=== PATIENT | female | born 1930 | race Caucasian/White ===

== ENCOUNTER 2019-02-02 03:01 | Inpatient (IN) | payer OTHER, BC ==
[2019-02-02 03:23] VITALS: BMI 27.8
--- NOTE | 2019-02-02 03:26 | PDOC ---
History of Present Illness - General Chief Complaint: Injury Stated Complaint: FALL Time Seen by Provider: 02/02/19 03:26 - History of Present Illness Initial Comments: 02/02/19 04:49 PT presents to the ED complaining of contusion to the forehead after mechanical slip and fall. Denies LOC. Was unable to get up, so she crawled to the door and summoned help. Patient is complaining only of pain in the area of the ecchymosis on her forehead. Denies chest or abdominal pain. Denies anticoagulant use. 02/02/19 05:01 Past History - Past Medical History Allergies/Adverse Reactions: Allergies Allergy/AdvReac Type Severity Reaction Status Date / Time No Known Allergies Allergy Verified 02/02/19 03:23 - Suicide/Smoking/Psychosocial Hx Smoking History: Never smoked Have you smoked in the past 12 months: No Information on smoking cessation initiated: No Hx Alcohol Use: No Drug/Substance Use Hx: No Review of Systems - Review of Systems Able to Perform ROS?: Yes Constitutional: No: Symptoms Reported, See HPI, Chills, Diaphoresis, Fever, Loss of Appetite, Malaise, Night Sweats, Weakness, Weight Stable, Unintentional Wgt. Loss, Unexplained wgt Loss, Other HEENTM: No: Symptoms Reported, See HPI, Eye Pain, Blurred Vision, Tearing, Recent change in vision, Double Vision, Cataracts, Ear Pain, Ocular Prothesis, Ear Discharge, Nose Pain, Nose Congestion, Tinnitus, Nose Bleeding, Hearing Loss , Throat Pain, Throat Swelling, Mouth Pain, Dental Problems, Difficulty Swallowing, Mouth Swelling, Other Respiratory: No: Symptoms reported, See HPI, Cough, Orthopnea, Shortness of Breath, SOB with Exertion, SOB at Rest, Stridor, Wheezing, Productive cough, Hemoptysis, Other Cardiac (ROS): No: Symptoms Reported, See HPI, Chest Pain, Edema, Irregular Heart Rate, Lightheadedness, Palpitations, Syncope, Chest Tightness, Other ABD/GI: No: Symptoms Reported, See HPI, Abdominal Distended, Abd. Pain w/ defecation, Blood Streaked Bowels, Constipated, Diarrhea, Difficulty Swallowing , Nausea, Poor Appetite, Poor Fluid Intake, Rectal Bleeding, Vomiting, Indigestion, Abdominal cramping, Tarry Stools, Other : No: Symptoms Reported, See HPI, Burning, Dysuria, Discharge, Frequency, Flank Pain, Hematuria, Incontinence, Pain, Urgency, Testicular Mass, Testicular Swelling, Lesions, Testicular Pain, Other Musculoskeletal: No: Symptoms Reported, See HPI, Back Pain, Gout, Joint Pain, Joint Swelling, Muscle Pain, Muscle Weakness, Neck Pain, Joint Stiffness, Other *Physical Exam - Vital Signs Last Vital Signs Temp Pulse Resp BP Pulse Ox 98.1 F 77 18 133/75 97 02/02/19 03:01 02/02/19 03:01 02/02/19 03:01 02/02/19 03:01 02/02/19 03:01 - Physical Exam General Appearance: Yes: Nourished, Appropriately Dressed HEENT: positive: EOMI, Other (+ large contusion on forehead) Respiratory/Chest: positive: Lungs Clear, Normal Breath Sounds Cardiovascular: positive: Regular Rhythm, Regular Rate, S1, S2 Gastrointestinal/Abdominal: positive: Flat, Soft. negative: Normal Bowel Sounds , Tender, Organomegaly, Pulsatile Mass, Increased Bowel Sounds, Decreased BS, Protuberent, Distended, Guarding, Rebound, Tenderness, Hernia, Mass, Hepatomegaly, Spleenomegaly, Other Musculoskeletal: positive: Other (+ Small ecchymosis R knee) Integumentary: positive: Normal Color, Dry, Warm Neurologic: positive: draw end hand II-XII NML intact, Fully Oriented, Alert, Normal Mood/ Affect, Motor Strength 5/5 Moderate Sedation - Procedure Monitoring Vital Signs: Procedure Monitoring Vital Signs Temperature 98.1 F 02/02/19 03:01 Pulse Rate 77 02/02/19 03:01 Respiratory Rate 18 02/02/19 03:01 Blood Pressure 133/75 02/02/19 03:01 O2 Sat by Pulse Oximetry (%) 97 02/02/19 03:01 ED Treatment Course - LABORATORY CBC & Chemistry Diagram: 02/02/19 04:29 02/02/19 04:29 Medical Decision Making - Medical Decision Making 02/02/19 05:05 PT presents to the ED complaining of painful ecchymosis to the forehead after mechanical fall from standing. Denies other injuries. + large ecchymosis to the forehead. Will check CT head and C spine to rule out intracranial bleed. Will consider discharge if labs and CT are negative. *DC/Admit/Observation/Transfer - Discharge Dispostion Condition at time of disposition: Fair - Referrals Referrals: Ivan Cuenca [Primary Care Provider] - - Patient Instructions - Post Discharge Activity
[2019-02-02 04:40] LABS: BASO % 1.1 % (0-2.0); HEMATOCRIT 40.2 % (32.4-45.2); HEMOGLOBIN 14.4 GM/dL (10.7-15.3); LYMPH % 8.7 % (8-40); MCH 35.1 pg (25.7-33.7); MCHC 35.8 g/dl (32.0-36.0); MEAN CELL VOLUME 97.9 fl (80-96); MEAN PLT VOLUME 6.9 fl (7.5-11.1); NEUT % 78.2 % (42.8-82.8); PLATELET COUNT 155 K/MM3 (134-434); RBC 4.11 M/mm3 (3.60-5.2); RDW 14.3 % (11.6-15.6); WHITE BLOOD COUNT 8.4 K/mm3 (4.0-10.0)
[2019-02-02 04:56] LABS: INR 1.13 (0.83-1.09); PROTHROMBIN TIME (PATIENT) 13.4 SEC (9.7-13.0)
[2019-02-02 04:59] LABS: ACTIVATED PTT 33.4 SECONDS (25.2-36.5)
[2019-02-02 05:16] LABS: ALBUMIN 3.5 g/dl (3.4-5.0); ALK PHOS 126 U/L (45-117); ANION GAP 9 MMOL/L (8-16); BILIRUBIN,TOTAL 1.4 mg/dL (0.2-1); BLOOD UREA NITROGEN 13 mg/dL (7-18); CALCIUM 8.5 mg/dL (8.5-10.1); CHLORIDE 91 mmol/L (98-107); CO2 28 mmol/L (21-32); CREATININE 0.8 mg/dL (0.55-1.3); GLUCOSE,RANDOM 98 mg/dL (74-106); POTASSIUM 3.1 mmol/L (3.5-5.1); SGOT/AST 212 U/L (15-37); SGPT/ALT 222 U/L (13-61); SODIUM 128 mmol/L (136-145); TOT PROT 7.1 g/dl (6.4-8.2)
--- NOTE | 2019-02-02 08:02 | PDOC ---
*Physical Exam - Vital Signs Last Vital Signs Temp Pulse Resp BP Pulse Ox 98.1 F 77 18 133/75 97 02/02/19 03:01 02/02/19 03:01 02/02/19 03:01 02/02/19 03:01 02/02/19 03:01 Heart Score/ECG Review - History History: Moderately suspicious - Electrocardiogram EKG: Non specific repolarization disturbance - Age Age: >/= 65 - Risk Factors Based on the list above the patient has:: No risk factors known - Troponin Troponin: 1-3x normal limit - Score Heart Score - Total: 5 ED Treatment Course - LABORATORY CBC & Chemistry Diagram: 02/02/19 04:29 02/02/19 04:29 - ADDITIONAL ORDERS Additional order review: Laboratory Results 02/02/19 02/02/19 04:29 04:29 PT with INR 13.40 H INR 1.13 H PTT (Actin FS) 33.4 Sodium 128 L Potassium 3.1 L Chloride 91 L Carbon Dioxide 28 Anion Gap 9 BUN 13 Creatinine 0.8 Creat Clearance w eGFR > 60 Random Glucose 98 Calcium 8.5 Total Bilirubin 1.4 H AST 212 H ALT 222 H Alkaline Phosphatase 126 H Creatine Kinase 119 Troponin I 0.09 H Total Protein 7.1 Albumin 3.5 02/02/19 04:29 RBC 4.11 MCV 97.9 H MCHC 35.8 RDW 14.3 MPV 6.9 L Neutrophils % 78.2 Lymphocytes % 8.7 Monocytes % 10.0 Eosinophils % 2.0 Basophils % 1.1 Medical Decision Making - Medical Decision Making 02/02/19 08:[address] Echevarria. Patient is an 88 yo female w/ pmh of osteoarthritis and hypothyroidism who presents s/p fall last night. Patient denies LOC, did hit forehead. Patient not currently on AC. Head / C-spine CT's negative. Knee XR negative. Labs elevated as below. Patient noted to have HEART score of 5. Will admit for cardiac monitoring. *DC/Admit/Observation/Transfer Diagnosis at time of Disposition: Elevated troponin, Weakness, Hypokalemia Fall Qualifiers: Encounter type: initial encounter Qualified Code(s): W19.XXXA - Unspecified fall, initial encounter - Discharge Dispostion Condition at time of disposition: Fair Decision to Admit order: Yes - Referrals Referrals: Ivan Cuenca [Primary Care Provider] - - Patient Instructions - Post Discharge Activity
[2019-02-02] MEDS ORDERED: KCL 10 MEQ IVPB 10 MEQ/100 ML INFUS.BAG IVPB ONE (08:37)
[2019-02-02] MEDS: KCL 10 MEQ IVPB 10 MEQ/100 ML INFUS.BAG IVPB SCH ×3 (08:43→13:43)
[2019-02-02] MEDS ORDERED: KCL 10 MEQ IVPB 20 MEQ/200 ML INFUS.BAG IVPB ONE (08:44)
[2019-02-02] MEDS ORDERED: ASPIRIN 81 MG CHEWABLE TABLETS PO ONE (10:00)
[2019-02-02] MEDS ORDERED: ASPIRIN 81 MG CHEWABLE TABLETS ONE (10:04)
--- NOTE | 2019-02-02 10:32 | EKG ---
Test Reason : Blood Pressure : / mmHG Vent. Rate : 077 BPM Atrial Rate : 077 BPM P-R Int : 202 ms QRS Dur : 092 ms QT Int : 420 ms P-R-T Axes : 025 -22 024 degrees QTc Int : 475 ms NORMAL SINUS RHYTHM MINIMAL VOLTAGE CRITERIA FOR LVH, MAY BE NORMAL VARIANT BORDERLINE ECG NO PREVIOUS ECGS AVAILABLE Confirmed by BERNABE CLEMENT MD ([id number]) on 02/02/2019 10:31:31 AM Referred By: Confirmed By:BERNABE CLEMENT MD
--- NOTE | 2019-02-02 12:15 | HP ---
CHIEF COMPLAINT: fell out of bed PCP: Dr Mead HISTORY OF PRESENT ILLNESS: Patient is an 88 year old female who lives at the [facility] assisted living facility. She is brought into the ED via EMS after she fell out of bed and landed on her face. She likely hit her face on furniture, as she has a large hematoma on her right scalp. Currently, does not have any mental status changes. She lives alone. She tells me that she was asleep, and when she tried to get out of bed, she fell down and landed on her face. She denies any dizziness or LOC loss. She screamed for help until someone heard her and EMS was activated. She estimates that she was on the floor for about 35 minutes. She also hurt her right knee and it is currently reddened, but negative for fracture. On exam, she is awake and alert and in no acute distress. She is alert and oriented x 3 and can recall some of the events of the fall. She denies any sick contacts or any acute illness. She denies any dizziness or chest pain. Denies shortness of breath. She denies any visual loss, no obvious trauma to her eyes. Her left eye is open , sclera clear. right eye swollen shut, but sclera is clear and she denies any visual defect. plan: repeat head CT in a.m. or sooner if she has mental status changes monitor kidney function early cellulitis of left leg? ID consult. mantilla culture. lactic acid ordered will doppler bilateral lower ext hold her ASA until 2nd CT scan of head confirms no head bleed ER course was notable for: (1) left leg sightly red, hot and painful to touch. some self inflicted scratches (2) no signs of sepsis, but will order ua, uc bc to rule out acute infection (3) no signs of ischemia on tele, has elevated troponin (4) bilateral perioorbital eccymosis right>left. large right scalp hematoma (5) troponin 0.09 (6) head ct negative, knee xray negative, ct spine negative (7) heart score 5, Recent Travel: none PAST MEDICAL HISTORY: osteoarthritis and hypothyroidism Social History: Smoking: denies Alcohol: denies Drugs: denies Family History: Allergies codeine Allergy (Unknown, Verified 02/02/19 08:25) HOME MEDICATIONS: Home Medications Medication Instructions Recorded Aspirin 81 mg PO DAILY 02/02/19 Calcium Carb, Citrate/Vit D3 1 each PO DAILY 02/02/19 [Calcium + D3 ER Tablet] Cyanocobalamin [Vitamin B12 -] 1,000 mg PO DAILY 02/02/19 Gabapentin [Neurontin] 100 mg PO HS 02/02/19 Lactobacillus Acidophilus 1 each PO DAILY 02/02/19 [Acidophilus] Levothyroxine [Synthroid -] 137 mcg PO DAILY 02/02/19 Lutein 20 mg PO DAILY 02/02/19 Naproxen Sodium [Aleve] 220 mg PO PRN 02/02/19 Propylene Glycol/Peg 400/Pf 1 each OP DAILY 02/02/19 [Systane 0.3-0.4% Eye Drops] PHYSICAL EXAMINATION Vital Signs - 24 hr 02/02/19 02/02/19 03:01 08:25 Temperature 98.1 F 97.6 F Pulse Rate 77 Pulse Rate [ 74 Left] Respiratory 18 17 Rate Blood Pressure 133/75 Blood Pressure 126/71 [Left Arm] O2 Sat by Pulse 97 95 Oximetry (%) GENERAL: Awake, alert, and fully oriented HEAD/EYES: bilateral periorbital ecchymosis, right large scalp hematoma. She denies any visual loss, no obvious trauma to her eyes. Her left eye is open, sclera clear. right eye swollen shut, but sclera is clear and she denies any visual defect. Pupils equal, round and reactive to light. EARS, NOSE, THROAT: nose bruising NECK: Normal range of motion, supple without lymphadenopathy, JVD, or masses. LUNGS: Breath sounds equal, clear to auscultation bilaterally. No wheezes HEART: Regular rate and rhythm ABDOMEN: Soft, nontender, not distended, normoactive bowel sounds, no guarding, no rebound, no masses. No hepatomegaly or splenomegaly. MUSCULOSKELETAL: Normal range of motion at all joints. No bony deformities or tenderness. No CVA tenderness. UPPER EXTREMITIES: 2+ pulses, warm, well-perfused. No cyanosis. No clubbing. No peripheral edema. LOWER EXTREMITIES: Left leg reddened, painful to touch with small area of skin tear on left anterior leg by ankle. hot to touch. will doppler. Possible early cellulitis. Right knee reddened, no open wounds. no fracture. NEUROLOGICAL: Normal speech. Normal gait. PSYCHIATRIC: Cooperative. Appropriate mood and affect. Laboratory Results - last 24 hr 02/02/19 02/02/19 02/02/19 04:29 04:29 04:29 WBC 8.4 RBC 4.11 Hgb 14.4 Hct 40.2 MCV 97.9 H MCH 35.1 H MCHC 35.8 RDW 14.3 Plt Count 155 MPV 6.9 L Absolute Neuts (auto) 6.5 Neutrophils % 78.2 Lymphocytes % 8.7 Monocytes % 10.0 Eosinophils % 2.0 Basophils % 1.1 Nucleated RBC % 0 PT with INR 13.40 H INR 1.13 H PTT (Actin FS) 33.4 Sodium 128 L Potassium 3.1 L Chloride 91 L Carbon Dioxide 28 Anion Gap 9 BUN 13 Creatinine 0.8 Creat Clearance w eGFR > 60 Random Glucose 98 Calcium 8.5 Total Bilirubin 1.4 H AST 212 H ALT 222 H Alkaline Phosphatase 126 H Creatine Kinase 119 Troponin I 0.09 H Total Protein 7.1 Albumin 3.5 ASSESSMENT/PLAN: Patient is an 88 year old female who lives at the [facility] assisted living facility. She is brought into the ED via EMS after she fell out of bed and landed on her face. She likely hit her face on furniture, as she has a large hematoma on her right scalp. Currently, does not have any mental status changes. She lives alone. She tells me that she was asleep, and when she tried to get out of bed, she fell down and landed on her face. She denies any dizziness or LOC loss. She screamed for help until someone heard her and EMS was activated. She estimates that she was on the floor for about 35 minutes. She also hurt her right knee and it is currently reddened, but negative for fracture. -------- problem list osteoarthritis Facial hematoma Facial trauma Fall with injury Heart score 5 Elevated ast/alt electrolyte imbalance ------ Neuro: Fall with injury large right scalp hematoma Periorbital edema/ecchymosis plan: - fall precautions - apply ice - bed rest - physical therapy in a.m. - repeat head ct in a.m. - monitor mental status - monitor hmg/hct - mantilla culture to rule out infection as cause of fall, lactic acid, ua, uc, bc - hold ASA until 2nd head CT confirms no bleeding - orthostatics - neuro consult if mentation changes. monitor mental status q2 - scheduled tylenol for pain Renal Electrolyte imbalance hyponatremia, treat with ns and repeat levels this afternoon hypokalemia, repleted in ED. repeat levels Card: Rule out ACS Heart score 5 Monitor on tele Trop 0.09, trend Echo cardiology consult ID Left leg redness/pain Rule out early cellulitis check ua, uc and blood cultures ID consulted doppler legs to rule out dvt GI: Elevated ast/alt in the setting of acute trauma Liver ultrasound now fen hydrate with NS @ 75cc/hr monitor electrolytes low salt diet full code Visit type - Emergency Visit Emergency Visit: Yes ED Registration Date: 02/02/19 Care time: The patient presented to the Emergency Department on the above date and was hospitalized for further evaluation of their emergent condition. - New Patient This patient is new to me today: Yes Date on this admission: 02/02/19 - Critical Care Critical Care patient: No
[2019-02-02] MEDS ORDERED: LEVOTHYROXINE NA 125 MCG TABLET (FP) PO SCH (12:30)
[2019-02-02 12:59] LABS: MAGNESIUM 2.2 mg/dL (1.8-2.4)
[2019-02-02] MEDS ORDERED: KETOROLAC TROMETHAMINE 10 MG TABLET PO PRN (13:10)
[2019-02-02] MEDS: LEVOTHYROXINE 112 MCG, LEVOTHYROXINE 25 MCG PO SCH (13:43)
[2019-02-02] MEDS ORDERED: ONDANSETRON 4 MG/2 ML VIAL IVPUSH ONE (13:52)
--- NOTE | 2019-02-02 14:01 | PN ---
Progress Note (short form) - Note Progress Note: ID consult dictated imp/reccd s/p fall from bed no fevers she is alert but quite sore and uncomfortable-does not want to talk denies feeling unwell prior to the fall no fevers no dysuria no cough doubt cellulitis would agree with cultures would observe off antiibotics abnormal LFTS- agree with sonogram of liver hyponatremia/hypokalemia - being repleted
[2019-02-02] MEDS: SODIUM CHLORIDE 1,000 ML IV SCH (14:25)
[2019-02-02] MEDS ORDERED: ONDANSETRON 4 MG/2 ML VIAL ONE (14:26)
[2019-02-02] MEDS: TETRAHYDROZOLINE HCL EYE DROPS OD SCH ×3 (14:31→23:35)
[2019-02-02 16:08] LABS: ALBUMIN 3.1 g/dl (3.4-5.0); ALK PHOS 100 U/L (45-117); ANION GAP 8 MMOL/L (8-16); BILIRUBIN,TOTAL 1.7 mg/dL (0.2-1); BLOOD UREA NITROGEN 12 mg/dL (7-18); CALCIUM 8.4 mg/dL (8.5-10.1); CHLORIDE 92 mmol/L (98-107); CO2 28 mmol/L (21-32); CREATININE 0.7 mg/dL (0.55-1.3); GLUCOSE,RANDOM 115 mg/dL (74-106); POTASSIUM 3.4 mmol/L (3.5-5.1); SGOT/AST 190 U/L (15-37); SGPT/ALT 201 U/L (13-61); SODIUM 128 mmol/L (136-145); TOT PROT 6.4 g/dl (6.4-8.2)
[2019-02-02] MEDS ORDERED: POTASSIUM CHLORIDE TABS 20 MEQ TABLET.ER (FP) PO ONE ×2 (16:11→16:45)
--- NOTE | 2019-02-02 17:00 | CONS ---
DATE OF CONSULTATION: DATE OF DICTATION: 02/02/2019 INFECTIOUS DISEASE CONSULTATION REQUESTING PHYSICIAN: Hospitalist Service CONSULTING PHYSICIAN: Sara Rey M.D. HISTORY OF PRESENT ILLNESS: this is an 88-year-old woman, she lives at the [facility] in [place]. She fell out of bed this morning and landed on her face. She was not able to get up, and she thinks about she was on the floor for about 30 to 40 minutes. Much of this history is from the chart. The presentation is currently awake and alert. She is very frustrated and tired of talking and is very sore and uncomfortable and is not really willing to answer any questions in depth. She does state that she felt fine yesterday . She had no fevers or chills. She had shortness of breath, abdominal pain, chest pain prior to this event. She was noted in the ER to have a hematoma on her scalp and ecchymosis of her eyes. She underwent a CAT scan of her head as well as a cervical spine CT, none of which showed any acute pathology. She had an x-ray of her knee as well. The knee showed evidence of bruising from her fall, was ecchymotic. There was no fracture. She is currently resting comfortably, but is quite uncomfortable. PAST MEDICAL HISTORY: Notable for osteoarthritis and hypothyroidism. She has had bilateral knee surgery. I do not know other surgeries she has had. She lives alone. She is allergic to CODEINE. Her medicines at home include Systane eyedrops, calcium with vitamin D, naproxen, gabapentin, aspirin, levothyroxine, and vitamin B12. SOCIAL HISTORY: She resides in assisted living. There is no history of any cigarette or substance use. REVIEW OF SYSTEMS: Limited by the patient's cooperation. PHYSICAL EXAMINATION: GENERAL: She is awake and alert. She is afebrile with vital signs that are stable. VITAL SIGNS: Temperature 97.6, pulse 74, blood pressure 126/71, respiratory rate 17. She is saturating 95% on room air. HEENT: She is normocephalic. She has ecchymoses around both her eyes. Her right eye is slightly swollen shut. Her left eye she is able to easily open. LUNGS: Clear to auscultation. HEART: Regular rate and rhythm. ABDOMEN: Soft, nontender. EXTREMITIES: Her right knee is ecchymotic. 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 There is no erythema or warmth of her legs. LABORATORY: White count is 8.4, hemoglobin 14.4, platelets of 155, INR 1.13. Sodium 128, potassium 3.1, glucose 98. Her total bilirubin is 1.4 with an AST of 121, an ALT of 222, alkaline phosphatase is 126. Troponin is 0.12 and CK is normal. Head CT x-ray and cervical spine CT as previously stated. IMPRESSION: 1. In summary, this is an elderly woman status post fall from bed. She has no fevers, no dysuria, no cough. I doubt she has cellulitis. Would agree with cultures as ordered as well as urinalysis. Would observe off antibiotics. 2. Abnormal liver function tests, would agree sonogram of the liver. 3. Hyponatremia, hypokalemia, electrolytes are being corrected. Further recommendations to follow. Jennifer [id number]
--- NOTE | 2019-02-02 18:11 | CON.CARD ---
Consult Consult Specialty:: Cardiology Referred by:: Hospitalist Reason for Consultation:: Cardiac evaluation - History of Present Illness Chief Complaint: Possible syncope vs. mechanical fall History of Present Illness: Patient is an 88 year old female with underlying history of osteoarthritis and hypothyroidism who resides at [facility] living [facility]. She was in her USOH until today when she fell out of bed and landed on her face resulting in large hematoma on her right scalp and facial bruise especially in the orbital area. She denies any dizziness or LOC. She denies chest pain, SOB or palpitations. She denies paroxysmal nocturnal dyspnea or orthopnea. She denies fever or chills. She denies nausea, vomiting, diarrhea or abdominal pain. She complains of neck discomfort with the position but C-spine CT was negative and other Xrays were negative of fractures. - History Source History Provided By: Patient, Medical Record Limitations to Obtaining History: No Limitations - Past Medical History Musculoskeletal: Yes: Osteoarthritis Endocrine: Yes: Hypothyroidism - Alcohol/Substance Use Hx Alcohol Use: No History of Substance Use: reports: Tranquilizers - Smoking History Smoking history: Never smoked Have you smoked in the past 12 months: No Home Medications - Allergies Allergies/Adverse Reactions: Allergies Allergy/AdvReac Type Severity Reaction Status Date / Time codeine Allergy Unknown Verified 02/02/19 08:25 - Home Medications Home Medications: Ambulatory Orders Aspirin 81 mg PO DAILY 02/02/19 Calcium Carb, Citrate/Vit D3 [Calcium + D3 ER Tablet] 1 each PO DAILY 02/02/19 Cyanocobalamin [Vitamin B12 -] 1,000 mg PO DAILY 02/02/19 Gabapentin [Neurontin] 100 mg PO HS 02/02/19 Lactobacillus Acidophilus [Acidophilus] 1 each PO DAILY 02/02/19 Levothyroxine [Synthroid -] 137 mcg PO DAILY 02/02/19 Lutein 20 mg PO DAILY 02/02/19 Naproxen Sodium [Aleve] 220 mg PO PRN 02/02/19 Propylene Glycol/Peg 400/Pf [Systane 0.3-0.4% Eye Drops] 1 each OP DAILY Review of Systems - Review of Systems Constitutional: denies: Chills, Fever Neck: reports: Pain on Movement Respiratory: denies: Cough, Orthopnea, PND, SOB, SOB on Exertion Gastrointestinal: denies: Abdominal Pain, Constipation, Diarrhea, Melena, Nausea , Rectal Bleeding, Vomiting Genitourinary: denies: Dysuria, Hematuria Musculoskeletal: reports: Joint Pain Neurological: denies: Dizziness, Headache, Seizure, Syncope Vital Signs: Vital Signs Temperature 97.6 F 02/02/19 08:25 Pulse Rate 74 02/02/19 08:25 Respiratory Rate 17 02/02/19 08:25 Blood Pressure 126/71 02/02/19 08:25 O2 Sat by Pulse Oximetry (%) 95 02/02/19 08:25 HENT: Yes: Other (Orbital ecchymosis) Respiratory: Yes: CTA Bilaterally Gastrointestinal: Yes: Normal Bowel Sounds, Soft. No: Tenderness Cardiovascular: Yes: Regular Rate and Rhythm JVD: No PMI: Non-Displaced Heart Sounds: Yes: S1, S2 Murmur: No: Systolic Murmur Extremities: Yes: Other (Redness of right knee cap) Edema: Yes Edema: LLE: Trace, RLE: Trace - Other Data Labs, Other Data: CBC, BMP 02/02/19 04:29 02/02/19 14:30 INR, PTT INR 1.13 (0.83-1.09) H 02/02/19 04:29 Troponin, BNP 02/02/19 02/02/19 04:29 12:15 Troponin I 0.09 H 0.12 H NSR with minimal LVH Problem List - Problems (1) Demand ischemia Code(s): I24.8 - OTHER FORMS OF ACUTE ISCHEMIC HEART DISEASE (2) Osteoarthritis Code(s): M19.90 - UNSPECIFIED OSTEOARTHRITIS, UNSPECIFIED SITE (3) Hypothyroidism Code(s): E03.9 - HYPOTHYROIDISM, UNSPECIFIED (4) Elevated troponin Code(s): R74.8 - ABNORMAL LEVELS OF OTHER SERUM ENZYMES (5) Fall Code(s): W19.XXXA - UNSPECIFIED FALL, INITIAL ENCOUNTER Qualifiers: Encounter type: initial encounter Qualified Code(s): W19.XXXA - Unspecified fall, initial encounter Assessment/Plan 1. Mechanical fall resulting in right scalp hematoma and orbital ecchymosis, no fractures 2. Cannot rule out possible syncope 3. Osteoarthritis 4. Hypothyroidism 5. Elevated troponin likely demand ischemia PLAN: 1. Monitor on telemetry 2. Echocardiography to assess LV/RV and valvular function 3. Trend troponin and document peak 4. Consider repeat imaging of the head to rule out internal injury 5. Follow neuro status Further plans are to follow Taran Uribe MD
[2019-02-02] MEDS: GABAPENTIN 100 MG CAPSULE (FP) PO SCH (21:52)
[2019-02-02 22:19] LABS: ALBUMIN 3.3 g/dl (3.4-5.0); ALK PHOS 101 U/L (45-117); ANION GAP 9 MMOL/L (8-16); BILIRUBIN,TOTAL 2.1 mg/dL (0.2-1); BLOOD UREA NITROGEN 11 mg/dL (7-18); CALCIUM 8.7 mg/dL (8.5-10.1); CHLORIDE 94 mmol/L (98-107); CO2 27 mmol/L (21-32); CREATININE 0.7 mg/dL (0.55-1.3); GLUCOSE,RANDOM 94 mg/dL (74-106); SGOT/AST 189 U/L (15-37); SGPT/ALT 206 U/L (13-61); SODIUM 130 mmol/L (136-145); TOT PROT 6.8 g/dl (6.4-8.2)
[2019-02-03] MEDS ORDERED: LEVOTHYROXINE NA 25 MCG TABLET (FP) ONE (05:51)
[2019-02-03] MEDS ORDERED: LEVOTHYROXINE NA 112 MCG TABLET (FP) ONE (05:52)
[2019-02-03] MEDS: LEVOTHYROXINE 112 MCG, LEVOTHYROXINE 25 MCG PO SCH (06:28)
[2019-02-03 07:53] LABS: BASO % 0.7 % (0-2.0); EOS % 1.8 % (0-4.5); HEMATOCRIT 37.2 % (32.4-45.2); HEMOGLOBIN 13.1 GM/dL (10.7-15.3); LYMPH % 13.8 % (8-40); MCH 34.5 pg (25.7-33.7); MCHC 35.3 g/dl (32.0-36.0); MEAN CELL VOLUME 97.7 fl (80-96); MEAN PLT VOLUME 7.2 fl (7.5-11.1); MONO % 14.1 % (3.8-10.2); NEUT % 69.6 % (42.8-82.8); PLATELET COUNT 162 K/MM3 (134-434); RBC 3.81 M/mm3 (3.60-5.2); RDW 14.1 % (11.6-15.6); WHITE BLOOD COUNT 7.1 K/mm3 (4.0-10.0)
[2019-02-03 08:31] LABS: ANION GAP 9 MMOL/L (8-16); BLOOD UREA NITROGEN 11 mg/dL (7-18); CALCIUM 7.7 mg/dL (8.5-10.1); CHLORIDE 97 mmol/L (98-107); CHOLESTEROL 123 mg/dL (50-200); CO2 26 mmol/L (21-32); CREATININE 0.6 mg/dL (0.55-1.3); GLUCOSE,RANDOM 90 mg/dL (74-106); HDL CHOLESTEROL 61 mg/dL (40-60); MAGNESIUM 1.8 mg/dL (1.8-2.4); PHOSPHOROUS 2.4 mg/dL (2.5-4.9); POTASSIUM 3.6 mmol/L (3.5-5.1); SODIUM 132 mmol/L (136-145); TRIGLYCERIDES 42 mg/dL (0-150)
[2019-02-03] MEDS ORDERED: PT OWN MED DRAWER 7, Y5N ONE (09:43)
[2019-02-03] MEDS: ARTIFICIAL TEARS (POLYVINYL ALCOHOL) OPTH DROPS OU SCH (09:44)
[2019-02-03] MEDS: TETRAHYDROZOLINE HCL EYE DROPS OD SCH ×4 (09:45→21:15)
[2019-02-03] MEDS ORDERED: MAGNESIUM SULF 50% (8.12 MEQ/2 ML-1 GM VIAL) IVPB ONE (09:56)
[2019-02-03] MEDS ORDERED: POTASSIUM CHLORIDE ORAL LIQUID 20 MEQ/15 ML PO ONE (09:56)
[2019-02-03] MEDS ORDERED: CYANOCOBALAMIN 1,000 MCG TABLET (FP) PO SCH (10:00)
[2019-02-03] MEDS ORDERED: ASPIRIN 81 MG CHEWABLE TABLETS PO SCH (10:00)
[2019-02-03] MEDS ORDERED: CALCIUM GLUCONATE 10% - 1,000 MG/10 ML VIAL IVPB ONE (11:00)
--- NOTE | 2019-02-03 11:08 | PN ---
Progress Note, Physician Chief Complaint: Feels better History of Present Illness: Patient was seen and examined. Awake and alert. Chart was reviewed Denies chest pain, SOB or palpitations - Current Medication List Current Medications: Active Medications Artificial Tears (Artificial Tears) 1 drop OU DAILY [facility] Last Admin: 02/03/19 09:44 Dose: 1 drop Gabapentin (Neurontin -) 100 mg PO HS [facility] Last Admin: 02/02/19 21:52 Dose: 100 mg Sodium Chloride (Normal Saline -) 1,000 mls @ 75 mls/hr IV ASDIR [facility] Last Admin: 02/02/19 14:25 Dose: 75 mls/hr Ketorolac Tromethamine (Toradol) 10 mg PO Q6HPO PRN PRN Reason: PAIN LEVEL 4 - 6 Stop: 02/07/19 17:59 Levothyroxine Sodium (Synthroid -) 112 mcg PO DAILY@0700 [facility] Tetrahydrozoline HCl (Visine -) 1 drop OD QID [facility] Last Admin: 02/03/19 09:45 Dose: 1 drop - Objective Vital Signs: Vital Signs Temperature 98.1 F 02/03/19 09:00 Pulse Rate 77 02/03/19 09:00 Respiratory Rate 20 02/03/19 09:00 Blood Pressure 145/77 02/03/19 09:00 O2 Sat by Pulse Oximetry (%) 97 02/03/19 09:00 Eyes: Yes: PERRL HENT: Yes: Atraumatic Neck: Yes: Supple Cardiovascular: Yes: Regular Rate and Rhythm, S1, S2 Respiratory: Yes: CTA Bilaterally Gastrointestinal: Yes: Normal Bowel Sounds, Soft. No: Tenderness Edema: No Additional Findings/Remarks: - Review of Systems Constitutional: denies: Chills, Fever Neck: reports: Pain on Movement Respiratory: denies: Cough, Orthopnea, PND, SOB, SOB on Exertion Gastrointestinal: denies: Abdominal Pain, Constipation, Diarrhea, Melena, Nausea , Rectal Bleeding, Vomiting Genitourinary: denies: Dysuria, Hematuria Musculoskeletal: reports: Joint Pain Neurological: denies: Dizziness, Headache, Seizure, Syncope Labs: CBC, BMP 02/03/19 06:48 02/03/19 06:48 INR, PTT INR 1.13 (0.83-1.09) H 02/02/19 04:29 Problem List - Problems (1) Demand ischemia Code(s): I24.8 - OTHER FORMS OF ACUTE ISCHEMIC HEART DISEASE (2) Osteoarthritis Code(s): M19.90 - UNSPECIFIED OSTEOARTHRITIS, UNSPECIFIED SITE (3) Hypothyroidism Code(s): E03.9 - HYPOTHYROIDISM, UNSPECIFIED Qualifiers: Hypothyroidism type: unspecified Qualified Code(s): E03.9 - Hypothyroidism , unspecified (4) Elevated troponin Code(s): R74.8 - ABNORMAL LEVELS OF OTHER SERUM ENZYMES (5) Fall Code(s): W19.XXXA - UNSPECIFIED FALL, INITIAL ENCOUNTER Qualifiers: Encounter type: initial encounter Qualified Code(s): W19.XXXA - Unspecified fall, initial encounter Assessment/Plan 1. Mechanical fall resulting in right scalp hematoma and orbital ecchymosis, no fractures 2. Cannot rule out possible syncope 3. Osteoarthritis 4. Hypothyroidism 5. Elevated troponin likely demand ischemia PLAN: 1. Monitor on telemetry 2. Echocardiography to assess LV/RV and valvular function 3. Trend troponin and document peak 4. Head CT noted 5. Follow neuro status Further plans are to follow Taran Uribe MD
[2019-02-03] MEDS: SODIUM CHLORIDE 1,000 ML IV SCH (12:35)
[2019-02-03 13:37] LABS: URINE APPEARANCE SLCLOUDY; URINE BILIRUBIN NEGATIVE (<2.0 mg/dL); URINE COLOR YELLOW; URINE GLUCOSE (UA) NEGATIVE (NEGATIVE); URINE KETONE NEGATIVE (NEGATIVE); URINE LEUK ESTERASE 3+ (NEGATIVE); URINE NITRITE NEGATIVE (NEGATIVE); URINE PROTEIN NEGATIVE (NEGATIVE); URINE UROBILINOGEN 4.0 E.U/dl mg/dL (0.2-1.0)
[2019-02-03 13:52] LABS: EPI CELLS RARE /HPF (FEW)
--- NOTE | 2019-02-03 17:05 | PN ---
Progress Note, Physician Chief Complaint: s/p fall with head trauma History of Present Illness: 24 HR events: -repeat head CT 02/03: no acute intracranial pathology -TSH 0.14 (L), T4F 2.27 (H), will decrease synthroid from 137 to 112mcg -PT evaluation for discharge recommendations. - Current Medication List Current Medications: Active Medications Artificial Tears (Artificial Tears) 1 drop OU DAILY [facility] Last Admin: 02/03/19 09:44 Dose: 1 drop Gabapentin (Neurontin -) 100 mg PO HS [facility] Last Admin: 02/02/19 21:52 Dose: 100 mg Sodium Chloride (Normal Saline -) 1,000 mls @ 75 mls/hr IV ASDIR [facility] Last Admin: 02/03/19 12:35 Dose: 75 mls/hr Ketorolac Tromethamine (Toradol) 10 mg PO Q6HPO PRN PRN Reason: PAIN LEVEL 4 - 6 Stop: 02/07/19 17:59 Levothyroxine Sodium (Synthroid -) 112 mcg PO DAILY@0700 [facility] Tetrahydrozoline HCl (Visine -) 1 drop OD QID [facility] Last Admin: 02/03/19 13:13 Dose: 1 drop - Objective Vital Signs: Vital Signs Temperature 98.5 F 02/03/19 14:00 Pulse Rate 78 02/03/19 14:00 Respiratory Rate 20 02/03/19 09:00 Blood Pressure 114/67 02/03/19 14:00 O2 Sat by Pulse Oximetry (%) 97 02/03/19 09:00 Constitutional: Yes: Well Nourished, No Distress, Calm Eyes: Yes: Other (saad-orbital ecchymosis, pupils reactive b/l, + swelling of eyelids) HENT: Yes: Other Neck: Yes: Supple Cardiovascular: Yes: Regular Rate and Rhythm Respiratory: Yes: CTA Bilaterally Gastrointestinal: Yes: Normal Bowel Sounds, Soft, Abdomen, Obese ...Rectal Exam: Yes: Deferred Musculoskeletal: Yes: Joint Stiffness Extremities: Yes: Cool Edema: Yes Edema: LLE: Trace, RLE: Trace Peripheral Pulses: Left Radial: 2+, Right Radial: 2+ Wound/Incision: Yes: Other (right temporal hematoma, tender to touch) Neurological: Yes: Alert, Oriented, Unsteady Gait, Weakness ...Motor Strength: WNL Psychiatric: Yes: Alert, Oriented Labs: CBC, BMP 02/03/19 06:48 02/03/19 06:48 INR, PTT INR 1.13 (0.83-1.09) H 02/02/19 04:29 - ....Imaging Chest X-ray: Report Reviewed (CXR 02/03/2019 A single AP view of the chest reveals degenerative fact, no sign of infiltrate or failure, linear scarring or atelectasis at the left heart border, prominent knob with tracheal deviation to the right, normal beata and enlarged heart. The angles are sharp and the soft tissues are intact. There are degenerative spine and shoulder changes. Correlation recommended. There are no prior studies for comparison Reported By: Joseph Moon MD 02/03/19 1434) X-ray: Report Reviewed Cat Scan: Report Reviewed (Head CT 02/03/2019 IMPRESSION: Moderate atrophy, ventricular dilatation and periventricular chronic microvascular ischemic disease changes. No gross acute intracranial pathology is identified. Slight decrease in the size of previously visualized large scalp hematoma over the right frontal bone, superiorly. Reported By: Srini May MD 02/03/19 2182) Ultrasound: Report Reviewed (Liver sono 02/03/2019 Impression: No obvious hepatic pathology is seen. Cholelithiasis is noted as discussed above. If there is clinical concern for possible acute cholecystitis additional evaluation utilizing CT, MRI/MRCP or a radionuclide HIDA scan may be performed. There is mild nonspecific gallbladder wall thickening. Correlate with two-week follow-up sonography. There is no obvious biliary tract dilatation.) Problem List - Problems (1) Prophylactic measure Assessment/Plan: restart ASA 81mg daily on 02/04 OOB to chair AMbulate SCDs bowel regimen with senna and colace Code(s): Z29.9 - ENCOUNTER FOR PROPHYLACTIC MEASURES, UNSPECIFIED (2) Fall Assessment/Plan: Discharge planning for SNF Ketorolac PRN pain from head trauma Code(s): W19.XXXA - UNSPECIFIED FALL, INITIAL ENCOUNTER Qualifiers: Encounter type: initial encounter Qualified Code(s): W19.XXXA - Unspecified fall, initial encounter (3) Hypothyroidism Assessment/Plan: TSH low, decrease synthroid to 112mcg recheck TSH/TFTs in 2 weeks Code(s): E03.9 - HYPOTHYROIDISM, UNSPECIFIED Qualifiers: Hypothyroidism type: unspecified Qualified Code(s): E03.9 - Hypothyroidism , unspecified (4) Osteoarthritis Assessment/Plan: tylenol PRN pain PT daily Code(s): M19.90 - UNSPECIFIED OSTEOARTHRITIS, UNSPECIFIED SITE Impression/Plan Impression/Plan: DISPO: full code Visit type - Emergency Visit Emergency Visit: Yes ED Registration Date: 02/03/19 Care time: The patient presented to the Emergency Department on the above date and was hospitalized for further evaluation of their emergent condition. - New Patient This patient is new to me today: Yes Date on this admission: 02/03/19 - Critical Care Critical Care patient: No - Discharge Referral Referred to [facility] No
--- NOTE | 2019-02-03 17:05 | ECHO ---
Name: CATRACHITA EDMONDS Exam:Adult Echocardiogram Study Date: 02/03/2019 10:28 AM Age: 88 yrs Reason For Study: fall Height: 64 in Weight: 162 lb BSA: 1.8 m2 MMode/2D Measurements & Calculations IVSd: 0.87 cm Ao root diam: 3.7 cm LVIDd: 4.4 cm LA dimension: 2.6 cm LVIDs: 2.9 cm ACS: 2.0 cm LVPWd: 1.0 cm IVSs: 1.1 cm LVPWs: 1.1 cm EDV(Teich): 89.1 ml ESV(Teich): 31.3 ml Doppler Measurements & Calculations MV E max ángel: 71.1 cm/sec Ao V2 max: 121.0 cm/sec MV A max ángel: 85.1 cm/sec Ao max P.9 mmHg MV E/A: 0.83 Ao V2 mean: 93.3 cm/sec Ao mean P.9 mmHg Ao V2 VTI: 27.9 cm TR max ángel: 253.0 cm/sec Med Peak E' Ángel: 7.2 cm/sec TR max P.6 mmHg Med E/e': 9.9 Lat Peak E' Ángel: 8.2 cm/sec Lat E/e': 8.7 Procedure The study was technically difficult with many images being suboptimal in quality. Left Ventricle The left ventricular size, thickness and function are normal. Ejection Fraction = 60-65%.. The transm itral spectral Doppler flow pattern is suggestive of impaired LV relaxation. Right Ventricle The right ventricle is normal in size and function. Atria Normal left and right atrial size and function. Mitral Valve There is moderate mitral annular calcification. Aortic Valve There is moderate aortic sclerosis.;. No hemodynamically significant valvular aortic stenosis. Pulmonic Valve The pulmonic valve is not well visualized. Great Vessels Borderline aortic root dilatation. Pericardium/Pleura There is no pericardial effusion. Interpretation Summary The study was technically difficult with many images being suboptimal in quality. The left ventricular size, thickness and function are normal. Ejection Fraction = 60-65%.. The right ventricle is normal in size and function. Normal left and right atrial size and function. There is moderate mitral annular calcification. There is moderate aortic sclerosis.; No hemodynamically significant valvular aortic stenosis. Borderline aortic root dilatation. MD Merna Solares 02/03/2019 05:04 PM
[2019-02-03] MEDS ORDERED: SENNOSIDES/DOCUSATE COMBO (SENNA PLUS) TABLET (UD) PO PRN (17:15)
[2019-02-03] MEDS ORDERED: DOCUSATE SODIUM 100 MG CAPSULE (FP) PO PRN (17:15)
[2019-02-03] MEDS: GABAPENTIN 100 MG CAPSULE (FP) PO SCH (21:12)
[2019-02-04] MEDS: LEVOTHYROXINE NA 112 MCG TABLET (FP) PO SCH (06:19)
[2019-02-04] MEDS: SODIUM CHLORIDE 1,000 ML IV SCH ×2 (06:23→12:46)
[2019-02-04 07:44] LABS: ANION GAP 7 MMOL/L (8-16); BLOOD UREA NITROGEN 8 mg/dL (7-18); CHLORIDE 97 mmol/L (98-107); CO2 26 mmol/L (21-32); CREATININE 0.5 mg/dL (0.55-1.3); GLUCOSE,RANDOM 91 mg/dL (74-106); POTASSIUM 3.7 mmol/L (3.5-5.1); SODIUM 130 mmol/L (136-145)
--- NOTE | 2019-02-04 10:35 | PN ---
Progress Note, Physician History of Present Illness: Denies chest pain, dyspnea, palpitations, near or true syncope, no events on telemetry. - Current Medication List Current Medications: Active Medications Artificial Tears (Artificial Tears) 1 drop OU DAILY [facility] Last Admin: 02/03/19 09:44 Dose: 1 drop Aspirin (Asa -) 81 mg PO DAILY [facility] [place] Docusate Sodium (Colace -) 100 mg PO Q8H PRN PRN Reason: CONSTIPATION Last Admin: 02/03/19 21:14 Dose: 100 mg Gabapentin (Neurontin -) 100 mg PO HS [facility] [place] Last Admin: 02/03/19 21:12 Dose: 100 mg Sodium Chloride (Normal Saline -) 1,000 mls @ 75 mls/hr IV ASDIR [facility] [place] Last Admin: 02/04/19 06:23 Dose: 75 mls/hr Ketorolac Tromethamine (Toradol) 10 mg PO Q6HPO PRN PRN Reason: PAIN LEVEL 4 - 6 Stop: 02/07/19 17:59 Levothyroxine Sodium (Synthroid -) 112 mcg PO DAILY@0700 [facility] [place] Last Admin: 02/04/19 06:19 Dose: 112 mcg Senna/Docusate Sodium (Pericolace -) 2 tablet PO HS PRN PRN Reason: CONSTIPATION Last Admin: 02/03/19 21:13 Dose: 2 tablet Tetrahydrozoline HCl (Visine -) 1 drop OD QID [facility] [place] Last Admin: 02/03/19 21:15 Dose: 1 drop - Objective Vital Signs: Vital Signs Temperature 98.8 F 02/04/19 05:22 Pulse Rate 90 02/04/19 09:00 Respiratory Rate 18 02/04/19 09:00 Blood Pressure 158/86 02/04/19 09:00 O2 Sat by Pulse Oximetry (%) 97 02/03/19 21:00 Constitutional: Yes: No Distress, Calm HENT: Yes: Other (Periorbital ecchymoses) Cardiovascular: Yes: Regular Rate and Rhythm Respiratory: Yes: Regular, CTA Bilaterally Gastrointestinal: Yes: Normal Bowel Sounds, Soft Edema: No Labs: CBC, BMP 02/03/19 06:48 02/04/19 06:40 INR, PTT INR 1.13 (0.83-1.09) H 02/02/19 04:29 - ....Imaging Chest X-ray: Report Reviewed (NAD) Cat Scan: Report Reviewed (HCT: SVID, no ICH, resolving right frontal scalp hematoma) EKG: Report Reviewed (Tele: NSR) Problem List - Problems (1) Demand ischemia Code(s): I24.8 - OTHER FORMS OF ACUTE ISCHEMIC HEART DISEASE (2) Fall Code(s): W19.XXXA - UNSPECIFIED FALL, INITIAL ENCOUNTER Qualifiers: Encounter type: subsequent encounter Qualified Code(s): W19.XXXD - Unspecified fall, subsequent encounter (3) Hypothyroidism Code(s): E03.9 - HYPOTHYROIDISM, UNSPECIFIED Qualifiers: Hypothyroidism type: unspecified Qualified Code(s): E03.9 - Hypothyroidism , unspecified Assessment/Plan 02/03/2019 Echo: Normal biventricular size and fxn LVEF 60-65%, normal atrial sizes, no sig valve abnl 1. Mechanical fall resulting in right scalp hematoma and orbital ecchymosis, no fractures 2. Patient denies syncope 3. Osteoarthritis 4. Hypothyroidism with abnl TFTs 5. Elevated troponin likely demand ischemia PLAN: 1. Telemetry w/o events 2. Trops plateaued 3. Continue ASA 81 qd, add Toprol XL 25 qd, PT with gait training, d/c telemetry and d/c planning, Synthroid dosage change noted
[2019-02-04] MEDS ORDERED: PT OWN MED DRAWER 7, Y5N ONE ×2 (10:49→10:58)
--- NOTE | 2019-02-04 12:17 | PN ---
Physical Exam: SUBJECTIVE: Patient seen and examined. She has no complaints. OBJECTIVE: Vital Signs Period Temp Pulse Resp BP Sys/Blanco Pulse Ox Last 24 Hr 97.9 F-98.8 F 78-98 18-20 114-158/67-90 97 GENERAL: The patient is awake, alert, and fully oriented, in no acute distress. HEENT: Bilateral periorbital ecchymoses. Right upper eyelid swollen. Right frontal scalp hematoma. LUNGS: Breath sounds equal, clear to auscultation bilaterally, no wheezes, no crackles, no accessory muscle use. HEART: Regular rate and rhythm, S1, S2 without murmur, rub or gallop. ABDOMEN: Soft, nontender, nondistended, normoactive bowel sounds, no guarding, no rebound, no hepatosplenomegaly, no masses. EXTREMITIES: 2+ pulses, warm, well-perfused, trace edema. Laboratory Results - last 24 hr 02/03/19 02/04/19 13:00 06:40 Sodium 130 L Potassium 3.7 Chloride 97 L Carbon Dioxide 26 Anion Gap 7 L BUN 8 Creatinine 0.5 L Creat Clearance w eGFR > 60 Random Glucose 91 Calcium 8.0 L Troponin I 0.08 H Urine Color Yellow Urine Appearance Slcloudy Urine pH 7.0 Ur Specific [place] 1.012 Urine Protein Negative Urine Glucose (UA) Negative Urine Ketones Negative Urine Blood 1+ H Urine Nitrite Negative Urine Bilirubin Negative Urine Urobilinogen 4.0 e.u/dl H Ur Leukocyte Esterase 3+ H Urine WBC (Auto) 192 Urine RBC (Auto) 3 Ur Epithelial Cells Rare Active Medications Generic Name Dose Route Start Last Admin Trade Name Freq PRN Reason Stop Dose Admin Artificial Tears 1 drop 02/03/19 10:00 02/03/19 09:44 Artificial Tears OU 1 drop DAILY [facility] Administration Aspirin 81 mg 02/04/19 10:00 Asa - PO DAILY LIN Docusate Sodium 100 mg 02/03/19 17:15 02/03/19 21:14 Colace - PO 100 mg Q8H PRN Administration CONSTIPATION Gabapentin 100 mg 02/02/19 22:00 02/03/19 21:12 Neurontin - PO 100 mg HS LIN Administration Sodium Chloride 1,000 mls @ 75 mls/hr 02/02/19 12:30 02/04/19 06:23 Normal Saline - IV 75 mls/hr ASDIR LIN Administration Ketorolac Tromethamine 10 mg 02/02/19 13:10 Toradol PO 02/07/19 17:59 Q6HPO PRN PAIN LEVEL 4 - 6 Levothyroxine Sodium 112 mcg 02/04/19 07:00 02/04/19 06:19 Synthroid - PO 112 mcg DAILY@0700 [facility] Administration Metoprolol Succinate 25 mg 02/04/19 11:45 Toprol Xl - PO DAILY LIN Senna/Docusate Sodium 2 tablet 02/03/19 17:15 02/03/19 21:13 Pericolace - PO 2 tablet HS PRN Administration CONSTIPATION Tetrahydrozoline HCl 1 drop 02/02/19 14:00 02/03/19 21:15 Visine - OD 1 drop QID [facility] Administration ASSESSMENT/PLAN: 1. s/p fall with head and facial trauma - No fractures noted - Continue PT - Plan for short-term rehab 2. Hypothyroidism - Synthroid adjusted 3. Osteoarthritis 4. Demand ischemia - Continue aspirin, Toprol XL Visit type - Emergency Visit Emergency Visit: Yes ED Registration Date: 02/03/19 Care time: The patient presented to the Emergency Department on the above date and was hospitalized for further evaluation of their emergent condition. - New Patient This patient is new to me today: Yes Date on this admission: 02/04/19 - Critical Care Critical Care patient: No - Discharge Referral Referred to [facility].: No
[2019-02-04] MEDS: ASPIRIN 81 MG CHEWABLE TABLETS PO SCH (12:39)
[2019-02-04] MEDS: TETRAHYDROZOLINE HCL EYE DROPS OD SCH ×4 (12:39→23:18)
[2019-02-04] MEDS: ARTIFICIAL TEARS (POLYVINYL ALCOHOL) OPTH DROPS OU SCH (12:39)
[2019-02-04] MEDS: metoPROLOL SUCCINATE 25 MG TAB.SR.24H (FP) PO SCH (12:45)
[2019-02-04] MEDS ORDERED: DEXTROSE 5%-WATER - 50 ML IVPB ONE (21:18)
[2019-02-04] MEDS ORDERED: cefTRIAXone SODIUM 1 GM VIAL ONE (21:18)
[2019-02-04] MEDS: CEFTRIAXONE 1 GM in DEXTROSE 5%-WATER - 50 ML IVPB SCH (21:21)
[2019-02-04] MEDS: GABAPENTIN 100 MG CAPSULE (FP) PO SCH (21:21)
[2019-02-05] MEDS: LEVOTHYROXINE NA 112 MCG TABLET (FP) PO SCH (06:22)
[2019-02-05 08:16] LABS: ANION GAP 8 MMOL/L (8-16); BLOOD UREA NITROGEN 9 mg/dL (7-18); CALCIUM 7.8 mg/dL (8.5-10.1); CHLORIDE 93 mmol/L (98-107); CO2 25 mmol/L (21-32); CREATININE 0.4 mg/dL (0.55-1.3); GLUCOSE,RANDOM 85 mg/dL (74-106); POTASSIUM 3.1 mmol/L (3.5-5.1); SODIUM 125 mmol/L (136-145)
[2019-02-05] MEDS ORDERED: POTASSIUM CHLORIDE ORAL LIQUID 20 MEQ/15 ML PO ONE (09:04)
[2019-02-05] MEDS ORDERED: CALCIUM GLUCONATE 10% - 1,000 MG/10 ML VIAL IVPB ONE (09:04)
--- NOTE | 2019-02-05 09:51 | PN ---
Progress Note, Physician History of Present Illness: Denies chest pain, dyspnea, palpitations, near or true syncope. - Current Medication List Current Medications: Active Medications Artificial Tears (Artificial Tears) 1 drop OU DAILY [facility] Last Admin: 02/04/19 12:39 Dose: 1 drop Aspirin (Asa -) 81 mg PO DAILY [facility] Last Admin: 02/04/19 12:39 Dose: 81 mg Docusate Sodium (Colace -) 100 mg PO Q8H PRN PRN Reason: CONSTIPATION Last Admin: 02/03/19 21:14 Dose: 100 mg Gabapentin (Neurontin -) 100 mg PO HS [facility] Last Admin: 02/04/19 21:21 Dose: 100 mg Sodium Chloride (Normal Saline -) 1,000 mls @ 75 mls/hr IV ASDIR [facility] Last Admin: 02/04/19 12:46 Dose: Not Given Ceftriaxone Sodium 1 gm/ (Dextrose) 50 mls @ 100 mls/hr IVPB DAILY [facility]; Protocol Last Admin: 02/04/19 21:21 Dose: 100 mls/hr Ketorolac Tromethamine (Toradol) 10 mg PO Q6HPO PRN PRN Reason: PAIN LEVEL 4 - 6 Stop: 02/07/19 17:59 Levothyroxine Sodium (Synthroid -) 112 mcg PO DAILY@0700 [facility] Last Admin: 02/05/19 06:22 Dose: 112 mcg Metoprolol Succinate (Toprol Xl -) 25 mg PO DAILY [facility] Last Admin: 02/04/19 12:45 Dose: 25 mg Senna/Docusate Sodium (Pericolace -) 2 tablet PO HS PRN PRN Reason: CONSTIPATION Last Admin: 02/03/19 21:13 Dose: 2 tablet Tetrahydrozoline HCl (Visine -) 1 drop OD QID [facility] Last Admin: 02/04/19 23:18 Dose: 1 drop - Objective Vital Signs: Vital Signs Temperature 98.2 F 02/05/19 05:55 Pulse Rate 92 H 02/05/19 05:55 Respiratory Rate 20 02/05/19 05:55 Blood Pressure 154/81 02/05/19 05:55 O2 Sat by Pulse Oximetry (%) 97 02/04/19 19:44 Constitutional: Yes: No Distress, Calm Neck: Yes: Supple Cardiovascular: Yes: Regular Rate and Rhythm Respiratory: Yes: Regular, CTA Bilaterally Gastrointestinal: Yes: Normal Bowel Sounds, Soft Edema: No Labs: CBC, BMP 02/03/19 06:48 02/05/19 06:15 INR, PTT INR 1.13 (0.83-1.09) H 02/02/19 04:29 Problem List - Problems (1) Demand ischemia Code(s): I24.8 - OTHER FORMS OF ACUTE ISCHEMIC HEART DISEASE (2) Fall Code(s): W19.XXXA - UNSPECIFIED FALL, INITIAL ENCOUNTER Qualifiers: Encounter type: subsequent encounter Qualified Code(s): W19.XXXD - Unspecified fall, subsequent encounter (3) Hypothyroidism Code(s): E03.9 - HYPOTHYROIDISM, UNSPECIFIED Qualifiers: Hypothyroidism type: unspecified Qualified Code(s): E03.9 - Hypothyroidism , unspecified Assessment/Plan 02/03/2019 Echo: Normal biventricular size and fxn LVEF 60-65%, normal atrial sizes, no sig valve abnl 1. Mechanical fall resulting in right scalp hematoma and orbital ecchymosis, no fractures 2. Patient denies syncope 3. Osteoarthritis 4. Hypothyroidism with abnl TFTs 5. Elevated troponin likely demand ischemia 6. UTI PLAN: 1. Telemetry w/o events 2. Trops plateaued 3. Continue ASA 81 qd, Toprol XL 25 qd, PT with gait training, d/c telemetry and d/c planning, Synthroid dosage change noted 4. Empiric abx course
[2019-02-05] MEDS ORDERED: DEXTROSE 5%-WATER - 50 ML IVPB ONE (11:53)
[2019-02-05] MEDS ORDERED: cefTRIAXone SODIUM 1 GM VIAL ONE (11:53)
[2019-02-05] MEDS: CEFTRIAXONE 1 GM in DEXTROSE 5%-WATER - 50 ML IVPB SCH (12:04)
[2019-02-05] MEDS: metoPROLOL SUCCINATE 25 MG TAB.SR.24H (FP) PO SCH (12:06)
[2019-02-05] MEDS: TETRAHYDROZOLINE HCL EYE DROPS OD SCH ×4 (12:06→21:36)
[2019-02-05] MEDS: ARTIFICIAL TEARS (POLYVINYL ALCOHOL) OPTH DROPS OU SCH (12:07)
[2019-02-05] MEDS: ASPIRIN 81 MG CHEWABLE TABLETS PO SCH (12:08)
[2019-02-05] MEDS: SODIUM CHLORIDE 1,000 ML IV SCH (13:58)
[2019-02-05] MEDS ORDERED: POTASSIUM CHLORIDE TABS 10 MEQ TABLET.ER (FP) PO ONE (14:44)
--- NOTE | 2019-02-05 18:01 | DS ---
Physical Examination Vital Signs: Vital Signs Temperature 98.2 F 02/05/19 17:23 Pulse Rate 83 02/05/19 17:23 Respiratory Rate 20 02/05/19 17:23 Blood Pressure 141/71 02/05/19 17:23 O2 Sat by Pulse Oximetry (%) 97 02/04/19 19:44 Constitutional: Yes: No Distress, Calm Eyes: Yes: Conjunctiva Clear, PERRL, Other (periorbital ecchymosis bilateral) HENT: Yes: Atraumatic, Normocephalic, Other (ecchymosis to right occiput) Neck: Yes: Supple Cardiovascular: Yes: Regular Rate and Rhythm Respiratory: Yes: Regular, CTA Bilaterally Gastrointestinal: Yes: Normal Bowel Sounds, Soft, Abdomen, Obese ...Rectal Exam: Yes: Deferred Musculoskeletal: Yes: WNL Extremities: Yes: WNL Edema: Yes Peripheral Pulses WNL: Yes Peripheral Pulses: Left Radial: 2+, Right Radial: 2+ Integumentary: Yes: WNL Neurological: Yes: Alert, Oriented, Unsteady Gait, Weakness ...Motor Strength: WNL Psychiatric: Yes: Alert, Oriented Labs: CBC, BMP 02/03/19 06:48 02/05/19 06:15 Discharge Summary Reason For Visit: ELEVATED TROPONIN LEVEL,WEAKNESS,HYPOKALEMIA,FALL Current Active Problems Demand ischemia (Acute) Elevated troponin (Acute) Fall (Acute) Hypokalemia (Acute) Hypothyroidism (Acute) Osteoarthritis (Acute) Prophylactic measure (Acute) Weakness (Acute) Procedures: Principal: CT C-spine 02-02-2019. [id number] CT/CERVICAL SPINE CT W/ O CONTR. Reason for the study. Trauma. Findings. Head was tilted during the acquisition of images. Degenerative changes of the odontoid. Narrowing of the predental space. Thickened transverse ligament. Normal relationship of odontoid to anterior arch of C1. Degenerative changes of atlantoaxial and occipito atlantal joints. Multilevel facet joint arthropathy. C4-C5. Degenerative anterior subluxation of C4 on C5. C5-C6 C6-C7 loss of disc space height, vacuum phenomena. Mild degenerative anterior subluxation is observed at C6-C7, C7-T1. The intraspinal contents cannot be adequately evaluated due to the beam hardening artifacts. The airways are patent. No evidence of prevertebral soft tissue swelling. Punctate calcification is seen in the left parotid gland. The lung apices are clear. Impression. No acute bony abnormalities are seen. Multilevel facet joint arthropathy. Degenerative anterior subluxation at C4-C5 , C6-C7, C7-T1. Patent airways. No evidence of prevertebral soft tissue swelling. Reported By: Fredo Ibarra MD. 02/02/19 0742. CXR 02-03-2019. Chest: Pneumonia. A single AP view of the chest reveals degenerative fact, no sign of infiltrate or failure, linear scarring or atelectasis at the left heart border, prominent knob with tracheal deviation to the right, normal beata and enlarged heart. The angles are sharp and the soft tissues are intact. There are degenerative spine and shoulder changes. Correlation recommended. There are no prior studies for comparison Reported By: Joseph Moon MD 02/03/19 0750. Liver sono 02/02/2019. Impression: No obvious hepatic pathology is seen. Cholelithiasis is noted as discussed above. If there is clinical concern for possible acute. cholecystitis additional evaluation utilizing CT, MRI/MRCP or a radionuclide HIDA scan may be performed. There is mild nonspecific gallbladder wall thickening. Correlate with two-week follow-up sonography. There is no obvious biliary tract dilatation. Reported By: Pablo Parham MD. 02/02/19 194. Bilateral Lower extremity doppler 02-02-2019. The exam was performed utilizing compression, grayscale, color flow and doppler sonography. There is no sonographic evidence of deep vein thrombosis. If there is clinical concern for possible isolated calf DVT or if there is a clinical diagnosis of uncomplicated superficial thrombophlebitis, then correlation with close follow up sonography is suggested. CT facial Bones w/O contrast 02-02-2019. Impression : No fracture is identified. CT head 02-02-2019. Impression: No evidence of acute intracranial hemorrhage, edema, midline shift, mass effect, or skull fracture. No CT evidence of acute territorial ischemic changes. Right frontal scalp injury, hematoma. CT C-spine 02-02-2019. Impression. No acute bony abnormalities are seen. Multilevel facet joint arthropathy. Degenerative anterior subluxation at C4-C5, C6-C7, C7-T1. Patent airways. No evidence of prevertebral soft tissue swelling. Reported By: Fredo Ibarra MD. 02/02/19 0742 Hospital Course: 88 year old female who lives at the [facility] assisted living facility. She is brought into the ED via EMS after she fell out of bed and landed on her face. She likely hit her face on furniture, as she has a large hematoma on her right scalp. She screamed for help until someone heard her and EMS was activated. She estimates that she was on the floor for about 35 minutes. She also hurt her right knee and it is currently reddened, but negative for fracture. ER course was notable for: (1) left leg sightly red, hot and painful to touch. some self inflicted scratches (2) no signs of sepsis, but will order ua, uc bc to rule out acute infection (3) no signs of ischemia on tele, has elevated troponin (4) bilateral perioorbital eccymosis right>left. large right scalp hematoma (5) troponin 0.09 (6) head ct negative, knee xray negative, ct spine negative HOSPITAL COURSE: -repeat head CT 02/03: no acute intracranial pathology -TSH 0.14 (L), T4F 2.27 (H), will decrease synthroid from 137 to 112mcg -PT evaluation recommends SNF Condition: Fair - Instructions Diet, Activity, Other Instructions: 1. Wear sensible shoes Consider changing your footwear as part of your fall-prevention plan. High heels , floppy slippers and shoes with slick soles can make you slip, stumble and fall. So can walking in your stocking feet. Instead, wear properly fitting, sturdy shoes with nonskid soles. Sensible shoes may also reduce joint pain. 2. Remove home hazards Take a look around your home. Your living room, kitchen, bedroom, bathroom, hallways and stairways may be filled with hazards. To make your home safer: Remove boxes, newspapers, electrical cords and phone cords from walkways. Move coffee tables, magazine racks and plant stands from high-traffic areas. Secure loose rugs with double-faced tape, tacks or a slip-resistant backing or remove loose rugs from your home. Repair loose, wooden floorboards and carpeting right away. Store clothing, dishes, food and other necessities within easy reach. Immediately clean spilled liquids, grease or food. Use nonslip mats in your bathtub or shower. Use a bath seat, which allows you to sit while showering. 3. Light up your living space Keep your home brightly lit to avoid tripping on objects that are hard to see. Also: Place night lights in your bedroom, bathroom and hallways. Place a lamp within reach of your bed for hanjsa-bu-frk-night needs. Make clear paths to light switches that aren't near room entrances. Consider trading traditional switches for [id number]-dark or illuminated switches. Turn on the lights before going up or down stairs. Store flashlights in [id number] places in case of power outages 4. Use assistive devices Your doctor might recommend using a cane or walker to keep you steady. Other assistive devices can help, too. For example: Hand rails for both sides of stairways Nonslip treads for bare-wood steps A raised toilet seat or one with armrests Grab bars for the shower or tub A sturdy plastic seat for the shower or tub plus a hand-held shower nozzle for bathing while sitting down If necessary, ask your doctor for a referral to an occupational therapist. He or she can help you brainstorm other fall-prevention strategies. Referrals: Ivan Cuenca [Primary Care Provider] - Disposition: LONGTERM FACILITY - Home Medications Comprehensive Discharge Medication List: Ambulatory Orders Aspirin 81 mg PO DAILY 02/02/19 Calcium Carb, Citrate/Vit D3 [Calcium + D3 ER Tablet] 1 each PO DAILY 02/02/19 Cyanocobalamin [Vitamin B12 -] 1,000 mg PO DAILY 02/02/19 Gabapentin [Neurontin] 100 mg PO HS 02/02/19 Lactobacillus Acidophilus [Acidophilus] 1 each PO DAILY 02/02/19 Levothyroxine [Synthroid -] 112 mcg PO DAILY 02/02/19 Lutein 20 mg PO DAILY 02/02/19 Naproxen Sodium [Aleve] 220 mg PO PRN 02/02/19 Propylene Glycol/Peg 400/Pf [Systane 0.3-0.4% Eye Drops] 1 each OP DAILY This patient is new to me today: No Emergency Visit: Yes ED Registration Date: 02/03/19 Care time: The patient presented to the Emergency Department on the above date and was hospitalized for further evaluation of their emergent condition. Critical Care patient: No - Discharge Referral Referred to [facility] No
[2019-02-05] MEDS: GABAPENTIN 100 MG CAPSULE (FP) PO SCH (21:36)
[2019-02-06] MEDS: LEVOTHYROXINE NA 112 MCG TABLET (FP) PO SCH (06:05)
[2019-02-06 09:13] VITALS: BP 139/69; PULSE 80; TEMP 98.2
[2019-02-06] MEDS ORDERED: PT OWN MED DRAWER 7, Y5N ONE (09:22)
[2019-02-06] MEDS ORDERED: cefTRIAXone SODIUM 1 GM VIAL ONE (09:22)
[2019-02-06] MEDS ORDERED: DEXTROSE 5%-WATER - 50 ML IVPB ONE (09:23)
[2019-02-06] MEDS: metoPROLOL SUCCINATE 25 MG TAB.SR.24H (FP) PO SCH (09:28)
[2019-02-06] MEDS: ARTIFICIAL TEARS (POLYVINYL ALCOHOL) OPTH DROPS OU SCH (09:28)
[2019-02-06] MEDS: TETRAHYDROZOLINE HCL EYE DROPS OD SCH (09:28)
[2019-02-06] MEDS: ASPIRIN 81 MG CHEWABLE TABLETS PO SCH (09:28)
[2019-02-06] MEDS: CEFTRIAXONE 1 GM in DEXTROSE 5%-WATER - 50 ML IVPB SCH (09:28)
[2019-02-06 11:12] LABS: ANION GAP 6 MMOL/L (8-16); BLOOD UREA NITROGEN 12 mg/dL (7-18); CHLORIDE 97 mmol/L (98-107); CO2 26 mmol/L (21-32); CREATININE 0.5 mg/dL (0.55-1.3); GLUCOSE,RANDOM 105 mg/dL (74-106); MAGNESIUM 1.6 mg/dL (1.8-2.4); POTASSIUM 3.6 mmol/L (3.5-5.1); SODIUM 129 mmol/L (136-145)
== END 2019-02-06 11:29 | DRG 605 ==
LOC: JER 03:01 → JERBED 08:30 → J4W 19:08 → OBSVTOIN 02-03 15:13 → J7W 02-04 13:12
PROVIDERS: ADMIT Internal Medicine; ATTEND Internal Medicine
DX: S00.03XA Contusion of scalp, initial encounter (principal); I24.8 Other forms of acute ischemic heart disease; N39.0 Urinary tract infection, site not specified; E87.1 Hypo-osmolality and hyponatremia; W19.XXXA Unspecified fall, initial encounter; Y93.9 Activity, unspecified; Y92.89 Other specified places as the place of occurrence of the external cause; Y99.9 Unspecified external cause status; E87.6 Hypokalemia; E03.9 Hypothyroidism, unspecified; R53.1 Weakness; M19.90 Unspecified osteoarthritis, unspecified site
CPT/HCPCS: 36415; 70450-TC; 70486-TC; 71045-TC-FY; 72125-TC; 73562-TC-RT-FY; 76705-TC; 80048; 80053; 80061; 81003; 81015; 82550; 83036; 83605; 83721; 83735; 84100; 84439; 84443; 84484; 85025; 85610; 85730; 87040; 87086; 87186; 93005; 93010; 93306-TC; 93970-TC; 97116-GP; 97161-GP; 99285-25; G0378; J7030

== ENCOUNTER 2019-03-23 18:50 | Inpatient (IN) | payer OTHER, BC ==
--- NOTE | 2019-03-23 19:27 | PDOC ---
History of Present Illness - General Stated Complaint: ANIMAL BITE Time Seen by Provider: 03/23/19 19:16 - History of Present Illness Initial Comments: The pt is an 89F w/ a history of hypothyroidism who presents for evaluation of 1 day of LLE pain and redness s/p cat bite yesterday (pt's cat). Endorses 1 episode of associated NBNB vomiting today. Pt denies fevers/chills, chest pain, SOB, abdominal pain, dysuria, hematuria, diarrhea, blood in her stool, or changes in sensation. PCP: Dr. Tenzin Reyna 03/23/19 20:21 Past History - Past Medical History Allergies/Adverse Reactions: Allergies Allergy/AdvReac Type Severity Reaction Status Date / Time codeine Allergy Unknown Verified 03/23/19 19:39 Home Medications: Ambulatory Orders Aspirin 81 mg PO DAILY 02/02/19 Calcium Carb, Citrate/Vit D3 [Calcium + D3 ER Tablet] 1 each PO DAILY 02/02/19 Cyanocobalamin [Vitamin B12 -] 1,000 mg PO DAILY 02/02/19 Gabapentin [Neurontin] 100 mg PO HS 02/02/19 Lactobacillus Acidophilus [Acidophilus] 1 each PO DAILY 02/02/19 Lutein 20 mg PO DAILY 02/02/19 Naproxen Sodium [Aleve] 220 mg PO PRN 02/02/19 Propylene Glycol/Peg 400/Pf [Systane 0.3-0.4% Eye Drop] 1 each OP DAILY Aspirin [ASA -] 81 mg PO DAILY tab.chew 02/05/19 Docusate Sodium [Colace -] 100 mg PO Q8H PRN capsule 02/05/19 Levothyroxine [Synthroid -] 112 mcg PO DAILY@0700 tablet 02/05/19 Metoprolol Succinate [Toprol XL -] 25 mg PO DAILY tab.sr.24h 02/05/19 Sennosides/Docusate Sodium [Pericolace -] 2 tablet PO HS PRN tablet 02/05/19 Tetrahydrozoline HCl [Visine -] 1 drop OD QID drops 02/05/19 Cephalexin Monohydrate [Keflex -] 500 mg PO BID #8 capsule 02/06/19 COPD: No Thyroid Disease: Yes (Hypothyroidism) - Surgical History Orthopedic Surgery: Yes (Bilateral Knees) - Immunization History Immunization Up to Date: (Unknown) - Suicide/Smoking/Psychosocial Hx Smoking History: Never smoked Have you smoked in the past 12 months: No Hx Alcohol Use: No Drug/Substance Use Hx: No Review of Systems - Review of Systems Able to Perform ROS?: Yes Comments:: GENERAL/CONSTITUTIONAL: No weakness HEAD, EYES, EARS, NOSE AND THROAT: No change in vision. No ear pain or discharge. No sore throat CARDIOVASCULAR: No chest pain or shortness of breath RESPIRATORY: Denies cough, hemoptysis GASTROINTESTINAL: No diarrhea or constipation GENITOURINARY: No dysuria, frequency, or change in urination MUSCULOSKELETAL: No joint or muscle swelling or pain. No neck or back pain NEUROLOGIC: No headache, vertigo, loss of consciousness, or change in strength/ sensation ENDOCRINE: No increased thirst. No abnormal weight change HEMATOLOGIC/LYMPHATIC: No anemia, easy bleeding, or history of blood clots ALLERGIC/IMMUNOLOGIC: No hives or skin allergy 03/23/19 20:23 Is the patient limited German proficient: No *Physical Exam - Vital Signs Vital Signs Temp Pulse Resp BP Pulse Ox 99.8 F H 104 H 16 156/78 97 03/23/19 19:00 03/23/19 19:00 03/23/19 19:00 03/23/19 19:00 03/23/19 19:00 03/23/19 20:25 - Physical Exam Comments: GENERAL: Awake, alert, and oriented to person/place/time, in no acute distress HEAD: No signs of trauma, normocephalic, atraumatic EYES: PERRLA, EOMI, sclera anicteric, conjunctiva clear ENT: Hearing grossly normal, nares patent, oropharynx clear without exudates. Moist mucosa LUNGS: No distress, speaks full sentences, clear to auscultation bilaterally HEART: Tachycardic rate and regular rhythm, normal S1 and S2, no murmurs appreciated, peripheral pulses normal and equal bilaterally ABDOMEN: Soft, nontender, normoactive bowel sounds. No guarding, no rebound EXTREMITIES: Normal inspection, Normal range of motion, no edema. No clubbing or cyanosis NEUROLOGICAL: Cranial nerves II through XII grossly intact. Normal speech, no focal sensorimotor deficits SKIN: LLE cellulitic from ankle to knee w/ small lesion on lateral distal 1/3 of LLE likely 2/2 cat bite 03/23/19 20:25 ED Treatment Course - LABORATORY CBC & Chemistry Diagram: 03/23/19 19:47 03/23/19 19:53 Medical Decision Making - Medical Decision Making The pt is an 89F w/ a history of hypothyroidism who presents for evaluation of 1 day of LLE cellulitis ED Course Sepsis labs sent ECG CXR Zosyn IV once IVF Ofirmev for pain 03/23/19 20:26 Leukocytosis to 22 Trop I neg Lytes wnl No anemia Transaminitis, chronic Plan for admission for IV abx 03/23/19 20:47 03/23/19 20:49 *DC/Admit/Observation/Transfer - Discharge Dispostion Condition at time of disposition: Fair - Referrals Referrals: Tenzin Reyna MD [Primary Care Provider] - - Patient Instructions - Post Discharge Activity
[2019-03-23] MEDS ORDERED: ACETAMINOPHEN 1000 MG/100 ML VIAL (NON FORMULARY) IVPB ONE (20:00)
[2019-03-23] MEDS ORDERED: SODIUM CHLORIDE 0.9% 500 ML INFUS.BAG IV ONE (20:00)
[2019-03-23] MEDS ORDERED: PIPERACILLIN/TAZOB 4.5 GM 4.5 GM in DEXTROSE 5%-WATER 100 ML IVPB ONE (20:00)
[2019-03-23 20:09] LABS: VENOUS PC02 41.3 mmHg (41-51); VENOUS PH 7.43 (7.31-7.41); VENOUS PO2 31.2 mmHg (30-40)
[2019-03-23 20:10] LABS: BASO % 0.3 % (0-2.0); EOS % 0.1 % (0-4.5); HEMATOCRIT 40.3 % (32.4-45.2); HEMOGLOBIN 13.9 GM/dL (10.7-15.3); LYMPH % 1.4 % (8-40); MCH 34.6 pg (25.7-33.7); MCHC 34.4 g/dl (32.0-36.0); MEAN CELL VOLUME 100.5 fl (80-96); MEAN PLT VOLUME 7.3 fl (7.5-11.1); MONO % 5.8 % (3.8-10.2); NEUT % 92.4 % (42.8-82.8); PLATELET COUNT 178 K/MM3 (134-434); RBC 4.01 M/mm3 (3.60-5.2); RDW 15.4 % (11.6-15.6); WHITE BLOOD COUNT 22.5 K/mm3 (4.0-10.0)
[2019-03-23] MEDS ORDERED: ACETAMINOPHEN INJECTION 100 ML IVPB ONE (20:12)
[2019-03-23] MEDS ORDERED: PIPERACILLIN/TAZOB 4.5 GM 4.5 GM/100 ML BAG IVPB ONE (20:13)
[2019-03-23 20:28] LABS: INR 1.13 (0.83-1.09); PROTHROMBIN TIME (PATIENT) 13.3 SEC (9.7-13.0)
[2019-03-23 20:31] LABS: ACTIVATED PTT 35.2 SECONDS (25.2-36.5)
[2019-03-23 20:35] LABS: ALBUMIN 3.7 g/dl (3.4-5.0); ALK PHOS 131 U/L (45-117); ANION GAP 10 MMOL/L (8-16); BILIRUBIN,TOTAL 1.7 mg/dL (0.2-1); BLOOD UREA NITROGEN 13 mg/dL (7-18); CALCIUM 8.9 mg/dL (8.5-10.1); CHLORIDE 95 mmol/L (98-107); CO2 28 mmol/L (21-32); CREATININE 0.8 mg/dL (0.55-1.3); GLUCOSE,RANDOM 95 mg/dL (74-106); POTASSIUM 3.7 mmol/L (3.5-5.1); SGOT/AST 105 U/L (15-37); SGPT/ALT 83 U/L (13-61); SODIUM 132 mmol/L (136-145); TOT PROT 7.6 g/dl (6.4-8.2)
[2019-03-23 20:40] LABS: ANISOCYTOSIS 1+; MACROCYTOSIS 1+; PLATELET ESTIMATE DECREASED
--- NOTE | 2019-03-23 20:57 | PDOC ---
Documentation entered by Rosa Velazquez SCRIBE, acting as scribe for Myriam aWlker MD. Myriam Walker MD: This documentation has been prepared by the Marcus broderick Daisy, SCRIBE, under my direction and personally reviewed by me in its entirety. I confirm that the documentation accurately reflects all work, treatment, procedures, and medical decision making performed by me. Attending Attestation - Resident Resident Name: [email or web address] - ED Attending Attestation I have performed the following: I have examined & evaluated the patient, The case was reviewed & discussed with the resident, I agree w/resident's findings & plan - HPI HPI: 03/23/19 19:59 Patient is a 89 YOF who presents to the ER for evaluation of a cat bite. Patient is complaining of increased redness and pain to the area prompting her to come to the ER for further evaluation. Allergies: Codeine - Physicial Exam PE: 03/23/19 19:57 ADULT EXAM GENERAL: Awake, alert, and fully oriented, in no acute distress HEAD: No signs of trauma EYES: PERRLA, EOMI, sclera anicteric, conjunctiva clear ENT: Auricles normal inspection, hearing grossly normal, nares patent, oropharynx clear without exudates. Moist mucosa NECK: Normal ROM, supple, no lymphadenopathy, JVD, or masses LUNGS: Breath sounds equal, clear to auscultation bilaterally. No wheezes, and no crackles HEART: Regular rate and rhythm, normal S1 and S2, no murmurs, rubs or gallops ABDOMEN: Soft, nontender, normoactive bowel sounds. No guarding, no rebound. No masses EXTREMITIES: (+) left lower ankle to the anthony is erythematous, tender, and cellulitic. (+) Bite to the distal third lateral lower extremity. Normal range of motion, no edema. NEUROLOGICAL: Cranial nerves II through XII grossly intact. Normal speech, normal gait SKIN: Warm, Dry, normal turgor, no rashes or lesions noted. - Medical Decision Making 03/23/19 20:15 pt is 89 yo female who received a bite from her cat and today developed a cellulitis on her left LE she p/w low grade fever and tachycardia 03/23/19 20:16 reviewed labs, there is leukocytosis with shift,antibiotics started,pt informed she waill need admission for parenteral antibiotics Chemistries. Total bili is elevated at 1.7, and her transaminases are slightly elevated also. This has been a pattern seen in previous labs imp: left leg cellulits/cat bite , med/surg admission 03/23/19 20:56
--- NOTE | 2019-03-23 21:42 | PN ---
Teaching Attending Note Name of Resident: Monika Sampson ATTENDING PHYSICIAN STATEMENT I saw and evaluated the patient. I reviewed the resident's note and discussed the case with the resident. I agree with the resident's findings and plan as documented. SUBJECTIVE: Seen and examined; please refer to resident note for further historical information. Dorina, 89 y/o female who is a somewhat poor historian with PMH as documented presents to the ER following a cat scratch on her leg last night; this AM she was having cellulitic changes and pain/parasthesias to the leg. She has pain radiating throughout the leg with some weeping. She has R>L edema noted with b/l pitting edema. She has been noted to have chronic edema and lower extremity cellulitis in the past. She has some acute on chronic pain in the affected extremity. This caused her some difficulty with ambulation. Denies SOB, CP; she can bear weight. No neuro deficits. 10 sys ROS done and negative aside from HPI PMH (HTN, OA), PSH, FH, SH reviewed Home Medications Medication Instructions Recorded Aspirin 81 mg PO DAILY 02/02/19 Gabapentin [Neurontin] 200 mg PO HS 02/02/19 Lactobacillus Acidophilus 1 each PO DAILY 02/02/19 [Acidophilus] Lutein 20 mg PO DAILY 02/02/19 Naproxen Sodium [Aleve] 220 mg PO BID 02/02/19 Metoprolol Succinate [Toprol XL -] 25 mg PO DAILY tab.sr.24h 02/05/19 Tetrahydrozoline HCl [Visine -] 1 drop OD QID drops 02/05/19 Acetaminophen [Tylenol -] 500 mg PO PRN 03/23/19 Ascorbate Calcium [Vitamin C] 500 mg PO DAILY 03/23/19 Diphenhydramine HCl 25 mg PO DAILY 03/23/19 Docusate Sodium [Colace] 100 mg PO PRN 03/23/19 Hydrochlorothiazide 25 mg PO DAILY 03/23/19 Ibuprofen 400 mg PO PRN 03/23/19 Levothyroxine Sodium [Synthroid] 137 mcg PO DAILY 03/23/19 Mirabegron [Myrbetriq] 25 mg PO HS 03/23/19 Multivitamin [Multiple Vitamins] 1 each PO DAILY 03/23/19 Sennosides/Docusate Sodium 2 tablet PO PRN PRN 03/23/19 [Pericolace -] OBJECTIVE: VS, labs, imaging reviewed NAD, AAO, resting comfortably in bed NC, bruise from last month observed, EOMI PERRLA RRR s1/2 no mgr Lungs CTAB, w/ sym exp NT ND +BS Plain film of affected extremity pending Venous and arterial dopplers pending ASSESSMENT AND PLAN: 1) Sepsis likely 2/2 cellulitis with history of cat scratch -No noah lymphadenitis; prior eval and known skin changes accoutned for. Reviewed Dr. Rey's last consultation. -Will cover with vancomycin with pharmacy to dose and azithromycin (she already got zosyn in the ER); the LFTs are trending down from last admit so can likely hold off on rifampin for now. No neuro involvement, etc. Consult ID for final recommendations. -Followup blood cultures, ESR/CRP. Monitor white count. -Continue appropriate hydration with LR overnight; impaired relaxation noted on last echo so will be careful with fluids. -Trend CBC; bands noted. 2) Transaminitis -Improved from last month; trend CMP. Can followup with OP provider as planned. Even given the cat scratch doubting hepatosplenic involvement due to the interval improvement. 3) Macrocytosis without anemia -Check B12/folate 4) R-scalp hematoma, improving -From last admission; no new issues. Continues to improve with no new findings 5) OA -PRN management when inpatient; followup closely with OP. 6) Hx Hypothyroidism with recent abnormal TFTs -Followup OP; no s/s myxedema, etc. 7) Diastolic Dysfunction -Impaired relaxation noted on echo; monitor fluid status carefully. FENA -LR@100 -PRN replete -Resume home diet -As tolerated Full Code
[2019-03-23] MEDS ORDERED: SENNOSIDES/DOCUSATE COMBO (SENNA PLUS) TABLET (UD) PO PRN (22:11)
[2019-03-23 22:14] LABS: EPI CELLS 1.6 /HPF (0-5/HPF); PH,URINE 7.5 (5.0-8.0); URINE APPEARANCE CLEAR; URINE BACTERIA 15.2 /hpf (NEGATIVE); URINE BILIRUBIN NEGATIVE (NEGATIVE); URINE CASTS 1 /lpf (0-8); URINE COLOR YELLOW; URINE GLUCOSE (UA) NEGATIVE (NEGATIVE); URINE KETONE NEGATIVE (NEGATIVE); URINE LEUK ESTERASE TRACE (NEGATIVE); URINE NITRITE NEGATIVE (NEGATIVE); URINE PROTEIN NEGATIVE (NEGATIVE); URINE RBC 6 /hpf (0-4); URINE WBC 2 /hpf (0-5)
[2019-03-23] MEDS ORDERED: DOCUSATE SODIUM 100 MG CAPSULE (FP) PO PRN (22:15)
[2019-03-23] MEDS ORDERED: HEPARIN NA (PORCINE) 5,000 UNITS/ML 1ML VIAL ONE (22:21)
--- NOTE | 2019-03-23 22:23 | HP ---
CHIEF COMPLAINT: Left leg swelling and erythema PCP: Dr. Reyna HISTORY OF PRESENT ILLNESS: Patient is an 89 year old female living at the [facility] assisted living facility with a PMHx of HTN, Hypothyroidism, osteoarthritis, osteoperosis who was BIBEMS from the assisted living facility for left leg swelling and redness. According to the patient, yesterday night her cat scratched her before bed and this morning when she was walking with her cane to breakfast, she felt "uncomfortable walking." Patient then felt like her leg was "wet" and therefore went to the nurse, who recommended an ED evaluation. Patient states she's had several scratches in the past by her cat and is unsure when exactly but does admit to one last week. Otherwise, patient denies any fever, chills, nausea, vomiting, abdominal pain, chest pain, palpitations, shortness of breath, headaches, loss of consciousness , dizziness, hemoptysis, melena, hematochezia, hematemesis. 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 Family History: Asked and non-contributory Allergies: codeine Allergy (Unknown, Verified 03/23/19 19:39) HOME MEDICATIONS: Home Medications Medication Instructions Recorded Aspirin 81 mg PO DAILY 02/02/19 Gabapentin [Neurontin] 200 mg PO HS 02/02/19 Lactobacillus Acidophilus 1 each PO DAILY 02/02/19 [Acidophilus] Lutein 20 mg PO DAILY 02/02/19 Naproxen Sodium [Aleve] 220 mg PO BID 02/02/19 Metoprolol Succinate [Toprol XL -] 25 mg PO DAILY tab.sr.24h 02/05/19 Tetrahydrozoline HCl [Visine -] 1 drop OD QID drops 02/05/19 Acetaminophen [Tylenol -] 500 mg PO PRN 03/23/19 Ascorbate Calcium [Vitamin C] 500 mg PO DAILY 03/23/19 Diphenhydramine HCl 25 mg PO DAILY 03/23/19 Docusate Sodium [Colace] 100 mg PO PRN 03/23/19 Hydrochlorothiazide 25 mg PO DAILY 03/23/19 Ibuprofen 400 mg PO PRN 03/23/19 Levothyroxine Sodium [Synthroid] 137 mcg PO DAILY 03/23/19 Mirabegron [Myrbetriq] 25 mg PO HS 03/23/19 Multivitamin [Multiple Vitamins] 1 each PO DAILY 03/23/19 Sennosides/Docusate Sodium 2 tablet PO PRN PRN 03/23/19 [Pericolace -] REVIEW OF SYSTEMS CONSTITUTIONAL: Absent: fever, chills, diaphoresis, generalized weakness, malaise, loss of appetite, weight change HEENT: Absent: rhinorrhea, nasal congestion, throat pain, throat swelling, difficulty swallowing, mouth swelling, ear pain, eye pain, visual changes CARDIOVASCULAR: Absent: chest pain, syncope, palpitations, irregular heart rate, lightheadedness , peripheral edema RESPIRATORY: Absent: cough, shortness of breath, dyspnea with exertion, orthopnea, wheezing, stridor, hemoptysis GASTROINTESTINAL: Absent: abdominal pain, abdominal distension, nausea, vomiting, diarrhea, constipation, melena, hematochezia GENITOURINARY: Absent: dysuria, frequency, urgency, hesitancy, hematuria, flank pain, genital pain MUSCULOSKELETAL: Absent: myalgia, arthralgia, joint swelling, back pain, neck pain SKIN: Bilateral Cellulitis of LE L>R Absent: rash, itching, pallor HEMATOLOGIC/IMMUNOLOGIC: Absent: easy bleeding, easy bruising, lymphadenopathy, frequent infections ENDOCRINE: Absent: unexplained weight gain, unexplained weight loss, heat intolerance, cold intolerance NEUROLOGIC: Absent: headache, focal weakness or paresthesias, dizziness, unsteady gait, seizure, mental status changes, bladder or bowel incontinence PSYCHIATRIC: Absent: anxiety, depression, suicidal or homicidal ideation, hallucinations. PHYSICAL EXAMINATION Vital Signs 03/23/19 03/23/19 19:00 22:02 Temperature 99.8 F H 100.2 F H Pulse Rate 104 H 88 Pulse Rate [ 88 Left Radial] Respiratory 16 20 Rate Blood Pressure 156/78 116/57 L Blood Pressure 116/57 L [Right Arm] O2 Sat by Pulse 97 95 Oximetry (%) GENERAL: Awake, alert, and fully oriented, in no acute distress. HEAD: Normal with no signs of trauma. EYES: Pupils equal, round and reactive to light, extraocular movements intact, sclera anicteric, conjunctiva clear. No lid lag. ENT:Oropharynx clear without exudates. Moist mucous membranes. NECK: (-) lymphadenopathy, JVD, or masses. LUNGS: Breath sounds equal, clear to auscultation bilaterally. No wheezes, and no crackles. No accessory muscle use. HEART: Regular rate and rhythm, normal S1 and S2 ABDOMEN: Soft, nontender, not distended, normoactive bowel sounds, no guarding, no rebound, no masses. No hepatomegaly or splenomegaly. MUSCULOSKELETAL: No CVA tenderness. EXTREMITIES: 2+ pulses in B/L LE, warm, No calf tenderness. Bilateral erythema from ankle up to below the knee L>R with 3+ pitting edema bilaterally. NEUROLOGICAL: Cranial nerves II-XII intact. Normal speech. Motor strength 5/5 bilaterally in UE and 4/5 in LE PSYCHIATRIC: Cooperative. Good eye contact. Appropriate mood and affect. Laboratory Results 03/23/19 19:47 03/23/19 19:53 03/23/19 03/23/19 03/23/19 19:50 19:53 19:53 Lactic Acid 1.5 Total Bilirubin 1.7 H AST 105 H ALT 83 H Alkaline Phosphatase 131 H Troponin I 0.03 ASSESSMENT/PLAN: Patient is an 89 year old female who presented for LE swelling/erythema and was found to have Sepsis. Patient admitted for further monitoring and management. Sepsis Secondary to Cellulitis -Possible cat scratch disease vs Cellulitis from chronic venous stasis -Tachycardic >100 and Leukocytosis >22 -Will cover with Azithromycin 500mg daily IVPB and Vancomycin 1000mg IVPB -Patient's LFT's improved and less concerned for hepatosplenic disease and therefore will hold Rifampin -Blood cultures pending -ID consult placed -X-ray of leg foot ordered -Arterial and Venous dopplers ordered to rule out any ischemia or DVT -ESR and CRP ordered Transaminitis -Patient on previous admissions has had elevated LFT's -U/S done and revealed cholelithiasis on previous admission -LFT's improving and will continue to monitor daily Macrocytic Anemia -Will check B12 and folate -Monitor daily CBC Right Scalp Hematoma -Improving from previous fall back in 01/2019 for which she was admitted for HTN -Currently borderline hypotension -Hold BP medications -Continue to monitor BP Hypothyroidism -Continue home medication Synthroid 137mcg in the am Osteoarthritis -Takes Tylenol and NSAID's at home -Stable at this time and will treat symptomatically F/E/N -LR @83mls/hr -Electrolytes wnl -Sodium controlled diet Prophylaxis -Moderate risk. Heparin 5000 units sq Q8H for DVT -No GI required Disposition -Full code -Will begin IV antibiotics and need to rule out cat scratch disease -PT to avoid deconditioning Monika Sampson [id number] Visit type - Emergency Visit Emergency Visit: Yes ED Registration Date: 03/23/19 Care time: The patient presented to the Emergency Department on the above date and was hospitalized for further evaluation of their emergent condition. - New Patient This patient is new to me today: Yes Date on this admission: 03/23/19 - Critical Care Critical Care patient: No
[2019-03-23] MEDS: HEPARIN NA (PORCINE) 5,000 UNITS/ML 1ML VIAL SQ SCH (22:27)
[2019-03-23] MEDS ORDERED: VANCOMYCIN 1,000 MG in DEXTROSE 5%-WATER - 250 ML IVPB ONE (22:34)
[2019-03-23] MEDS ORDERED: VANCOMYCIN 1 GRAM (PRE-DOCKED) 1,000 MG/250 ML BAG IVPB ONE (22:53)
[2019-03-23] MEDS ORDERED: LACTATED RINGERS SOLUTION 1,000 ML/1,000 ML INFUS.BAG IV SCH (23:15)
[2019-03-24] MEDS ORDERED: AZITHROMYCIN IVPB 500 MG/250 ML BAG IVPB ONE ×2 (01:27→08:22)
[2019-03-24] MEDS ORDERED: HEPARIN NA (PORCINE) 5,000 UNITS/ML 1ML VIAL ONE (06:17)
[2019-03-24] MEDS: HEPARIN NA (PORCINE) 5,000 UNITS/ML 1ML VIAL SQ SCH ×3 (06:21→21:22)
[2019-03-24 06:57] LABS: HEMATOCRIT 36.1 % (32.4-45.2); HEMOGLOBIN 12.5 GM/dL (10.7-15.3); MCH 34.4 pg (25.7-33.7); MCHC 34.5 g/dl (32.0-36.0); MEAN CELL VOLUME 99.5 fl (80-96); MEAN PLT VOLUME 7.6 fl (7.5-11.1); PLATELET COUNT 172 K/MM3 (134-434); RBC 3.63 M/mm3 (3.60-5.2); RDW 15.4 % (11.6-15.6); WHITE BLOOD COUNT 18.9 K/mm3 (4.0-10.0)
[2019-03-24 07:35] LABS: MAGNESIUM 1.9 mg/dL (1.8-2.4)
[2019-03-24] MEDS: LEVOTHYROXINE 112 MCG, LEVOTHYROXINE 25 MCG PO SCH (07:51)
[2019-03-24 07:56] LABS: ALBUMIN 2.8 g/dl (3.4-5.0); ALK PHOS 96 U/L (45-117); ANION GAP 7 MMOL/L (8-16); BILIRUBIN,TOTAL 1.6 mg/dL (0.2-1); BLOOD UREA NITROGEN 14 mg/dL (7-18); CALCIUM 8.3 mg/dL (8.5-10.1); CHLORIDE 97 mmol/L (98-107); CO2 29 mmol/L (21-32); CREATININE 0.8 mg/dL (0.55-1.3); GLUCOSE,RANDOM 105 mg/dL (74-106); POTASSIUM 3.6 mmol/L (3.5-5.1); SGOT/AST 78 U/L (15-37); SGPT/ALT 64 U/L (13-61); SODIUM 133 mmol/L (136-145)
[2019-03-24] MEDS ORDERED: ASPIRIN 81 MG CHEWABLE TABLETS ONE (08:21)
[2019-03-24] MEDS: AZITHROMYCIN IVPB 500 MG in DEXTROSE 5%-WATER - 250 ML IVPB SCH ×2 (09:24)
[2019-03-24] MEDS: ASPIRIN 81 MG CHEWABLE TABLETS PO SCH (09:24)
[2019-03-24] MEDS: TETRAHYDROZOLINE HCL EYE DROPS OD SCH ×4 (09:25→22:02)
[2019-03-24] MEDS ORDERED: HYDROCHLOROTHIAZIDE 25 MG TABLET (FP) PO SCH (10:00)
[2019-03-24] MEDS ORDERED: PATIENT'S OWN MEDICATION (NON-FORMULARY) (Levothyroxine Sodium [Synthroid] 137 MCG) PO SCH (10:00)
[2019-03-24] MEDS ORDERED: metoPROLOL SUCCINATE 25 MG TAB.SR.24H (FP) PO SCH (10:00)
--- NOTE | 2019-03-24 11:12 | PN ---
Progress Note (short form) - Note Progress Note: ID CONSULT DICTATED CELLULITIS BILAT LE L>R S/P CAT BITE LEUKOCYTOSIS R/O SEPSIS AWAIT C/S EMPIRIC UNASYN/ VANCOMYCIN
[2019-03-24] MEDS ORDERED: AMPICILLIN NA/SULBACTAM NA 1.5 GM in SODIUM CHLORIDE 100 ML IVPB SCH (11:15)
[2019-03-24] MEDS ORDERED: VANCOMYCIN 1,000 MG in DEXTROSE 5%-WATER - 250 ML IVPB SCH (11:15)
[2019-03-24] MEDS ORDERED: VANCOMYCIN 1 GRAM (PRE-DOCKED) 1,000 MG/250 ML BAG IVPB ONE (11:21)
--- NOTE | 2019-03-24 11:47 | CONS ---
INFECTIOUS DISEASE CONSULTATION DATE OF CONSULTATION: DATE OF DICTATION: 03/24/2019 The patient is an 89-year-old, non-diabetic female who is evaluated for cellulitis of the lower extremities bilaterally. Patient sustained a cat bite to her lower extremity approximately 2 days prior to admission. She does not give a reliable history. She is unclear whether or not the cat bit or scratched her lower extremities and which one. The patient was in bed and states she was bitten by the cat. She subsequently developed worsening leg pain, erythema, warmth, and swelling. She presented to the emergency room where she was noted to have cellulitis of the lower extremities bilaterally, left greater than right. A Doppler exam was performed because of the swelling and was negative for DVT. She was empirically treated with Zosyn, vancomycin, and Zithromax. The patient states that she did notice serous drainage from her legs bilaterally. She reports that her pants were soaked; however, did not notice any noah pus. She denies any associated fever or chills. The patient's cat is a house cat. She has had the cat for 9 years. The cat is up to date with respect to rabies vaccine. She denies prior history of serious soft tissue infection requiring hospitalization or history of MRSA. PAST MEDICAL HISTORY: Positive for hypertension, hypothyroidism, osteoporosis, osteoarthritis. PAST SURGICAL HISTORY: Status post bilateral total knee replacements. ALLERGIES: CODEINE. MEDICATIONS: Include Tylenol, aspirin, Neurontin, Synthroid. SOCIAL HISTORY: She lives in an assisted living complex. She is a nonsmoker. SYSTEMS REVIEW: Neurologic: No loss of consciousness, seizure activity, or focal weakness. Cardiac: Negative chest pain or palpitations. Respiratory: Negative cough or sputum production. Gastrointestinal: Negative vomiting or diarrhea. Genitourinary: Negative for urinary tract infection. LABORATORY DATA: White count on admission 22.5 with left shift, presently 18.9; hematocrit 36.1; platelets 172. Creatinine 0.8. Urinalysis: White cells 2. Total bilirubin 1.6, alkaline phosphatase 96, AST 78. PHYSICAL EXAMINATION: General: The patient is awake and alert. She is supine on the stretcher. Vital Signs: Temperature 98.3, T-max 100.2; blood pressure 125/52; pulse 82, regular; respirations 18 per minute. HEENT: Sclerae anicteric. Heart: Sounds S1, S2. No murmur. Lungs: Clear. Abdomen: Soft and nontender. No right upper quadrant tenderness to palpation. Lower Extremities: Bilateral lower extremity swelling, left greater than right. There is confluent erythema involving the left lower extremity from the foot to below the knee. There is erythema to a lesser degree of the right lower extremity. There do appear to be scratch or bite partida present on the left lower extremity. The area is warm to touch, slightly tender. No lymphangitic streaking. There are bilateral total knee replacement, healed surgical scars. IMPRESSION: 1. Cellulitis, bilateral lower extremities. 2. Status post cat bite. 3. Leukocytosis, rule out sepsis secondary to skin source. 4. Elevated liver enzymes which appear to be chronic in nature. Await cultures. Would empirically cover for pathogens encountered in cat bites, specifically pasteurella. Will also give vancomycin for additional staphylococcus coverage in light of possible bacteremia with elevated white blood cell count and presence of bilateral knee replacements. Analgesics. Will follow. Thank you for the kind referral. NAY GRAF M.D. [id number]
[2019-03-24] MEDS: VANCOMYCIN 1 GRAM (PRE-DOCKED) 1,000 MG/250 ML BAG IVPB SCH (12:29)
--- NOTE | 2019-03-24 13:24 | PN ---
Physical Exam: SUBJECTIVE: Patient seen and examined at bedside this morning. She endorses one scratch by her cat at her left lower extremity. OBJECTIVE: Vital Signs Period Temp Pulse Resp BP Sys/Blanco Pulse Ox Last 24 Hr 97.9 F-100.2 F 80-104 16-20 116-156/52-78 95-97 GENERAL: The patient is awake, alert, and oriented, in no acute distress. HEAD: Normocephalic, with hematoma noted over right sided forehead. EYES: PERRL, extraocular movements intact, sclera anicteric, conjunctiva clear. ENT: Oropharynx clear without exudates, moist mucous membranes. NECK: Trachea midline, supple without lymphadenopathy LUNGS: Breath sounds equal, clear to auscultation bilaterally, no wheezes, no crackles, no accessory muscle use. HEART: Regular rate and rhythm, S1, S2 without murmur, rub or gallop. ABDOMEN: Soft, nontender, nondistended, normoactive bowel sounds, no guarding, no rebound, no hepatosplenomegaly, no masses. EXTREMITIES: 2+ radial, dorsalis pulses, warm, well-perfused. 1+ lower extremity pitting edema bilaterally. Left lower extremity erythematous. NEUROLOGICAL: Cranial nerves II through XII grossly intact. Normal speech. PSYCH: Normal mood, normal affect upon my encounter. SKIN: Warm, dry. 1cm x1cm lesion noted over left anterior anthony without drainage , or bleeding. Laboratory Results - last 24 hr 03/23/19 03/23/19 03/23/19 19:47 19:47 19:50 WBC 22.5 H RBC 4.01 Hgb 13.9 Hct 40.3 MCV 100.5 H MCH 34.6 H MCHC 34.4 RDW 15.4 Plt Count 178 MPV 7.3 L Absolute Neuts (auto) 20.8 H Total Counted 100 Neutrophils % 92.4 H D Neutrophils % (Manual) 80.0 Band Neutrophils % 14.0 Lymphocytes % 1.4 L D Lymphocytes % (Manual) 2.0 L Monocytes % 5.8 Monocytes % (Manual) 4 Eosinophils % 0.1 D Basophils % 0.3 Nucleated RBC % 0 Platelet Estimate Decreased Platelet Comment No clumping noted Anisocytosis 1+ Macrocytosis 1+ ESR PT with INR INR PTT (Actin FS) VBG pH POC VBG pCO2 POC VBG pO2 VBG HCO3 VBG O2 Sat (Floyd) VBG Base Excess Sodium Potassium Chloride Carbon Dioxide Anion Gap BUN Creatinine Creat Clearance w eGFR Random Glucose Lactic Acid 1.5 Calcium Phosphorus Magnesium Total Bilirubin AST ALT Alkaline Phosphatase Troponin I C-Reactive Protein Total Protein Albumin Vitamin B12 Serum Folate Urine Color Yellow Urine Appearance Clear Urine pH 7.5 Ur Specific Brogan 1.015 Urine Protein Negative Urine Glucose (UA) Negative Urine Ketones Negative Urine Blood Negative Urine Nitrite Negative Urine Bilirubin Negative Urine Urobilinogen 1.0 Ur Leukocyte Esterase Trace Urine WBC (Auto) 2 Urine RBC (Auto) 6 Urine Casts (Auto) 1 U Epithel Cells (Auto) 1.6 Urine Bacteria (Auto) 15.2 03/23/19 03/23/19 03/23/19 19:50 19:50 19:53 WBC RBC Hgb Hct MCV MCH MCHC RDW Plt Count MPV Absolute Neuts (auto) Total Counted Neutrophils % Neutrophils % (Manual) Band Neutrophils % Lymphocytes % Lymphocytes % (Manual) Monocytes % Monocytes % (Manual) Eosinophils % Basophils % Nucleated RBC % Platelet Estimate Platelet Comment Anisocytosis Macrocytosis ESR 13 PT with INR INR PTT (Actin FS) VBG pH POC VBG pCO2 POC VBG pO2 VBG HCO3 VBG O2 Sat (Floyd) VBG Base Excess Sodium 132 L Potassium 3.7 Chloride 95 L Carbon Dioxide 28 Anion Gap 10 BUN 13 Creatinine 0.8 Creat Clearance w eGFR 67.69 Random Glucose 95 Lactic Acid Calcium 8.9 Phosphorus Magnesium Total Bilirubin 1.7 H AST 105 H ALT 83 H Alkaline Phosphatase 131 H Troponin I C-Reactive Protein Cancelled 2.1 H Total Protein 7.6 Albumin 3.7 Vitamin B12 Serum Folate Urine Color Urine Appearance Urine pH Ur Specific Brogan Urine Protein Urine Glucose (UA) Urine Ketones Urine Blood Urine Nitrite Urine Bilirubin Urine Urobilinogen Ur Leukocyte Esterase Urine WBC (Auto) Urine RBC (Auto) Urine Casts (Auto) U Epithel Cells (Auto) Urine Bacteria (Auto) 03/23/19 03/23/19 03/23/19 19:53 19:53 19:53 WBC RBC Hgb Hct MCV MCH MCHC RDW Plt Count MPV Absolute Neuts (auto) Total Counted Neutrophils % Neutrophils % (Manual) Band Neutrophils % Lymphocytes % Lymphocytes % (Manual) Monocytes % Monocytes % (Manual) Eosinophils % Basophils % Nucleated RBC % Platelet Estimate Platelet Comment Anisocytosis Macrocytosis ESR PT with INR 13.30 H INR 1.13 H PTT (Actin FS) 35.2 VBG pH 7.43 H POC VBG pCO2 41.3 POC VBG pO2 31.2 VBG HCO3 27.2 VBG O2 Sat (Floyd) 56.3 L VBG Base Excess 3.1 H Sodium Potassium Chloride Carbon Dioxide Anion Gap BUN Creatinine Creat Clearance w eGFR Random Glucose Lactic Acid Calcium Phosphorus Magnesium Total Bilirubin AST ALT Alkaline Phosphatase Troponin I 0.03 C-Reactive Protein Total Protein Albumin Vitamin B12 Serum Folate Urine Color Urine Appearance Urine pH Ur Specific Brogan Urine Protein Urine Glucose (UA) Urine Ketones Urine Blood Urine Nitrite Urine Bilirubin Urine Urobilinogen Ur Leukocyte Esterase Urine WBC (Auto) Urine RBC (Auto) Urine Casts (Auto) U Epithel Cells (Auto) Urine Bacteria (Auto) 03/24/19 03/24/19 03/24/19 05:20 05:30 06:00 WBC 18.9 H RBC 3.63 Hgb 12.5 Hct 36.1 MCV 99.5 H MCH 34.4 H MCHC 34.5 RDW 15.4 Plt Count 172 MPV 7.6 Absolute Neuts (auto) Total Counted Neutrophils % Neutrophils % (Manual) Band Neutrophils % Lymphocytes % Lymphocytes % (Manual) Monocytes % Monocytes % (Manual) Eosinophils % Basophils % Nucleated RBC % Platelet Estimate Platelet Comment Anisocytosis Macrocytosis ESR PT with INR INR PTT (Actin FS) VBG pH POC VBG pCO2 POC VBG pO2 VBG HCO3 VBG O2 Sat (Floyd) VBG Base Excess Sodium 133 L Potassium 3.6 Chloride 97 L Carbon Dioxide 29 Anion Gap 7 L BUN 14 Creatinine 0.8 Creat Clearance w eGFR 67.69 Random Glucose 105 Lactic Acid Calcium 8.3 L Phosphorus 3.0 Magnesium 1.9 Total Bilirubin 1.6 H AST 78 H ALT 64 H Alkaline Phosphatase 96 Troponin I C-Reactive Protein Total Protein 6.0 L Albumin 2.8 L Vitamin B12 980 Serum Folate 22 H Urine Color Urine Appearance Urine pH Ur Specific Brogan Urine Protein Urine Glucose (UA) Urine Ketones Urine Blood Urine Nitrite Urine Bilirubin Urine Urobilinogen Ur Leukocyte Esterase Urine WBC (Auto) Urine RBC (Auto) Urine Casts (Auto) U Epithel Cells (Auto) Urine Bacteria (Auto) Active Medications Generic Name Dose Route Start Last Admin Trade Name Freq PRN Reason Stop Dose Admin Aspirin 81 mg 03/24/19 10:00 03/24/19 09:24 Asa - PO 81 mg DAILY LIN Administration Docusate Sodium 100 mg 03/23/19 22:15 Colace - PO PRN PRN CONSTIPATION Gabapentin 200 mg 03/24/19 22:00 Neurontin - PO HS LIN Heparin Sodium (Porcine) 5,000 unit 03/23/19 22:15 03/24/19 06:21 Heparin - SQ 5,000 unit TID LIN Administration Ampicillin Sodium/Sulbactam 100 mls @ 200 mls/hr 03/24/19 11:15 Sodium 1.5 gm/ Sodium Chloride IVPB Q6H-IV LIN Vancomycin HCl 1,000 mg in 250 mls @ 200 mls/hr 03/24/19 11:43 03/24/19 12:29 Vancomycin (Pre-Docked) IVPB Not Given Q24H [facility] Protocol Levothyroxine Sodium 112 mcg/ 137 mcg 03/24/19 07:00 03/24/19 07:51 Levothyroxine Sodium 25 mcg PO 137 mcg DAILY@0700 [facility] Administration Senna/Docusate Sodium 2 tablet 03/23/19 22:11 Pericolace - PO PRN PRN CONSTIPATION Tetrahydrozoline HCl 1 drop 03/24/19 10:00 03/24/19 09:25 Visine - OD Not Given QID [facility] ASSESSMENT/PLAN: Patient is an 89 year old female with history of anemia, hypertension, hypothyroidism, diastolic CHF, presents after a scratch on her left lower extremity by her cat. Left lower extremity cellulitis -Ampicillin- Sulbactam 1.5grams IV Q6 hours -Vancomycin 1000mg IV Q6 hours -Follow blood cultures -Lower extremity duplex US negative for DVT bilateral lower extremities -Lower extremity arterial duplex US shows moderate atherosclerotic disease; no hemodynamically significant stenosis. -Radiograph lower extremity reveals no soft tissue air. -ID consult (Dr. Zaragoza) appreciated Hypothyroidism -Levothyroxine 137mcg PO daily Diastolic CHF -Metoprolol succinate 25mg PO daily Hypertension -Hydrochlorothiazide 25mg PO daily Transaminitis -Resolving since prior admission. -Trend LFTs Constipation -Senna 2 tablets PO HS -Colace 100mg PO daily PRN FEN -No IV fluids indicated -Follow CMP -Sodium controlled diet Prophylaxis -Heparin 5000u subq TID Disposition -Continue care in medical surgical floor. Visit type - Emergency Visit Emergency Visit: Yes ED Registration Date: 03/23/19 Care time: The patient presented to the Emergency Department on the above date and was hospitalized for further evaluation of their emergent condition. - New Patient This patient is new to me today: Yes Date on this admission: 03/24/19 - Critical Care Critical Care patient: No - Discharge Referral Referred to [facility] No
--- NOTE | 2019-03-24 13:43 | PN ---
Teaching Attending Note Name of Resident: Isaac Villafana ATTENDING PHYSICIAN STATEMENT I saw and evaluated the patient. I reviewed the resident's note and discussed the case with the resident. I agree with the resident's findings and plan as documented. SUBJECTIVE:continues to have L foot pain. has had similiar infection in the past but states was not related to injury by her cat. denies CP, SOB, fever, chills, N/V/C/D OBJECTIVE: Last Vital Signs Temp Pulse Resp BP Pulse Ox 98.3 F 82 18 125/52 L 97 03/24/19 07:53 03/24/19 07:53 03/24/19 07:53 03/24/19 07:53 03/24/19 08:48 General NAD CV S1 S2 RRR no murmur/rub/gallop Lungs CTA B/L no wheezing/rales/rhonchi Extremities B/L 1+ pitting edema. LLE is erythematous from mid foot to mid anthony , +warm and tender. lesion superior to lateral malleolus. no oozing or drainage noted ASSESSMENT AND PLAN: 89yo F with PMH diastolic CHF, anemia, hypothyroid, OA presented to the ER with pain and parathesia on her LLE after being scratched by her cat 1. sepsis due to LLE cellulitis- after being scratched by her cat. Tm 100.1 with tachycardia now resolved. received vanco and azithro in the ER and now switched to unasyn and vanco. will check vanco level prior to 4th dose (saturday) . doppler neg for DVT. f/u XR taken. d/c IVF. ID on board. CRP elevated 2. Transaminitis- trending down from previous admission. 3. hypothyroid- cont LT4 4. diastolic chf- no signs of volume overload. cont home medications 5. DVT ppx- hep sq.
--- NOTE | 2019-03-24 14:15 | EKG ---
Test Reason : Blood Pressure : / mmHG Vent. Rate : 102 BPM Atrial Rate : 102 BPM P-R Int : 208 ms QRS Dur : 084 ms QT Int : 348 ms P-R-T Axes : 052 -21 037 degrees QTc Int : 453 ms SINUS TACHYCARDIA WITH PREMATURE ATRIAL COMPLEXES OTHERWISE NORMAL ECG WHEN COMPARED WITH ECG OF 02-FEB-2019 04:16, PREMATURE ATRIAL COMPLEXES ARE NOW PRESENT Confirmed by MD JUANCARLOS, RADHA ([id number]) on 03/24/2019 2:14:57 PM Referred By: Confirmed By:RADHA BAUER MD
[2019-03-24] MEDS ORDERED: SODIUM CHLORIDE 100 ML IVPB ONE ×2 (16:10→21:05)
[2019-03-24] MEDS ORDERED: AMPICILLIN NA/SULBACTAM NA 1.5 GM VIAL ONE ×2 (16:10→21:05)
[2019-03-24] MEDS: AMPICILLIN NA/SULBACTAM NA 1.5 GM in SODIUM CHLORIDE 100 ML IVPB SCH ×2 (16:23→21:24)
[2019-03-24] MEDS ORDERED: KETOROLAC TROMETHAMINE 30 MG/1 ML VIAL IVPUSH PRN (16:56)
[2019-03-24 20:24] VITALS: BMI 23.9
[2019-03-24] MEDS ORDERED: INSULIN (NOVOLOG) ASPART 100 UNITS/ML 10ML VIAL ONE (21:07)
[2019-03-24] MEDS: GABAPENTIN 100 MG CAPSULE (FP) PO SCH (21:24)
[2019-03-25] MEDS ORDERED: AMPICILLIN NA/SULBACTAM NA 1.5 GM VIAL ONE ×4 (02:35→21:34)
[2019-03-25] MEDS ORDERED: SODIUM CHLORIDE 100 ML IVPB ONE ×4 (02:35→21:34)
[2019-03-25] MEDS: AMPICILLIN NA/SULBACTAM NA 1.5 GM in SODIUM CHLORIDE 100 ML IVPB SCH ×4 (02:58→21:39)
[2019-03-25] MEDS: HEPARIN NA (PORCINE) 5,000 UNITS/ML 1ML VIAL SQ SCH ×3 (05:13→21:39)
[2019-03-25] MEDS: LEVOTHYROXINE 112 MCG, LEVOTHYROXINE 25 MCG PO SCH (06:14)
[2019-03-25 07:18] LABS: HEMOGLOBIN 13.5 GM/dL (10.7-15.3); MCH 34.4 pg (25.7-33.7); MCHC 34.5 g/dl (32.0-36.0); MEAN CELL VOLUME 99.5 fl (80-96); MEAN PLT VOLUME 7.7 fl (7.5-11.1); PLATELET COUNT 195 K/MM3 (134-434); RBC 3.92 M/mm3 (3.60-5.2); RDW 15.7 % (11.6-15.6); WHITE BLOOD COUNT 11.2 K/mm3 (4.0-10.0)
[2019-03-25 07:27] LABS: ALBUMIN 2.9 g/dl (3.4-5.0); ALK PHOS 101 U/L (45-117); ANION GAP 8 MMOL/L (8-16); BILIRUBIN,TOTAL 1.2 mg/dL (0.2-1); BLOOD UREA NITROGEN 10 mg/dL (7-18); CALCIUM 8.4 mg/dL (8.5-10.1); CHLORIDE 98 mmol/L (98-107); CO2 28 mmol/L (21-32); CREATININE 0.7 mg/dL (0.55-1.3); GLUCOSE,RANDOM 74 mg/dL (74-106); SGOT/AST 66 U/L (15-37); SGPT/ALT 58 U/L (13-61); SODIUM 133 mmol/L (136-145); TOT PROT 6.6 g/dl (6.4-8.2)
[2019-03-25] MEDS ORDERED: POTASSIUM CHLORIDE TABS 20 MEQ TABLET.ER (FP) PO ONE (07:56)
--- NOTE | 2019-03-25 08:20 | PN ---
Physical Exam: SUBJECTIVE: Patient seen and examined at bedside this morning. Patient afebrile overnight. Patient currently denies left lower extremity pain. She denies subjective fevers, chills, shortness of breath, chest pain, palpitations, abdominal pain, nausea, vomiting. OBJECTIVE: Vital Signs Period Temp Pulse Resp BP Sys/Blanco Pulse Ox Last 24 Hr 97.8 F-98.2 F 70-94 17-20 110-146/50-77 95-97 GENERAL: The patient is awake, alert, and oriented, in no acute distress. HEAD: Normocephalic, with hematoma noted over right sided forehead. EYES: PERRL, extraocular movements intact, sclera anicteric, conjunctiva clear. ENT: Oropharynx clear without exudates, moist mucous membranes. NECK: Trachea midline, supple without lymphadenopathy LUNGS: Breath sounds equal, clear to auscultation bilaterally, no wheezes, no crackles, no accessory muscle use. HEART: Regular rate and rhythm, S1, S2 without murmur, rub or gallop. ABDOMEN: Soft, nontender, nondistended, normoactive bowel sounds, no guarding, no rebound, no hepatosplenomegaly, no masses. EXTREMITIES: 2+ radial, dorsalis pulses, warm, well-perfused. 1+ lower extremity pitting edema bilaterally. Left lower extremity erythema diminishing. NEUROLOGICAL: Cranial nerves II through XII grossly intact. Normal speech. PSYCH: Normal mood, normal affect upon my encounter. SKIN: Warm, dry. 1cm x1cm lesion noted over left anterior anthony without drainage , or bleeding. Laboratory Results - last 24 hr 03/25/19 06:00 Sodium 133 L Potassium 3.0 L Chloride 98 Carbon Dioxide 28 Anion Gap 8 BUN 10 Creatinine 0.7 Creat Clearance w eGFR 78.97 Random Glucose 74 Calcium 8.4 L Total Bilirubin 1.2 H AST 66 H ALT 58 Alkaline Phosphatase 101 Total Protein 6.6 Albumin 2.9 L Active Medications Generic Name Dose Route Start Last Admin Trade Name Freq PRN Reason Stop Dose Admin Aspirin 81 mg 03/24/19 10:00 03/24/19 09:24 Asa - PO 81 mg DAILY LIN Administration Docusate Sodium 100 mg 03/23/19 22:15 Colace - PO PRN PRN CONSTIPATION Gabapentin 200 mg 03/24/19 22:00 03/24/19 21:24 Neurontin - PO 200 mg HS LIN Administration Heparin Sodium (Porcine) 5,000 unit 03/23/19 22:15 03/25/19 05:13 Heparin - SQ Not Given TID COUNTS INCLUDE 234 BEDS AT THE [facility] Hydrochlorothiazide 25 mg 03/25/19 10:00 Hctz - PO DAILY COUNTS INCLUDE 234 BEDS AT THE [facility] Vancomycin HCl 1,000 mg in 250 mls @ 200 mls/hr 03/24/19 11:43 03/24/19 12:29 Vancomycin (Pre-Docked) IVPB Not Given Q24H COUNTS INCLUDE 234 BEDS AT THE [facility] Protocol Ampicillin Sodium/Sulbactam 100 mls @ 200 mls/hr 03/24/19 14:41 03/25/19 02: 58 Sodium 1.5 gm/ Sodium Chloride IVPB 200 mls/hr Q6H-IV LIN Administration Ketorolac Tromethamine 30 mg 03/24/19 16:56 Toradol Injection - IVPUSH 03/29/19 16:55 ONCE PRN PAIN LEVEL 6-10 Levothyroxine Sodium 112 mcg/ 137 mcg 03/24/19 07:00 03/25/19 06:14 Levothyroxine Sodium 25 mcg PO 137 mcg DAILY@0700 COUNTS INCLUDE 234 BEDS AT THE [facility] Administration Metoprolol Succinate 25 mg 03/25/19 10:00 Toprol Xl - PO DAILY COUNTS INCLUDE 234 BEDS AT THE [facility] Potassium Chloride 40 meq 03/25/19 07:56 K-Dur - PO 03/25/19 07:57 ONCE ONE Senna/Docusate Sodium 2 tablet 03/23/19 22:11 Pericolace - PO PRN PRN CONSTIPATION Tetrahydrozoline HCl 1 drop 03/24/19 10:00 03/24/19 22:02 Visine - OD 1 drop QID LIN Administration ASSESSMENT/PLAN: Patient is an 89 year old female with history of anemia, hypertension, hypothyroidism, diastolic CHF, presents after a scratch on her left lower extremity by her cat. Left lower extremity cellulitis -Ampicillin- Sulbactam 1.5grams IV Q6 hours (day #2) -Vancomycin 1000mg IV Q6 hours (day #2) -Blood cultures negative for growth at 24 hours -Lower extremity duplex US negative for DVT bilateral lower extremities -Lower extremity arterial duplex US shows moderate atherosclerotic disease; no hemodynamically significant stenosis. -Radiograph lower extremity reveals no soft tissue air. -ID consult (Dr. Zaragoza) appreciated Hypothyroidism -Levothyroxine 137mcg PO daily Diastolic CHF -Metoprolol succinate 25mg PO daily Hypertension -Hydrochlorothiazide 25mg PO daily Transaminitis -Resolving since prior admission. -Trend LFTs Constipation -Senna 2 tablets PO HS -Colace 100mg PO daily PRN FEN -No IV fluids indicated -Follow CMP -Sodium controlled diet Prophylaxis -Heparin 5000u subq TID Disposition -Continue care in medical surgical floor. Visit type - Emergency Visit Emergency Visit: Yes ED Registration Date: 03/23/19 Care time: The patient presented to the Emergency Department on the above date and was hospitalized for further evaluation of their emergent condition. - New Patient This patient is new to me today: No - Critical Care Critical Care patient: No - Discharge Referral Referred to [facility] No
[2019-03-25] MEDS: TETRAHYDROZOLINE HCL EYE DROPS OD SCH ×4 (10:00→21:39)
[2019-03-25] MEDS: HYDROCHLOROTHIAZIDE 25 MG TABLET (FP) PO SCH (10:10)
[2019-03-25] MEDS: ASPIRIN 81 MG CHEWABLE TABLETS PO SCH (10:10)
[2019-03-25] MEDS: metoPROLOL SUCCINATE 25 MG TAB.SR.24H (FP) PO SCH (10:10)
--- NOTE | 2019-03-25 13:10 | PN ---
Teaching Attending Note Name of Resident: Isaac Villafana ATTENDING PHYSICIAN STATEMENT I saw and evaluated the patient. I reviewed the resident's note and discussed the case with the resident. I agree with the resident's findings and plan as documented. SUBJECTIVE:pain has resolved. denies Cp, SOB, fever, chills, N/V/C/D OBJECTIVE: Last Vital Signs Temp Pulse Resp BP Pulse Ox 97.9 F 80 18 120/62 97 03/25/19 05:55 03/25/19 10:00 03/25/19 10:00 03/25/19 10:00 03/25/19 09:00 General NAD CV S1 S2 RRR no murmur/rub/gallop Lungs CTA B/L no wheezing/rales/rhonchi Extremities B/L 1+ pitting edema. LLE is erythematous from mid foot to mid anthony , +warm. not tender. lesion superior to lateral malleolus. no oozing or drainage noted ASSESSMENT AND PLAN: 89yo F with PMH diastolic CHF, anemia, hypothyroid, OA presented to the ER with pain and parathesia on her LLE after being scratched by her cat 1. sepsis due to LLE cellulitis- after being scratched by her cat. afebrile. leukocytosis trending down. on vanco/unasyn. will monitor for improvement. f/u Cx. ID on board. 2. Transaminitis- trending down from previous admission. 3. hypothyroid- cont LT4 4. diastolic chf- no signs of volume overload. cont home medications 5. DVT ppx- hep sq.
[2019-03-25] MEDS: VANCOMYCIN 1 GRAM (PRE-DOCKED) 1,000 MG/250 ML BAG IVPB SCH (13:20)
--- NOTE | 2019-03-25 15:39 | PN ---
Progress Note (short form) - Note Progress Note: doing well still some leg pain Vital Signs Period Temp Pulse Resp BP Sys/Blanco Pulse Ox Last 24 Hr 97.6 F-97.9 F 70-94 17-20 120-146/56-77 95-97 cor-rrr lungs decreased bs at bases abd soft,nt ext decreased erythema LLE, decreased swelling RLE well healed bilateral TKR scars CBC, BMP 03/25/19 06:00 Microbiology 03/23/19 19:53 Urine - Urine Clean Catch Urine Culture - Final 03/23/19 19:44 Blood - Peripheral Venous Blood Culture - Preliminary NO GROWTH OBTAINED AFTER 24 HOURS, INCUBATION TO CONTINUE FOR 4 DAYS. 03/23/19 19:50 Blood - Peripheral Venous Blood Culture - Preliminary NO GROWTH OBTAINED AFTER 24 HOURS, INCUBATION TO CONTINUE FOR 4 DAYS. Active Medications Aspirin (Asa -) 81 mg PO DAILY [facility] Last Admin: 03/25/19 10:10 Dose: 81 mg Docusate Sodium (Colace -) 100 mg PO PRN PRN PRN Reason: CONSTIPATION Gabapentin (Neurontin -) 200 mg PO HS [facility] Last Admin: 03/24/19 21:24 Dose: 200 mg Heparin Sodium (Porcine) (Heparin -) 5,000 unit SQ TID [facility] Last Admin: 03/25/19 13:30 Dose: 5,000 unit Hydrochlorothiazide (Hctz -) 25 mg PO DAILY [facility] Last Admin: 03/25/19 10:10 Dose: 25 mg Vancomycin HCl (Vancomycin (Pre-Docked)) 1,000 mg in 250 mls @ 200 mls/hr IVPB Q24H [facility]; Protocol Last Admin: 03/25/19 13:20 Dose: 200 mls/hr Ampicillin Sodium/Sulbactam (Sodium 1.5 gm/ Sodium Chloride) 100 mls @ 200 mls/ hr IVPB Q6H-IV [facility] Last Admin: 03/25/19 10:10 Dose: 200 mls/hr Ketorolac Tromethamine (Toradol Injection -) 30 mg IVPUSH ONCE PRN PRN Reason: PAIN LEVEL 6-10 Stop: 03/29/19 16:55 Levothyroxine Sodium 112 mcg/ (Levothyroxine Sodium 25 mcg) 137 mcg PO DAILY@ 0700 [facility] Last Admin: 03/25/19 06:14 Dose: 137 mcg Metoprolol Succinate (Toprol Xl -) 25 mg PO DAILY [facility] Last Admin: 03/25/19 10:10 Dose: 25 mg Senna/Docusate Sodium (Pericolace -) 2 tablet PO PRN PRN PRN Reason: CONSTIPATION Tetrahydrozoline HCl (Visine -) 1 drop OD QID [facility] Last Admin: 03/25/19 13:19 Dose: 1 drop a/p cellulitis s/p cat bite/scratch improving continue unasyn/vancomycin check vanco trough LFTS improving
[2019-03-25 15:44] LABS: ANION GAP 7 MMOL/L (8-16); BLOOD UREA NITROGEN 11 mg/dL (7-18); CALCIUM 8.4 mg/dL (8.5-10.1); CHLORIDE 99 mmol/L (98-107); CO2 28 mmol/L (21-32); CREATININE 0.6 mg/dL (0.55-1.3); GLUCOSE,RANDOM 114 mg/dL (74-106); POTASSIUM 3.1 mmol/L (3.5-5.1); SODIUM 133 mmol/L (136-145)
[2019-03-25] MEDS ORDERED: POTASSIUM CHLORIDE ORAL LIQUID 20 MEQ/15 ML PO ONE (15:52)
[2019-03-25] MEDS: GABAPENTIN 100 MG CAPSULE (FP) PO SCH (21:39)
[2019-03-26] MEDS ORDERED: AMPICILLIN NA/SULBACTAM NA 1.5 GM VIAL ONE ×2 (02:40→09:49)
[2019-03-26] MEDS ORDERED: SODIUM CHLORIDE 100 ML IVPB ONE ×2 (02:41→09:50)
[2019-03-26] MEDS: AMPICILLIN NA/SULBACTAM NA 1.5 GM in SODIUM CHLORIDE 100 ML IVPB SCH ×2 (02:56→10:01)
[2019-03-26] MEDS ORDERED: LEVOTHYROXINE NA 112 MCG TABLET (FP) ONE (05:55)
[2019-03-26] MEDS ORDERED: LEVOTHYROXINE NA 25 MCG TABLET (FP) ONE (05:56)
[2019-03-26] MEDS: HEPARIN NA (PORCINE) 5,000 UNITS/ML 1ML VIAL SQ SCH ×3 (06:05→21:51)
[2019-03-26] MEDS: LEVOTHYROXINE 112 MCG, LEVOTHYROXINE 25 MCG PO SCH (06:05)
[2019-03-26] MEDS: TETRAHYDROZOLINE HCL EYE DROPS OD SCH ×4 (10:00→21:52)
[2019-03-26] MEDS: ASPIRIN 81 MG CHEWABLE TABLETS PO SCH (10:06)
[2019-03-26] MEDS: metoPROLOL SUCCINATE 25 MG TAB.SR.24H (FP) PO SCH (10:06)
[2019-03-26] MEDS: HYDROCHLOROTHIAZIDE 25 MG TABLET (FP) PO SCH (10:06)
--- NOTE | 2019-03-26 12:38 | PN ---
Progress Note, Physician History of Present Illness: AWAKE, ALERT SEATED IN BED NO COMPLAINTS DENIES LE PAIN NO F/C AFEBRILE WBC IMPROVED BC (-) - Current Medication List Current Medications: Active Medications Aspirin (Asa -) 81 mg PO DAILY [facility] Last Admin: 03/26/19 10:06 Dose: 81 mg Docusate Sodium (Colace -) 100 mg PO PRN PRN PRN Reason: CONSTIPATION Gabapentin (Neurontin -) 200 mg PO HS [facility] Last Admin: 03/25/19 21:39 Dose: 200 mg Heparin Sodium (Porcine) (Heparin -) 5,000 unit SQ TID [facility] Last Admin: 03/26/19 06:05 Dose: 5,000 unit Hydrochlorothiazide (Hctz -) 25 mg PO DAILY [facility] Last Admin: 03/26/19 10:06 Dose: 25 mg Vancomycin HCl (Vancomycin (Pre-Docked)) 1,000 mg in 250 mls @ 200 mls/hr IVPB Q24H [facility]; Protocol Last Admin: 03/25/19 13:20 Dose: 200 mls/hr Ampicillin Sodium/Sulbactam (Sodium 1.5 gm/ Sodium Chloride) 100 mls @ 200 mls/ hr IVPB Q6H-IV [facility] Last Admin: 03/26/19 10:01 Dose: 200 mls/hr Ketorolac Tromethamine (Toradol Injection -) 30 mg IVPUSH ONCE PRN PRN Reason: PAIN LEVEL 6-10 Stop: 03/29/19 16:55 Levothyroxine Sodium 112 mcg/ (Levothyroxine Sodium 25 mcg) 137 mcg PO DAILY@ 0700 [facility] Last Admin: 03/26/19 06:05 Dose: 137 mcg Metoprolol Succinate (Toprol Xl -) 25 mg PO DAILY [facility] Last Admin: 03/26/19 10:06 Dose: 25 mg Senna/Docusate Sodium (Pericolace -) 2 tablet PO PRN PRN PRN Reason: CONSTIPATION Tetrahydrozoline HCl (Visine -) 1 drop OD QID [facility] Last Admin: 03/25/19 21:39 Dose: Not Given - Objective Vital Signs: Vital Signs Temperature 97.8 F 03/26/19 06:00 Pulse Rate 68 03/26/19 06:00 Respiratory Rate 18 03/26/19 06:00 Blood Pressure 151/81 03/26/19 06:00 O2 Sat by Pulse Oximetry (%) 95 05/01/19 21:00 Constitutional: Yes: No Distress Eyes: Yes: Conjunctiva Clear Cardiovascular: Yes: Regular Rate and Rhythm, S1, S2 Respiratory: Yes: CTA Bilaterally Gastrointestinal: Yes: Normal Bowel Sounds, Soft. No: Tenderness Extremities: Yes: Other (LE SWELLING RESOLVED, MINIMAL ERYTHEMA L LE) Labs: CBC, BMP 03/25/19 06:00 03/25/19 13:22 INR, PTT INR 1.13 (0.83-1.09) H 03/23/19 19:53 Assessment/Plan CELLULITIS LE BILATERALLY NEARLY ALL RESOLVED LEUKOCYTOSIS IMPROVED S/P CAT BITE/ SCRATCH SUBSTITUTE PO AUGMENTIN 875 MG PO BID X 7D
[2019-03-26] MEDS: VANCOMYCIN 1 GRAM (PRE-DOCKED) 1,000 MG/250 ML BAG IVPB SCH (14:11)
--- NOTE | 2019-03-26 14:47 | PN ---
Teaching Attending Note Name of Resident: Isaac Villafana ATTENDING PHYSICIAN STATEMENT I saw and evaluated the patient. I reviewed the resident's note and discussed the case with the resident. I agree with the resident's findings and plan as documented. SUBJECTIVE:pain in leg has resolved. denies CP, SOB, fever, chills, N/V/C/D OBJECTIVE: Last Vital Signs Temp Pulse Resp BP Pulse Ox 97.8 F 80 18 118/58 L 97 03/26/19 06:00 03/26/19 10:00 03/26/19 10:00 03/26/19 10:03/26/19 09:00 General NAD Extremities edema resolved. minimal erythema circumferential around the L ankle and only minimally on the distal leg. area is not warm or tender. small abrasion noted superior to lateral malleolus ASSESSMENT AND PLAN: 89yo F with PMH diastolic CHF, anemia, hypothyroid, OA presented to the ER with pain and parathesia on her LLE after being scratched by her cat 1. sepsis due to LLE cellulitis- after being scratched by her cat. afebrile. significant improvement noted in leg. on vanco/unasyn will switch to augmentin for an additional 7 days. Cx negative 2. Transaminitis- trending down from previous admission. 3. hypothyroid- cont LT4 4. diastolic chf- no signs of volume overload. cont home medications 5. DVT ppx- hep sq. 6. d/c home on po abx
--- NOTE | 2019-03-26 14:49 | DS ---
Physical Exam: SUBJECTIVE: Patient seen and examined at bedside this morning. Patient afebrile overnight. Patient currently denies left lower extremity pain. She denies subjective fevers, chills, shortness of breath, chest pain, palpitations, abdominal pain, nausea, vomiting. OBJECTIVE: Vital Signs Period Temp Pulse Resp BP Sys/Blanco Pulse Ox Last 24 Hr 97.4 F-98.1 F 68-80 18-18 118-158/58-86 95-97 PHYSICAL EXAM GENERAL: The patient is awake, alert, and oriented, in no acute distress. HEAD: Normocephalic, with hematoma noted over right sided forehead. EYES: PERRL, extraocular movements intact, sclera anicteric, conjunctiva clear. ENT: Oropharynx clear without exudates, moist mucous membranes. NECK: Trachea midline, supple without lymphadenopathy LUNGS: Breath sounds equal, clear to auscultation bilaterally, no wheezes, no crackles, no accessory muscle use. HEART: Regular rate and rhythm, S1, S2 without murmur, rub or gallop. ABDOMEN: Soft, nontender, nondistended. Normoactive bowel sounds, no guarding, no rebound tenderness. No hepatosplenomegaly, no masses. EXTREMITIES: 2+ radial, dorsalis pulses, warm, well-perfused. 1+ lower extremity pitting edema bilaterally. Left lower extremity erythema significantly diminishing. NEUROLOGICAL: Cranial nerves II through XII grossly intact. Normal speech. PSYCH: Normal mood, normal affect upon my encounter. SKIN: Warm, dry. 1cm x1cm lesion noted over left anterior anthony without drainage , or bleeding. Healing well. LABS Laboratory Results - last 24 hr 03/25/19 13:22 Sodium 133 L Potassium 3.1 L Chloride 99 Carbon Dioxide 28 Anion Gap 7 L BUN 11 Creatinine 0.6 Creat Clearance w eGFR 94.35 Random Glucose 114 H Calcium 8.4 L HOSPITAL COURSE: Date of Admission:03/23/19 Date of Discharge: 03/26/19 Patient is an 89 year old female with history of anemia, hypertension, hypothyroidism, diastolic CHF, presents after a scratch on her left lower extremity by her cat. Patient was started on empiric Vancomycin and Ampicillin- Sulbactam. Blood cultures negative for growth. Lower extremity duplex US negative for DVT bilateral lower extremities. Lower extremity arterial duplex US showed moderate atherosclerotic disease; no hemodynamically significant stenosis. Radiograph lower extremity revealed no soft tissue air. Patient's cellulitis significantly improved, and patient was switched to oral Augmentin. Patient was discharged back to [facility] living facility. Discharged to continue Augmentin 750mg BID for 7 days with infectious disease physician recommendations. Minutes to complete discharge: 35 Discharge Summary Reason For Visit: CELLULITIS OF LEFT LOWER LEG/ELEVATED TRANSAMINASE Current Active Problems Cat scratch of lower leg (Acute) Left leg cellulitis (Acute) Condition: Stable - Instructions Diet, Activity, Other Instructions: You were admitted to hospital with an infection occurring due to cat scratch. You were evaluated by the infectious disease physician, and were treated with IV antibiotics. You are being discharged back to your Facility continue to wear your compression stocking as you were wearing previously. Continue taking your home medications as directed. You will continue taking antibiotic: Augmentin 875mg twice a day (every 12 hours ) for 7 days. Follow up with your primary care physician within two- three days after discharge. Follow up with infectious disease physician (Dr. Zaragoza) within one week of discharge. A referral has been provided. Return to the nearest Emergency Department if you experience worsening symptoms , subjective fevers, chills, shortness of breath, chest pain, palpitations, abdominal pain, nausea, vomiting, bleeding or drainage from the wound. Referrals: Rafiq Zaragoza MD [Staff Physician] - 1 Week Disposition: NURSING HOME FACILITY - Home Medications Comprehensive Discharge Medication List: Ambulatory Orders Aspirin 81 mg PO DAILY 02/02/19 Gabapentin [Neurontin] 200 mg PO HS 02/02/19 Lactobacillus Acidophilus [Acidophilus] 1 each PO DAILY 02/02/19 Lutein 20 mg PO DAILY 02/02/19 Metoprolol Succinate [Toprol XL -] 25 mg PO DAILY tab.sr.24h 02/05/19 Tetrahydrozoline HCl [Visine -] 1 drop OD QID drops 02/05/19 Acetaminophen [Tylenol .Extra-Strength -] 500 mg PO PRN 03/23/19 Ascorbate Calcium [Vitamin C] 500 mg PO DAILY 03/23/19 Diphenhydramine HCl 25 mg PO DAILY 03/23/19 Docusate Sodium [Colace] 100 mg PO PRN 03/23/19 Hydrochlorothiazide 25 mg PO DAILY 03/23/19 Ibuprofen 400 mg PO PRN 03/23/19 Levothyroxine Sodium [Synthroid] 137 mcg PO DAILY 03/23/19 Mirabegron [Myrbetriq] 25 mg PO HS 03/23/19 Multivitamin [Multiple Vitamins] 1 each PO DAILY 03/23/19 Sennosides/Docusate Sodium [Pericolace -] 2 tablet PO PRN PRN 03/23/19 Amox-Tr/K Cl [Augmentin 875-125mg Tablet -] 1 tab PO BID@0800,1730 7 Days #14 tablet 03/26/19 This patient is new to me today: No Emergency Visit: Yes ED Registration Date: 03/23/19 Care time: The patient presented to the Emergency Department on the above date and was hospitalized for further evaluation of their emergent condition. Critical Care patient: No - Discharge Referral Referred to [facility] No
[2019-03-26] MEDS: AMOX TR/POT CLAV 875MG/125MG TABLETS (FP) PO SCH (18:09)
[2019-03-26] MEDS: GABAPENTIN 100 MG CAPSULE (FP) PO SCH (21:52)
[2019-03-27] MEDS ORDERED: LEVOTHYROXINE NA 112 MCG TABLET (FP) ONE (05:54)
[2019-03-27] MEDS ORDERED: LEVOTHYROXINE NA 25 MCG TABLET (FP) ONE (05:55)
[2019-03-27] MEDS: LEVOTHYROXINE 112 MCG, LEVOTHYROXINE 25 MCG PO SCH (06:15)
[2019-03-27] MEDS: HEPARIN NA (PORCINE) 5,000 UNITS/ML 1ML VIAL SQ SCH ×2 (06:16→15:08)
[2019-03-27 07:25] LABS: HEMATOCRIT 37.8 % (32.4-45.2); HEMOGLOBIN 13.1 GM/dL (10.7-15.3); MCH 34.3 pg (25.7-33.7); MCHC 34.7 g/dl (32.0-36.0); MEAN CELL VOLUME 98.9 fl (80-96); MEAN PLT VOLUME 7.5 fl (7.5-11.1); PLATELET COUNT 211 K/MM3 (134-434); RBC 3.82 M/mm3 (3.60-5.2); RDW 15.3 % (11.6-15.6); WHITE BLOOD COUNT 5.4 K/mm3 (4.0-10.0)
[2019-03-27 07:33] LABS: ALBUMIN 2.7 g/dl (3.4-5.0); ALK PHOS 87 U/L (45-117); ANION GAP 8 MMOL/L (8-16); BILIRUBIN,TOTAL 0.8 mg/dL (0.2-1); BLOOD UREA NITROGEN 9 mg/dL (7-18); CALCIUM 8.5 mg/dL (8.5-10.1); CHLORIDE 98 mmol/L (98-107); CO2 26 mmol/L (21-32); CREATININE 0.5 mg/dL (0.55-1.3); GLUCOSE,RANDOM 81 mg/dL (74-106); POTASSIUM 3.4 mmol/L (3.5-5.1); SGOT/AST 44 U/L (15-37); SGPT/ALT 42 U/L (13-61); SODIUM 132 mmol/L (136-145); TOT PROT 6.3 g/dl (6.4-8.2)
[2019-03-27] MEDS: AMOX TR/POT CLAV 875MG/125MG TABLETS (FP) PO SCH (09:41)
[2019-03-27] MEDS: ASPIRIN 81 MG CHEWABLE TABLETS PO SCH (09:41)
[2019-03-27] MEDS: metoPROLOL SUCCINATE 25 MG TAB.SR.24H (FP) PO SCH (09:41)
[2019-03-27] MEDS: TETRAHYDROZOLINE HCL EYE DROPS OD SCH ×2 (09:42→15:08)
[2019-03-27] MEDS ORDERED: amLODIPine BESYLATE 5 MG TABLET (FP) PO SCH (10:00)
--- NOTE | 2019-03-27 12:54 | PN ---
Teaching Attending Note Name of Resident: Isaac Villafana ATTENDING PHYSICIAN STATEMENT I saw and evaluated the patient. I reviewed the resident's note and discussed the case with the resident. I agree with the resident's findings and plan as documented. SUBJECTIVE:asymptomatic. denies CP, SOB, fever, chills, pain in leg has resolved was d/c yesterday however issue with transportation OBJECTIVE: Last Vital Signs Temp Pulse Resp BP Pulse Ox 98.6 F 76 20 134/88 97 03/27/19 10:03/27/19 10:03/27/19 10:03/27/19 10:03/26/19 21:00 General NAD Extremities edema resolved. minimal erythema circumferential around the L ankle and only minimally on the distal leg. area is not warm or tender. small abrasion noted superior to lateral malleolus ASSESSMENT AND PLAN: 89yo F with PMH diastolic CHF, anemia, hypothyroid, OA presented to the ER with pain and parathesia on her LLE after being scratched by her cat 1. sepsis due to LLE cellulitis- after being scratched by her cat. afebrile. significant improvement noted in leg. on augmentin for an additional 7 days. Cx negative 2. asymptomatic hyponatremia- slowly trending down, could be exacerbated by HCTZ. will d/c. will place on norvasc for BP control 3. Transaminitis- trending down from previous admission. 4. hypothyroid- cont LT4 5. diastolic chf- no signs of volume overload. cont home medications 6. DVT ppx- hep sq. 7. d/c home on po abx
[2019-03-27 13:34] VITALS: BP 103/72; PULSE 69; TEMP 98.1
== END 2019-03-27 15:16 | disposition home or self-care (01) | DRG 872 ==
LOC: JER 18:50 → JERBED 21:09 → J5S 03-24 14:13
PROVIDERS: ADMIT Internal Medicine; ATTEND Internal Medicine
DX: A41.9 Sepsis, unspecified organism (principal); L03.116 Cellulitis of left lower limb; I50.32 Chronic diastolic (congestive) heart failure; E03.9 Hypothyroidism, unspecified; E87.1 Hypo-osmolality and hyponatremia; Y99.8 Other external cause status; R74.0 Nonspecific elevation of levels of transaminase and lactic acid dehydrogenase [LDH]; D75.89 Other specified diseases of blood and blood-forming organs; M81.0 Age-related osteoporosis without current pathological fracture; M19.90 Unspecified osteoarthritis, unspecified site; I11.0 Hypertensive heart disease with heart failure; D64.9 Anemia, unspecified; W55.03XA Scratched by cat, initial encounter; Y93.89 Activity, other specified; Y92.89 Other specified places as the place of occurrence of the external cause; K59.00 Constipation, unspecified
CPT/HCPCS: 36415; 71045-TC-FY; 73590-TC-LT-FY; 73590-TC-RT-FY; 73610-TC-LT-FY; 73610-TC-RT-FY; 80048; 80053; 81003; 82607; 82746; 82803; 83605; 83735; 84100; 84484; 85025; 85027; 85610; 85651; 85730; 86140; 87040; 87086; 93005; 93010; 93926-TC; 93970-TC; 97116-GP; 97161-GP; 99284-25; J0131; J1644

== ENCOUNTER 2019-04-17 16:37 | Inpatient (IN) | payer OTHER, BC ==
--- NOTE | 2019-04-17 16:46 | PDOC ---
Rapid Medical Evaluation Time Seen by Provider: 04/17/19 16:44 Medical Evaluation: Allergies Allergy/AdvReac Type Severity Reaction Status Date / Time codeine Allergy Unknown Verified 03/23/19 19:39 04/17/19 16:44 I have performed a brief in-person evaluation of this patient. The patient presents with a chief complaint of: " we think she might have cellulitis in her leg." pt was just admitted here for cellulitis. Pertinent physical exam findings: 2+ pitting edema and erythema to b/l lower extremities I have ordered the following: labs, iv The patient will proceed to the ED for further evaluation.
[2019-04-17 17:25] LABS: BASO % 1.1 % (0-2.0); EOS % 10.3 % (0-4.5); HEMATOCRIT 37.2 % (32.4-45.2); HEMOGLOBIN 12.4 GM/dL (10.7-15.3); LYMPH % 17.6 % (8-40); MCH 33.7 pg (25.7-33.7); MCHC 33.4 g/dl (32.0-36.0); MEAN CELL VOLUME 100.9 fl (80-96); MEAN PLT VOLUME 7.5 fl (7.5-11.1); MONO % 13.7 % (3.8-10.2); NEUT % 57.3 % (42.8-82.8); PLATELET COUNT 209 K/MM3 (134-434); RBC 3.68 M/mm3 (3.60-5.2); RDW 14.6 % (11.6-15.6); WHITE BLOOD COUNT 6.5 K/mm3 (4.0-10.0)
--- NOTE | 2019-04-17 17:39 | PDOC ---
History of Present Illness - General Chief Complaint: Wound Stated Complaint: SWOLLEN LEG, CELLULITIS Time Seen by Provider: 04/17/19 16:44 - History of Present Illness Initial Comments: 04/17/19 17:40 Ms. Collins is an 89 yo female w/ pmh of anemia, HTN, hypothyroidism, CHF with recent admission to this hospital 03/23-03/27 for lower extremity cellulitis after scratch by cat, treated w/ vancomycin and ampicillin-sulbactam w/ negative US for DVT, discharged on oral augmentin x7 days who presents for evaluation after friend today noted cellulitis of legs CHRISTINE. Patient has no complaints at this time however reports friend made her come for evaluation. The patient denies chest pain, shortness of breath, headache and dizziness. Denies fever, chills, nausea, vomit, diarrhea and constipation. Denies dysuria, frequency, urgency and hematuria. Past History - Past Medical History Allergies/Adverse Reactions: Allergies Allergy/AdvReac Type Severity Reaction Status Date / Time codeine Allergy Unknown Verified 04/17/19 16:48 Home Medications: Ambulatory Orders Aspirin 81 mg PO DAILY 02/02/19 Gabapentin [Neurontin] 200 mg PO HS 02/02/19 Lactobacillus Acidophilus [Acidophilus] 1 each PO DAILY 02/02/19 Lutein 20 mg PO DAILY 02/02/19 Metoprolol Succinate [Toprol XL -] 25 mg PO DAILY tab.sr.24h 02/05/19 Tetrahydrozoline HCl [Visine -] 1 drop OD QID drops 02/05/19 Acetaminophen [Tylenol .Extra-Strength -] 500 mg PO PRN 03/23/19 Ascorbate Calcium [Vitamin C] 500 mg PO DAILY 03/23/19 Diphenhydramine HCl 25 mg PO DAILY 03/23/19 Docusate Sodium [Colace] 100 mg PO PRN 03/23/19 Ibuprofen 400 mg PO PRN 03/23/19 Levothyroxine Sodium [Synthroid] 137 mcg PO DAILY 03/23/19 Mirabegron [Myrbetriq] 25 mg PO HS 03/23/19 Multivitamin [Multiple Vitamins] 1 each PO DAILY 03/23/19 Sennosides/Docusate Sodium [Pericolace -] 2 tablet PO PRN PRN 03/23/19 Amox-Tr/K Cl [Augmentin 875-125mg Tablet -] 1 tab PO BID@0800,1730 7 Days #14 tablet 03/26/19 Amlodipine Besylate [Norvasc -] 5 mg PO DAILY 30 Days #30 tablet 03/27/19 COPD: No HTN: Yes Thyroid Disease: Yes (Hypothyroidism) Other medical history: arthritis neck, cellulitis - Surgical History Orthopedic Surgery: Yes (Bilateral Knees) - Immunization History Immunization Up to Date: (Unknown) - Suicide/Smoking/Psychosocial Hx Smoking History: Never smoked Have you smoked in the past 12 months: No Information on smoking cessation initiated: No Hx Alcohol Use: No Drug/Substance Use Hx: No Substance Use Type: None Hx Substance Use Treatment: No Review of Systems - Review of Systems Comments:: 04/17/19 18:08 GENERAL/CONSTITUTIONAL: No fever, no lethargy HEAD, EYES, EARS, NOSE AND THROAT: No eye discharge. No ear pain or discharge. No sore throat. CARDIOVASCULAR: No chest pain. RESPIRATORY: No cough, no wheezing. GASTROINTESTINAL: No pain, nausea, vomiting, diarrhea or constipation. GENITOURINARY: No dysuria, no change in urine output MUSCULOSKELETAL: No joint pain. No neck or back pain. SKIN: +Leg rash as described. NEUROLOGIC: No headache, loss of consciousness, irritability. ENDOCRINE: No increased thirst. No abnormal weight change. ALLERGIC/IMMUNOLOGIC: No hives or skin allergy *Physical Exam - Vital Signs Last Vital Signs Temp Pulse Resp BP Pulse Ox 98 F 79 18 134/61 98 04/17/19 16:46 04/17/19 16:46 04/17/19 16:46 04/17/19 16:46 04/17/19 16:46 - Physical Exam Comments: 04/17/19 18:08 GENERAL: Awake, alert, and appropriately interactive EYES: PERRLA, clear conjunctiva NOSE: Nose is clear without discharge EARS: EACs and TMs are normal THROAT: Moist mucosa, oropharynx is clear without erythema or exudates, NECK: Supple, no adenopathy, no meningismus CHEST: Lungs are clear without crackles, or wheezes HEART: Regular rhythm, normal S1 and S2, no murmurs ABDOMEN: Soft and nontender with normal bowel sounds, no organomegaly, no mass, no rebound, no guarding EXTREMITIES: +Lower extremity exam significant CHRISTINE for 2+ edema, erythema, and warmth to mid calf NEURO: Behavior normal for age, normal cranial nerves, normal tone SKIN: +Cellulitic rash as described above. Otherwise unremarkable, no bruising, no signs of injury ED Treatment Course - LABORATORY CBC & Chemistry Diagram: 04/17/19 17:14 04/17/19 17:14 - ADDITIONAL ORDERS Additional order review: 04/17/19 17:14 RBC 3.68 MCV 100.9 H MCHC 33.4 RDW 14.6 MPV 7.5 Neutrophils % 57.3 D Lymphocytes % 17.6 D Monocytes % 13.7 H D Eosinophils % 10.3 H D Basophils % 1.1 D Medical Decision Making - Medical Decision Making 04/17/19 20:02 Ms. Collins is an 89 yo female w/ pmh as described who presents for evaluation of symptoms concerning for cellulitis vs. venous stasis vs. hypervolemia. Patient evaluated with infectious workup w/ labs as below as well as XR. Patient noted to have UTI. XR negative CHRISTINE. Given patient's prior outpatient therapy for cellulitis will cover patient for both UTI and cellulitis and admit for suspected outpatient oral ABX failure with concurrent UTI. Laboratory Results - last 24 hr 04/17/19 04/17/19 04/17/19 17:14 17:14 17:14 WBC 6.5 RBC 3.68 Hgb 12.4 Hct 37.2 MCV 100.9 H MCH 33.7 MCHC 33.4 RDW 14.6 Plt Count 209 MPV 7.5 Absolute Neuts (auto) 3.7 Neutrophils % 57.3 D Lymphocytes % 17.6 D Monocytes % 13.7 H D Eosinophils % 10.3 H D Basophils % 1.1 D Nucleated RBC % 0 PT with INR 12.40 INR 1.05 Sodium 134 L Potassium 4.4 Chloride 101 Carbon Dioxide 27 Anion Gap 6 L BUN 15 Creatinine 0.8 Est GFR (CKD-EPI)AfAm 76.29 Est GFR (CKD-EPI)NonAf 65.82 Random Glucose 100 Calcium 9.0 Total Bilirubin 0.7 AST 90 H ALT 69 H Alkaline Phosphatase 120 H Creatine Kinase 40 Troponin I 0.03 B-Natriuretic Peptide 644.4 H Total Protein 7.4 Albumin 3.6 TSH 0.10 L Urine Color Urine Appearance Urine pH Ur Specific [place] Urine Protein Urine Glucose (UA) Urine Ketones Urine Blood Urine Nitrite Urine Bilirubin Urine Urobilinogen Ur Leukocyte Esterase Urine WBC (Auto) Urine RBC (Auto) Urine Casts (Auto) U Epithel Cells (Auto) Urine Bacteria (Auto) 04/17/19 19:00 WBC RBC Hgb Hct MCV MCH MCHC RDW Plt Count MPV Absolute Neuts (auto) Neutrophils % Lymphocytes % Monocytes % Eosinophils % Basophils % Nucleated RBC % PT with INR INR Sodium Potassium Chloride Carbon Dioxide Anion Gap BUN Creatinine Est GFR (CKD-EPI)AfAm Est GFR (CKD-EPI)NonAf Random Glucose Calcium Total Bilirubin AST ALT Alkaline Phosphatase Creatine Kinase Troponin I B-Natriuretic Peptide Total Protein Albumin TSH Urine Color Yellow Urine Appearance Clear Urine pH 6.5 Ur Specific [place] 1.011 Urine Protein Negative Urine Glucose (UA) Negative Urine Ketones Negative Urine Blood Negative Urine Nitrite Negative Urine Bilirubin Negative Urine Urobilinogen 1.0 Ur Leukocyte Esterase 2+ H Urine WBC (Auto) 4 Urine RBC (Auto) 2 Urine Casts (Auto) 1 U Epithel Cells (Auto) 3.5 Urine Bacteria (Auto) 31.3 *DC/Admit/Observation/Transfer Diagnosis at time of Disposition: UTI (urinary tract infection) Qualifiers: Urinary tract infection type: site unspecified Hematuria presence: without hematuria Qualified Code(s): N39.0 - Urinary tract infection, site not specified Cellulitis Qualifiers: Site of cellulitis: unspecified site Qualified Code(s): L03.90 - Cellulitis, unspecified - Discharge Dispostion Decision to Admit order: Yes - Referrals Referrals: Tenzin Reyna MD [Primary Care Provider] - - Patient Instructions - Post Discharge Activity
[2019-04-17 17:56] LABS: ALBUMIN 3.6 g/dl (3.4-5.0); BILIRUBIN,TOTAL 0.7 mg/dL (0.2-1); CREATININE 0.8 mg/dL (0.55-1.3); POTASSIUM 4.4 mmol/L (3.5-5.1); TOT PROT 7.4 g/dl (6.4-8.2)
[2019-04-17 18:16] LABS: INR 1.05 (0.83-1.09); PROTHROMBIN TIME (PATIENT) 12.4 SEC (9.7-13.0)
[2019-04-17 19:26] LABS: N-TERMINAL BNP 644.4 pg/ml (5-450)
[2019-04-17 19:46] LABS: EPI CELLS 3.5 /HPF (0-5/HPF); HYALINE CASTS 1 /lpf (0-8); PH,URINE 6.5 (5.0-8.0); URINE APPEARANCE CLEAR; URINE BACTERIA 31.3 /hpf (NEGATIVE); URINE BILIRUBIN NEGATIVE (NEGATIVE); URINE COLOR YELLOW; URINE GLUCOSE (UA) NEGATIVE (NEGATIVE); URINE KETONE NEGATIVE (NEGATIVE); URINE LEUK ESTERASE 2+ (NEGATIVE); URINE NITRITE NEGATIVE (NEGATIVE); URINE PROTEIN NEGATIVE (NEGATIVE); URINE RBC 2 /hpf (0-4); URINE WBC 4 /hpf (0-5)
[2019-04-17] MEDS ORDERED: VANCOMYCIN 1 GM in D5W (PRE-DOCKED) 1,000 MG/250 ML IVPB ONE (19:57)
[2019-04-17] MEDS ORDERED: PIPERACILLIN/TAZOB 3.375 GM 3.375 GM in DEXTROSE 5%-WATER - 50 ML IVPB ONE (19:57)
--- NOTE | 2019-04-17 20:16 | PN ---
Teaching Attending Note Name of Resident: Bhavesh Melchor ATTENDING PHYSICIAN STATEMENT I saw and evaluated the patient. I reviewed the resident's note and discussed the case with the resident. I agree with the resident's findings and plan as documented. SUBJECTIVE: Patient is an 89 year old woman from [facility] with PMH of diastolic dysfunction, macrocytosis, transaminitis, chronic bilateral leg edema, osteoporosis, osteoarthritis, HTN, hypothyroidism, and CHF , recently admitted for left lower extremity cellulitis after a cat scratch (), now presents with lower leg redness. Was treated with vancomycin and ampicillin-sulbactam then PO Augmentin. As per patient, her friend advised her to report to the ER to rule out bilateral LE cellulitis, patient otherwise has no complaints. Her records suggest that she has had multiple prior cat scratches in the past. Was recently switched from HCTZ to amlodipine. Ambulates with a cane. She denies recent fevers, chills, headache or dizziness. She denies recent nausea, vomit, diarrhea or constipation. She denies recent dysuria, frequency, urgency or hematuria. She denies recent chest pain or shortness of breath. OBJECTIVE: Alert Vital Signs Period Temp Pulse Resp BP Sys/Blanco Pulse Ox Last 24 Hr 98 F 79 18 134/61 98 HEENT: No Jaundice, eye redness or discharge, PERRLA, EOMI. Normocephalic, atraumatic. External ears are normal and hearing is grossly intact. No nasal discharge. Neck: Supple, nontender. No palpable adenopathy or thyromegaly. No JVD Chest: Good effort. Clear to auscultation and percussion. Heart: Regular. No S3, rub or murmur Abdomen: Not distended, soft, nontender and no HSM. No rebound or guarding. Normal bowel sounds. Ext: Peripheral pulses intact. Bilateral leg edema with erythema and warmth to mid calf. +Tender. Skin: Warm and dry. No petechiae, rash or ecchymosis. Neuro: Alert. Oriented x3. CN 2-12 grossly intact. Sensation grossly intact in all four extremities and DTR are symmetric. Psych: Appropriate mood and affect. Good insight. Home Medications Medication Instructions Recorded Aspirin 81 mg PO DAILY 02/02/19 Gabapentin [Neurontin] 200 mg PO HS 02/02/19 Lactobacillus Acidophilus 1 each PO DAILY 02/02/19 [Acidophilus] Lutein 20 mg PO DAILY 02/02/19 Metoprolol Succinate [Toprol XL -] 25 mg PO DAILY tab.sr.24h 02/05/19 Tetrahydrozoline HCl [Visine -] 1 drop OD QID drops 02/05/19 Acetaminophen [Tylenol 500 mg PO PRN 03/23/19 .Extra-Strength -] Ascorbate Calcium [Vitamin C] 500 mg PO DAILY 03/23/19 Diphenhydramine HCl 25 mg PO DAILY 03/23/19 Docusate Sodium [Colace] 100 mg PO PRN 03/23/19 Ibuprofen 400 mg PO PRN 03/23/19 Levothyroxine Sodium [Synthroid] 137 mcg PO DAILY 03/23/19 Mirabegron [Myrbetriq] 25 mg PO HS 03/23/19 Multivitamin [Multiple Vitamins] 1 each PO DAILY 03/23/19 Sennosides/Docusate Sodium 2 tablet PO PRN PRN 03/23/19 [Pericolace -] Amox-Tr/K Cl [Augmentin 875-125mg 1 tab PO BID@0800,1730 7 Days #14 03/26/19 Tablet -] tablet Amlodipine Besylate [Norvasc -] 5 mg PO DAILY 30 Days #30 tablet 03/27/19 Abnormal Lab Results 04/17/19 04/17/19 04/17/19 17:14 17:14 19:00 MCV 100.9 H Monocytes % 13.7 H D Eosinophils % 10.3 H D Sodium 134 L Anion Gap 6 L AST 90 H ALT 69 H Alkaline Phosphatase 120 H B-Natriuretic Peptide 644.4 H TSH 0.10 L Ur Leukocyte Esterase 2+ H ASSESSMENT AND PLAN: 1. Leg edema/?Cellulitis - Patient appears to have chronic leg edema - possibly venous stasis, recently complicated by ?multiple (unreported) cat scratches, amlodipine therapy, hypothyroidism and discontinuation of HCTZ. Leg xrays are negative. Sepsis work up being done. Will continue IV vancomycin and zosyn, consult ID, hold amlodipine, check free T4/T3RU, elevate legs when supine and give a trial of 20 mg lasix IV. ECHO from 02/03/19 showed EF of 60-65% and RUQ sonogram showed nonspecific gallbladder thickening. Will get CXR, trend LFTs, repeat RUQ sonogram and get CRP and ESR. Very soft evidence for UTI - no symptoms or pyuria and leukocyte esterase may be false positive. Urine culture sent. 2. Hypertension - Hold amlodipine and use Lisinopril 10 mg bid to ensure smooth [id number] good BP control. Nonpharmacologic measures to control hypertension like weight loss, salt restriction and exercise discussed. 3. DVT prophylaxis - Lovenox 40 mg SQ q 24 hours. 4. Advance directives - Full code
[2019-04-17] MEDS ORDERED: VANCOMYCIN 1 GRAM (PRE-DOCKED) 1,000 MG/250 ML BAG IVPB ONE (20:18)
[2019-04-17] MEDS ORDERED: PIPERACILLIN/TAZOB 3.375 GM 3.375 GM/50 ML BAG IVPB ONE (20:19)
--- NOTE | 2019-04-17 21:36 | HP ---
CHIEF COMPLAINT: b/l leg swelling and erythema PCP: Dr. Reyna HISTORY OF PRESENT ILLNESS: 89 yo F from [facility] with PMH of diastolic CHF, macrocytosis, transaminitis, chronic b/l leg edema, osteoporosis, osteoarthritis , HTN, hypothyroidism, and r with recent admission to this hospital 03/23-03/27 for L LE cellulitis after a cat scratch s/p vanc and unasyn w/ negative US for DVT, discharged on oral augmentin x7 days, now p/w worsening b/l lower leg swelling and erythema. As per patient, her friend noticed pt legs getting more swollen and red and advised her to go to the ER/brought her in to rule out bilateral LE cellulitis, patient otherwise has no complaints. pt denies recent fevers, chills, headache or dizziness. She denies recent nausea, vomit, diarrhea or constipation. She denies recent dysuria, frequency, urgency or hematuria. She denies recent chest pain or shortness of breath. pt sleeps w/ one pillow and reports to increase in pillow use. pt maintains steady low salt diet and is med compliant w/ whatever the NH gives her but she doesnt know her exact meds. Of note, at dc from prior admission pt was switched from HCTZ (due to low sodium ) to amlodipine. pt ambulates with a walker. ER course was notable for: (1) EKG Normal sinus rhythm, rate 81. Normal axis and intervals. No ST elevations or T-wave inversions. trop negx1. 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 Family History: Asked and non-contributory Allergies codeine Allergy (Unknown, Verified 04/17/19 16:48) HOME MEDICATIONS: Home Medications Medication Instructions Recorded Aspirin 81 mg PO DAILY 02/02/19 Gabapentin [Neurontin] 200 mg PO HS 02/02/19 Lactobacillus Acidophilus 1 each PO DAILY 02/02/19 [Acidophilus] Lutein 20 mg PO DAILY 02/02/19 Metoprolol Succinate [Toprol XL -] 25 mg PO DAILY tab.sr.24h 02/05/19 Tetrahydrozoline HCl [Visine -] 1 drop OD QID drops 02/05/19 Acetaminophen [Tylenol 500 mg PO PRN 03/23/19 .Extra-Strength -] Ascorbate Calcium [Vitamin C] 500 mg PO DAILY 03/23/19 Diphenhydramine HCl 25 mg PO DAILY 03/23/19 Docusate Sodium [Colace] 100 mg PO PRN 03/23/19 Ibuprofen 400 mg PO PRN 03/23/19 Levothyroxine Sodium [Synthroid] 137 mcg PO DAILY 03/23/19 Mirabegron [Myrbetriq] 25 mg PO HS 03/23/19 Multivitamin [Multiple Vitamins] 1 each PO DAILY 03/23/19 Sennosides/Docusate Sodium 2 tablet PO PRN PRN 03/23/19 [Pericolace -] Amox-Tr/K Cl [Augmentin 875-125mg 1 tab PO BID@0800,1730 7 Days #14 03/26/19 Tablet -] tablet Amlodipine Besylate [Norvasc -] 5 mg PO DAILY 30 Days #30 tablet 03/27/19 REVIEW OF SYSTEMS per hpi PHYSICAL EXAMINATION Vital Signs - 24 hr 04/17/19 16:46 Temperature 98 F Pulse Rate 79 Respiratory 18 Rate Blood Pressure 134/61 O2 Sat by Pulse 98 Oximetry (%) GENERAL: AOX3 NAD HEAD: Normal with no signs of trauma. EYES: extraocular movements intact, sclera anicteric, conjunctiva clear. No lid lag. EARS, NOSE, THROAT:nares patent, oropharynx clear without exudates. MMM NECK: Normal range of motion, supple without lymphadenopathy, JVD, or masses. LUNGS: CTAB HEART: RRR, normal S1 and S2 without rub or gallop. +Systolic murmur? ABDOMEN: Soft, NTND, normoactive bowel sounds, no guarding, no rebound, no masses. No hepatomegaly or splenomegaly. MUSCULOSKELETAL: Normal range of motion at all joints. No bony deformities or tenderness. No CVA tenderness. UPPER EXTREMITIES: 2+ pulses, warm, well-perfused. No cyanosis. No clubbing. No peripheral edema. LOWER EXTREMITIES: 2+ pulses, warm, well-perfused. Bilateral erythema and warmth from ankle up to mid anthony with 1+ pitting edema bilaterally and TTP NEUROLOGICAL: Cranial nerves II-XII intact. Normal speech. Normal gait. PSYCHIATRIC: Cooperative. Good eye contact. Appropriate mood and affect. SKIN: Warm, dry, normal turgor, no rashes or lesions noted, normal capillary refill. Laboratory Results - last 24 hr 04/17/19 04/17/19 04/17/19 17:14 17:14 17:14 WBC 6.5 RBC 3.68 Hgb 12.4 Hct 37.2 MCV 100.9 H MCH 33.7 MCHC 33.4 RDW 14.6 Plt Count 209 MPV 7.5 Absolute Neuts (auto) 3.7 Neutrophils % 57.3 D Lymphocytes % 17.6 D Monocytes % 13.7 H D Eosinophils % 10.3 H D Basophils % 1.1 D Nucleated RBC % 0 PT with INR 12.40 INR 1.05 Sodium 134 L Potassium 4.4 Chloride 101 Carbon Dioxide 27 Anion Gap 6 L BUN 15 Creatinine 0.8 Est GFR (CKD-EPI)AfAm 76.29 Est GFR (CKD-EPI)NonAf 65.82 Random Glucose 100 Calcium 9.0 Total Bilirubin 0.7 AST 90 H ALT 69 H Alkaline Phosphatase 120 H Creatine Kinase 40 Troponin I 0.03 B-Natriuretic Peptide 644.4 H Total Protein 7.4 Albumin 3.6 TSH 0.10 L Urine Color Urine Appearance Urine pH Ur Specific [place] Urine Protein Urine Glucose (UA) Urine Ketones Urine Blood Urine Nitrite Urine Bilirubin Urine Urobilinogen Ur Leukocyte Esterase Urine WBC (Auto) Urine RBC (Auto) Urine Casts (Auto) U Epithel Cells (Auto) Urine Bacteria (Auto) 04/17/19 19:00 WBC RBC Hgb Hct MCV MCH MCHC RDW Plt Count MPV Absolute Neuts (auto) Neutrophils % Lymphocytes % Monocytes % Eosinophils % Basophils % Nucleated RBC % PT with INR INR Sodium Potassium Chloride Carbon Dioxide Anion Gap BUN Creatinine Est GFR (CKD-EPI)AfAm Est GFR (CKD-EPI)NonAf Random Glucose Calcium Total Bilirubin AST ALT Alkaline Phosphatase Creatine Kinase Troponin I B-Natriuretic Peptide Total Protein Albumin TSH Urine Color Yellow Urine Appearance Clear Urine pH 6.5 Ur Specific [place] 1.011 Urine Protein Negative Urine Glucose (UA) Negative Urine Ketones Negative Urine Blood Negative Urine Nitrite Negative Urine Bilirubin Negative Urine Urobilinogen 1.0 Ur Leukocyte Esterase 2+ H Urine WBC (Auto) 4 Urine RBC (Auto) 2 Urine Casts (Auto) 1 U Epithel Cells (Auto) 3.5 Urine Bacteria (Auto) 31.3 ASSESSMENT/PLAN: 89 yo F from [facility] with PMH of diastolic CHF, macrocytosis, transaminitis, chronic b/l leg edema, osteoporosis, osteoarthritis , HTN, hypothyroidism, and r with recent admission to this hospital 03/23-03/27 for L LE cellulitis after a cat scratch s/p vanc and unasyn w/ negative US for DVT, discharged on oral augmentin x7 days, now p/w worsening b/l lower leg swelling and erythema. b/l leg edema w/ erythema - unclear etiology at this time, ddx includes reoccurrence of cat scratch cellulitis vs CHF vs Norvasc induced edema vs acute on chronic worsening venous stasis. -pt does not appear septic; afebrile no leukocytosis VSS. Leg xrays are negative. could be reoccurrence of cellulitis 2/2 failed outpt therapy however b/l nature makes less likely. possible cat is still scratching her which could explain b/l nature -pt noted w/ elevated BNP 644 (no prior labs), however lung exam clear, EKG unremarkable, trop neg x1. possible mild CHF exacerbation but less likely -recent addition of norvasc and discontinuation of HCTZ could explain swelling although not typically associated w/ erythema -s/p vanc/zosyn in ED -ID consult, Nik -c/w empiric abx vanc/zosyn -Blood cultures pending -ESR and CRP ordered -will get CXR -trial of 20 mg lasix IV -daily weights, strict I/O, low salt diet -hold amlodipine -ECHO from 02/03/19 showed EF of 60-65% w/ mod aortic sclerosis w/o sig valve aortic stenosis and borderline aortic root dilation UTI? - asxs and no pyuria. leukocyte esterase may be false positive. Urine culture sent. f/u bcx pt on abx anyway for cellulitis? as mentioned above Transaminitis - pt does not appear clinically overloaded but possibly 2/2 hepatic congestion if in mild CHF exacerbation -Patient on previous admissions has had elevated LFT's -U/S done and revealed cholelithiasis and nonspecific gallbladder thickening on previous admission -trend LFT's, repeat RUQ sonogram Macrocytic Anemia? - MCV 100, nl Hgb 12.4 (baseline) . recently w/u w/ nl B12 and folate -Monitor H/H HTN - ctl -Hold norvasc -c/w BB -consider starting Lisinopril if remains unctl Hypothyroidism - TSH 0.1, was 0.14 at last admission 01/2019 -Continue home medication Synthroid 137mcg in the am FEN -po hydration -replete prn -Sodium controlled diet Prophylaxis -Lovenox 40 sq qd -No GI required Disposition -Full code -m/s -PT eval to avoid deconditioning Visit type - Emergency Visit Emergency Visit: Yes Care time: The patient presented to the Emergency Department on the above date and was hospitalized for further evaluation of their emergent condition. - New Patient This patient is new to me today: Yes Date on this admission: 04/17/19 - Critical Care Critical Care patient: No
[2019-04-17] MEDS ORDERED: FUROSEMIDE 40 MG/4 ML INJECTABLE VIAL IVPUSH ONE (21:39)
[2019-04-17] MEDS ORDERED: SENNOSIDES/DOCUSATE COMBO (SENNA PLUS) TABLET (UD) PO PRN ×2 (21:47→23:15)
--- NOTE | 2019-04-17 22:08 | PDOC ---
Documentation entered by Sukhwinder Mckeon SCRIBE, acting as scribe for Luis Godinez MD. Luis Godinez MD: This documentation has been prepared by the Mike broderick Nirvannie, SCRIBE, under my direction and personally reviewed by me in its entirety. I confirm that the documentation accurately reflects all work, treatment, procedures, and medical decision making performed by me. Attending Attestation - Resident Resident Name: Cosmo Oliveira - ED Attending Attestation I have performed the following: I have examined & evaluated the patient, The case was reviewed & discussed with the resident, I agree w/resident's findings & plan - HPI HPI: 04/17/19 18:26 The patient is a 89 year old female, with a significant past medical history of anemia, HTN, hypothyroidism, CHF, and recent admission for lower extremity cellulitis treated with vancomycin and ampicillin-sulbactam then PO Augmentin ( completed last week), who presents to the emergency department with b/l LE redness, pain and swelling. As per patient, her friend advised her to report to the ED due to recurrent redness. She denies recent fevers, chills, headache or dizziness. She denies recent nausea, vomit, diarrhea or constipation. She denies recent dysuria, frequency, urgency or hematuria. She denies recent chest pain or shortness of breath. Allergies: Codeine Primary Care Physician: Dr. Tenzin Reyna - Physicial Exam PE: 04/17/19 18:26 agree with resident exam - Medical Decision Making 04/17/19 20:01 89yo F presents to the ED with recurrent LE edema, erythema, redness, and pain despite completing course of augmentin last week Pt and her friend report her legs were improving but now are red again Given outpt abx failure, will cover broadly with Vanc/Zosyn, admit PT also with UTI, should be covered with Zosyn Unlikely CHF as BNP mildly elevated and lungs clear with no SOB Case discussed in detail with admitting physician including history, physical exam and ancillary studies. Admitting physician has assumed care for the patient, will follow all pending diagnostics and will complete the evaluation and treatment. Heart Score/ECG Review #1 04/17/19 22:13 Twelve-lead EKG was performed and reviewed by me. Normal sinus rhythm, rate 81. Normal axis and intervals. No ST elevations or T-wave inversions.
[2019-04-17] MEDS ORDERED: ENOXAPARIN NA (PORCINE) 40 MG/0.4 ML DISP.SYRIN SQ ONE (22:52)
[2019-04-17] MEDS ORDERED: FUROSEMIDE 40 MG/4 ML INJECTABLE VIAL ONE (22:52)
[2019-04-17] MEDS ORDERED: GABAPENTIN 100 MG CAPSULE (FP) ONE (22:52)
[2019-04-17] MEDS: GABAPENTIN 100 MG CAPSULE (FP) PO SCH (23:06)
[2019-04-17] MEDS: ENOXAPARIN NA (PORCINE) 40 MG/0.4 ML DISP.SYRIN SQ SCH (23:06)
[2019-04-18] MEDS ORDERED: PIPERACILLIN/TAZOB 3.375 GM 3.375 GM in DEXTROSE 5%-WATER - 50 ML IVPB SCH (02:00)
[2019-04-18] MEDS ORDERED: LEVOTHYROXINE NA 25 MCG TABLET (FP) ONE (06:04)
[2019-04-18] MEDS ORDERED: LEVOTHYROXINE NA 112 MCG TABLET (FP) ONE (06:04)
[2019-04-18] MEDS ORDERED: DEXTROSE 5%-WATER - 50 ML IVPB ONE ×2 (06:34→10:58)
[2019-04-18] MEDS ORDERED: PIPERACILLIN/TAZOBACTAM 3.375 GM VIAL IVPB ONE ×2 (06:34→10:58)
[2019-04-18] MEDS: LEVOTHYROXINE 112 MCG, LEVOTHYROXINE 25 MCG PO SCH (06:40)
[2019-04-18] MEDS: PIPERACILLIN/TAZOB 3.375 GM 3.375 GM in DEXTROSE 5%-WATER - 50 ML IVPB SCH ×2 (06:42→11:00)
[2019-04-18] MEDS: TETRAHYDROZOLINE HCL EYE DROPS OD SCH ×5 (07:50→22:16)
[2019-04-18 09:09] LABS: BASO % 0.7 % (0-2.0); EOS % 6.7 % (0-4.5); HEMATOCRIT 34.8 % (32.4-45.2); HEMOGLOBIN 11.9 GM/dL (10.7-15.3); LYMPH % 7.8 % (8-40); MCH 34.1 pg (25.7-33.7); MCHC 34.1 g/dl (32.0-36.0); MEAN CELL VOLUME 99.9 fl (80-96); MEAN PLT VOLUME 7.5 fl (7.5-11.1); MONO % 8.6 % (3.8-10.2); NEUT % 76.2 % (42.8-82.8); PLATELET COUNT 173 K/MM3 (134-434); RBC 3.48 M/mm3 (3.60-5.2); RDW 14.4 % (11.6-15.6); WHITE BLOOD COUNT 6.2 K/mm3 (4.0-10.0)
[2019-04-18 09:42] LABS: ALBUMIN 2.8 g/dl (3.4-5.0); BILIRUBIN,TOTAL 0.9 mg/dL (0.2-1); CALCIUM 8.1 mg/dL (8.5-10.1); CREATININE 0.8 mg/dL (0.55-1.3); PHOSPHOROUS 3.4 mg/dL (2.5-4.9); POTASSIUM 3.7 mmol/L (3.5-5.1); TOT PROT 6.1 g/dl (6.4-8.2)
[2019-04-18] MEDS ORDERED: PATIENT'S OWN MEDICATION (NON-FORMULARY) (Levothyroxine Sodium [Synthroid] 137 MCG) PO SCH (10:00)
[2019-04-18] MEDS: MULTIVITAMINS (DAILY MVI) TABLET (FP) PO SCH (10:56)
[2019-04-18] MEDS: ASCORBIC ACID 500 MG TABLET (FP) PO SCH (10:56)
[2019-04-18] MEDS: LACTOBACILLUS ACIDOPHILUS 1 TABLET PO SCH (10:56)
[2019-04-18] MEDS: metoPROLOL SUCCINATE 25 MG TAB.SR.24H (FP) PO SCH (10:56)
[2019-04-18] MEDS: ASPIRIN 81 MG CHEWABLE TABLETS PO SCH (10:56)
--- NOTE | 2019-04-18 11:16 | PN ---
Progress Note (short form) - Note Progress Note: BL lower extremity swelling with erythema improving. Vital Signs Temperature 98.2 F 04/18/19 05:36 Pulse Rate 92 H 04/18/19 05:36 Respiratory Rate 20 04/18/19 05:36 Blood Pressure 126/76 04/18/19 05:36 O2 Sat by Pulse Oximetry (%) 98 04/17/19 16:46 GENERAL: AOX3 NAD HEAD: Normal with no signs of trauma. EYES: extraocular movements intact, sclera anicteric, conjunctiva clear. EARS, NOSE, THROAT: oropharynx clear without exudates. MMM NECK: Normal range of motion, supple without lymphadenopathy, JVD, or masses. LUNGS: CTAB HEART: RRR, normal S1 and S2 without rub or gallop. XIMENA 12/31 ABDOMEN: Soft, NTND, normoactive bowel sounds, no guarding, no rebound, no masses. No hepatomegaly or splenomegaly. MUSCULOSKELETAL: Normal range of motion at all joints. No bony deformities or tenderness. No CVA tenderness. EXTREMITIES: 2+ pulses, warm, well-perfused. Bilateral erythema and warmth from ankle up to mid anthony with 1+ pitting edema bilaterally NEUROLOGICAL: Cranial nerves II-XII intact. Normal speech. Normal gait. PSYCHIATRIC: Cooperative. Good eye contact. Appropriate mood and affect. SKIN: Warm, dry, normal turgor, no rashes or lesions noted, normal capillary refill. Current Medications Generic Name Dose Route Start Last Admin Trade Name Freq PRN Reason Stop Dose Admin Ascorbic Acid 500 mg 04/18/19 10:00 04/18/19 10:56 Vitamin C - PO 500 mg DAILY LIN Administration Aspirin 81 mg 04/18/19 10:00 04/18/19 10:56 Asa - PO 81 mg DAILY LIN Administration Enoxaparin Sodium 40 mg 04/17/19 21:45 04/17/19 23:06 Lovenox - SQ 40 mg DAILY LIN Administration Gabapentin 200 mg 04/17/19 22:00 04/17/19 23:06 Neurontin - PO 200 mg HS LIN Administration Vancomycin HCl 1,000 mg in 250 mls @ 166.667 mls/hr 04/18/19 19:00 Vancomycin (Pre-Docked) IVPB 04/18/19 20:29 ONCE ONE Piperacillin Sod/Tazobactam 50 mls @ 100 mls/hr 04/18/19 02:00 Sod 3.375 gm/ Dextrose IVPB Q8H-IV [facility] Protocol Lactobacillus Acidophilus 1 tab 04/18/19 10:00 04/18/19 10:56 Bacid - PO 1 tab DAILY LIN Administration Levothyroxine Sodium 112 mcg/ 137 mcg 04/18/19 07:00 04/18/19 06:40 Levothyroxine Sodium 25 mcg PO 137 mcg DAILY@0700 [facility] Administration Metoprolol Succinate 25 mg 04/18/19 10:00 04/18/19 10:56 Toprol Xl - PO 25 mg DAILY LIN Administration Multivitamins/Minerals/Vitamin C 1 tab 04/18/19 10:00 04/18/19 10:56 Tab-A-Vit - PO 1 tab DAILY [facility] Administration Senna/Docusate Sodium 2 tablet 04/17/19 23:15 Pericolace - PO HS PRN CONSTIPATION Tetrahydrozoline HCl 1 drop 04/17/19 22:00 04/18/19 07:50 Visine - OD Not Given QID [facility] home Medications Medication Instructions Recorded Aspirin 81 mg PO DAILY 02/02/19 Gabapentin [Neurontin] 200 mg PO HS 02/02/19 Lactobacillus Acidophilus 1 each PO DAILY 02/02/19 [Acidophilus] Lutein 20 mg PO DAILY 02/02/19 Metoprolol Succinate [Toprol XL -] 25 mg PO DAILY tab.sr.24h 02/05/19 Tetrahydrozoline HCl [Visine -] 1 drop OD QID drops 02/05/19 Acetaminophen [Tylenol 500 mg PO PRN 03/23/19 .Extra-Strength -] Ascorbate Calcium [Vitamin C] 500 mg PO DAILY 03/23/19 Diphenhydramine HCl 25 mg PO DAILY 03/23/19 Docusate Sodium [Colace] 100 mg PO PRN 03/23/19 Ibuprofen 400 mg PO PRN 03/23/19 Levothyroxine Sodium [Synthroid] 137 mcg PO DAILY 03/23/19 Mirabegron [Myrbetriq] 25 mg PO HS 03/23/19 Multivitamin [Multiple Vitamins] 1 each PO DAILY 03/23/19 Sennosides/Docusate Sodium 2 tablet PO PRN PRN 03/23/19 [Pericolace -] Amox-Tr/K Cl [Augmentin 875-125mg 1 tab PO BID@0800,1730 7 Days #14 03/26/19 Tablet -] tablet Amlodipine Besylate [Norvasc -] 5 mg PO DAILY 30 Days #30 tablet 03/27/19 Urine Test Results Urine Color Yellow 04/17/19 19:00 Urine Appearance Clear 04/17/19 19:00 Urine pH 6.5 (5.0-8.0) 04/17/19 19:00 Ur Specific [place] 1.011 (1.010-1.035) 04/17/19 19:00 Urine Protein Negative (NEGATIVE) 04/17/19 19:00 Urine Glucose (UA) Negative (NEGATIVE) 04/17/19 19:00 Urine Ketones Negative (NEGATIVE) 04/17/19 19:00 Urine Blood Negative (NEGATIVE) 04/17/19 19:00 Urine Nitrite Negative (NEGATIVE) 04/17/19 19:00 Urine Bilirubin Negative (NEGATIVE) 04/17/19 19:00 Ur Leukocyte Esterase 2+ (NEGATIVE) H 04/17/19 19:00 -ECHO from 02/03/19 showed EF of 60-65% w/ mod aortic sclerosis w/o sig valve aortic stenosis and borderline aortic root dilation Assessment and plan: Patient is 89yo female with from [facility] with PMHx of diastolic CHF, macrocytosis, transaminitis, chronic b/l leg edema, osteoporosis, osteoarthritis, HTN, hypothyroidism, with recent admission to this hospital 03/23-03/27 for Left LE cellulitis after a cat scratch s/p vanc and unasyn w/ negative US for DVT, discharged on oral augmentin x7 days, now patient presnets with worsening b/l lower extremity swelling and erythema. # Acute bl LE cellulitis due to cat scratch: continue IV antibiotic s/p vanc/ zosyn in ED, ID consult, Nik , continue abx Zosyn -Blood cultures pending , ESR and CRP ordered , urine Cx is pending. #Elevated Transaminitis - Patient on previous admissions has had elevated LFT's , trend LFT's, -U/S done and revealed cholelithiasis and nonspecific gallbladder thickening on previous admission # HTN - controlled , continue BB, Norvasc on hold for possible le edema ,if needed start Lisinopril # Hypothyroidism - TSH 0.1, was 0.14 at last admission 01/2019, Continue home medication Synthroid 137mcg in the am DVT px: Lovenox 40 sq qd Visit type - Emergency Visit Emergency Visit: Yes ED Registration Date: 04/17/19 Care time: The patient presented to the Emergency Department on the above date and was hospitalized for further evaluation of their emergent condition. - New Patient This patient is new to me today: Yes Date on this admission: 04/18/19 - Critical Care Critical Care patient: No - Discharge Referral Referred to [facility] No
--- NOTE | 2019-04-18 15:33 | EKG ---
Test Reason : Blood Pressure : / mmHG Vent. Rate : 081 BPM Atrial Rate : 081 BPM P-R Int : 196 ms QRS Dur : 084 ms QT Int : 386 ms P-R-T Axes : 055 -14 034 degrees QTc Int : 448 ms NORMAL SINUS RHYTHM NORMAL ECG WHEN COMPARED WITH ECG OF 23-MAR-2019 20:02, PREMATURE ATRIAL COMPLEXES ARE NO LONGER PRESENT Confirmed by MD Jordan, Mendel ([id number]) on 04/18/2019 3:33:25 PM Referred By: Confirmed By:Mendel Ortega MD
[2019-04-18] MEDS: ENOXAPARIN NA (PORCINE) 40 MG/0.4 ML DISP.SYRIN SQ SCH (16:59)
[2019-04-18] MEDS ORDERED: PT OWN MED DRAWER 7, Y5N ONE ×2 (17:59→18:54)
[2019-04-18] MEDS ORDERED: VANCOMYCIN 1 GRAM (PRE-DOCKED) 1,000 MG/250 ML BAG IVPB ONE (19:00)
--- NOTE | 2019-04-18 19:17 | PN ---
Progress Note (short form) - Note Progress Note: ID CONSULT DICTATED RECURRENT CELLULITIS LE EMPIRIC UNASYN/ VANCOMYCIN
[2019-04-18] MEDS ORDERED: AMPICILLIN NA/SULBACTAM NA 1.5 GM VIAL ONE (20:33)
[2019-04-18] MEDS ORDERED: SODIUM CHLORIDE 100 ML IVPB ONE (20:34)
[2019-04-18] MEDS: AMPICILLIN NA/SULBACTAM NA 1.5 GM in SODIUM CHLORIDE 100 ML IVPB SCH (20:39)
[2019-04-18] MEDS: VANCOMYCIN 1 GRAM (PRE-DOCKED) 1,000 MG/250 ML BAG IVPB SCH (21:27)
[2019-04-18] MEDS: GABAPENTIN 100 MG CAPSULE (FP) PO SCH (21:27)
[2019-04-19] MEDS ORDERED: SODIUM CHLORIDE 100 ML IVPB ONE ×4 (00:33→20:41)
[2019-04-19] MEDS ORDERED: AMPICILLIN NA/SULBACTAM NA 1.5 GM VIAL ONE ×5 (00:33→20:41)
[2019-04-19] MEDS: AMPICILLIN NA/SULBACTAM NA 1.5 GM in SODIUM CHLORIDE 100 ML IVPB SCH ×4 (02:46→20:45)
[2019-04-19] MEDS ORDERED: LEVOTHYROXINE NA 112 MCG TABLET (FP) ONE (05:38)
[2019-04-19] MEDS ORDERED: LEVOTHYROXINE NA 25 MCG TABLET (FP) ONE (05:39)
[2019-04-19] MEDS: LEVOTHYROXINE 112 MCG, LEVOTHYROXINE 25 MCG PO SCH (06:26)
[2019-04-19] MEDS: VANCOMYCIN 1 GRAM (PRE-DOCKED) 1,000 MG/250 ML BAG IVPB SCH ×2 (09:40→21:32)
[2019-04-19 10:05] LABS: BASO % 0.9 % (0-2.0); EOS % 18.2 % (0-4.5); HEMATOCRIT 38.1 % (32.4-45.2); LYMPH % 12.3 % (8-40); MCH 34.5 pg (25.7-33.7); MCHC 34.3 g/dl (32.0-36.0); MEAN CELL VOLUME 100.8 fl (80-96); MEAN PLT VOLUME 7.2 fl (7.5-11.1); MONO % 11.2 % (3.8-10.2); NEUT % 57.4 % (42.8-82.8); PLATELET COUNT 181 K/MM3 (134-434); RBC 3.78 M/mm3 (3.60-5.2); WHITE BLOOD COUNT 5.8 K/mm3 (4.0-10.0)
[2019-04-19 10:38] LABS: ALBUMIN 2.7 g/dl (3.4-5.0); BILIRUBIN,TOTAL 0.5 mg/dL (0.2-1); CALCIUM 8.4 mg/dL (8.5-10.1); CREATININE 0.6 mg/dL (0.55-1.3); POTASSIUM 3.3 mmol/L (3.5-5.1); TOT PROT 6.3 g/dl (6.4-8.2)
[2019-04-19] MEDS: ASPIRIN 81 MG CHEWABLE TABLETS PO SCH (10:46)
[2019-04-19] MEDS: metoPROLOL SUCCINATE 25 MG TAB.SR.24H (FP) PO SCH (10:46)
[2019-04-19] MEDS: ASCORBIC ACID 500 MG TABLET (FP) PO SCH (10:46)
[2019-04-19] MEDS: MULTIVITAMINS (DAILY MVI) TABLET (FP) PO SCH (10:46)
[2019-04-19] MEDS: LACTOBACILLUS ACIDOPHILUS 1 TABLET PO SCH (10:46)
[2019-04-19] MEDS: ENOXAPARIN NA (PORCINE) 40 MG/0.4 ML DISP.SYRIN SQ SCH (10:46)
[2019-04-19] MEDS: TETRAHYDROZOLINE HCL EYE DROPS OD SCH ×4 (10:49→21:30)
--- NOTE | 2019-04-19 10:54 | PN ---
Physical Exam: SUBJECTIVE: Patient seen and examined at bedside. Pt feels well and is anxious to go home. No complaints. OBJECTIVE: Vital Signs Period Temp Pulse Resp BP Sys/Blanco Pulse Ox Last 24 Hr 97.3 F-98.7 F 73-84 18-20 114-140/60-73 95 Gen: NAD, comfortable in bed HEENT: NCAT, EOMI Neck: supple, no jvd Cardio: RRR, normal s1s2, no mrg appreciated Pulm: adequate air entry b/l, no rales/ronchi appreciated Abd: nondistended, soft, nontender Ext: b/l ankle erythema and warmth. multiple pinpoint lesions with scabbing Laboratory Results - last 24 hr 04/19/19 04/19/19 09:50 09:50 WBC 5.8 RBC 3.78 Hgb 13.0 Hct 38.1 MCV 100.8 H MCH 34.5 H MCHC 34.3 RDW 15.0 Plt Count 181 MPV 7.2 L Absolute Neuts (auto) 3.3 Neutrophils % 57.4 D Lymphocytes % 12.3 D Monocytes % 11.2 H Eosinophils % 18.2 H D Basophils % 0.9 Nucleated RBC % 0 Sodium 138 Potassium 3.3 L Chloride 105 Carbon Dioxide 28 Anion Gap 6 L BUN 9 Creatinine 0.6 Est GFR (CKD-EPI)AfAm 94.32 Est GFR (CKD-EPI)NonAf 81.38 Random Glucose 131 H Calcium 8.4 L Total Bilirubin 0.5 AST 76 H ALT 60 Alkaline Phosphatase 90 Total Protein 6.3 L Albumin 2.7 L Active Medications Generic Name Dose Route Start Last Admin Trade Name Smoothq PRN Reason Stop Dose Admin Ascorbic Acid 500 mg 04/18/19 10:00 04/18/19 10:56 Vitamin C - PO 500 mg DAILY LIN Administration Aspirin 81 mg 04/18/19 10:00 04/18/19 10:56 Asa - PO 81 mg DAILY LIN Administration Enoxaparin Sodium 40 mg 04/17/19 21:45 04/18/19 16:59 Lovenox - SQ 40 mg DAILY LIN Administration Gabapentin 200 mg 04/17/19 22:00 04/18/19 21:27 Neurontin - PO 200 mg HS LIN Administration Ampicillin Sodium/Sulbactam 100 mls @ 200 mls/hr 04/18/19 21:00 04/19/19 09: 04 Sodium 1.5 gm/ Sodium Chloride IVPB 200 mls/hr Q6H-IV LIN Administration Vancomycin HCl 1,000 mg in 250 mls @ 166.667 mls/hr 04/18/19 21:00 04/19/19 09:40 Vancomycin (Pre-Docked) IVPB 166.667 mls/hr BID@0900,2100 LIN Administration Protocol Lactobacillus Acidophilus 1 tab 04/18/19 10:00 04/18/19 10:56 Bacid - PO 1 tab DAILY LIN Administration Levothyroxine Sodium 112 mcg/ 137 mcg 04/18/19 07:00 04/19/19 06:26 Levothyroxine Sodium 25 mcg PO 137 mcg DAILY@0700 LIN Administration Metoprolol Succinate 25 mg 04/18/19 10:00 04/18/19 10:56 Toprol Xl - PO 25 mg DAILY LIN Administration Multivitamins/Minerals/Vitamin C 1 tab 04/18/19 10:00 04/18/19 10:56 Tab-A-Vit - PO 1 tab DAILY LIN Administration Senna/Docusate Sodium 2 tablet 04/17/19 23:15 Pericolace - PO HS PRN CONSTIPATION Tetrahydrozoline HCl 1 drop 04/17/19 22:00 04/18/19 22:16 Visine - OD 1 drop QID LIN Administration ASSESSMENT/PLAN: 89 yo F from [facility] with PMH of diastolic CHF, macrocytosis, transaminitis, chronic b/l leg edema, osteoporosis, osteoarthritis , HTN, hypothyroidism, and with recent admission to this hospital 03/23-03/27 for L LE cellulitis after a cat scratch s/p vanc and unasyn w/ negative US for DVT, discharged on oral augmentin x7 days, now p/w worsening b/l lower leg swelling and erythema. #Cellulitis 2/2 cat scratch -ID consult -empiric abx vanc/zosyn given. Now on Unasyn and Vanc. Will consider changing in light of prior micro. D/w ID -Blood cultures pending -CRP 1.2, ESR pending -CXR unremarkable #UTI- asxs and no pyuria. leukocyte esterase may be false positive. Urine culture sent. f/u bcx pt on abx anyway for cellulitis Transaminitis - ?2/2 CHF vs NAFLD -Patient on previous admissions has had elevated LFT's -U/S done and revealed cholelithiasis and nonspecific gallbladder thickening on previous admission -trend LFT's, repeat RUQ sonogram Macrocytic Anemia? - MCV 100, nl Hgb 12.4 (baseline) . recently w/u w/ nl B12 and folate -Monitor H/H HTN - ctl -Hold norvasc -c/w BB -consider starting Lisinopril if remains uncontrolled Hypothyroidism - TSH 0.1, was 0.14 at last admission 01/2019 -Continue home medication Synthroid 137mcg in the am Visit type - Emergency Visit Emergency Visit: No - New Patient This patient is new to me today: No - Critical Care Critical Care patient: No
[2019-04-19 13:11] VITALS: BMI 36.8
--- NOTE | 2019-04-19 13:49 | PN ---
Teaching Attending Note Name of Resident: Omer Marino ATTENDING PHYSICIAN STATEMENT I saw and evaluated the patient. I reviewed the resident's note and discussed the case with the resident. I agree with the resident's findings and plan as documented. SUBJECTIVE: Patient is comfortable with no acute distress, feels better and wants to go home. OBJECTIVE: Vital Signs Temperature 98 F 04/19/19 08:57 Pulse Rate 73 04/19/19 10:44 Respiratory Rate 20 04/19/19 10:44 Blood Pressure 130/64 04/19/19 10:44 O2 Sat by Pulse Oximetry (%) 98 04/19/19 10:00 GENERAL: AOX3 NAD HEAD: Normal with no signs of trauma. EYES: extraocular movements intact, sclera anicteric, conjunctiva clear. EARS, NOSE, THROAT: oropharynx clear without exudates. MMM NECK: Normal range of motion, supple without lymphadenopathy, JVD, or masses. LUNGS: CTAB HEART: RRR, normal S1 and S2 without rub or gallop. XIMENA 12/31 ABDOMEN: Soft, NTND, normoactive bowel sounds, no guarding, no rebound, no masses. No hepatomegaly or splenomegaly. MUSCULOSKELETAL: Normal range of motion at all joints. No bony deformities or tenderness. No CVA tenderness. EXTREMITIES: 2+ pulses, warm, well-perfused. Bilateral erythema and warmth improving, no edema today. NEUROLOGICAL: Cranial nerves II-XII intact. Normal speech. Normal gait. PSYCHIATRIC: Cooperative. Good eye contact. Appropriate mood and affect. SKIN: Warm, dry, normal turgor, no rashes or lesions noted, normal capillary refill. CBCD WBC 5.8 K/mm3 (4.0-10.0) 04/19/19 09:50 RBC 3.78 M/mm3 (3.60-5.2) 04/19/19 09:50 Hgb 13.0 GM/dL (10.7-15.3) 04/19/19 09:50 Hct 38.1 % (32.4-45.2) 04/19/19 09:50 MCV 100.8 fl (80-96) H 04/19/19 09:50 MCHC 34.3 g/dl (32.0-36.0) 04/19/19 09:50 RDW 15.0 % (11.6-15.6) 04/19/19 09:50 Plt Count 181 K/MM3 (134-434) 04/19/19 09:50 MPV 7.2 fl (7.5-11.1) L 04/19/19 09:50 CMP Sodium 138 mmol/L (136-145) 04/19/19 09:50 Potassium 3.3 mmol/L (3.5-5.1) L 04/19/19 09:50 Chloride 105 mmol/L (98-107) 04/19/19 09:50 Carbon Dioxide 28 mmol/L (21-32) 04/19/19 09:50 Anion Gap 6 MMOL/L (8-16) L 04/19/19 09:50 BUN 9 mg/dL (7-18) 04/19/19 09:50 Creatinine 0.6 mg/dL (0.55-1.3) 04/19/19 09:50 Random Glucose 131 mg/dL (74-106) H 04/19/19 09:50 Calcium 8.4 mg/dL (8.5-10.1) L 04/19/19 09:50 Total Bilirubin 0.5 mg/dL (0.2-1) 04/19/19 09:50 AST 76 U/L (15-37) H 04/19/19 09:50 ALT 60 U/L (13-61) 04/19/19 09:50 Alkaline Phosphatase 90 U/L (45-117) 04/19/19 09:50 Total Protein 6.3 g/dl (6.4-8.2) L 04/19/19 09:50 Albumin 2.7 g/dl (3.4-5.0) L 04/19/19 09:50 CARDIAC ENZYMES Creatine Kinase 40 U/L (26-192) 04/17/19 17:14 Troponin I 0.03 ng/ml (0.00-0.05) 04/17/19 17:14 Current Medications Generic Name Dose Route Start Last Admin Trade Name Freq PRN Reason Stop Dose Admin Ascorbic Acid 500 mg 04/18/19 10:00 04/19/19 10:46 Vitamin C - PO 500 mg DAILY LIN Administration Aspirin 81 mg 04/18/19 10:00 04/19/19 10:46 Asa - PO 81 mg DAILY LIN Administration Enoxaparin Sodium 40 mg 04/17/19 21:45 04/19/19 10:46 Lovenox - SQ 40 mg DAILY LIN Administration Gabapentin 200 mg 04/17/19 22:00 04/18/19 21:27 Neurontin - PO 200 mg HS LIN Administration Ampicillin Sodium/Sulbactam 100 mls @ 200 mls/hr 04/18/19 21:00 04/19/19 09: 04 Sodium 1.5 gm/ Sodium Chloride IVPB 200 mls/hr Q6H-IV LIN Administration Vancomycin HCl 1,000 mg in 250 mls @ 166.667 mls/hr 04/18/19 21:00 04/19/19 09:40 Vancomycin (Pre-Docked) IVPB 166.667 mls/hr BID@0900,2100 LIN Administration Protocol Lactobacillus Acidophilus 1 tab 04/18/19 10:00 04/19/19 10:46 Bacid - PO 1 tab DAILY LIN Administration Levothyroxine Sodium 112 mcg/ 137 mcg 04/18/19 07:00 04/19/19 06:26 Levothyroxine Sodium 25 mcg PO 137 mcg DAILY@0700 LIN Administration Metoprolol Succinate 25 mg 04/18/19 10:00 04/19/19 10:46 Toprol Xl - PO 25 mg DAILY LIN Administration Multivitamins/Minerals/Vitamin C 1 tab 04/18/19 10:00 04/19/19 10:46 Tab-A-Vit - PO 1 tab DAILY LIN Administration Senna/Docusate Sodium 2 tablet 04/17/19 23:15 Pericolace - PO HS PRN CONSTIPATION Tetrahydrozoline HCl 1 drop 04/17/19 22:00 04/19/19 10:49 Visine - OD 1 drop QID LIN Administration Home Medications Medication Instructions Recorded Aspirin 81 mg PO DAILY 02/02/19 Gabapentin [Neurontin] 200 mg PO HS 02/02/19 Lactobacillus Acidophilus 1 each PO DAILY 02/02/19 [Acidophilus] Lutein 20 mg PO DAILY 02/02/19 Metoprolol Succinate [Toprol XL -] 25 mg PO DAILY tab.sr.24h 02/05/19 Tetrahydrozoline HCl [Visine -] 1 drop OD QID drops 02/05/19 Acetaminophen [Tylenol 500 mg PO PRN 03/23/19 .Extra-Strength -] Ascorbate Calcium [Vitamin C] 500 mg PO DAILY 03/23/19 Diphenhydramine HCl 25 mg PO DAILY 03/23/19 Docusate Sodium [Colace] 100 mg PO PRN 03/23/19 Ibuprofen 400 mg PO PRN 03/23/19 Levothyroxine Sodium [Synthroid] 137 mcg PO DAILY 03/23/19 Mirabegron [Myrbetriq] 25 mg PO HS 03/23/19 Multivitamin [Multiple Vitamins] 1 each PO DAILY 03/23/19 Sennosides/Docusate Sodium 2 tablet PO PRN PRN 03/23/19 [Pericolace -] Amox-Tr/K Cl [Augmentin 875-125mg 1 tab PO BID@0800,1730 7 Days #14 03/26/19 Tablet -] tablet Amlodipine Besylate [Norvasc -] 5 mg PO DAILY 30 Days #30 tablet 03/27/19 Microbiology 04/17/19 17:11 Blood - Peripheral Venous Blood Culture - Preliminary NO GROWTH OBTAINED AFTER 24 HOURS, INCUBATION TO CONTINUE FOR 4 DAYS. ECHO from 02/03/19 showed EF of 60-65% w/ mod aortic sclerosis w/o sig valve aortic stenosis and borderline aortic root dilation Assessment and plan: Patient is 89yo female with from [facility] with PMHx of diastolic CHF, macrocytosis, transaminitis, chronic b/l leg edema, osteoporosis, osteoarthritis, HTN, hypothyroidism, with recent admission to this hospital 03/23-03/27 for Left LE cellulitis after a cat scratch s/p vanc and unasyn w/ negative US for DVT, discharged on oral augmentin x7 days, now patient presnets with worsening b/l lower extremity swelling and erythema. # Acute bl LE cellulitis due to cat scratch: continue IV antibiotic s/p vanc/ zosyn in ED, switched to Unasyn as per ID consult, Nik ,and continue Vancomycin Blood cultures n growth so far. #Elevated Transaminitis - Patient on previous admissions has had elevated LFT's , LFTs trending down. -U/S done and revealed cholelithiasis and nonspecific gallbladder thickening on previous admission # HTN - controlled ,continue BB, Norvasc is on hold since patient has le edema ,if needed start Lisinopril # Hypothyroidism - TSH 0.1, was 0.14 at last admission 01/2019, Continue home medication Synthroid 137mcg in the am DVT px: Lovenox 40 sq qd Laboratory Tests 04/17/19 04/18/19 04/18/19 17:14 08:20 08:20 AST 73 H ALT 69 H 57 Alkaline Phosphatase 120 H C-Reactive Protein 1.2 H TSH 0.10 L 04/19/19 09:50 AST 76 H ALT 60 Alkaline Phosphatase C-Reactive Protein TSH
--- NOTE | 2019-04-19 16:23 | PN ---
Progress Note, Physician History of Present Illness: AWAKE,ALERT NO C/O LEG PAIN - Current Medication List Current Medications: Active Medications Ascorbic Acid (Vitamin C -) 500 mg PO DAILY [facility] Last Admin: 04/19/19 10:46 Dose: 500 mg Aspirin (Asa -) 81 mg PO DAILY [facility] Last Admin: 04/19/19 10:46 Dose: 81 mg Enoxaparin Sodium (Lovenox -) 40 mg SQ DAILY [facility] Last Admin: 04/19/19 10:46 Dose: 40 mg Gabapentin (Neurontin -) 200 mg PO HS [facility] Last Admin: 04/18/19 21:27 Dose: 200 mg Ampicillin Sodium/Sulbactam (Sodium 1.5 gm/ Sodium Chloride) 100 mls @ 200 mls/ hr IVPB Q6H-IV [facility] Last Admin: 04/19/19 15:55 Dose: 200 mls/hr Vancomycin HCl (Vancomycin (Pre-Docked)) 1,000 mg in 250 mls @ 166.667 mls/hr IVPB BID@0900,2100 [facility]; Protocol Last Admin: 04/19/19 09:40 Dose: 166.667 mls/hr Lactobacillus Acidophilus (Bacid -) 1 tab PO DAILY [facility] Last Admin: 04/19/19 10:46 Dose: 1 tab Levothyroxine Sodium 112 mcg/ (Levothyroxine Sodium 25 mcg) 137 mcg PO DAILY@ 0700 [facility] Last Admin: 04/19/19 06:26 Dose: 137 mcg Metoprolol Succinate (Toprol Xl -) 25 mg PO DAILY [facility] Last Admin: 04/19/19 10:46 Dose: 25 mg Multivitamins/Minerals/Vitamin C (Tab-A-Vit -) 1 tab PO DAILY [facility] Last Admin: 04/19/19 10:46 Dose: 1 tab Senna/Docusate Sodium (Pericolace -) 2 tablet PO PRN PRN Reason: CONSTIPATION Tetrahydrozoline HCl (Visine -) 1 drop OD QID [facility] Last Admin: 04/19/19 14:22 Dose: 1 drop - Objective Vital Signs: Vital Signs Temperature 98.5 F 04/19/19 15:13 Pulse Rate 78 04/19/19 15:13 Respiratory Rate 20 04/19/19 15:13 Blood Pressure 140/62 04/19/19 15:13 O2 Sat by Pulse Oximetry (%) 98 04/19/19 10:00 Constitutional: Yes: No Distress Cardiovascular: Yes: Regular Rate and Rhythm, S1, S2 Respiratory: Yes: CTA Bilaterally Gastrointestinal: Yes: Normal Bowel Sounds, Soft Extremities: Yes: Other (DECREASED ERYTHEMA/WARMTH LE B/L) Labs: CBC, BMP 04/19/19 09:50 04/19/19 09:50 INR, PTT INR 1.05 (0.83-1.09) 04/17/19 17:14 Assessment/Plan RECURRENT CELLULITIS LE B/L CONTINUE UNASYN/VANCOMYCIN
[2019-04-19] MEDS ORDERED: POTASSIUM CHLORIDE ORAL LIQUID 20 MEQ/15 ML PO ONE (19:23)
[2019-04-19] MEDS: GABAPENTIN 100 MG CAPSULE (FP) PO SCH (21:30)
[2019-04-20] MEDS ORDERED: AMPICILLIN NA/SULBACTAM NA 1.5 GM VIAL ONE ×3 (01:36→13:30)
[2019-04-20] MEDS ORDERED: SODIUM CHLORIDE 100 ML IVPB ONE ×3 (01:36→13:30)
[2019-04-20] MEDS: AMPICILLIN NA/SULBACTAM NA 1.5 GM in SODIUM CHLORIDE 100 ML IVPB SCH ×3 (02:38→15:20)
[2019-04-20] MEDS ORDERED: LEVOTHYROXINE NA 112 MCG TABLET (FP) ONE (04:41)
[2019-04-20] MEDS ORDERED: LEVOTHYROXINE NA 25 MCG TABLET (FP) ONE (04:42)
[2019-04-20] MEDS: LEVOTHYROXINE 112 MCG, LEVOTHYROXINE 25 MCG PO SCH (06:32)
[2019-04-20] MEDS: VANCOMYCIN 1 GRAM (PRE-DOCKED) 1,000 MG/250 ML BAG IVPB SCH (09:37)
[2019-04-20] MEDS: metoPROLOL SUCCINATE 25 MG TAB.SR.24H (FP) PO SCH (09:38)
[2019-04-20] MEDS: LACTOBACILLUS ACIDOPHILUS 1 TABLET PO SCH (09:38)
[2019-04-20] MEDS: ASPIRIN 81 MG CHEWABLE TABLETS PO SCH (09:38)
[2019-04-20] MEDS: MULTIVITAMINS (DAILY MVI) TABLET (FP) PO SCH (09:38)
[2019-04-20] MEDS: ASCORBIC ACID 500 MG TABLET (FP) PO SCH (09:38)
--- NOTE | 2019-04-20 09:53 | PN ---
Progress Note, Physician History of Present Illness: AWAKE,ALERT SUPINE IN BED NO C/O LEG PAIN NO F/C BC (-) - Current Medication List Current Medications: Active Medications Ascorbic Acid (Vitamin C -) 500 mg PO DAILY [facility] Last Admin: 04/20/19 09:38 Dose: 500 mg Aspirin (Asa -) 81 mg PO DAILY [facility] Last Admin: 04/20/19 09:38 Dose: 81 mg Enoxaparin Sodium (Lovenox -) 40 mg SQ DAILY [facility] Last Admin: 04/19/19 10:46 Dose: 40 mg Gabapentin (Neurontin -) 200 mg PO HS [facility] Last Admin: 04/19/19 21:30 Dose: 200 mg Ampicillin Sodium/Sulbactam (Sodium 1.5 gm/ Sodium Chloride) 100 mls @ 200 mls/ hr IVPB Q6H-IV [facility] Last Admin: 04/20/19 08:21 Dose: 200 mls/hr Vancomycin HCl (Vancomycin (Pre-Docked)) 1,000 mg in 250 mls @ 166.667 mls/hr IVPB BID@0900,2100 [facility]; Protocol Last Admin: 04/20/19 09:37 Dose: 166.667 mls/hr Lactobacillus Acidophilus (Bacid -) 1 tab PO DAILY [facility] Last Admin: 04/20/19 09:38 Dose: 1 tab Levothyroxine Sodium 112 mcg/ (Levothyroxine Sodium 25 mcg) 137 mcg PO DAILY@ 0700 [facility] Last Admin: 04/20/19 06:32 Dose: 137 mcg Metoprolol Succinate (Toprol Xl -) 25 mg PO DAILY [facility] Last Admin: 04/20/19 09:38 Dose: 25 mg Multivitamins/Minerals/Vitamin C (Tab-A-Vit -) 1 tab PO DAILY [facility] Last Admin: 04/20/19 09:38 Dose: 1 tab Senna/Docusate Sodium (Pericolace -) 2 tablet PO PRN PRN Reason: CONSTIPATION Tetrahydrozoline HCl (Visine -) 1 drop OD QID [facility] Last Admin: 04/19/19 21:30 Dose: 1 drop - Objective Vital Signs: Vital Signs Temperature 97.8 F 04/20/19 05:52 Pulse Rate 72 04/20/19 05:52 Respiratory Rate 20 04/20/19 05:52 Blood Pressure 115/60 04/20/19 05:52 O2 Sat by Pulse Oximetry (%) 98 04/19/19 10:00 Constitutional: Yes: No Distress Eyes: Yes: Conjunctiva Clear Cardiovascular: Yes: Regular Rate and Rhythm, S1, S2 Respiratory: Yes: CTA Bilaterally Gastrointestinal: Yes: Normal Bowel Sounds, Soft Labs: CBC, BMP 04/19/19 09:50 04/19/19 09:50 INR, PTT INR 1.05 (0.83-1.09) 04/17/19 17:14 Assessment/Plan RECURRENT CELLULITIS LE B/L MAY SUBSTITUTE AUGMENTIN 875 MG PO BID
[2019-04-20] MEDS: ENOXAPARIN NA (PORCINE) 40 MG/0.4 ML DISP.SYRIN SQ SCH (11:01)
[2019-04-20] MEDS: TETRAHYDROZOLINE HCL EYE DROPS OD SCH ×2 (11:03→13:41)
--- NOTE | 2019-04-20 12:13 | DS ---
Physical Exam: SUBJECTIVE: Patient seen and examined Patient wants to go home, no fever or chills, no sBO. OBJECTIVE: Vital Signs Temperature 97.8 F 04/20/19 05:52 Pulse Rate 72 04/20/19 05:52 Respiratory Rate 20 04/20/19 05:52 Blood Pressure 115/60 04/20/19 05:52 O2 Sat by Pulse Oximetry (%) 98 04/19/19 10:00 GENERAL: The patient is awake, alert, and fully oriented, in no acute distress. HEAD: Normal with no signs of trauma. EYES: PERRL, extraocular movements intact, sclera anicteric, conjunctiva clear. ENT: Ears normal, oropharynx clear without exudates, moist mucous membranes. NECK: Trachea midline, full range of motion, supple. LUNGS: Breath sounds equal, clear to auscultation bilaterally, no wheezes, no crackles, no accessory muscle use. HEART: Regular rate and rhythm, S1, S2 positive, XIMENA 2/6 no rub or gallop. ABDOMEN: Soft, nontender, nondistended, normoactive bowel sounds, no guarding, no rebound, no hepatosplenomegaly, no masses. EXTREMITIES: 2+ pulses, warm, well-perfused, no edema, improved cellulitis, no erythema NEUROLOGICAL: Cranial nerves II through XII grossly intact. Normal speech, gait not observed. PSYCH: Normal mood, normal affect. SKIN: Warm, dry, normal turgor, no rashes or lesions noted. LABS CBCD WBC 5.8 K/mm3 (4.0-10.0) 04/19/19 09:50 RBC 3.78 M/mm3 (3.60-5.2) 04/19/19 09:50 Hgb 13.0 GM/dL (10.7-15.3) 04/19/19 09:50 Hct 38.1 % (32.4-45.2) 04/19/19 09:50 MCV 100.8 fl (80-96) H 04/19/19 09:50 MCHC 34.3 g/dl (32.0-36.0) 04/19/19 09:50 RDW 15.0 % (11.6-15.6) 04/19/19 09:50 Plt Count 181 K/MM3 (134-434) 04/19/19 09:50 MPV 7.2 fl (7.5-11.1) L 04/19/19 09:50 CMP Sodium 138 mmol/L (136-145) 04/19/19 09:50 Potassium 3.3 mmol/L (3.5-5.1) L 04/19/19 09:50 Chloride 105 mmol/L (98-107) 04/19/19 09:50 Carbon Dioxide 28 mmol/L (21-32) 04/19/19 09:50 Anion Gap 6 MMOL/L (8-16) L 04/19/19 09:50 BUN 9 mg/dL (7-18) 04/19/19 09:50 Creatinine 0.6 mg/dL (0.55-1.3) 04/19/19 09:50 Random Glucose 131 mg/dL (74-106) H 04/19/19 09:50 Calcium 8.4 mg/dL (8.5-10.1) L 04/19/19 09:50 Total Bilirubin 0.5 mg/dL (0.2-1) 04/19/19 09:50 AST 76 U/L (15-37) H 04/19/19 09:50 ALT 60 U/L (13-61) 04/19/19 09:50 Alkaline Phosphatase 90 U/L (45-117) 04/19/19 09:50 Total Protein 6.3 g/dl (6.4-8.2) L 04/19/19 09:50 Albumin 2.7 g/dl (3.4-5.0) L 04/19/19 09:50 CARDIAC ENZYMES Creatine Kinase 40 U/L (26-192) 04/17/19 17:14 Troponin I 0.03 ng/ml (0.00-0.05) 04/17/19 17:14 Home Medications Medication Instructions Recorded Aspirin 81 mg PO DAILY 02/02/19 Gabapentin [Neurontin] 200 mg PO HS 02/02/19 Lactobacillus Acidophilus 1 each PO DAILY 02/02/19 [Acidophilus] Lutein 20 mg PO DAILY 02/02/19 Metoprolol Succinate [Toprol XL -] 25 mg PO DAILY tab.sr.24h 02/05/19 Tetrahydrozoline HCl [Visine -] 1 drop OD QID drops 02/05/19 Acetaminophen [Tylenol 500 mg PO PRN 03/23/19 .Extra-Strength -] Ascorbate Calcium [Vitamin C] 500 mg PO DAILY 03/23/19 Diphenhydramine HCl 25 mg PO DAILY 03/23/19 Docusate Sodium [Colace] 100 mg PO PRN 03/23/19 Ibuprofen 400 mg PO PRN 03/23/19 Levothyroxine Sodium [Synthroid] 137 mcg PO DAILY 03/23/19 Mirabegron [Myrbetriq] 25 mg PO HS 03/23/19 Multivitamin [Multiple Vitamins] 1 each PO DAILY 03/23/19 Sennosides/Docusate Sodium 2 tablet PO PRN PRN 03/23/19 [Pericolace -] Amox-Tr/K Cl [Augmentin 875-125mg 1 tab PO BID@0800,1730 7 Days #14 03/26/19 Tablet -] tablet Amlodipine Besylate [Norvasc -] 5 mg PO DAILY 30 Days #30 tablet 03/27/19 Current Medications Generic Name Dose Route Start Last Admin Trade Name Smoothq PRN Reason Stop Dose Admin Ascorbic Acid 500 mg 04/18/19 10:00 04/20/19 09:38 Vitamin C - PO 500 mg DAILY LIN Administration Aspirin 81 mg 04/18/19 10:00 04/20/19 09:38 Asa - PO 81 mg DAILY LIN Administration Enoxaparin Sodium 40 mg 04/17/19 21:45 04/20/19 11:01 Lovenox - SQ 40 mg DAILY LIN Administration Gabapentin 200 mg 04/17/19 22:00 04/19/19 21:30 Neurontin - PO 200 mg HS LIN Administration Ampicillin Sodium/Sulbactam 100 mls @ 200 mls/hr 04/18/19 21:00 04/20/19 08: 21 Sodium 1.5 gm/ Sodium Chloride IVPB 200 mls/hr Q6H-IV LIN Administration Vancomycin HCl 1,000 mg in 250 mls @ 166.667 mls/hr 04/18/19 21:00 04/20/19 09:37 Vancomycin (Pre-Docked) IVPB 166.667 mls/hr BID@0900,2100 LIN Administration Protocol Lactobacillus Acidophilus 1 tab 04/18/19 10:00 04/20/19 09:38 Bacid - PO 1 tab DAILY LIN Administration Levothyroxine Sodium 112 mcg/ 137 mcg 04/18/19 07:00 04/20/19 06:32 Levothyroxine Sodium 25 mcg PO 137 mcg DAILY@0700 LIN Administration Metoprolol Succinate 25 mg 04/18/19 10:00 04/20/19 09:38 Toprol Xl - PO 25 mg DAILY LIN Administration Multivitamins/Minerals/Vitamin C 1 tab 04/18/19 10:00 04/20/19 09:38 Tab-A-Vit - PO 1 tab DAILY LIN Administration Potassium Chloride 40 meq 04/20/19 12:30 K-Dur - PO 04/20/19 12:31 ONCE ONE Senna/Docusate Sodium 2 tablet 04/17/19 23:15 Pericolace - PO HS PRN CONSTIPATION Tetrahydrozoline HCl 1 drop 04/17/19 22:00 04/20/19 11:03 Visine - OD 1 drop QID LIN Administration 04/17/19 17:11 Blood - Peripheral Venous Blood Culture - Preliminary NO GROWTH OBTAINED AFTER 24 HOURS, INCUBATION TO CONTINUE FOR 4 DAYS. ECHO from 02/03/19 showed EF of 60-65% w/ mod aortic sclerosis w/o sig valve aortic stenosis and borderline aortic root dilation Microbiology 04/19/19 11:00 Urine - Urine Clean Catch Urine Culture - Final NO GROWTH OBTAINED 04/17/19 17:11 Blood - Peripheral Venous Blood Culture - Preliminary NO GROWTH OBTAINED AFTER 48 HOURS, INCUBATION TO CONTINUE FOR 3 DAYS. HOSPITAL COURSE: Date of Admission:04/17/19 Date of Discharge: 04/20/19 Patient is 89yo female with from [facility] with PMHx of diastolic CHF, macrocytosis, transaminitis, chronic b/l leg edema, osteoporosis, osteoarthritis, HTN, hypothyroidism, with recent admission to this hospital 03/23-03/27 for Left LE cellulitis after a cat scratch s/p vanc and unasyn w/ negative US for DVT, discharged on oral augmentin x7 days, now patient presnets with worsening b/l lower extremity swelling and erythema. # Acute bl LE cellulitis due to cat scratch: improved s/p vanc/zosyn in ED, switched to Unasyn as per ID consult, Nik, patient improved will send her out on Augmentin 875mg po bid x 7 days as per id recommendation. #Elevated Transaminitis - improved ;U/S done and revealed cholelithiasis and nonspecific gallbladder thickening on previous admission # HTN - controlled ,continue BB, Norvasc is on hold since patient has le edema ,if needed start Lisinopril # Hypothyroidism - TSH 0.1, was 0.14 at last admission 01/2019, Continue home medication Synthroid 137mcg in the am me patient home. Minutes to complete discharge: 35 Discharge Summary Reason For Visit: UTI, CELLULITIS Condition: Stable - Instructions Diet, Activity, Other Instructions: You were admitted for cellulitis of your lower extremties, we treated you with Intravenous antibiotics, will switch to oral Antibiotic; Augmentin 875mg orally 2x per day x 7 days. Follow with prescription clerk lenses within a week and follow with Infectious disease doctor within a week period. continue home meds. Referrals: Rafiq Zaragoza MD [Staff Physician] - 1 Week Disposition: HOME - Home Medications Comprehensive Discharge Medication List: Ambulatory Orders Aspirin 81 mg PO DAILY 02/02/19 Gabapentin [Neurontin] 200 mg PO HS 02/02/19 Lactobacillus Acidophilus [Acidophilus] 1 each PO DAILY 02/02/19 Lutein 20 mg PO DAILY 02/02/19 Metoprolol Succinate [Toprol XL -] 25 mg PO DAILY tab.sr.24h 02/05/19 Tetrahydrozoline HCl [Visine -] 1 drop OD QID drops 02/05/19 Acetaminophen [Tylenol .Extra-Strength -] 500 mg PO PRN 03/23/19 Ascorbate Calcium [Vitamin C] 500 mg PO DAILY 03/23/19 Diphenhydramine HCl 25 mg PO DAILY 03/23/19 Docusate Sodium [Colace] 100 mg PO PRN 03/23/19 Ibuprofen 400 mg PO PRN 03/23/19 Levothyroxine Sodium [Synthroid] 137 mcg PO DAILY 03/23/19 Mirabegron [Myrbetriq] 25 mg PO HS 03/23/19 Multivitamin [Multiple Vitamins] 1 each PO DAILY 03/23/19 Sennosides/Docusate Sodium [Pericolace -] 2 tablet PO PRN PRN 03/23/19 Amox-Tr/K Cl [Augmentin 875-125mg Tablet -] 1 tab PO BID@0800,1730 7 Days #14 tablet 03/26/19 Amlodipine Besylate [Norvasc -] 5 mg PO DAILY 30 Days #30 tablet 03/27/19 This patient is new to me today: No Emergency Visit: Yes ED Registration Date: 04/17/19 Care time: The patient presented to the Emergency Department on the above date and was hospitalized for further evaluation of their emergent condition. Critical Care patient: No - Discharge Referral Referred to [facility] Med P.C.: No
[2019-04-20] MEDS ORDERED: POTASSIUM CHLORIDE TABS 20 MEQ TABLET.ER (FP) PO ONE (12:30)
[2019-04-20 15:43] VITALS: BP 156/79; PULSE 76; TEMP 97.9
== END 2019-04-20 16:22 | disposition home or self-care (01) | DRG 603 ==
LOC: JER 16:37 → JERBED 20:01 → J5S 04-18 04:38
PROVIDERS: ADMIT Internal Medicine; ATTEND Internal Medicine
DX: L03.116 Cellulitis of left lower limb (principal); I50.32 Chronic diastolic (congestive) heart failure; N39.0 Urinary tract infection, site not specified; M81.0 Age-related osteoporosis without current pathological fracture; L03.115 Cellulitis of right lower limb; E03.9 Hypothyroidism, unspecified; R74.0 Nonspecific elevation of levels of transaminase and lactic acid dehydrogenase [LDH]; D64.9 Anemia, unspecified; M19.90 Unspecified osteoarthritis, unspecified site; W55.03XD Scratched by cat, subsequent encounter; I11.0 Hypertensive heart disease with heart failure
CPT/HCPCS: 36415; 71045-TC-FY; 73590-TC-LT-FY; 73590-TC-RT-FY; 76705-TC; 80053; 81003; 82550; 83735; 83880; 84100; 84443; 84484; 85025; 85610; 86140; 87040; 87086; 93005; 93010; 97161-GP; 99285-25

== ENCOUNTER 2019-06-17 12:37 | Inpatient (IN) | payer OTHER, BC ==
--- NOTE | 2019-06-17 12:46 | PDOC ---
Rapid Medical Evaluation Time Seen by Provider: 06/17/19 12:44 Medical Evaluation: Allergies Allergy/AdvReac Type Severity Reaction Status Date / Time codeine Allergy Unknown Verified 04/17/19 16:48 06/17/19 12:44 This patient had a brief in-person evaluation in triage CC: vomiting and headache intermittently since last week vomiting this am also PE: holding head in triage active vomiting in waiting room generalize abdominal discomfort orders: antiemetic, labs, iv access, head ct , ekg This patient will proceed to the ED for further evaluation Discharge Disposition - Diagnosis Vomiting - Referrals - Patient Instructions - Post Discharge Activity
[2019-06-17 12:48] VITALS: BMI 25.0
[2019-06-17] MEDS ORDERED: ONDANSETRON *ODT* 4 MG TABLET SL ONE (12:48)
[2019-06-17] MEDS ORDERED: ONDANSETRON *ODT* 4 MG TABLET ONE (13:05)
[2019-06-17] MEDS ORDERED: METOCLOPRAMIDE HCL INJECTION 10 MG/2 ML VIAL IVPUSH ONE (13:47)
[2019-06-17 13:48] LABS: BASO % 1.2 % (0-2.0); EOS % 5.8 % (0-4.5); HEMATOCRIT 42.7 % (32.4-45.2); HEMOGLOBIN 14.6 GM/dL (10.7-15.3); LYMPH % 22.9 % (8-40); MCH 33.4 pg (25.7-33.7); MCHC 34.2 g/dl (32.0-36.0); MEAN CELL VOLUME 97.7 fl (80-96); MEAN PLT VOLUME 7.5 fl (7.5-11.1); MONO % 8.9 % (3.8-10.2); NEUT % 61.2 % (42.8-82.8); PLATELET COUNT 228 K/MM3 (134-434); RBC 4.37 M/mm3 (3.60-5.2); RDW 14.3 % (11.6-15.6)
--- NOTE | 2019-06-17 13:56 | PDOC ---
History of Present Illness - General Chief Complaint: Headache Stated Complaint: HEADACHE/VOMITING Time Seen by Provider: 06/17/19 12:44 - History of Present Illness Initial Comments: Mary Collins is an 89yo woman with a PMH of dCHF, HTn, hypothyroidism, macrocytosis, chronic BLE edema, OA, and hypothyroidism who presents with headache and vomiting that have been worsening over the past 1-2 weeks. She reports that she has been getting headaches with occasional vomiting since about August, and she has been following with her PMD and a neurologist (Dr Viki Powell, [facility]) for the headaches. She does not remember her diagnosis, but she states that she was told to do neck stretches and use warm compresses for the headaches. According to her friend and healthcare proxy, Dimple, at bedside, Ms Collins has been unable to use compresses or ice due to difficulty with ambulation. She has been taking her medications as prescribed, but she has minimal relief. The headaches are often so severe that she has vomiting or cannot eat meals. She reports that the pain resolves when she lays down, but she has difficulty sitting up to eat or standing to walk. Ms Collins and iDmple have both been to her PMD to discuss the continued symptoms, but they have not had any new medications prescribed. She currently takes Aleve, acetaminophen and gabapentin. Over the past week, the headache has been constant and severe. It is located at the right frontal and left occipital head, which is typical for her headaches, and worsens when she turns her head to the right or sits up. She has had multiple episodes of NBNB vomiting and photophobia today as well. Ms Clolins denies any fevers, congestion, cough, sick contacts, changes in urination or bowel movements, or any other infectious symptoms recently. Past History - Past Medical History Allergies/Adverse Reactions: Allergies Allergy/AdvReac Type Severity Reaction Status Date / Time codeine Allergy Unknown Verified 06/17/19 12:47 Home Medications: Ambulatory Orders Aspirin 81 mg PO DAILY 02/02/19 Gabapentin [Neurontin] 200 mg PO HS 02/02/19 Lutein 20 mg PO DAILY 02/02/19 Metoprolol Succinate [Toprol XL -] 25 mg PO DAILY tab.sr.24h 02/05/19 Acetaminophen [Tylenol .Extra-Strength -] 500 mg PO PRN 03/23/19 Ascorbate Calcium [Vitamin C] 500 mg PO DAILY 03/23/19 Docusate Sodium [Colace] 100 mg PO PRN 03/23/19 Levothyroxine Sodium [Synthroid] 137 mcg PO DAILY 03/23/19 Mirabegron [Myrbetriq] 25 mg PO HS 03/23/19 Multivitamin [Multiple Vitamins] 1 each PO DAILY 03/23/19 Alendronate Sodium [Binosto] 70 mg PO WEEKLY 06/17/19 Cyanocobalamin [Vitamin B12 -] 1,000 mcg PO DAILY 06/17/19 Famotidine 10 mg PO BID 06/17/19 Fexofenadine HCl [Charley Allergy] 180 mg PO DAILY 06/17/19 Lactobacillus Acidophilus [Acidophilus] 1 each PO DAILY 06/17/19 Naproxen Sodium [Aleve] 220 mg PO BID 06/17/19 Tetrahydrozoline HCl [Visine -] 1 drop OD DAILY 06/17/19 COPD: No HTN: Yes (not on meds) Thyroid Disease: Yes (Hypothyroidism) Other medical history: arthritis - Surgical History Orthopedic Surgery: Yes (Bilateral Knees) - Immunization History Immunization Up to Date: (Unknown) - Suicide/Smoking/Psychosocial Hx Smoking History: Never smoked Have you smoked in the past 12 months: No Information on smoking cessation initiated: No Hx Alcohol Use: No Drug/Substance Use Hx: No Substance Use Type: None Hx Substance Use Treatment: No Review of Systems - Review of Systems Comments:: General: No fevers, no chills, +poor appetite, no malaise HEENT: No changes in vision, no changes in hearing, no congestion, no sore throat, +[place], +photophobia CV: No chest pain, no palpitations, no LE edema Pulm: No SOB, no cough, no wheezing GI: +Nausea/vomiting, no change in bowel habits, no melena : No frequency, no urgency, no dysuria Musc: No back pain, no joint swelling, no recent injury Skin: No rash, no lesions, no erythema Endo: No excessive thirst, no heat/cold intolerance Heme: No unusual bruising or bleeding, no swollen glands Neuro: No syncope, no numbness/tingling, no focal weakness Vasc: No claudication Psych: No recent change in mood, no SI or HI *Physical Exam - Vital Signs Last Vital Signs Temp Pulse Resp BP Pulse Ox 98.2 F 70 18 181/80 H 98 06/17/19 12:46 06/17/19 12:46 06/17/19 12:46 06/17/19 12:46 06/17/19 12:46 - Physical Exam Comments: General: Appears uncomfortable, holding head HEENT: PERRL, EOMI, MMM, voice normal. Severely limited neck ROM, turn to L > R Cards: RRR, no murmur appreciated Pulm: Comfortable on room air, clear to auscultation bilaterally Abd: Soft, nontender, nondistended Ext: Atraumatic. No LE edema. Limited RUE active ROM Vasc: Extremities WWP Neuro: A&Ox3, CN grossly intact, normal speech, motor/sensory grossly intact and symmetric Psych: Mood appropriate to situation ED Treatment Course - LABORATORY CBC & Chemistry Diagram: 06/17/19 13:02 06/17/19 13:02 - ADDITIONAL ORDERS Additional order review: 06/17/19 13:02 RBC 4.37 MCV 97.7 H MCHC 34.2 RDW 14.3 MPV 7.5 Neutrophils % 61.2 Lymphocytes % 22.9 D Monocytes % 8.9 Eosinophils % 5.8 H Basophils % 1.2 - Medications Given in the ED: ED Medications Discontinued Medications Generic Name Dose Route Start Last Admin Trade Name Freq PRN Reason Stop Dose Admin Ondansetron HCl 4 mg 06/17/19 12:48 06/17/19 13:29 Zofran Odt - SL 06/17/19 12:49 4 mg ONCE ONE Administration Medical Decision Making - Medical Decision Making 06/17/19 13:49 Mary Collins is an 89yo woman with a PMH of dCHF, HTn, hypothyroidism, macrocytosis, chronic BLE edema, OA, and hypothyroidism who presents with headache and vomiting that have been present since August but have been worsening over the past 1-2 weeks. She has followed with her PMD and neurologi without any relief. Today, the pain has been severe, constant, and she has had multiple episodes of vomiting and photophobia concerning for acute intracranial process. - CBC, chemistry, coags, EKG, trop, CT head ordered in RME - Adding mag, phos, UA due to report of frequent vomiting and poor PO intake - Zofran already given - Reglan, benadryl for headache and nausea - May need IVF but will check labs as she has a h/o CHF - Call to pt's outpatient neurologist for additional information. Service to tez, waiting for call back. 06/17/19 14:27 - Labs reviewed. No concerning abnormalities - Continued head pain, though nausea has resolved - IV acetaminophen ordered, will reassess 06/17/19 16:53 - Pain resolves when supine, but returns when sitting - May need admission for intractable pain. Discussed use of stronger pain medications with pt and friend, but both are concerned about her ability to ambulate and increased fall risk with sedating medications - Acetaminophen has not yet been completed due to pt bending arm. Will reassess following completion - No return call from neurologist. PMD is currently out of town and unavailable. 06/17/19 19:46 - Pt still with pain, unable to sit up - Signed out to Dr Flores for the remainder of her ED care Discussed with Rafita Du and Catrachita. Georgia Clark PGY2 *DC/Admit/Observation/Transfer Diagnosis at time of Disposition: Vomiting - Referrals Referrals: Tenzin Reyna MD [Primary Care Provider] - - Patient Instructions - Post Discharge Activity
[2019-06-17 14:06] LABS: MAGNESIUM 2.2 mg/dL (1.8-2.4); PHOSPHOROUS 3.4 mg/dL (2.5-4.9)
[2019-06-17] MEDS ORDERED: METOCLOPRAMIDE HCL INJECTION 10 MG/2 ML VIAL ONE (14:07)
[2019-06-17 14:10] LABS: ALBUMIN 4.2 g/dl (3.4-5.0); BILIRUBIN,TOTAL 0.8 mg/dL (0.2-1); BLOOD UREA NITROGEN 13.6 mg/dL (7-18); CALCIUM 9.9 mg/dL (8.5-10.1); CREATININE 0.8 mg/dL (0.55-1.3); POTASSIUM 4.5 mmol/L (3.5-5.1); TOT PROT 8.6 g/dl (6.4-8.2)
[2019-06-17 14:55] LABS: EPI CELLS 7.5 /HPF (0-5/HPF); HYALINE CASTS 2 /lpf (0-8); URINE APPEARANCE CLEAR; URINE BACTERIA 13.4 /hpf (NEGATIVE); URINE BILIRUBIN NEGATIVE (NEGATIVE); URINE COLOR YELLOW; URINE GLUCOSE (UA) NEGATIVE (NEGATIVE); URINE KETONE NEGATIVE (NEGATIVE); URINE LEUK ESTERASE 2+ (NEGATIVE); URINE NITRITE NEGATIVE (NEGATIVE); URINE PROTEIN NEGATIVE (NEGATIVE); URINE RBC 2 /hpf (0-4); URINE UROBILINOGEN 0.2 mg/dL (0.2-1.0); URINE WBC 12 /hpf (0-5)
--- NOTE | 2019-06-17 15:00 | EKG ---
Test Reason : Blood Pressure : / mmHG Vent. Rate : 067 BPM Atrial Rate : 067 BPM P-R Int : 198 ms QRS Dur : 080 ms QT Int : 422 ms P-R-T Axes : 047 -09 037 degrees QTc Int : 445 ms SINUS RHYTHM WITH FREQUENT PREMATURE VENTRICULAR COMPLEXES MINIMAL VOLTAGE CRITERIA FOR LVH, MAY BE NORMAL VARIANT BORDERLINE ECG WHEN COMPARED WITH ECG OF 17-APR-2019 17:49, PREMATURE VENTRICULAR COMPLEXES ARE NOW PRESENT Confirmed by ANY ORTIZ, MURIEL ([id number]) on 06/17/2019 3:00:24 PM Referred By: Confirmed By:MURIEL AGARWAL MD
[2019-06-17] MEDS ORDERED: ACETAMINOPHEN 1000 MG/100 ML VIAL (NON FORMULARY) IVPB ONE (15:24)
[2019-06-17] MEDS ORDERED: ACETAMINOPHEN INJECTION 100 ML IVPB ONE (15:59)
--- NOTE | 2019-06-17 16:07 | PDOC ---
Documentation entered by Osbaldo Benitez SCRIBE, acting as scribe for Jeff Du MD. Jeff Du MD: This documentation has been prepared by the Emmanuel broderick Elijah, SCRIBE, under my direction and personally reviewed by me in its entirety. I confirm that the documentation accurately reflects all work, treatment, procedures, and medical decision making performed by me. Attending Attestation - Resident Resident Name: EduardoGeorgia - ED Attending Attestation I have performed the following: I have examined & evaluated the patient, The case was reviewed & discussed with the resident, I agree w/resident's findings & plan - HPI HPI: 06/17/19 13:42 Patient is an 89 year old female with a past significant past medical history of anemia, HTN, hypothyroidism, and CHF who presents to the ED with a worsening headache over the last week. Patient notes that she usually has this headache localized to the L forehead and R occipital region, that worsens with sitting up , improves with laying down and has been evaluated by her PCP and Neurologists for this headache since last September. Over the last week the pain has become unbearable, associated with vomiting which prompted the visit today. Denies fever Allergies: Codeine PCP: Dr. 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 No focal neurological deficits are noted on physical evaluation. CT of head shows no evidence of acute intracranial pathology. I do not suspect temporal arteritis or subarachnoid hemorrhage or meningitis at this time. Patient is received Reglan and Benadryl with resolution of her symptoms. I discussed medicine will marijuana with patient and her daughter given that she has failed numerous nonnarcotic medications in the past. Will reassess.
--- NOTE | 2019-06-17 19:16 | PDOC ---
*Physical Exam - Vital Signs Last Vital Signs Temp Pulse Resp BP Pulse Ox 98.2 F 71 18 172/84 H 98 06/17/19 12:46 06/17/19 17:09 06/17/19 17:09 06/17/19 17:09 06/17/19 17:09 - Physical Exam General Appearance: No: Apparent Distress HEENT: positive: Normal Voice Neurologic: positive: Fully Oriented, Alert ED Treatment Course - LABORATORY CBC & Chemistry Diagram: 06/17/19 13:02 06/17/19 13:02 - ADDITIONAL ORDERS Additional order review: Laboratory Results 06/17/19 06/17/19 06/17/19 14:43 13:02 13:02 PTT (Actin FS) Sodium 135 L Potassium 4.5 Chloride 100 Carbon Dioxide 31 Anion Gap 4 L BUN 13.6 Creatinine 0.8 Est GFR (CKD-EPI)AfAm 76.29 Est GFR (CKD-EPI)NonAf 65.82 Random Glucose 90 Calcium 9.9 Phosphorus 3.4 Magnesium 2.2 Total Bilirubin 0.8 AST 39 H ALT 27 Alkaline Phosphatase 110 Troponin I 0.02 Total Protein 8.6 H Albumin 4.2 Urine Color Yellow Urine Appearance Clear Urine pH 8.0 D Ur Specific [place] 1.008 L Urine Protein Negative Urine Glucose (UA) Negative Urine Ketones Negative Urine Blood Negative Urine Nitrite Negative Urine Bilirubin Negative Urine Urobilinogen 0.2 Ur Leukocyte Esterase 2+ H Urine WBC (Auto) 12 Urine RBC (Auto) 2 Urine Casts (Auto) 2 U Epithel Cells (Auto) 7.5 Urine Bacteria (Auto) 13.4 06/17/19 13:02 PTT (Actin FS) 31.6 Sodium Potassium Chloride Carbon Dioxide Anion Gap BUN Creatinine Est GFR (CKD-EPI)AfAm Est GFR (CKD-EPI)NonAf Random Glucose Calcium Phosphorus Magnesium Total Bilirubin AST ALT Alkaline Phosphatase Troponin I Total Protein Albumin Urine Color Urine Appearance Urine pH Ur Specific [place] Urine Protein Urine Glucose (UA) Urine Ketones Urine Blood Urine Nitrite Urine Bilirubin Urine Urobilinogen Ur Leukocyte Esterase Urine WBC (Auto) Urine RBC (Auto) Urine Casts (Auto) U Epithel Cells (Auto) Urine Bacteria (Auto) 06/17/19 13:02 RBC 4.37 MCV 97.7 H MCHC 34.2 RDW 14.3 MPV 7.5 Neutrophils % 61.2 Lymphocytes % 22.9 D Monocytes % 8.9 Eosinophils % 5.8 H Basophils % 1.2 - Medications Given in the ED: ED Medications Discontinued Medications Generic Name Dose Route Start Last Admin Trade Name Abeba PRN Reason Stop Dose Admin Acetaminophen 1,000 mg 06/17/19 15:24 06/17/19 16:20 Ofirmev Injection - IVPB 06/17/19 15:25 1,000 mg ONCE ONE Administration Diphenhydramine HCl 25 mg 06/17/19 13:47 06/17/19 14:50 Benadryl Injection - IVPB 06/17/19 13:48 25 mg ONCE ONE Administration Metoclopramide HCl 10 mg 06/17/19 13:47 06/17/19 14:50 Reglan Injection - IVPUSH 06/17/19 13:48 10 mg ONCE ONE Administration Ondansetron HCl 4 mg 06/17/19 12:48 06/17/19 13:29 Zofran Odt - SL 06/17/19 12:49 4 mg ONCE ONE Administration Medical Decision Making - Medical Decision Making 06/17/19 19:15 Received sign out from resident Dr. Clark. In short, the pt is an 89 y/o female presenting for acute exacerbation of chronic headaches with vomiting today. Follows with a neurologist, Dr. Powell at [facility]. Received acetaminophen, Benadryl, Reglan, and Zofran with some relief of symptoms. Head CT unremarkable for acute intracranial process. Pt reassessed and reports her headache feels somewhat better but was observed holding her head in apparent discomfort. Denies further vomiting episodes. Will admit pt for intractable headache. In person discussion with resident Dr. Hernandez. Verbally appraised of the pts HPI, ED course, and current plan of management. Will admit pt to med/surg for attending Dr. Spann. Brayden Flores M.D., PGY2 Emergency Medicine Resident *DC/Admit/Observation/Transfer Diagnosis at time of Disposition: Vomiting Qualifiers: Vomiting type: unspecified Vomiting Intractability: non-intractable Nausea presence: unspecified Qualified Code(s): R11.10 - Vomiting, unspecified Headache Qualifiers: Headache type: unspecified Headache chronicity pattern: episodic headache Intractability: intractable Qualified Code(s): R51 - Headache - Discharge Dispostion Condition at time of disposition: Stable Decision to Admit order: Yes - Referrals - Patient Instructions - Post Discharge Activity
--- NOTE | 2019-06-17 20:03 | HP ---
CHIEF COMPLAINT: Headache w/a vomiting PCP: HISTORY OF PRESENT ILLNESS: 89F w/ pmh HTN, hypothyroidism, HFpEF(Jan 2019, 60-65%), chronic BLE edema, chronic BILLINGSLEY presents with complaint of severe BILLINGSLEY w/a emesis. States that she has been having chronic Right-sided(frontal and occipital) headache, that has recently become more severe to 10 of 10 severity, and now causing NB emesis [id number]. Denies associated smells, sounds, fever, change in vision, chewing. BILLINGSLEY does not worsened with changes in positioning, bright light. Denies F/C, SOB , CP, changes in medications, pain w/ urination. Has seen a neurologist for headaches in May 2018, but does not recall a diagnosis or any medications prescribed. Was recommended to apply warm compresses to neck No sick contacts Lives in an assisted living facility. Does not use assistive device to ambulate. Patient is resistant to answering questions, and repeats that she would "like to sleep". ER course was notable for: (1) emesis during triage (2) initial BP 172/84, then BP 136/68 w/o intervention (3) BILLINGSLEY improved to 9/10 after administration of benadryl, ofirmev, metoclopromide, zofran Recent Travel: denies PAST MEDICAL HISTORY: HTN, hypothyroidism, HFpEF(Jan 2019, 60-65%), chronic BLE edema, chronic BILLINGSLEY PAST SURGICAL HISTORY: b/l knee surgery Social History: Smoking: distant usage during early adulthood Alcohol: distant usage during early adulthood Drugs: denies Family History: denies Allergies: codeine Allergy (Unknown, Verified 06/17/19 12:47) HOME MEDICATIONS: Home Medications Medication Instructions Recorded Aspirin 81 mg PO DAILY 02/02/19 Gabapentin [Neurontin] 200 mg PO HS 02/02/19 Lutein 20 mg PO DAILY 02/02/19 Metoprolol Succinate [Toprol XL -] 25 mg PO DAILY tab.sr.24h 02/05/19 Acetaminophen [Tylenol 500 mg PO PRN 03/23/19 .Extra-Strength -] Ascorbate Calcium [Vitamin C] 500 mg PO DAILY 03/23/19 Docusate Sodium [Colace] 100 mg PO PRN 03/23/19 Levothyroxine Sodium [Synthroid] 137 mcg PO DAILY 03/23/19 Mirabegron [Myrbetriq] 25 mg PO HS 03/23/19 Multivitamin [Multiple Vitamins] 1 each PO DAILY 03/23/19 Alendronate Sodium [Binosto] 70 mg PO WEEKLY 06/17/19 Cyanocobalamin [Vitamin B12 -] 1,000 mcg PO DAILY 06/17/19 Famotidine 10 mg PO BID 06/17/19 Fexofenadine HCl [Charley Allergy] 180 mg PO DAILY 06/17/19 Lactobacillus Acidophilus 1 each PO DAILY 06/17/19 [Acidophilus] Naproxen Sodium [Aleve] 220 mg PO BID 06/17/19 Tetrahydrozoline HCl [Visine -] 1 drop OD DAILY 06/17/19 REVIEW OF SYSTEMS CONSTITUTIONAL: Absent: fever, chills, diaphoresis, generalized weakness, malaise, loss of appetite, weight change HEENT: BILL[place] Absent: rhinorrhea, nasal congestion, difficulty swallowing, pain w/ chewing, eye pain, visual changes CARDIOVASCULAR: Absent: chest pain, syncope, palpitations, irregular heart rate, lightheadedness , peripheral edema RESPIRATORY: Absent: cough, shortness of breath, dyspnea with exertion, orthopnea, wheezing, stridor, hemoptysis GASTROINTESTINAL: nausea, vomiting Absent: abdominal pain, abdominal distension, diarrhea, constipation, melena, hematochezia GENITOURINARY: Absent: dysuria, frequency, hematuria, flank pain MUSCULOSKELETAL: Absent: arthralgia, joint swelling, back pain, neck pain HEMATOLOGIC/IMMUNOLOGIC: Absent: lymphadenopathy ENDOCRINE: Absent: unexplained weight gain, unexplained weight loss NEUROLOGIC: headache Absent: focal weakness or paresthesias, dizziness, unsteady gait, seizure, mental status changes, bladder or bowel incontinence PHYSICAL EXAMINATION Vital Signs - 24 hr 06/17/19 06/17/19 12:46 17:09 Temperature 98.2 F Pulse Rate 70 Pulse Rate [ 71 Right Radial] Respiratory 18 18 Rate Blood Pressure 181/80 H Blood Pressure 172/84 H [Right Arm] O2 Sat by Pulse 98 98 Oximetry (%) GENERAL: Awake, alert, and fully oriented, in no acute distress. HEAD: Normal with no signs of trauma. Mild temporal wasting EYES: extraocular movements intact, sclera anicteric, conjunctiva clear. No papilledema EARS, NOSE, THROAT: Ears normal, nares patent, oropharynx clear without exudates. Moist mucous membranes. NECK: Normal range of motion, supple without lymphadenopathy, JVD, or masses. LUNGS: Breath sounds equal, clear to auscultation bilaterally. No wheezes, and no crackles. No accessory muscle use. HEART: Regular rate and rhythm, normal S1 and S2 without murmur, rub or gallop. ABDOMEN: Soft, nontender, not distended, no guarding, no rebound, no masses. MUSCULOSKELETAL: Normal range of motion at all joints. No bony deformities or tenderness. UPPER EXTREMITIES: 2+ pulses, warm, well-perfused. No cyanosis. No clubbing. No peripheral edema. LOWER EXTREMITIES: 2+ pulses, warm, well-perfused. No calf tenderness. 1+ pitting edema. NEUROLOGICAL: Cranial nerves II-XII intact. Normal speech. PSYCHIATRIC: Resistant to questioning. Appropriate mood and affect. SKIN: Warm, dry, normal turgor, no rashes or lesions noted, normal capillary refill. Laboratory Results - last 24 hr 06/17/19 06/17/19 06/17/19 13:02 13:02 13:02 WBC 6.0 RBC 4.37 Hgb 14.6 Hct 42.7 MCV 97.7 H MCH 33.4 MCHC 34.2 RDW 14.3 Plt Count 228 D MPV 7.5 Absolute Neuts (auto) 3.7 Neutrophils % 61.2 Lymphocytes % 22.9 D Monocytes % 8.9 Eosinophils % 5.8 H Basophils % 1.2 Nucleated RBC % 0 PTT (Actin FS) 31.6 Sodium 135 L Potassium 4.5 Chloride 100 Carbon Dioxide 31 Anion Gap 4 L BUN 13.6 Creatinine 0.8 Est GFR (CKD-EPI)AfAm 76.29 Est GFR (CKD-EPI)NonAf 65.82 Random Glucose 90 Calcium 9.9 Phosphorus Magnesium Total Bilirubin 0.8 AST 39 H ALT 27 Alkaline Phosphatase 110 Troponin I 0.02 Total Protein 8.6 H Albumin 4.2 Urine Color Urine Appearance Urine pH Ur Specific [place] Urine Protein Urine Glucose (UA) Urine Ketones Urine Blood Urine Nitrite Urine Bilirubin Urine Urobilinogen Ur Leukocyte Esterase Urine WBC (Auto) Urine RBC (Auto) Urine Casts (Auto) U Epithel Cells (Auto) Urine Bacteria (Auto) 06/17/19 06/17/19 13:02 14:43 WBC RBC Hgb Hct MCV MCH MCHC RDW Plt Count MPV Absolute Neuts (auto) Neutrophils % Lymphocytes % Monocytes % Eosinophils % Basophils % Nucleated RBC % PTT (Actin FS) Sodium Potassium Chloride Carbon Dioxide Anion Gap BUN Creatinine Est GFR (CKD-EPI)AfAm Est GFR (CKD-EPI)NonAf Random Glucose Calcium Phosphorus 3.4 Magnesium 2.2 Total Bilirubin AST ALT Alkaline Phosphatase Troponin I Total Protein Albumin Urine Color Yellow Urine Appearance Clear Urine pH 8.0 D Ur Specific [place] 1.008 L Urine Protein Negative Urine Glucose (UA) Negative Urine Ketones Negative Urine Blood Negative Urine Nitrite Negative Urine Bilirubin Negative Urine Urobilinogen 0.2 Ur Leukocyte Esterase 2+ H Urine WBC (Auto) 12 Urine RBC (Auto) 2 Urine Casts (Auto) 2 U Epithel Cells (Auto) 7.5 Urine Bacteria (Auto) 13.4 ASSESSMENT/PLAN: 89F w/ pmh HTN, hypothyroidism, HFpEF(Jan 2019, 60-65%), chronic BLE edema, chronic BILLINGSLEY presents with complaint of acute on chronic severe BILLINGSLEY now w/a emesis ; BILLINGSLEY of unknown etiology, possible hypertensive encelphalopathy less likely temporal arteritis, or encelphalomeningitis # severe acute on chronic headache > CTH(06/17/19): neg for intracranial pathology - pain control: ofirmev, warm compresses to neck - BP control PRN - replete lytes PRN - fu OSH Neurologist recs -- Patient resistant to questioning Neuro's name, try again in AM RESPIR - no acute issues CARDIO # HFpEF(Jan 2019, 60-65%) -- NYHA Class II - med rec needed GI - no acute issues > UA: LE 2+, WBC - asymptomatic for UTI - no abx tx FEN - sodium controlled diet - IVF via Ofirmev ENDO # hypothyroidism - cw home levothyroxine pending med rec # DVT prophylaxis - enoxaparin Baltazar Macias DO PGY-1 Medicine, PM-Float [id number] 06/17/19 Visit type - Emergency Visit Emergency Visit: Yes ED Registration Date: 06/17/19 Care time: The patient presented to the Emergency Department on the above date and was hospitalized for further evaluation of their emergent condition. - New Patient This patient is new to me today: Yes Date on this admission: 06/18/19 - Critical Care Critical Care patient: No ATTENDING PHYSICIAN STATEMENT I saw and evaluated the patient. I reviewed the resident's note and discussed the case with the resident. I agree with the resident's findings and plan as documented. SUBJECTIVE: OBJECTIVE: ASSESSMENT AND PLAN:
--- NOTE | 2019-06-17 20:45 | PN ---
Teaching Attending Note Name of Resident: Baltazar Macias ATTENDING PHYSICIAN STATEMENT I saw and evaluated the patient. I reviewed the resident's note and discussed the case with the resident. I agree with the resident's findings and plan as documented. Patient seen and examined; please refer to resident note for further historical information. Briefly, patient has chronic headaches that have worsened over the past several days. Has documented nausea, vomiting. Normal HCO3, Cl. No red flag symptoms. Declines to provide further history. ER events reviewed. BP improved in ER and did not correspond to resolution of sx (resident team checked multiple pressures). Due to this was felt to not be HTN urgency and admitted to med surg. Echo reviwed from last month; normal LVEF VS, labs, imaging reviewed NAD, AAO, resting in bed RRR s1/2 NC AT EOMI CN2-12 wnl, would not participate in full neuro exam. ASSESSMENT AND PLAN: Patient presents for intractable headache; follows at [facility] for neuro with records pending. No meningeal signs, no red flag sx. Will admit and consider neuro consult # Intractable headache, no red flag sx # Nausea/vomiting 2/2 above # HTN urgency # Asx +UA # Mild paraproteinemia
[2019-06-17] MEDS ORDERED: hydrALAZINE HCL 20 MG/ML VIAL IVPUSH ONE (20:49)
[2019-06-17] MEDS ORDERED: ACETAMINOPHEN 500 MG TABLET (FP) PO PRN (20:49)
[2019-06-17] MEDS ORDERED: ONDANSETRON 4 MG/2 ML VIAL IVPUSH PRN (20:49)
[2019-06-17] MEDS ORDERED: CEFTRIAXONE 1 GM in DEXTROSE 5%-WATER - 50 ML IVPB ONE (20:51)
[2019-06-17] MEDS ORDERED: hydrALAZINE HCL 20 MG/ML VIAL ONE (20:56)
[2019-06-17] MEDS ORDERED: CEFTRIAXONE 1 GM/50 ML BAG ONE (20:57)
[2019-06-18 08:27] LABS: EOS % 8.1 % (0-4.5); HEMATOCRIT 36.6 % (32.4-45.2); HEMOGLOBIN 12.6 GM/dL (10.7-15.3); LYMPH % 18.1 % (8-40); MCH 33.6 pg (25.7-33.7); MCHC 34.5 g/dl (32.0-36.0); MEAN CELL VOLUME 97.5 fl (80-96); MEAN PLT VOLUME 7.7 fl (7.5-11.1); NEUT % 61.8 % (42.8-82.8); PLATELET COUNT 197 K/MM3 (134-434); RBC 3.75 M/mm3 (3.60-5.2); RDW 14.4 % (11.6-15.6)
[2019-06-18 08:59] LABS: ALBUMIN 3.2 g/dl (3.4-5.0); BILIRUBIN,TOTAL 0.8 mg/dL (0.2-1); CALCIUM 8.9 mg/dL (8.5-10.1); CREATININE 0.8 mg/dL (0.55-1.3); MAGNESIUM 2.2 mg/dL (1.8-2.4); POTASSIUM 3.8 mmol/L (3.5-5.1); TOT PROT 6.8 g/dl (6.4-8.2)
[2019-06-18] MEDS ORDERED: ACETAMINOPHEN/CAFFEINE/BUTALBITAL 1 TAB PO PRN (09:42)
--- NOTE | 2019-06-18 09:42 | CONSULT ---
Consult - text type - Consultation Consultation Note: Neurology CHIEF COMPLAINT: Headache w/a vomiting HISTORY OF PRESENT ILLNESS: 89F w/ pmh HTN, hypothyroidism, HFpEF(Jan 2019, 60-65%), chronic BLE edema, chronic BILLINGSLEY presented with complaint of severe BILLINGSLEY w/a emesis. Stated that she has been having chronic Right-sided(frontal and occipital) headache, that has recently become more severe to 10 of 10 severity, and now causing NB emesis [id number]. Denied associated smells, sounds, fever, change in vision, chewing. BILLINGSLEY does not worsened with changes in positioning, bright light. Denies F/C, SOB , CP, changes in medications, pain w/ urination. reportedly had seen reportedly had seen a neurologist for headaches in May 2018, but does not recall a diagnosis or any medications prescribed. Was recommended to apply warm compresses to neck No sick contacts Lives in an assisted living facility. Does not use assistive device to ambulate. per notes, initial BP 172/84, then BP 136 /68 w/o intervention. BILLINGSLEY improved this morning and reportedly given administration of benadryl, ofirmev, metoclopromide, zofran in ER. Noncontrast head CT was completed and did not show any space-occupying lesions. Possibly tension type headache but cannot rule out migraine. At this point I would recommend Fioricet as needed but we'll also start her on very low dose 25 mg of Topamax at bedtime. Blood pressure should be monitored and optimize, symptoms are improved this morning possibly due to improved blood pressure. Continue to manage hypothyroidism and maintain euthyroid. Recent Travel: denies PAST MEDICAL HISTORY: HTN, hypothyroidism, HFpEF(Jan 2019, 60-65%), chronic BLE edema, chronic BILLINGSLEY PAST SURGICAL HISTORY: b/l knee surgery Social History: Smoking: distant usage during early adulthood Alcohol: distant usage during early adulthood Drugs: denies Family History: HTN Allergies: codeine Allergy (Unknown, Verified 06/17/19 12:47) HOME MEDICATIONS: Home Medications Medication Instructions Recorded Aspirin 81 mg PO DAILY 02/02/19 Gabapentin [Neurontin] 200 mg PO HS 02/02/19 Lutein 20 mg PO DAILY 02/02/19 Metoprolol Succinate [Toprol XL -] 25 mg PO DAILY tab.sr.24h 02/05/19 Acetaminophen [Tylenol 500 mg PO PRN 03/23/19 .Extra-Strength -] Ascorbate Calcium [Vitamin C] 500 mg PO DAILY 03/23/19 Docusate Sodium [Colace] 100 mg PO PRN 03/23/19 Levothyroxine Sodium [Synthroid] 137 mcg PO DAILY 03/23/19 Mirabegron [Myrbetriq] 25 mg PO HS 03/23/19 Multivitamin [Multiple Vitamins] 1 each PO DAILY 03/23/19 Alendronate Sodium [Binosto] 70 mg PO WEEKLY 06/17/19 Cyanocobalamin [Vitamin B12 -] 1,000 mcg PO DAILY 06/17/19 Famotidine 10 mg PO BID 06/17/19 Fexofenadine HCl [Charley Allergy] 180 mg PO DAILY 06/17/19 Lactobacillus Acidophilus 1 each PO DAILY 06/17/19 [Acidophilus] Naproxen Sodium [Aleve] 220 mg PO BID 06/17/19 Tetrahydrozoline HCl [Visine -] 1 drop OD DAILY 06/17/19 REVIEW OF SYSTEMS CONSTITUTIONAL: Absent: fever, chills, diaphoresis, generalized weakness, malaise, loss of appetite, weight change HEENT: B[place] Absent: rhinorrhea, nasal congestion, difficulty swallowing, pain w/ chewing, eye pain, visual changes CARDIOVASCULAR: Absent: chest pain, syncope, palpitations, irregular heart rate, lightheadedness , peripheral edema RESPIRATORY: Absent: cough, shortness of breath, dyspnea with exertion, orthopnea, wheezing, stridor, hemoptysis GASTROINTESTINAL: nausea, vomiting Absent: abdominal pain, abdominal distension, diarrhea, constipation, melena, hematochezia GENITOURINARY: Absent: dysuria, frequency, hematuria, flank pain MUSCULOSKELETAL: Absent: arthralgia, joint swelling, back pain, neck pain HEMATOLOGIC/IMMUNOLOGIC: Absent: lymphadenopathy ENDOCRINE: Absent: unexplained weight gain, unexplained weight loss NEUROLOGIC: headache Absent: focal weakness or paresthesias, dizziness, unsteady gait, seizure, mental status changes, bladder or bowel incontinence PHYSICAL EXAMINATION Vital Signs Period Temp Pulse Resp BP Sys/Blanco Pulse Ox Last 24 Hr 98.1 F-98.4 F 64-74 16-18 136-181/68-87 98-98 GENERAL: Awake, alert, and fully oriented, in no acute distress. HEAD: Normal with no signs of trauma. Mild temporal wasting EYES: extraocular movements intact, sclera anicteric, conjunctiva clear. No papilledema EARS, NOSE, THROAT: Ears normal, nares patent, oropharynx clear without exudates. Moist mucous membranes. NECK: Normal range of motion, supple without lymphadenopathy, JVD, or masses. LUNGS: Breath sounds equal, clear to auscultation bilaterally. No wheezes, and no crackles. No accessory muscle use. HEART: Regular rate and rhythm, normal S1 and S2 without murmur, rub or gallop. ABDOMEN: Soft, nontender, not distended, no guarding, no rebound, no masses. MUSCULOSKELETAL: Normal range of motion at all joints. No bony deformities or tenderness. UPPER EXTREMITIES: 2+ pulses, warm, well-perfused. No cyanosis. No clubbing. No peripheral edema. LOWER EXTREMITIES: 2+ pulses, warm, well-perfused. No calf tenderness. 1+ pitting edema. NEUROLOGICAL: Cranial nerves II-XII intact. Normal speech. PSYCHIATRIC: Resistant to questioning. Appropriate mood and affect. SKIN: Warm, dry, normal turgor, no rashes or lesions noted, normal capillary refill. Laboratory Results - last 24 hr 06/17/19 06/17/19 06/17/19 13:02 13:02 13:02 WBC 6.0 RBC 4.37 Hgb 14.6 Hct 42.7 MCV 97.7 H MCH 33.4 MCHC 34.2 RDW 14.3 Plt Count 228 D MPV 7.5 Absolute Neuts (auto) 3.7 Neutrophils % 61.2 Lymphocytes % 22.9 D Monocytes % 8.9 Eosinophils % 5.8 H Basophils % 1.2 Nucleated RBC % 0 PTT (Actin FS) 31.6 Sodium 135 L Potassium 4.5 Chloride 100 Carbon Dioxide 31 Anion Gap 4 L BUN 13.6 Creatinine 0.8 Est GFR (CKD-EPI)AfAm 76.29 Est GFR (CKD-EPI)NonAf 65.82 Random Glucose 90 Calcium 9.9 Phosphorus Magnesium Total Bilirubin 0.8 AST 39 H ALT 27 Alkaline Phosphatase 110 Troponin I 0.02 Total Protein 8.6 H Albumin 4.2 Urine Color Urine Appearance Urine pH Ur Specific [place] Urine Protein Urine Glucose (UA) Urine Ketones Urine Blood Urine Nitrite Urine Bilirubin Urine Urobilinogen Ur Leukocyte Esterase Urine WBC (Auto) Urine RBC (Auto) Urine Casts (Auto) U Epithel Cells (Auto) Urine Bacteria (Auto) 07/24/19 07/24/19 13:02 14:43 WBC RBC Hgb Hct MCV MCH MCHC RDW Plt Count MPV Absolute Neuts (auto) Neutrophils % Lymphocytes % Monocytes % Eosinophils % Basophils % Nucleated RBC % PTT (Actin FS) Sodium Potassium Chloride Carbon Dioxide Anion Gap BUN Creatinine Est GFR (CKD-EPI)AfAm Est GFR (CKD-EPI)NonAf Random Glucose Calcium Phosphorus 3.4 Magnesium 2.2 Total Bilirubin AST ALT Alkaline Phosphatase Troponin I Total Protein Albumin Urine Color Yellow Urine Appearance Clear Urine pH 8.0 D Ur Specific [place] 1.008 L Urine Protein Negative Urine Glucose (UA) Negative Urine Ketones Negative Urine Blood Negative Urine Nitrite Negative Urine Bilirubin Negative Urine Urobilinogen 0.2 Ur Leukocyte Esterase 2+ H Urine WBC (Auto) 12 Urine RBC (Auto) 2 Urine Casts (Auto) 2 U Epithel Cells (Auto) 7.5 Urine Bacteria (Auto) 13.4 ASSESSMENT/PLAN: 89F w/ pmh HTN, hypothyroidism, HFpEF(Jan 2019, 60-65%), chronic BLE edema, chronic BILLINGSLEY presented with complaint of severe BILLINGSLEY w/a emesis. Stated that she has been having chronic Right-sided(frontal and occipital) headache, that has recently become more severe to 10 of 10 severity, and now causing NB emesis [id number]. Denied associated smells, sounds, fever, change in vision, chewing. BILLINGSLEY does not worsened with changes in positioning, bright light. Denies F/C, SOB , CP, changes in medications, pain w/ urination. reportedly had seen reportedly had seen a neurologist for headaches in May 2018, but does not recall a diagnosis or any medications prescribed. Was recommended to apply warm compresses to neck No sick contacts Lives in an assisted living facility. Does not use assistive device to ambulate. per notes, initial BP 172/84, then BP 136 /68 w/o intervention. BILLINGSLEY improved this morning and reportedly given administration of benadryl, ofirmev, metoclopromide, zofran in ER. Noncontrast head CT was completed and did not show any space-occupying lesions. Possibly tension type headache but cannot rule out migraine. At this point I would recommend Fioricet as needed but we'll also start her on very low dose 25 mg of Topamax at bedtime. Blood pressure should be monitored and optimize, symptoms are improved this morning possibly due to improved blood pressure. Continue to manage hypothyroidism and maintain euthyroid.
[2019-06-18] MEDS ORDERED: ENOXAPARIN NA (PORCINE) 40 MG/0.4 ML DISP.SYRIN SQ SCH (10:00)
--- NOTE | 2019-06-18 13:20 | DS ---
Physical Examination Vital Signs: Vital Signs Temperature 36.7 C 06/18/19 06:51 Pulse Rate 73 06/18/19 06:51 Respiratory Rate 18 06/18/19 06:51 Blood Pressure 148/87 06/18/19 06:51 O2 Sat by Pulse Oximetry (%) 98 06/17/19 23:00 Constitutional: Yes: Well Nourished, No Distress, Calm Cardiovascular: Yes: Regular Rate and Rhythm. No: Gallop, Murmur, Rub Respiratory: Yes: Regular, CTA Bilaterally. No: Rales, Rhonchi, Wheezes Gastrointestinal: Yes: Normal Bowel Sounds, Soft. No: Distention, Tenderness Extremities: Yes: WNL Edema: No Labs: CBC, BMP 06/18/19 07:15 06/18/19 07:15 Discharge Summary Reason For Visit: HEADACE,VOMITING Current Active Problems Headache (Acute) Vomiting (Acute) Hospital Course: Ms Collins is a very pleasant 89 year old female who came in with intractable headache. She was seen and admitted. Neurology saw patient and recommended starting topimax at night. He also recommended prn fioricet. Her headache is now improved and she is eager to go home. She is stable for discharge home. Condition: Stable - Instructions Diet, Activity, Other Instructions: resume previous diet and activity Referrals: Tenzin Reyna MD [Primary Care Provider] - Disposition: HOME - Home Medications Comprehensive Discharge Medication List: Ambulatory Orders Aspirin 81 mg PO DAILY 02/02/19 Gabapentin [Neurontin] 200 mg PO HS 02/02/19 Lutein 20 mg PO DAILY 02/02/19 Metoprolol Succinate [Toprol XL -] 25 mg PO DAILY tab.sr.24h 02/05/19 Acetaminophen [Tylenol .Extra-Strength -] 500 mg PO PRN 03/23/19 Ascorbate Calcium [Vitamin C] 500 mg PO DAILY 03/23/19 Docusate Sodium [Colace] 100 mg PO PRN 03/23/19 Levothyroxine Sodium [Synthroid] 137 mcg PO DAILY 03/23/19 Mirabegron [Myrbetriq] 25 mg PO HS 03/23/19 Multivitamin [Multiple Vitamins] 1 each PO DAILY 03/23/19 Alendronate Sodium [Binosto] 70 mg PO WEEKLY 06/17/19 Cyanocobalamin [Vitamin B12 -] 1,000 mcg PO DAILY 06/17/19 Famotidine 10 mg PO BID 06/17/19 Fexofenadine HCl [Charley Allergy] 180 mg PO DAILY 06/17/19 Lactobacillus Acidophilus [Acidophilus] 1 each PO DAILY 06/17/19 Tetrahydrozoline HCl [Visine -] 1 drop OD DAILY 06/17/19 Topiramate [Topamax -] 25 mg PO HS #30 tablet 06/18/19
[2019-06-18 14:16] VITALS: BP 138/57; PULSE 81; TEMP 98.6
[2019-06-18] MEDS ORDERED: TOPIRAMATE 25 MG TABLET (FP) PO SCH (22:00)
== END 2019-06-18 18:38 | disposition home or self-care (01) | DRG 103 ==
LOC: JER 12:37 → JERBED 20:15 → J6S 22:35
PROVIDERS: ADMIT Internal Medicine; ATTEND Internal Medicine
DX: R51 Headache (principal); I50.32 Chronic diastolic (congestive) heart failure; I11.0 Hypertensive heart disease with heart failure; E03.9 Hypothyroidism, unspecified; D64.9 Anemia, unspecified; M46.92 Unspecified inflammatory spondylopathy, cervical region; I16.0 Hypertensive urgency; R11.2 Nausea with vomiting, unspecified; D89.2 Hypergammaglobulinemia, unspecified
CPT/HCPCS: 36415; 70450-TC; 80053; 81003; 83735; 84100; 84484; 85025; 85730; 93005; 93010; 99285-25; J0131; Q0162

== ENCOUNTER 2019-07-27 09:55 | Emergency (ER) | payer OTHER, BC ==
[2019-07-27 10:31] VITALS: BP 134/67; PULSE 72; BMI 25.0
[2019-07-27 10:53] LABS: BASO % 1.2 % (0-2.0); EOS % 5.4 % (0-4.5); HEMATOCRIT 34.2 % (32.4-45.2); HEMOGLOBIN 11.7 GM/dL (10.7-15.3); LYMPH % 19.8 % (8-40); MCHC 34.3 g/dl (32.0-36.0); MEAN CELL VOLUME 96.3 fl (80-96); NEUT % 58.6 % (42.8-82.8); PLATELET COUNT 175 K/MM3 (134-434); RBC 3.55 M/mm3 (3.60-5.2); RDW 13.8 % (11.6-15.6); WHITE BLOOD COUNT 5.3 K/mm3 (4.0-10.0)
[2019-07-27 11:17] LABS: ALBUMIN 3.6 g/dl (3.4-5.0); BILIRUBIN,TOTAL 0.5 mg/dL (0.2-1); BLOOD UREA NITROGEN 11.8 mg/dL (7-18); CREATININE 0.8 mg/dL (0.55-1.3); POTASSIUM 3.8 mmol/L (3.5-5.1); TOT PROT 7.3 g/dl (6.4-8.2)
[2019-07-27 11:32] LABS: EPI CELLS 5.3 /HPF (0-5/HPF); HYALINE CASTS 1 /lpf (0-8); PH,URINE 7.5 (5.0-8.0); URINE APPEARANCE CLOUDY; URINE BACTERIA 92.5 /hpf (NEGATIVE); URINE BILIRUBIN NEGATIVE (NEGATIVE); URINE COLOR YELLOW; URINE GLUCOSE (UA) NEGATIVE (NEGATIVE); URINE KETONE NEGATIVE (NEGATIVE); URINE LEUK ESTERASE 3+ (NEGATIVE); URINE NITRITE NEGATIVE (NEGATIVE); URINE PROTEIN NEGATIVE (NEGATIVE); URINE UROBILINOGEN 0.2 mg/dL (0.2-1.0); URINE WBC 12 /hpf (0-5)
[2019-07-27 12:15] VITALS: TEMP 97.5
[2019-07-27] MEDS ORDERED: SULFAMETHOXAZOLE/TRIMETHOPRIM 800MG/160MG D.S. TABLET ONE (12:27)
[2019-07-27] MEDS ORDERED: CEPHALEXIN MONOHYDRATE 500 MG CAPSULE (UD) ONE (12:27)
[2019-07-27] MEDS ORDERED: SULFAMETHOXAZOLE/TRIMETHOPRIM 800MG/160MG D.S. TABLET PO ONE (12:28)
[2019-07-27] MEDS ORDERED: CEPHALEXIN MONOHYDRATE 500 MG CAPSULE (UD) PO ONE (12:28)
--- NOTE | 2019-07-27 12:35 | PDOC ---
Documentation entered by Mendel Watters SCRIBE, acting as scribe for Luis Godinez MD. Luis Godinez MD: This documentation has been prepared by the Duong broderick Daniel, SCRIBE, under my direction and personally reviewed by me in its entirety. I confirm that the documentation accurately reflects all work, treatment, procedures, and medical decision making performed by me. History of Present Illness - General Stated Complaint: EDEMA Time Seen by Provider: 07/27/19 10:05 History Source: Patient Exam Limitations: No Limitations - History of Present Illness Initial Comments: 07/27/19 10:33 The patient is an 89 year old female with a past medical history of CHF, chronic edema, cellulitis, HTN, and hypothyroidism here today from the [facility] at [facility] for evaluation of lower extremity redness and wounds. The patient reports that the nurse at her assisted living facility had her come but is unsure why. Patient notes some scrapes and redness around her bilateral ankles and states that the right leg hurts more than the left. As per the nurse at the assisted living facility, the patient had weeping in her legs since saturday (07/20/19) and redness since saturday (07/25/19). The nurse also states that the patient's scrapes are due to the patient picking and scratching her legs. Nurse otherwise denies fevers/chills, states pt has been acting herself otherwise. Patient denies fever, chills. Denies nausea, vomiting, diarrhea, abdominal pain. Allergies: codeine PCP: Tenzin Reyna Past History - Past Medical History Allergies/Adverse Reactions: Allergies Allergy/AdvReac Type Severity Reaction Status Date / Time codeine Allergy Unknown Verified 07/27/19 10:12 Home Medications: Ambulatory Orders Gabapentin [Neurontin] 200 mg PO HS 02/02/19 Lutein 20 mg PO DAILY 02/02/19 Acetaminophen [Tylenol .Extra-Strength -] 500 mg PO PRN 03/23/19 Ascorbate Calcium [Vitamin C] 500 mg PO DAILY 03/23/19 Docusate Sodium [Colace] 100 mg PO PRN 03/23/19 Mirabegron [Myrbetriq] 25 mg PO HS 03/23/19 Multivitamin [Multiple Vitamins] 1 each PO DAILY 03/23/19 Alendronate Sodium [Binosto] 70 mg PO WEEKLY 06/17/19 Cyanocobalamin [Vitamin B12 -] 1,000 mcg PO DAILY 06/17/19 Famotidine 10 mg PO BID 06/17/19 Fexofenadine HCl [Charley Allergy] 180 mg PO ASDIR PRN 06/17/19 Lactobacillus Acidophilus [Acidophilus] 1 each PO DAILY 06/17/19 Tetrahydrozoline HCl [Visine -] 1 drop OD DAILY 06/17/19 Acetaminophen/Caffeine/Butalb [Fioricet -] 1 tablet PO Q6H PRN #20 tablet MDD 4 tabs 06/18/19 Topiramate [Topamax -] 25 mg PO HS #30 tablet 06/18/19 Calcium Carbonate/Vitamin D3 [Calcium 600 + Vit D Tablet] 1 each PO DAILY Diphenhydramine HCl 25 mg PO HS 07/27/19 Levothyroxine Sodium 137 mcg PO DAILY 07/27/19 COPD: No HTN: Yes (not on meds) Thyroid Disease: Yes (Hypothyroidism) - Surgical History Orthopedic Surgery: Yes (Bilateral Knees) - Immunization History Immunization Up to Date: (Unknown) - Suicide/Smoking/Psychosocial Hx Smoking History: Former smoker Have you smoked in the past 12 months: No Hx Alcohol Use: No Drug/Substance Use Hx: No Substance Use Type: None Hx Substance Use Treatment: No Review of Systems - Review of Systems Able to Perform ROS?: Yes Comments:: 07/27/19 10:33 GENERAL/CONSTITUTIONAL: No fever or chills. No weakness. HEAD, EYES, EARS, NOSE AND THROAT: No change in vision. No ear pain or discharge. No sore throat. GASTROINTESTINAL: No nausea, vomiting, diarrhea or constipation. GENITOURINARY: No dysuria, frequency, or change in urination. CARDIOVASCULAR: No chest pain or shortness of breath. RESPIRATORY: No cough, wheezing, or hemoptysis. MUSCULOSKELETAL: No joint or muscle swelling or pain. No neck or back pain. SKIN: +scarpes and redness around bilateral ankles NEUROLOGIC: No headache, vertigo, loss of consciousness, or change in strength/ sensation. ENDOCRINE: No increased thirst. No abnormal weight change. HEMATOLOGIC/LYMPHATIC: No anemia, easy bleeding, or history of blood clots. ALLERGIC/IMMUNOLOGIC: No hives or skin allergy. *Physical Exam - Vital Signs Last Vital Signs Temp Pulse Resp BP Pulse Ox 98 F 72 18 134/67 98 07/27/19 09:56 07/27/19 09:56 07/27/19 09:56 07/27/19 09:56 07/27/19 09:56 - Physical Exam Comments: 07/27/19 10:34 GENERAL: Awake, alert, oriented to name, in no acute distress. Very pleasant. HEAD: No signs of trauma EYES: PERRLA, EOMI, sclera anicteric, conjunctiva clear ENT: Auricles normal inspection, hearing grossly normal, nares patent, oropharynx clear without exudates. Moist mucosa NECK: Normal ROM, supple, no lymphadenopathy, JVD, or masses LUNGS: Breath sounds equal, clear to auscultation bilaterally. No wheezes, and no crackles HEART: Regular rate and rhythm, normal S1 and S2, no murmurs, rubs or gallops ABDOMEN: Soft, nontender, normoactive bowel sounds. No guarding, no rebound. No masses : Rectal temp 97.7 EXTREMITIES: Normal range of motion, 1+ pitting edema to knees b/l. No clubbing or cyanosis. BACK: No midline spinal tenderness in cervical/thoracic/lumbar region NEUROLOGICAL: Normal speech, cranial nerves intact, equal strength and sensation b/l SKIN: Warmth, erythema, induration extending from distal shins up to knees b/l with multiple superficial excoriations b/l. LE symmetric. No significant weeping wounds. Large older appearing ecchymosis noted to L thigh. Otherwise, warm, Dry, normal turgor, no rashes or lesions noted. ED Treatment Course - LABORATORY CBC & Chemistry Diagram: 07/27/19 10:40 07/27/19 10:40 - ADDITIONAL ORDERS Additional order review: Laboratory Results 07/27/19 07/27/19 11:15 10:40 Sodium 134 L Potassium 3.8 Chloride 102 Carbon Dioxide 26 Anion Gap 6 L BUN 11.8 Creatinine 0.8 Est GFR (CKD-EPI)AfAm 76.29 Est GFR (CKD-EPI)NonAf 65.82 Random Glucose 94 Calcium 9.0 Total Bilirubin 0.5 AST 25 ALT 22 Alkaline Phosphatase 84 Total Protein 7.3 Albumin 3.6 Urine Color Yellow Urine Appearance Cloudy Urine pH 7.5 Ur Specific [place] 1.004 L Urine Protein Negative Urine Glucose (UA) Negative Urine Ketones Negative Urine Blood Trace Urine Nitrite Negative Urine Bilirubin Negative Urine Urobilinogen 0.2 Ur Leukocyte Esterase 3+ H Urine WBC (Auto) 12 Urine Casts (Auto) 1 U Epithel Cells (Auto) 5.3 Urine Bacteria (Auto) 92.5 07/27/19 10:40 RBC 3.55 L MCV 96.3 H MCHC 34.3 RDW 13.8 MPV 7.0 L Neutrophils % 58.6 Lymphocytes % 19.8 Monocytes % 15.0 H Eosinophils % 5.4 H Basophils % 1.2 Medical Decision Making - Medical Decision Making 07/27/19 12:16 89yo F presents to the ED with b/l erythema to LE Exam consistent with cellulitis, likely 2/2 innoculation from excoriations No large open or weeping wounds, no systemic signs of infection +older ecchymosis to L thigh, pt states she banged it on something 3 days ago No falls per pt (confimed with staff at assisted living facility) Labs w/o leukocytosis She is rectally afebrile at this time UA consistent with UTI as well On review of EMR, pt had cellulitis in the past, was admitted, treated with Vanc /Zosyn then discharged on augmentin with resolution of cellulitis Plan at this time to cover cellulitis and UTI with keflex and bacrim (previous UCx sensitive to keflex) If cellulitis does not improve in 48hours, pt is to return for further evaluation, probable IV abx Plan discussed with ADAN Uribe at pt's facilily who is in agreement with plan I discussed the physical exam findings, ancillary test results and final diagnoses with the patient. I answered all of the patient's questions. The patient was satisfied with the care received and felt comfortable with the discharge plan and treatment plan. The patient will call their primary care physician within 24 hours to arrange follow-up and will return to the Emergency Department with any new, persistent or worsening symptoms. *DC/Admit/Observation/Transfer Diagnosis at time of Disposition: Cellulitis, UTI (urinary tract infection), Pruritus - Discharge Dispostion Disposition: HOME Condition at time of disposition: Stable Decision to Admit order: No - Referrals Referrals: Tenzin Reyna MD [Primary Care Provider] - - Patient Instructions Printed Discharge Instructions: DI for Cellulitis -- Adult, DI for Urinary Tract Infection (UTI) Additional Instructions: Take the antibiotics as prescribed and make sure to complete the entire course If the redness, pain and warmth to your legs do not improve in 48 hours, or you develop fevers, chills, vomiting, return to the emergency department immediately for evaluation. Follow up with your primary care doctor in 2-3 days. Otherwise, return to the emergency department if you have any new, worsening, or concerning symptoms - Post Discharge Activity - Attestations Physician Attestion: 07/27/19 12:35 I, Dr. Luis Godinez MD, attest that this document has been prepared under my direction and personally reviewed by me in its entirety. I further attest, that it accurately reflects all work, treatment, procedures and medical decision -making performed by me.
[2019-07-27 12:46] LABS: URINE RBC 13.6 /hpf (0-4)
[2019-07-27 12:47] LABS: URINE CRYSTALS NONE SEEN /hpf; YEAST NONE SEEN (NEGATIVE)
--- NOTE | 2019-07-27 14:55 | EKG ---
Test Reason : Blood Pressure : / mmHG Vent. Rate : 067 BPM Atrial Rate : 067 BPM P-R Int : 218 ms QRS Dur : 082 ms QT Int : 428 ms P-R-T Axes : 040 -15 021 degrees QTc Int : 452 ms SINUS RHYTHM WITH 1ST DEGREE A-V BLOCK WITH PREMATURE ATRIAL COMPLEXES MINIMAL VOLTAGE CRITERIA FOR LVH, MAY BE NORMAL VARIANT SEPTAL INFARCT , AGE UNDETERMINED ABNORMAL ECG WHEN COMPARED WITH ECG OF 17-JUN-2019 13:27, PREMATURE VENTRICULAR COMPLEXES ARE NO LONGER PRESENT PREMATURE ATRIAL COMPLEXES ARE NOW PRESENT SEPTAL INFARCT IS NOW PRESENT Confirmed by ANY ORTIZ, MURIEL ([id number]) on 07/27/2019 2:55:18 PM Referred By: Confirmed By:MURIEL AGARWAL MD
== END 2019-07-27 13:02 ==
LOC: JER 09:55
DX: L03.116 Cellulitis of left lower limb (principal); L03.115 Cellulitis of right lower limb; N39.0 Urinary tract infection, site not specified; L29.8 Other pruritus; I10 Essential (primary) hypertension; E03.9 Hypothyroidism, unspecified; F42.4 Excoriation (skin-picking) disorder
CPT/HCPCS: 36415; 80053; 81003; 85025; 87040; 93005; 93010; 99283-25

== ENCOUNTER 2019-08-03 18:10 | Emergency (ER) | payer OTHER, BC | END 2019-08-04 00:27 | LOC: JER 08-04 00:27 | DX: S09.8XXA Other specified injuries of head, initial encounter (principal); W18.39XA Other fall on same level, initial encounter; Y93.89 Activity, other specified; Y92.128 Other place in nursing home as the place of occurrence of the external cause; Y99.8 Other external cause status; I10 Essential (primary) hypertension; E03.9 Hypothyroidism, unspecified; K21.9 Gastro-esophageal reflux disease without esophagitis; N32.81 Overactive bladder; R60.0 Localized edema ==

== ENCOUNTER 2019-08-04 16:37 | Inpatient (IN) | payer OTHER, BC ==
--- NOTE | 2019-08-04 16:41 | PDOC ---
History of Present Illness - General Chief Complaint: Pain Stated Complaint: NECK PAIN Time Seen by Provider: 08/04/19 16:41 History Source: Patient Exam Limitations: No Limitations - History of Present Illness Initial Comments: 08/04/19 16:43 Ms Collins is an 89 yo F who presents to the ER with a complaint of neck pain 89 yo F w/ pmh HTN, hypothyroidism, HFpEF(Jan 2019, 60-65%), chronic BLE edema, chronic neck pain for which she BILLINGSLEY presents with complaint of neck pain. Pt s/ p mechanical fall backwards yesterday afternoon She was seen in the ER where CT head was negative and CT c spine demonstrated degenerative changes Pt brought back to the ER due to severe neck pain which is present only with standing or walking Pt is UNABLE to walk secondary to neck pain She can't tell me exactly where the pain is but any change in position to standing height causes severe neck pain She can not ambulate due to this pain PAST MEDICAL HISTORY: HTN, hypothyroidism, HFpEF(Jan 2019, 60-65%), chronic BLE edema, chronic BILLINGSLEY PAST SURGICAL HISTORY: b/l knee surgery Social History: Smoking: distant usage during early adulthood Alcohol: distant usage during early adulthood Drugs: denies Family History: denies Allergies: codeine (no reaction to Vicodin or Percocet) PMD: Tenzin Reyna ROS: GENERAL/CONSTITUTIONAL: No: fever, chills, weakness HEAD, EYES, EARS, NOSE AND THROAT: No: change in vision CARDIOVASCULAR: No: chest pain, lightheadedness, palpitations, syncope RESPIRATORY: No: cough, shortness of breath, wheezing, hemoptysis, stridor. GASTROINTESTINAL: No: nausea, vomiting, diarrhea, abdominal pain GENITOURINARY: No: dysuria, hematuria, frequency, urgency, flank pain. MUSCULOSKELETAL: YES: nack pain No: back pain, joint pain, muscle swelling or pain SKIN AND BREASTS: Yes: lower extremity cellulitis, easy bruising No: lesions, pallor, rash or easy bruising. NEUROLOGIC: Yes: neck pain No: headache, vertigo, paresthesias, weakness PE: GENERAL: The patient is in no acute distress, hard of hearing HEAD: Normal with no signs of trauma. EYES: PERRLA, EOMI, sclera anicteric, conjunctiva clear. ENT: Ears normal, nares patent, oropharynx clear without exudates. Moist mucous membranes. NECK:Neck brace in place, pt reports severe neck pain when attempting to get out of bed, unable to move her neck LUNGS: Breath sounds equal, clear to auscultation bilaterally. No wheezes, and no crackles. HEART:Regular rate and rhythm, normal S1 and S2 without murmur, rub or gallop. ABDOMEN: Soft, nontender, normoactive bowel sounds. No guarding, no rebound. EXTREMITIES: Limited range of motion, bilateral lower extremity edema, bilateral lower extremity cellulitis and warmth NEUROLOGICAL: Cranial nerves II through XII grossly intact. Normal speech. No focal neurological deficits. MUSCULOSKELETAL: Back non-tender to palpation SKIN: Bilateral lower extremity erythema 08/04/19 17:08 08/04/19 17:13 08/04/19 17:18 08/04/19 17:22 08/04/19 18:34 Past History - Past Medical History Allergies/Adverse Reactions: Allergies Allergy/AdvReac Type Severity Reaction Status Date / Time codeine Allergy Unknown Verified 08/04/19 16:40 Home Medications: Ambulatory Orders Alendronate Sodium/Vitamin D3 [Fosamax Plus D 70 mg-5,600 Iu vIT d] 1 each PO Q7D 08/04/19 Ascorbic Acid [Vitamin C] 500 mg PO DAILY 08/04/19 Butalbital/Aspirin/Caffeine [Ficqmh-Ewuiiek-Vremc 50-325-40] 1 each PO DAILY 09/12 Calcium Carb, Citrate/Vit D3 [Calcium + D3 ER Tablet] 1 tab PO DAILY 08/04/19 Cephalexin [Keflex] 500 mg PO QID 08/04/19 Cyanocobalamin [Vitamin B12 -] 1 tab PO DAILY 08/04/19 Docusate Sodium 100 mg PO PRN 08/04/19 Famotidine 10 mg PO BID 08/04/19 Fexofenadine HCl 180 mg PO DAILY 08/04/19 Gabapentin [Neurontin] 200 mg PO HS 08/04/19 Lactobacillus Acidophilus [Acidophilus] 1 each PO DAILY 08/04/19 Levothyroxine Sodium 137 mcg PO DAILY 08/04/19 Lutein 20 mg PO DAILY 08/04/19 Metoprolol Tartrate 25 mg PO DAILY 08/04/19 Mirabegron [Myrbetriq] 1 tab PO HS 08/04/19 Multivit-Min/Iron/Folic Acid/K [Centravites Adults Tablet] 1 each PO DAILY 08/04 Sulfamethoxazole/Trimethoprim [Sulfamethoxazole-Tmp Ds Tablet] 2 tab PO BID 09/12 Topiramate [Topamax] 50 mg PO HS 08/04/19 COPD: No GI Disorders: Yes (gerd) Disorders: Yes (overactive bladder) HTN: Yes (not on meds) Thyroid Disease: Yes (Hypothyroidism) - Surgical History Orthopedic Surgery: Yes (Bilateral Knees) - Immunization History Immunization Up to Date: (Unknown) - Suicide/Smoking/Psychosocial Hx Smoking History: Former smoker Have you smoked in the past 12 months: No Hx Alcohol Use: No Drug/Substance Use Hx: No Substance Use Type: None Hx Substance Use Treatment: No ED Treatment Course - LABORATORY CBC & Chemistry Diagram: 08/04/19 17:10 08/04/19 17:10 Medical Decision Making - Medical Decision Making 08/04/19 17:26 89 yo F presenting with severe neck pain 1) S/p fall, s/p CT neck and head which show chronic changes, no new changes Pt is unable to walk secondary to neck pain Pt is unable to stand secondary to pain 2) cellulitis Pt s/p recent ER visit and treatment with Keflex and Bactrim for cellulitis No systemic signs of illness but pt continues to have erythema Will do: Labs EKG CXR Vancomycin for Cellulitis Morphine 2mg IV given for pain 08/04/19 18:31 Laboratory Tests 08/04/19 08/04/19 08/04/19 17:10 17:10 17:10 WBC 5.6 Hgb 13.3 Hct 39.5 Plt Count 227 Sodium 128 L Potassium 3.8 Chloride 95 L Carbon Dioxide 26 Anion Gap 7 L BUN 14.0 Creatinine 0.9 Random Glucose 109 H Creatine Kinase 53 Troponin I 0.03 08/04/19 18:55 CXR performed Pt cried in pain as she was moved to place plate behind her CXR does not appear to show infiltrate or consolidation Will plan to admit 08/04/19 19:07 EKG - NSR rate of 73 bpm, axis nml, no st elevation or depression, t waves upright *DC/Admit/Observation/Transfer Diagnosis at time of Disposition: Cellulitis of left leg without foot - Discharge Dispostion Condition at time of disposition: Stable Decision to Admit order: Yes - Referrals - Patient Instructions - Post Discharge Activity
[2019-08-04] MEDS ORDERED: morphine CARPU-JECT 4 MG/1 ML DISP.SYRIN IVPUSH ONE (17:12)
[2019-08-04] MEDS ORDERED: ACETAMINOPHEN 1000 MG/100 ML VIAL (NON FORMULARY) IVPB ONE (17:18)
[2019-08-04] MEDS ORDERED: VANCOMYCIN 1 GM in D5W (PRE-DOCKED) 1,000 MG/250 ML IVPB ONE (17:29)
[2019-08-04] MEDS ORDERED: ACETAMINOPHEN INJECTION 100 ML IVPB ONE (17:34)
[2019-08-04] MEDS ORDERED: VANCOMYCIN 1,000 MG VIAL (RESTRICTED TO ID ONLY) ONE (17:34)
[2019-08-04] MEDS ORDERED: morphine SULFATE 4 MG/ML VIAL ONE (17:34)
[2019-08-04 17:39] LABS: BASO % 0.9 % (0-2.0); EOS % 3.5 % (0-4.5); HEMATOCRIT 39.5 % (32.4-45.2); HEMOGLOBIN 13.3 GM/dl (10.7-15.3); LYMPH % 21.1 % (8-40); MCH 32.8 pg (25.7-33.7); MCHC 33.8 g/dl (32.0-36.0); MEAN PLT VOLUME 7.4 fl (7.5-11.1); MONO % 13.9 % (3.8-10.2); NEUT % 60.6 % (42.8-82.8); PLATELET COUNT 227 K/MM3 (134-434); RBC 4.07 M/mm3 (3.60-5.2); RDW 13.5 % (11.6-15.6); WHITE BLOOD COUNT 5.6 K/mm3 (4.0-10.8)
[2019-08-04 17:46] LABS: ALBUMIN 4.2 g/dl (3.4-5.0); BILIRUBIN,TOTAL 0.8 mg/dl (0.2-1); CALCIUM 9.7 mg/dl (8.5-10); CREATININE 0.9 mg/dl (0.55-1.3); POTASSIUM 3.8 mmol/L (3.5-5.1); TOT PROT 7.8 g/dl (6.4-8.2)
--- NOTE | 2019-08-04 19:07 | HP ---
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 Patient was seen in ED yesterday following a mechanical fall backwards, hitting her head but without LOC. CT head and c-spine were negative for acute pathology and patient was discharged. She returned today with a complaint of neck pain that is worse when she stands up and prevents ambulation. 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; lives alone at the [facility] Smoking: never Alcohol: no Drugs: tranquilizer abuse Family History: reviewed and non-contributory Allergies codeine Allergy (Unknown, Verified 08/04/19 16:40) HOME MEDICATIONS: Home Medications Medication Instructions Recorded Alendronate Sodium/Vitamin D3 1 each PO Q7D 08/04/19 [Fosamax Plus D 70 mg-5,600 Iu vIT d] Ascorbic Acid [Vitamin C] 500 mg PO DAILY 08/04/19 Butalbital/Aspirin/Caffeine 1 each PO DAILY 08/04/19 [Kdxbwg-Kfaftfo-Ciuoc 50-325-40] Calcium Carb, Citrate/Vit D3 1 tab PO DAILY 08/04/19 [Calcium + D3 ER Tablet] Cephalexin [Keflex] 500 mg PO QID 08/04/19 Cyanocobalamin [Vitamin B12 -] 1 tab PO DAILY 08/04/19 Docusate Sodium 100 mg PO PRN 08/04/19 Famotidine 10 mg PO BID 08/04/19 Fexofenadine HCl 180 mg PO DAILY 08/04/19 Gabapentin [Neurontin] 200 mg PO HS 08/04/19 Lactobacillus Acidophilus 1 each PO DAILY 08/04/19 [Acidophilus] Levothyroxine Sodium 137 mcg PO DAILY 08/04/19 Lutein 20 mg PO DAILY 08/04/19 Metoprolol Tartrate 25 mg PO DAILY 08/04/19 Mirabegron [Myrbetriq] 1 tab PO HS 08/04/19 Multivit-Min/Iron/Folic Acid/K 1 each PO DAILY 08/04/19 [Centravites Adults Tablet] Sulfamethoxazole/Trimethoprim 2 tab PO BID 08/04/19 [Sulfamethoxazole-Tmp Ds Tablet] Topiramate [Topamax] 50 mg PO HS 08/04/19 REVIEW OF SYSTEMS CONSTITUTIONAL: Absent: fever, chills, diaphoresis, generalized weakness, malaise, loss of appetite, weight change HEENT: Absent: rhinorrhea, nasal congestion, throat pain, throat swelling, difficulty swallowing, mouth swelling, ear pain, eye pain, visual changes CARDIOVASCULAR: Absent: chest pain, syncope, palpitations, irregular heart rate, lightheadedness , peripheral edema RESPIRATORY: Absent: cough, shortness of breath, dyspnea with exertion, orthopnea, wheezing, stridor, hemoptysis GASTROINTESTINAL: Absent: abdominal pain, abdominal distension, nausea, vomiting, diarrhea, constipation, melena, hematochezia GENITOURINARY: Absent: dysuria, frequency, urgency, hesitancy, hematuria, flank pain, genital pain MUSCULOSKELETAL: +neck pain Absent: myalgia, arthralgia, joint swelling, back pain, neck pain SKIN: Absent: rash, itching, pallor HEMATOLOGIC/IMMUNOLOGIC: Absent: easy bleeding, easy bruising, lymphadenopathy, frequent infections ENDOCRINE: Absent: unexplained weight gain, unexplained weight loss, heat intolerance, cold intolerance NEUROLOGIC: Absent: headache, focal weakness or paresthesias, dizziness, unsteady gait, seizure, mental status changes, bladder or bowel incontinence PSYCHIATRIC: Absent: anxiety, depression, suicidal or homicidal ideation, hallucinations. PHYSICAL EXAMINATION Vital Signs - 24 hr 08/04/19 08/04/19 08/04/19 16:40 17:45 18:17 Temperature 98 F 98 F Pulse Rate 79 Pulse Rate [ 79 Left Radial] Respiratory 16 16 16 Rate Blood Pressure 171/88 H Blood Pressure 171/88 H [Right Arm] O2 Sat by Pulse 99 97 99 Oximetry (%) GENERAL: Awake, alert, and fully oriented, in no acute distress. Anxious. HEAD: Normal with no signs of trauma. EYES: Pupils equal, round and reactive to light, extraocular movements intact, sclera anicteric, conjunctiva clear. No lid lag. EARS, NOSE, THROAT: Ears normal, nares patent, oropharynx clear without exudates. Moist mucous membranes. NECK: Wearing soft collar around neck LUNGS: Breath sounds equal, clear to auscultation bilaterally. No wheezes, and no crackles. No accessory muscle use. HEART: Regular rate and rhythm, S1 and S2 ABDOMEN: Soft, nontender, not distended, UPPER EXTREMITIES: 2+ pulses, warm, well-perfused. No cyanosis. No clubbing. No peripheral edema. LOWER EXTREMITIES: 2+ pulses bilaterally; bilateraly erythema pre-tibial areas R >L; old scabs on left anthony; no tenderness, no edema NEUROLOGICAL: Cranial nerves II-XII intact. Normal speech. Laboratory Results - last 24 hr 08/04/19 08/04/19 08/04/19 17:10 17:10 17:10 WBC 5.6 RBC 4.07 Hgb 13.3 Hct 39.5 MCV 97.0 H MCH 32.8 MCHC 33.8 RDW 13.5 Plt Count 227 MPV 7.4 L Absolute Neuts (auto) 3.3 Neutrophils % 60.6 Lymphocytes % 21.1 Monocytes % 13.9 H Eosinophils % 3.5 Basophils % 0.9 Sodium 128 L Potassium 3.8 Chloride 95 L Carbon Dioxide 26 Anion Gap 7 L BUN 14.0 Creatinine 0.9 Est GFR (CKD-EPI)AfAm 66.16 Est GFR (CKD-EPI)NonAf 57.09 Random Glucose 109 H Calcium 9.7 Total Bilirubin 0.8 AST 36 ALT 23 Alkaline Phosphatase 80 Creatine Kinase 53 Troponin I 0.03 Total Protein 7.8 Albumin 4.2 ASSESSMENT/PLAN 89 year-female with a PMH significant for HTN, hypothyroidism, diastolic heart failure, OA, chronic headache, chronic lower extremity edema, and recurrent lower extremity cellulitis. Admitted for neck pain following a mechanical fall yesterday. 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 --CT of head and c-spine were done on 08/03, no acute pathology but neck pain persists --no focal deficits on exam --defer further imaging pending ortho consult --continue gabapentin Hypertension --continue metoprolol Hypothyroidism --continue levothyroxine Diastolic heart failure --02/03/19 Echo: LV systolic normal, EF 60%, impaired relaxation --appears euvolemic, not on diuretics Chronic headache --Fioricet PRN --continue Topamax Recurrent lower extremity cellulitis --secondary to multiple cat scratches and self-scratching --has been on three courses of antibiotics this year for this problem; February 2019 Unasyn, vanc, augmentin; March 2019 same regimen; 07/27/19 Keflex and Bactrim --the legs are warm and mildly erythematous, but no swelling, no fluctance, old scabs but no breaks in skin --patient is afebrile, no leukocytosis --observe off antibiotics --continue fexofenadine for itching FEN Fluids: PO intake adequate Electrolytes: replete as indicated Nutrition: low sodium DVT prophylaxis: subq heparin Physical therapy Dispo: continues to require inpatient care. Visit type - Emergency Visit Emergency Visit: Yes Care time: The patient presented to the Emergency Department on the above date and was hospitalized for further evaluation of their emergent condition. - New Patient This patient is new to me today: Yes Date on this admission: 08/04/19 - Critical Care Critical Care patient: No
[2019-08-04] MEDS ORDERED: [UNRECOGNIZED DRUG - OTHER] PO PRN (19:08)
[2019-08-04] MEDS ORDERED: BUTALBITAL PO PRN (19:08)
[2019-08-04] MEDS ORDERED: CAFFEINE PO PRN (19:08)
[2019-08-04] MEDS ORDERED: ASPIRIN PO PRN (19:08)
[2019-08-04] MEDS ORDERED: DOCUSATE SODIUM 100 MG CAPSULE (FP) PO SCH (19:15)
[2019-08-04] MEDS ORDERED: ACETAMINOPHEN/CAFFEINE/BUTALBITAL 1 TAB PO PRN (21:24)
[2019-08-04] MEDS ORDERED: SODIUM CHLORIDE 1,000 ML IV SCH (21:30)
[2019-08-04] MEDS: TOPIRAMATE 25 MG TABLET (FP) PO SCH (21:46)
[2019-08-04] MEDS: GABAPENTIN 100 MG CAPSULE (FP) PO SCH (21:46)
[2019-08-04] MEDS: HEPARIN NA (PORCINE) 5,000 UNITS/ML 1ML VIAL SQ SCH (21:47)
[2019-08-04] MEDS ORDERED: FAMOTIDINE 10 MG PO SCH (22:00)
[2019-08-04] MEDS ORDERED: MIRABEGRON PO SCH (22:00)
[2019-08-05] MEDS ORDERED: LEVOTHYROXINE NA 25 MCG TABLET (FP) ONE (06:52)
[2019-08-05] MEDS ORDERED: LEVOTHYROXINE NA 112 MCG TABLET (FP) ONE (06:53)
[2019-08-05] MEDS: LEVOTHYROXINE 112 MCG, LEVOTHYROXINE 25 MCG PO SCH (06:53)
[2019-08-05] MEDS: LORATADINE 10 MG TABLET PO SCH (09:06)
[2019-08-05] MEDS: HEPARIN NA (PORCINE) 5,000 UNITS/ML 1ML VIAL SQ SCH ×2 (09:06→21:31)
[2019-08-05] MEDS: PANTOPRAZOLE 40 MG TABLET (FP) PO SCH (09:06)
[2019-08-05] MEDS: METOPROLOL TARTRATE 25 MG TABLET (FP) PO SCH (09:07)
[2019-08-05] MEDS ORDERED: PATIENT'S OWN MEDICATION (NON-FORMULARY) (Lactobacillus Acidophilus [Acidophilus] 1 EACH) PO SCH (10:00)
[2019-08-05] MEDS ORDERED: FEXOFENADINE HCL 180 MG PO SCH (10:00)
--- NOTE | 2019-08-05 11:33 | EKG ---
Test Reason : Blood Pressure : / mmHG Vent. Rate : 077 BPM Atrial Rate : 077 BPM P-R Int : 192 ms QRS Dur : 086 ms QT Int : 400 ms P-R-T Axes : 000 197 170 degrees QTc Int : 452 ms SINUS RHYTHM WITH OCCASIONAL PREMATURE VENTRICULAR COMPLEXES RIGHT SUPERIOR AXIS DEVIATION T WAVE ABNORMALITY, CONSIDER INFERIOR ISCHEMIA ABNORMAL ECG WHEN COMPARED WITH ECG OF 04-AUG-2019 19:02, PREMATURE VENTRICULAR COMPLEXES ARE NOW PRESENT QRS AXIS SHIFTED LEFT CRITERIA FOR SEPTAL INFARCT ARE NO LONGER PRESENT NON-SPECIFIC CHANGE IN ST SEGMENT IN LATERAL LEADS T WAVE INVERSION NOW EVIDENT IN LATERAL LEADS Confirmed by ANY ORTIZ, MURIEL ([id number]) on 08/05/2019 11:32:47 AM Referred By: TRICIA CHAU Confirmed By:MURIEL AGARWAL MD
[2019-08-05 14:56] LABS: BASO % 0.6 % (0-2.0); EOS % 5.6 % (0-4.5); HEMATOCRIT 39.5 % (32.4-45.2); HEMOGLOBIN 13.3 GM/dl (10.7-15.3); MCH 32.8 pg (25.7-33.7); MCHC 33.8 g/dl (32.0-36.0); MEAN CELL VOLUME 97.2 fl (80-96); MEAN PLT VOLUME 7.1 fl (7.5-11.1); MONO % 13.2 % (3.8-10.2); NEUT % 64.6 % (42.8-82.8); PLATELET COUNT 221 K/MM3 (134-434); RBC 4.06 M/mm3 (3.60-5.2); RDW 13.3 % (11.6-15.6); WHITE BLOOD COUNT 4.9 K/mm3 (4.0-10.8)
[2019-08-05 14:59] LABS: ALBUMIN 3.7 g/dl (3.4-5.0); BILIRUBIN,TOTAL 0.7 mg/dl (0.2-1); CALCIUM 8.7 mg/dl (8.5-10); CREATININE 0.7 mg/dl (0.55-1.3); MAGNESIUM 1.9 mg/dL (1.8-2.4); TOT PROT 7.4 g/dl (6.4-8.2)
[2019-08-05] MEDS ORDERED: ACETAMINOPHEN/CAFFEINE/BUTALBITAL 1 TAB PO PRN (19:00)
[2019-08-05] MEDS: GABAPENTIN 100 MG CAPSULE (FP) PO SCH (21:30)
[2019-08-05] MEDS: TOPIRAMATE 25 MG TABLET (FP) PO SCH (21:30)
[2019-08-05] MEDS: DOCUSATE SODIUM 100 MG CAPSULE (FP) PO SCH (21:30)
[2019-08-06] MEDS ORDERED: LEVOTHYROXINE NA 112 MCG TABLET (FP) ONE (06:06)
[2019-08-06] MEDS ORDERED: LEVOTHYROXINE NA 25 MCG TABLET (FP) ONE (06:06)
[2019-08-06] MEDS: LEVOTHYROXINE 112 MCG, LEVOTHYROXINE 25 MCG PO SCH (06:34)
[2019-08-06 08:21] LABS: BASO % 0.6 % (0-2.0); EOS % 6.6 % (0-4.5); HEMATOCRIT 41.1 % (32.4-45.2); HEMOGLOBIN 13.9 GM/dl (10.7-15.3); LYMPH % 18.3 % (8-40); MCH 32.9 pg (25.7-33.7); MCHC 33.9 g/dl (32.0-36.0); MEAN CELL VOLUME 97.1 fl (80-96); MEAN PLT VOLUME 7.6 fl (7.5-11.1); MONO % 11.5 % (3.8-10.2); PLATELET COUNT 213 K/MM3 (134-434); RBC 4.23 M/mm3 (3.60-5.2); WHITE BLOOD COUNT 5.2 K/mm3 (4.0-10.8)
[2019-08-06 09:01] LABS: ALBUMIN 3.7 g/dl (3.4-5.0); BILIRUBIN,TOTAL 0.9 mg/dl (0.2-1); CALCIUM 8.7 mg/dl (8.5-10); CREATININE 0.6 mg/dl (0.55-1.3); MAGNESIUM 1.9 mg/dL (1.8-2.4); POTASSIUM 3.6 mmol/L (3.5-5.1); TOT PROT 7.4 g/dl (6.4-8.2)
[2019-08-06] MEDS: METOPROLOL TARTRATE 25 MG TABLET (FP) PO SCH (10:02)
[2019-08-06] MEDS: PANTOPRAZOLE 40 MG TABLET (FP) PO SCH (10:02)
[2019-08-06] MEDS: LORATADINE 10 MG TABLET PO SCH (10:02)
[2019-08-06] MEDS: HEPARIN NA (PORCINE) 5,000 UNITS/ML 1ML VIAL SQ SCH ×2 (10:02→21:09)
--- NOTE | 2019-08-06 13:16 | PN ---
Physical Exam: SUBJECTIVE: Patient seen and examined. Complaining of headache. OBJECTIVE: Vital Signs Period Temp Pulse Resp BP Sys/Blanco Pulse Ox Last 24 Hr 97.7 F-98.4 F 69-86 16-20 119-159/49-77 97-99 GENERAL: Awake, alert, and fully oriented, in mild distress due to headache. LUNGS: CTA . HEART: Regular rate and rhythm, S1 and S2 ABDOMEN: Soft, nontender, not distended, UPPER EXTREMITIES: 2+ pulses, warm, well-perfused. No cyanosis. No clubbing. No peripheral edema. LOWER EXTREMITIES: 2+ pulses bilaterally; bilateral erythema resolved NEUROLOGICAL: Cranial nerves II-XII intact. Normal speech. Laboratory Results - last 24 hr 08/05/19 08/05/19 08/06/19 14:25 14:25 07:09 WBC 4.9 5.2 RBC 4.06 4.23 Hgb 13.3 13.9 Hct 39.5 41.1 MCV 97.2 H 97.1 H MCH 32.8 32.9 MCHC 33.8 33.9 RDW 13.3 13.0 Plt Count 221 213 MPV 7.1 L 7.6 Absolute Neuts (auto) 3.2 3.4 Neutrophils % 64.6 63.0 Lymphocytes % 16.0 18.3 Monocytes % 13.2 H 11.5 H Eosinophils % 5.6 H 6.6 H Basophils % 0.6 0.6 Sodium 131 L Potassium 4.0 Chloride 101 Carbon Dioxide 24 Anion Gap 6 L BUN 11.0 Creatinine 0.7 Est GFR (CKD-EPI)AfAm 89.66 Est GFR (CKD-EPI)NonAf 77.36 Random Glucose 108 H Calcium 8.7 Magnesium 1.9 Total Bilirubin 0.7 AST 31 ALT 21 Alkaline Phosphatase 69 D Total Protein 7.4 Albumin 3.7 08/06/19 07:09 WBC RBC Hgb Hct MCV MCH MCHC RDW Plt Count MPV Absolute Neuts (auto) Neutrophils % Lymphocytes % Monocytes % Eosinophils % Basophils % Sodium 132 L Potassium 3.6 Chloride 101 Carbon Dioxide 23 Anion Gap 8 BUN 9.0 Creatinine 0.6 Est GFR (CKD-EPI)AfAm 94.32 Est GFR (CKD-EPI)NonAf 81.38 Random Glucose 82 Calcium 8.7 Magnesium 1.9 Total Bilirubin 0.9 AST 32 ALT 21 Alkaline Phosphatase 67 Total Protein 7.4 Albumin 3.7 Active Medications Generic Name Dose Route Start Last Admin Trade Name Freq PRN Reason Stop Dose Admin Acetaminophen/Butalbital/Caffeine 1 tablet 08/06/19 13:00 Fioricet - PO Q6H PRN HEADACHE Docusate Sodium 300 mg 08/04/19 22:00 08/05/19 21:30 Colace - PO 300 mg HS LIN Administration Gabapentin 200 mg 08/04/19 22:00 08/05/19 21:30 Neurontin - PO 200 mg HS LIN Administration Heparin Sodium (Porcine) 5,000 unit 08/04/19 22:00 08/06/19 10:02 Heparin - SQ 5,000 unit BID LIN Administration Levothyroxine Sodium 112 mcg/ 137 mcg 08/05/19 07:00 08/06/19 06:34 Levothyroxine Sodium 25 mcg PO Not Given DAILY@0700 LIN Loratadine 10 mg 08/05/19 10:00 08/06/19 10:02 Claritin - PO 10 mg DAILY LIN Administration Metoprolol Tartrate 25 mg 08/05/19 10:00 08/06/19 10:02 Lopressor - PO 25 mg DAILY LIN Administration Non-Formulary Medication 1 tab 08/04/19 22:00 Mirabegron [Myrbetriq] PO HS LIN Pantoprazole Sodium 40 mg 08/05/19 10:00 08/06/19 10:02 Protonix - PO 40 mg DAILY LIN Administration Topiramate 50 mg 08/04/19 22:00 08/05/19 21:30 Topamax - PO 50 mg HS LIN Administration ASSESSMENT/PLAN 89 year-female with a PMH significant for HTN, hypothyroidism, diastolic heart failure, OA, chronic headache, chronic lower extremity edema, and recurrent lower extremity cellulitis. Admitted for neck pain following a mechanical fall. 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 Salvador, he will see patient --persistent headache and neck pain-->increased gabapentin to TID, continue Topamax, fioricet PRN Hypertension --continue metoprolol Hypothyroidism --continue levothyroxine Diastolic heart failure --02/03/19 Echo: LV systolic normal, EF 60%, impaired relaxation --appears euvolemic, not on diuretics Recurrent lower extremity cellulitis --secondary to multiple cat scratches and self-scratching --has been on three courses of antibiotics this year for this problem; February 2019 Unasyn, vanc, augmentin; March 2019 same regimen; 07/27/19 Keflex and Bactrim --the legs are warm and mildly erythematous, but no swelling, no fluctuance, old scabs but no breaks in skin --patient is afebrile, no leukocytosis --observe off antibiotics --continue fexofenadine for itching FEN Fluids: PO intake adequate Electrolytes: replete as indicated Nutrition: low sodium DVT prophylaxis: subq heparin Physical therapy Dispo: continues to require inpatient care. Dimple Ana is POA/HCP. She will bring advanced directives to hospital tomorrow. Visit type - Emergency Visit Emergency Visit: Yes ED Registration Date: 08/04/19 Care time: The patient presented to the Emergency Department on the above date and was hospitalized for further evaluation of their emergent condition. - New Patient This patient is new to me today: No - Critical Care Critical Care patient: No
[2019-08-06] MEDS: GABAPENTIN 100 MG CAPSULE (FP) PO SCH ×2 (14:27→21:08)
--- NOTE | 2019-08-06 15:31 | EKG ---
Test Reason : Blood Pressure : / mmHG Vent. Rate : 073 BPM Atrial Rate : 073 BPM P-R Int : 198 ms QRS Dur : 084 ms QT Int : 404 ms P-R-T Axes : 053 -18 021 degrees QTc Int : 445 ms NORMAL SINUS RHYTHM SEPTAL INFARCT (CITED ON OR BEFORE 27-JUL-2019) ABNORMAL ECG WHEN COMPARED WITH ECG OF 27-JUL-2019 10:48, PREMATURE ATRIAL COMPLEXES ARE NO LONGER PRESENT Confirmed by KELSEY ORTIZ, STEVIE ([id number]) on 08/06/2019 3:31:12 PM Referred By: DR WHITING Confirmed By:STEVIE COLE MD
[2019-08-06] MEDS: TOPIRAMATE 25 MG TABLET (FP) PO SCH (21:08)
[2019-08-06] MEDS: DOCUSATE SODIUM 100 MG CAPSULE (FP) PO SCH ×2 (21:08→21:09)
[2019-08-06] MEDS: ACETAMINOPHEN/CAFFEINE/BUTALBITAL 1 TAB PO PRN (22:24)
[2019-08-07] MEDS ORDERED: LEVOTHYROXINE NA 25 MCG TABLET (FP) ONE (06:07)
[2019-08-07] MEDS ORDERED: LEVOTHYROXINE NA 112 MCG TABLET (FP) ONE (06:07)
[2019-08-07] MEDS: GABAPENTIN 100 MG CAPSULE (FP) PO SCH ×4 (06:10→22:28)
[2019-08-07] MEDS: LEVOTHYROXINE 112 MCG, LEVOTHYROXINE 25 MCG PO SCH (06:10)
[2019-08-07] MEDS: ACETAMINOPHEN/CAFFEINE/BUTALBITAL 1 TAB PO PRN ×2 (06:10→16:36)
--- NOTE | 2019-08-07 08:33 | PN ---
Physical Exam: SUBJECTIVE: Patient seen and examined oob to chair. MsMcCluskey present. Patient confused and difficult to redirect. Complaining of bilateral headache. OBJECTIVE: Vital Signs Period Temp Pulse Resp BP Sys/Blanco Pulse Ox Last 24 Hr 97.4 F-98.4 F 70-92 16-19 146-159/73-77 96-99 GENERAL: Awake, alert, confused, difficult to redirect. Complaining of headache but does not appear to be in distress LUNGS: CTA . HEART: Regular rate and rhythm, S1 and S2 ABDOMEN: Soft, nontender, not distended, UPPER EXTREMITIES: 2+ pulses, warm, well-perfused. No cyanosis. No clubbing. No peripheral edema. LOWER EXTREMITIES: 2+ pulses bilaterally; bilateral erythema resolved NEUROLOGICAL: Cranial nerves II-XII intact. Normal speech. Laboratory Results - last 24 hr 08/06/19 07:09 Sodium 132 L Potassium 3.6 Chloride 101 Carbon Dioxide 23 Anion Gap 8 BUN 9.0 Creatinine 0.6 Est GFR (CKD-EPI)AfAm 94.32 Est GFR (CKD-EPI)NonAf 81.38 Random Glucose 82 Calcium 8.7 Magnesium 1.9 Total Bilirubin 0.9 AST 32 ALT 21 Alkaline Phosphatase 67 Total Protein 7.4 Albumin 3.7 Active Medications Generic Name Dose Route Start Last Admin Trade Name Freq PRN Reason Stop Dose Admin Acetaminophen/Butalbital/Caffeine 1 tablet 08/06/19 13:00 08/07/19 06:10 Fioricet - PO 1 tablet Q6H PRN Administration HEADACHE Docusate Sodium 300 mg 08/04/19 22:00 08/06/19 21:09 Colace - PO 300 mg HS LIN Administration Gabapentin 200 mg 08/06/19 14:00 08/07/19 06:10 Neurontin - PO 200 mg TID LIN Administration Heparin Sodium (Porcine) 5,000 unit 08/04/19 22:00 08/06/19 21:09 Heparin - SQ 5,000 unit BID LIN Administration Levothyroxine Sodium 112 mcg/ 137 mcg 08/05/19 07:00 08/07/19 06:10 Levothyroxine Sodium 25 mcg PO 137 mcg DAILY@0700 LIN Administration Loratadine 10 mg 08/05/19 10:00 08/06/19 10:02 Claritin - PO 10 mg DAILY LIN Administration Metoprolol Tartrate 25 mg 08/05/19 10:00 08/06/19 10:02 Lopressor - PO 25 mg DAILY LIN Administration Non-Formulary Medication 1 tab 08/04/19 22:00 Mirabegron [Myrbetriq] PO HS LIN Pantoprazole Sodium 40 mg 08/05/19 10:00 08/06/19 10:02 Protonix - PO 40 mg DAILY LIN Administration Topiramate 50 mg 08/04/19 22:00 08/06/19 21:08 Topamax - PO 50 mg HS LIN Administration ASSESSMENT/PLAN 89 year-female with a PMH significant for HTN, hypothyroidism, diastolic heart failure, OA, chronic headache, chronic lower extremity edema, and recurrent lower extremity cellulitis. Admitted for neck pain following a mechanical fall. 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 Salvador, surgical intervention is under consideration, he has dicussed with POA/HCP --continue increased dose of gabapentin, Topamax, fioricet PRN --if decision is made to go forward for surgery will need to be transferred to [facility] --continue metoprolol Hypothyroidism --continue levothyroxine Diastolic heart failure --02/03/19 Echo: LV systolic normal, EF 60%, impaired relaxation --appears euvolemic, not on diuretics Recurrent lower extremity cellulitis --no signs of cellulitis --observe off antibiotics --continue fexofenadine for itching FEN Fluids: PO intake adequate Electrolytes: replete as indicated Nutrition: low sodium DVT prophylaxis: subq heparin Physical therapy Dispo: continues to require inpatient care. Dimple Perez is POA/HCP. Advanced directives in chart. Patient is a FULL CODE. Visit type - Emergency Visit Emergency Visit: Yes ED Registration Date: 08/04/19 Care time: The patient presented to the Emergency Department on the above date and was hospitalized for further evaluation of their emergent condition. - New Patient This patient is new to me today: No - Critical Care Critical Care patient: No
[2019-08-07] MEDS: LORATADINE 10 MG TABLET PO SCH (09:52)
[2019-08-07] MEDS: HEPARIN NA (PORCINE) 5,000 UNITS/ML 1ML VIAL SQ SCH ×3 (09:52→22:04)
[2019-08-07] MEDS: PANTOPRAZOLE 40 MG TABLET (FP) PO SCH (09:52)
[2019-08-07] MEDS: METOPROLOL TARTRATE 25 MG TABLET (FP) PO SCH (09:52)
[2019-08-07] MEDS: TOPIRAMATE 25 MG TABLET (FP) PO SCH ×2 (21:59→22:30)
[2019-08-07] MEDS: DOCUSATE SODIUM 100 MG CAPSULE (FP) PO SCH ×2 (21:59→22:30)
[2019-08-08] MEDS ORDERED: LEVOTHYROXINE NA 25 MCG TABLET (FP) ONE (06:21)
[2019-08-08] MEDS ORDERED: LEVOTHYROXINE NA 112 MCG TABLET (FP) ONE (06:21)
[2019-08-08] MEDS: LEVOTHYROXINE 112 MCG, LEVOTHYROXINE 25 MCG PO SCH (06:34)
[2019-08-08] MEDS: GABAPENTIN 100 MG CAPSULE (FP) PO SCH ×3 (06:34→21:15)
--- NOTE | 2019-08-08 07:04 | PN ---
Progress Note, Physician Chief Complaint: Eating breakfast in bed. c/o pain to right occipital area History of Present Illness: 89 year-female with a PMH significant for HTN, hypothyroidism, diastolic heart failure, OA, chronic headache, chronic lower extremity edema, and recurrent lower extremity cellulitis secondary to multiple cat scratches. Patient was seen in ED following a mechanical fall backwards, hitting her head but without LOC. CT head and c-spine were negative for acute pathology and patient was discharged. She returned today with a complaint of neck pain that is worse when she stands up and prevents ambulation. - Current Medication List Current Medications: Active Medications Acetaminophen/Butalbital/Caffeine (Fioricet -) 1 tablet PO Q6H PRN PRN Reason: HEADACHE Last Admin: 08/07/19 16:36 Dose: 1 tablet Docusate Sodium (Colace -) 300 mg PO HS [facility] Last Admin: 08/07/19 22:30 Dose: Not Given Gabapentin (Neurontin -) 200 mg PO TID [facility] Last Admin: 08/08/19 06:34 Dose: 200 mg Heparin Sodium (Porcine) (Heparin -) 5,000 unit SQ BID [facility] Last Admin: 08/07/19 22:04 Dose: Not Given Levothyroxine Sodium 112 mcg/ (Levothyroxine Sodium 25 mcg) 137 mcg PO DAILY@ 0700 [facility] Last Admin: 08/08/19 06:34 Dose: 137 mcg Loratadine (Claritin -) 10 mg PO DAILY [facility] Last Admin: 08/07/19 09:52 Dose: 10 mg Metoprolol Tartrate (Lopressor -) 25 mg PO DAILY [facility] Last Admin: 08/07/19 09:52 Dose: 25 mg Non-Formulary Medication (Mirabegron [Myrbetriq]) 1 tab PO [facility] Pantoprazole Sodium (Protonix -) 40 mg PO DAILY [facility] Last Admin: 08/07/19 09:52 Dose: 40 mg Topiramate (Topamax -) 50 mg PO [facility] Last Admin: 08/07/19 22:30 Dose: Not Given - Objective Vital Signs: Vital Signs Temperature 97.5 F L 08/08/19 06:34 Pulse Rate 62 08/08/19 06:34 Respiratory Rate 18 08/08/19 06:34 Blood Pressure 133/66 08/08/19 06:34 O2 Sat by Pulse Oximetry (%) 98 08/08/19 06:34 Constitutional: Yes: No Distress, Thin Eyes: Yes: WNL, Conjunctiva Clear, EOM Intact HENT: Yes: WNL, Atraumatic, Normocephalic Neck: Yes: Tenderness (to cervical area) Cardiovascular: Yes: WNL, Regular Rate and Rhythm Respiratory: Yes: WNL, Regular, CTA Bilaterally Gastrointestinal: Yes: WNL, Normal Bowel Sounds, Soft ...Rectal Exam: Yes: Deferred Genitourinary: Yes: WNL Breast(s): Yes: WNL Musculoskeletal: Yes: WNL Extremities: Yes: WNL Edema: No Peripheral Pulses: Left Radial: 2+, Right Radial: 2+, Left Doralis Pedis: 2+, Right Dorsalis Pedis: 2+, Left Femoral: 2+, Right Femoral: 2+ Integumentary: Yes: Skin Tear (multiple scabs from cat scratches) Neurological: Yes: WNL, Alert, Oriented ...Motor Strength: WNL Psychiatric: Yes: WNL, Alert, Oriented Labs: CBC, BMP 08/06/19 07:09 08/06/19 07:09 - ....Imaging X-ray: Report Reviewed (no acute pathology, s/p right TKR) MRI: Report Reviewed (C5-C6 moderately severe DDD with mild disc bulge and b/l hypertrophy probably slightly impinging C6 nerve roots) Problem List - Problems (1) Edema, lower extremity Assessment/Plan: trace edema BL Code(s): R60.0 - LOCALIZED EDEMA (2) CHF (congestive heart failure) Assessment/Plan: appears euvolemic Code(s): I50.9 - HEART FAILURE, UNSPECIFIED (3) Cellulitis Assessment/Plan: resolved-multiple scratches fro cats on extremities Code(s): L03.90 - CELLULITIS, UNSPECIFIED (4) Fall Assessment/Plan: PT following fall precautions Code(s): W19.XXXA - UNSPECIFIED FALL, INITIAL ENCOUNTER Qualifiers: Encounter type: initial encounter Qualified Code(s): W19.XXXA - Unspecified fall, initial encounter (5) Hypothyroidism Assessment/Plan: c/y synthroid Code(s): E03.9 - HYPOTHYROIDISM, UNSPECIFIED Qualifiers: Hypothyroidism type: unspecified Qualified Code(s): E03.9 - Hypothyroidism , unspecified (6) Osteoarthritis Assessment/Plan: tylenol prn Code(s): M19.90 - UNSPECIFIED OSTEOARTHRITIS, UNSPECIFIED SITE (7) 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 Salvador, surgical intervention is under consideration, he has dicussed with POA/HCP --c/w gabapentin, Topamax, fioricet PRN --once time dose of ofrimev for occipital pain --if decision is made to go forward for surgery will need to be transferred to [facility] Code(s): M50.022 - CERVICAL DISC DISORDER AT C5-C6 LEVEL WITH MYELOPATHY (8) Cervical disc disorder at C5-C6 level with radiculopathy Code(s): M50.122 - CERVICAL DISC DISORDER AT C5-C6 LEVEL WITH RADICULOPATHY (9) Preventive measure Assessment/Plan: FEN diet monitor electrolytes, cpk IVF dc'd DVT heparin sq PT Dispo maintain as inpatient DNR-Dimple Perez is POA/HCP. Advanced directives in chart. discharge planning-if surgical plan is set [facility] need [facility] Code(s): Z29.9 - ENCOUNTER FOR PROPHYLACTIC MEASURES, UNSPECIFIED (10) Status post right knee replacement Assessment/Plan: PT following Code(s): Z96.651 - PRESENCE OF RIGHT ARTIFICIAL KNEE JOINT (11) HTN (hypertension) Assessment/Plan: normotensive c/w metoprolol Code(s): I10 - ESSENTIAL (PRIMARY) HYPERTENSION Visit type - Emergency Visit Emergency Visit: Yes ED Registration Date: 08/04/19 Care time: The patient presented to the Emergency Department on the above date and was hospitalized for further evaluation of their emergent condition. - New Patient This patient is new to me today: Yes Date on this admission: 08/08/19 - Critical Care Critical Care patient: No - Discharge Referral Referred to [facility] Med P.C.: No
[2019-08-08] MEDS ORDERED: ACETAMINOPHEN 1000 MG/100 ML VIAL (NON FORMULARY) IVPB ONE (08:02)
[2019-08-08 08:26] LABS: BASO % 0.8 % (0-2.0); EOS % 8.3 % (0-4.5); HEMATOCRIT 40.4 % (32.4-45.2); HEMOGLOBIN 13.8 GM/dl (10.7-15.3); LYMPH % 26.8 % (8-40); MCH 33.3 pg (25.7-33.7); MCHC 34.2 g/dl (32.0-36.0); MEAN CELL VOLUME 97.2 fl (80-96); MONO % 12.2 % (3.8-10.2); NEUT % 51.9 % (42.8-82.8); PLATELET COUNT 210 K/MM3 (134-434); RBC 4.16 M/mm3 (3.60-5.2); RDW 13.2 % (11.6-15.6); WHITE BLOOD COUNT 5.1 K/mm3 (4.0-10.8)
[2019-08-08 08:33] LABS: ALBUMIN 3.5 g/dl (3.4-5.0); BILIRUBIN,TOTAL 0.7 mg/dl (0.2-1); CALCIUM 8.7 mg/dl (8.5-10); CREATININE 0.7 mg/dl (0.55-1.3); MAGNESIUM 1.9 mg/dL (1.8-2.4); POTASSIUM 3.8 mmol/L (3.5-5.1); TOT PROT 7.1 g/dl (6.4-8.2)
[2019-08-08] MEDS: PANTOPRAZOLE 40 MG TABLET (FP) PO SCH (09:30)
[2019-08-08] MEDS: LORATADINE 10 MG TABLET PO SCH (09:30)
[2019-08-08] MEDS: METOPROLOL TARTRATE 25 MG TABLET (FP) PO SCH (09:30)
[2019-08-08] MEDS: HEPARIN NA (PORCINE) 5,000 UNITS/ML 1ML VIAL SQ SCH ×2 (09:35→21:16)
--- NOTE | 2019-08-08 11:08 | CONSULT ---
Consult - text type - Consultation Consultation Note: NEUROSURGERY CONSULTATION Mary Collins is an 89 year old female with a past medical history notable for HTN, Heart Failure, OA, Headaches and lower extremity edema/ inflammation (?infection). She lives in an assisted living facility and generally is lucid and reasonably active. She has been having progressive difficulty with her gait and balance and started having a series of falls in January 2019. She has had progressive neck pain associated with these falls and associated difficulty with increasing balance problems and increasing pains. She has had mild cognitive difficulties and was recently evaluated by a psychiatrist where early dementia/Alzheimer's Disease was considered. Much of her history and clinical information is from the medical record and several discussions with her HCP/POA (Dimple Perez). The patient sustained a bad fall last week where she fell backwards and struck her head. She was treated and released after initial evaluation did not reveal significant pathology ( including Head and Cervical Spine CT). Soon afterwards, she was found to be unable to arise from a chair and screamed in pain whenever she had to move her head or arise where her head would not be supported. This new development appropriately raised concern and she was brought to the [place] ER and was admitted. CT Cervical Spine demonstrates advanced spondylosis with C12 instability and soft tissue pannus surrounding the odontoid. There is elevation of the tectorial membrane and significant stenosis at this level. There is suggestion of lytic changes within the odontoid and possible prior odontoid fracture which has healed. There is subaxial spondylosis, worst at C56 & C67 where there is vacuum phenomenon in the disc spaces with associated sclerosis of the adjacent endplates and foraminal narrowing. There is hyperlordosis of the cervical spine which may be in compensation for increased Thoracic kyphosis. There is listhesis at C56, C67 & C7T1 with a high slip angle at C7T1. MRI Cervical was a limited examination, however, was sufficient to confirm these pathological findings and demonstrate cord compression at C12 as well as the foraminal stenosis lower down. The patient has a severely impaired quality of life and the natural history of this condition is not likely to improve. I had a series of extensive discussions with several involved parties regarding my sense that although surgery is not an ideal treatment for her, given the absence of clear conservative treatment options, failure to intervene will likely result in a very poor clinical course. Cautious posterior Cervical decompression and fusion may be a reasonable option for her. I have cared for a number of patients with similar conditions and find that at least 50% can have a positive outcome with surgery and virtually all do extremely poorly without treatment. After extensive review of her case and analysis of her imaging to identify pathology and pain generators, I feel that cautious attempts at surgical decompression and stabilization may be considered. I described the risks, benefits and alternatives to posterior cervical decompression and fusion in detail. I explained that the risks included, but were not limited to: , coma, paralysis, bleeding, infection, CSF leak possibly requiriing spinal drainage or additional surgery, failure to fuse, failure to improve, instrumentation migration/malposition/malfunction and the need for additional surgery. I offered the option of seeking another opinion or another surgeon. All questions were answered. Informed consent was obtained. I explained that this would represent a heroic attempt to restore quality of life in a very challenging clinical situation. I quoted a 25% chance of major morbidity or mortality, 25% chance of prolonged hospital course, 25% chance of modest improvement and 25% chance of significant symptomatic relief. Without treatment, she almost certainly would have a 95% chance of clinical progression or failure to improve. I will again confer with DESI Obrien and SUZAN/JAVIER Perez on SaturdayAugust 10 to finalize the plans. If so, we will contemplate the merits of transferring to [facility] due to the ICU capabilities which may be required in the perioperative period. Most likely, surgery would start at C12 with decompression, then posterior instrumentation (screw placement). If this can be done quickly and safely, and without taking too much time, then the decompression could be extended caudally to C7 or T1 and then additional screws could be placed. Surgery is anticipated to be 1-2 hours without excessive blood loss and if challenges are encountered, or milestones met late from a detailed surgical plan, surgery could be concluded early. This plan will address her compression and instability with both dangerous pathological features and pain generators in order to treat the most significant problems first and then rapid progression to a more comprehensive solution if things are going well.
[2019-08-08] MEDS: ACETAMINOPHEN/CAFFEINE/BUTALBITAL 1 TAB PO PRN ×2 (12:20→21:15)
[2019-08-08] MEDS: DOCUSATE SODIUM 100 MG CAPSULE (FP) PO SCH (21:15)
[2019-08-08] MEDS: TOPIRAMATE 25 MG TABLET (FP) PO SCH (21:17)
[2019-08-09] MEDS ORDERED: LEVOTHYROXINE NA 112 MCG TABLET (FP) ONE (06:38)
[2019-08-09] MEDS ORDERED: LEVOTHYROXINE NA 25 MCG TABLET (FP) ONE (06:38)
[2019-08-09] MEDS: LEVOTHYROXINE 112 MCG, LEVOTHYROXINE 25 MCG PO SCH (06:44)
[2019-08-09] MEDS: GABAPENTIN 100 MG CAPSULE (FP) PO SCH ×3 (06:44→21:01)
[2019-08-09 08:26] LABS: BASO % 0.7 % (0-2.0); HEMATOCRIT 40.4 % (32.4-45.2); HEMOGLOBIN 13.4 GM/dl (10.7-15.3); MCH 32.3 pg (25.7-33.7); MCHC 33.3 g/dl (32.0-36.0); MEAN PLT VOLUME 7.8 fl (7.5-11.1); MONO % 12.4 % (3.8-10.2); NEUT % 49.9 % (42.8-82.8); PLATELET COUNT 202 K/MM3 (134-434); RBC 4.17 M/mm3 (3.60-5.2); RDW 13.1 % (11.6-15.6); WHITE BLOOD COUNT 5.3 K/mm3 (4.0-10.8)
[2019-08-09 08:44] LABS: ALBUMIN 3.5 g/dl (3.4-5.0); BILIRUBIN,TOTAL 0.5 mg/dl (0.2-1); CALCIUM 8.8 mg/dl (8.5-10); CREATININE 0.7 mg/dl (0.55-1.3); MAGNESIUM 1.9 mg/dL (1.8-2.4); TOT PROT 6.9 g/dl (6.4-8.2)
--- NOTE | 2019-08-09 08:44 | PN ---
Physical Exam: SUBJECTIVE: Patient seen and examined. Pt c/o Rt sided [place] and neck pain, denies blurred or double vision. OBJECTIVE: Vital Signs Period Temp Pulse Resp BP Sys/Blanco Pulse Ox Last 24 Hr 97.5 F-98.6 F 60-77 18-19 119-138/50-61 95-100 GENERAL: Not in any acute distress. HEAD: Normal with no signs of trauma. EYES: PERRL NECK: Trachea midline, limited ROM due to pain, cervical collar in place LUNGS: Breath sounds equal, clear to auscultation bilaterally, no wheezes, no crackles, no accessory muscle use. HEART: Regular rate and rhythm, S1, S2 without murmur, rub or gallop. ABDOMEN: Soft, nontender, nondistended, normoactive bowel sounds, no guarding, no rebound, no hepatosplenomegaly, no masses. EXTREMITIES: 2+ pulses, warm, well-perfused, no edema. NEUROLOGICAL: Cranial nerves II through XII grossly intact. Normal speech, gait not observed. PSYCH: Normal mood, normal affect, forgetful SKIN: Dry/scaly skin with scabs Laboratory Results - last 24 hr 08/08/19 08/08/19 08/09/19 07:55 07:55 06:00 WBC 5.1 5.3 RBC 4.16 4.17 Hgb 13.8 13.4 Hct 40.4 40.4 MCV 97.2 H 97.0 H MCH 33.3 32.3 MCHC 34.2 33.3 RDW 13.2 13.1 Plt Count 210 202 MPV 7.0 L 7.8 Absolute Neuts (auto) 2.7 2.7 Neutrophils % 51.9 49.9 Lymphocytes % 26.8 29.0 Monocytes % 12.2 H 12.4 H Eosinophils % 8.3 H 8.0 H Basophils % 0.8 0.7 Sodium 132 L Potassium 3.8 Chloride 103 Carbon Dioxide 24 Anion Gap 5 L BUN 11.0 Creatinine 0.7 Est GFR (CKD-EPI)AfAm 89.66 Est GFR (CKD-EPI)NonAf 77.36 Random Glucose 94 Calcium 8.7 Magnesium 1.9 Total Bilirubin 0.7 AST 25 ALT 17 Alkaline Phosphatase 63 Total Protein 7.1 Albumin 3.5 Active Medications Generic Name Dose Route Start Last Admin Trade Name Freq PRN Reason Stop Dose Admin Acetaminophen/Butalbital/Caffeine 1 tablet 08/06/19 13:00 08/08/19 21:15 Fioricet - PO 1 tablet Q6H PRN Administration HEADACHE Docusate Sodium 300 mg 08/04/19 22:00 08/08/19 21:15 Colace - PO 300 mg HS LIN Administration Gabapentin 200 mg 08/06/19 14:00 08/09/19 06:44 Neurontin - PO 200 mg TID LIN Administration Heparin Sodium (Porcine) 5,000 unit 08/04/19 22:00 08/08/19 21:16 Heparin - SQ 5,000 unit BID LIN Administration Levothyroxine Sodium 112 mcg/ 137 mcg 08/05/19 07:00 08/09/19 06:44 Levothyroxine Sodium 25 mcg PO 137 mcg DAILY@0700 LIN Administration Loratadine 10 mg 08/05/19 10:00 08/08/19 09:30 Claritin - PO 10 mg DAILY LIN Administration Metoprolol Tartrate 25 mg 08/05/19 10:00 08/08/19 09:30 Lopressor - PO 25 mg DAILY LIN Administration Non-Formulary Medication 1 tab 08/04/19 22:00 Mirabegron [Myrbetriq] PO HS LIN Pantoprazole Sodium 40 mg 08/05/19 10:00 08/08/19 09:30 Protonix - PO 40 mg DAILY LIN Administration Topiramate 50 mg 08/04/19 22:00 08/08/19 21:17 Topamax - PO 50 mg HS LIN Administration IMAGING X-ray: CM, increase lung markings ,questionable early infiltrate on the Rt side Knee X;ray : No acute pathology, DJD MRI: Report Reviewed (C5-C6 moderately severe DDD with mild disc bulge and b/l hypertrophy probably slightly impinging C6 nerve roots) CT head and c-spine were negative for acute pathology ASSESSMENT/PLAN: 89 year-female with a PMH significant for HTN, hypothyroidism, diastolic heart failure, OA, chronic headache, chronic lower extremity edema, and recurrent lower extremity cellulitis secondary to multiple cat scratches. Patient was seen in ED following a mechanical fall backwards, hitting her head but without LOC. CT head and c-spine were negative for acute pathology and patient was discharged. She returned today with a complaint of neck pain that is worse when she stands up and prevents ambulation. 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 Salvador, surgical intervention is under consideration, he has dicussed with POA/HCP -continue increased dose of gabapentin, Topamax, fioricet PRN if decision is made to go forward for surgery will need to be transferred to [facility] * Hyponatremia -improved - N [id number] *Hypertension - BP stable -continue metoprolol *Hypothyroidism -continue Levothyroxine - will check TFT's * Hx of Diastolic heart failure-stable -appears euvolemic, not on diuretics -02/03/19 Echo: LV systolic normal, EF 60%, impaired relaxation *Recurrent lower extremity cellulitis-no signs of cellulitis -observe off antibiotics -continue fexofenadine for itching *Status post right knee replacement - Knee X;ray neg for acute pathology - PT eval FEN Fluids: PO intake adequate Electrolytes: replete as indicated Nutrition: low sodium DVT prophylaxis: subq heparin DNR-Dimple Perez is POA/HCP. Advanced directives in chart. Discharge planning-if surgical plan is set will need transfer to [facility] Visit type - Emergency Visit Emergency Visit: Yes ED Registration Date: 08/04/19 Care time: The patient presented to the Emergency Department on the above date and was hospitalized for further evaluation of their emergent condition. - New Patient This patient is new to me today: Yes Date on this admission: 08/09/19 - Critical Care Critical Care patient: No
[2019-08-09] MEDS: HEPARIN NA (PORCINE) 5,000 UNITS/ML 1ML VIAL SQ SCH ×2 (09:40→21:02)
[2019-08-09] MEDS: METOPROLOL TARTRATE 25 MG TABLET (FP) PO SCH (09:40)
[2019-08-09] MEDS: LORATADINE 10 MG TABLET PO SCH (09:41)
[2019-08-09] MEDS: ACETAMINOPHEN/CAFFEINE/BUTALBITAL 1 TAB PO PRN ×2 (09:41→18:30)
[2019-08-09] MEDS: PANTOPRAZOLE 40 MG TABLET (FP) PO SCH (09:42)
[2019-08-09] MEDS: DOCUSATE SODIUM 100 MG CAPSULE (FP) PO SCH (21:01)
[2019-08-09] MEDS: TOPIRAMATE 25 MG TABLET (FP) PO SCH (21:02)
[2019-08-10] MEDS ORDERED: LEVOTHYROXINE NA 25 MCG TABLET (FP) ONE (05:54)
[2019-08-10] MEDS ORDERED: LEVOTHYROXINE NA 112 MCG TABLET (FP) ONE (05:54)
[2019-08-10] MEDS: ACETAMINOPHEN/CAFFEINE/BUTALBITAL 1 TAB PO PRN (06:01)
[2019-08-10] MEDS: GABAPENTIN 100 MG CAPSULE (FP) PO SCH ×3 (06:01→21:03)
[2019-08-10] MEDS: LEVOTHYROXINE 112 MCG, LEVOTHYROXINE 25 MCG PO SCH (06:02)
--- NOTE | 2019-08-10 07:27 | PN ---
Physical Exam: SUBJECTIVE: Patient seen and examined at bedside. OBJECTIVE: Vital Signs Period Temp Pulse Resp BP Sys/Blanco Pulse Ox Last 24 Hr 97.6 F-98.2 F 63-70 18-19 106-151/53-69 96-100 GENERAL: Awake. Perseverating on teeth brushing, herself, others. Unable to redirect. LUNGS: CTA HEART: Regular rate and rhythm, S1 and S2 +murmur ABDOMEN: Soft, nontender, not distended, UPPER EXTREMITIES: 2+ pulses, warm, well-perfused. No cyanosis. No clubbing. No peripheral edema. LOWER EXTREMITIES: 2+ pulses bilaterally; bilateral erythema resolved NEUROLOGICAL: Cranial nerves II-XII intact. Normal speech. Laboratory Results - last 24 hr 08/09/19 08/09/19 08/09/19 06:00 06:00 06:00 WBC 5.3 RBC 4.17 Hgb 13.4 Hct 40.4 MCV 97.0 H MCH 32.3 MCHC 33.3 RDW 13.1 Plt Count 202 MPV 7.8 Absolute Neuts (auto) 2.7 Neutrophils % 49.9 Lymphocytes % 29.0 Monocytes % 12.4 H Eosinophils % 8.0 H Basophils % 0.7 Sodium 132 L Potassium 4.0 Chloride 102 Carbon Dioxide 24 Anion Gap 6 L BUN 11.0 Creatinine 0.7 Est GFR (CKD-EPI)AfAm 89.66 Est GFR (CKD-EPI)NonAf 77.36 Random Glucose 86 Calcium 8.8 Magnesium 1.9 Total Bilirubin 0.5 AST 25 ALT 18 Alkaline Phosphatase 71 Total Protein 6.9 Albumin 3.5 TSH 2.59 Free T4 1.25 Active Medications Generic Name Dose Route Start Last Admin Trade Name Freq PRN Reason Stop Dose Admin Acetaminophen/Butalbital/Caffeine 1 tablet 08/06/19 13:00 08/10/19 06:01 Fioricet - PO 1 tablet Q6H PRN Administration HEADACHE Docusate Sodium 300 mg 08/04/19 22:00 08/09/19 21:01 Colace - PO 300 mg HS LIN Administration Gabapentin 200 mg 08/06/19 14:00 08/10/19 06:01 Neurontin - PO 200 mg TID LIN Administration Heparin Sodium (Porcine) 5,000 unit 08/04/19 22:00 08/09/19 21:02 Heparin - SQ 5,000 unit BID LIN Administration Levothyroxine Sodium 112 mcg/ 137 mcg 08/05/19 07:00 08/10/19 06:02 Levothyroxine Sodium 25 mcg PO 137 mcg DAILY@0700 LIN Administration Loratadine 10 mg 08/05/19 10:00 08/09/19 09:41 Claritin - PO 10 mg DAILY LIN Administration Metoprolol Tartrate 25 mg 08/05/19 10:00 08/09/19 09:40 Lopressor - PO 25 mg DAILY LIN Administration Non-Formulary Medication 1 tab 08/04/19 22:00 Mirabegron [Myrbetriq] PO HS LIN Pantoprazole Sodium 40 mg 08/05/19 10:00 08/09/19 09:42 Protonix - PO 40 mg DAILY LIN Administration Topiramate 50 mg 08/04/19 22:00 08/09/19 21:02 Topamax - PO 50 mg HS LIN Administration ASSESSMENT/PLAN: 89 year-female with a PMH significant for HTN, hypothyroidism, diastolic heart failure, OA, chronic headache, chronic lower extremity edema, and recurrent lower extremity cellulitis. Admitted for neck pain following a mechanical fall. 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 Salvador, surgical intervention is planned --continue increased dose of gabapentin, Topamax, fioricet PRN --cardiology consult requested for pre-op evaluation Hypertension --continue metoprolol Hypothyroidism --continue levothyroxine Diastolic heart failure --02/03/19 Echo: LV systolic normal, EF 60%, impaired relaxation --appears euvolemic, not on diuretics Recurrent lower extremity cellulitis --no signs of cellulitis --observe off antibiotics --continue fexofenadine for itching FEN Fluids: PO intake adequate Electrolytes: replete as indicated Nutrition: low sodium DVT prophylaxis: subq heparin Physical therapy Dispo: continues to require inpatient care. Dimple Perez is POA/HCP. Advanced directives in chart. Patient is a FULL CODE. Visit type - Emergency Visit Emergency Visit: Yes ED Registration Date: 08/04/19 Care time: The patient presented to the Emergency Department on the above date and was hospitalized for further evaluation of their emergent condition. - New Patient This patient is new to me today: No - Critical Care Critical Care patient: No
[2019-08-10 08:03] LABS: BASO % 0.9 % (0-2.0); HEMATOCRIT 40.6 % (32.4-45.2); HEMOGLOBIN 13.3 GM/dl (10.7-15.3); LYMPH % 28.5 % (8-40); MCH 32.2 pg (25.7-33.7); MCHC 32.7 g/dl (32.0-36.0); MEAN CELL VOLUME 98.6 fl (80-96); MEAN PLT VOLUME 7.1 fl (7.5-11.1); MONO % 12.3 % (3.8-10.2); NEUT % 49.3 % (42.8-82.8); PLATELET COUNT 203 K/MM3 (134-434); RBC 4.12 M/mm3 (3.60-5.2); RDW 13.2 % (11.6-15.6)
[2019-08-10 08:09] LABS: ALBUMIN 3.3 g/dl (3.4-5.0); BILIRUBIN,TOTAL 0.4 mg/dl (0.2-1); CREATININE 0.8 mg/dl (0.55-1.3); INR 1.07 (0.82-1.09); POTASSIUM 3.9 mmol/L (3.5-5.1); TOT PROT 6.8 g/dl (6.4-8.2)
[2019-08-10] MEDS: HEPARIN NA (PORCINE) 5,000 UNITS/ML 1ML VIAL SQ SCH (10:04)
[2019-08-10] MEDS: PANTOPRAZOLE 40 MG TABLET (FP) PO SCH (10:04)
[2019-08-10] MEDS: METOPROLOL TARTRATE 25 MG TABLET (FP) PO SCH (10:04)
[2019-08-10] MEDS: LORATADINE 10 MG TABLET PO SCH (10:04)
--- NOTE | 2019-08-10 10:14 | CON.CARD ---
Consult Consult Specialty:: Cardiology Referred by:: Hospitalist Medicine Reason for Consultation:: Pre-op CV evaluation - History of Present Illness Chief Complaint: Neck pain, post fall History of Present Illness: Patient is an 88 year old female with underlying history of osteoarthritis and hypothyroidism, cervical degenerative disc and facet joint disease with multilevel cervical degenerative anterolisthesis, ambulates with walker assistance, lost balance w/o near or true syncope and fell. She denies chest pain, SOB, palpitations, paroxysmal nocturnal dyspnea or orthopnea. NSG plans C12 with decompression, then posterior instrumentation (screw placement), possible decompression could be extended caudally to C7 or T1 with additional screws placed to address her compression and instability with both dangerous pathological features and pain generators. - History Source History Provided By: Patient Limitations to Obtaining History: No Limitations - Past Medical History Musculoskeletal: Yes: Osteoarthritis Endocrine: Yes: Hypothyroidism - Alcohol/Substance Use Hx Alcohol Use: No History of Substance Use: reports: Tranquilizers - Smoking History Smoking history: Former smoker Have you smoked in the past 12 months: No If you are a former smoker, when did you quit?: 30 Home Medications - Allergies Allergies/Adverse Reactions: Allergies Allergy/AdvReac Type Severity Reaction Status Date / Time codeine Allergy Unknown Verified 08/04/19 16:40 - Home Medications Home Medications: Ambulatory Orders Alendronate Sodium/Vitamin D3 [Fosamax Plus D 70 mg-5,600 Iu vIT d] 1 each PO Q7D 08/04/19 Ascorbic Acid [Vitamin C] 500 mg PO DAILY 08/04/19 Butalbital/Aspirin/Caffeine [Encstb-Uyjqxzm-Wyvnf 50-325-40] 1 each PO DAILY 09/12 Calcium Carb, Citrate/Vit D3 [Calcium + D3 ER Tablet] 1 tab PO DAILY 08/04/19 Cephalexin [Keflex] 500 mg PO QID 08/04/19 Cyanocobalamin [Vitamin B12 -] 1 tab PO DAILY 08/04/19 Docusate Sodium 100 mg PO PRN 08/04/19 Famotidine 10 mg PO BID 08/04/19 Fexofenadine HCl 180 mg PO DAILY 08/04/19 Gabapentin [Neurontin] 200 mg PO HS 08/04/19 Lactobacillus Acidophilus [Acidophilus] 1 each PO DAILY 08/04/19 Levothyroxine Sodium 137 mcg PO DAILY 08/04/19 Lutein 20 mg PO DAILY 08/04/19 Metoprolol Tartrate 25 mg PO DAILY 08/04/19 Mirabegron [Myrbetriq] 1 tab PO HS 08/04/19 Multivit-Min/Iron/Folic Acid/K [Centravites Adults Tablet] 1 each PO DAILY 08/04 Sulfamethoxazole/Trimethoprim [Sulfamethoxazole-Tmp Ds Tablet] 2 tab PO BID 09/12 Topiramate [Topamax] 50 mg PO HS 08/04/19 Review of Systems - Review of Systems Neck: reports: Pain on Movement Neurological: reports: Unsteady Gait Vital Signs: Vital Signs Temperature 97.6 F 08/10/19 06:19 Pulse Rate 63 08/10/19 06:19 Respiratory Rate 08/10/19 06:19 Blood Pressure 151/69 08/10/19 06:19 O2 Sat by Pulse Oximetry (%) 100 08/10/19 06:19 Constitutional: Yes: No Distress, Calm, Thin Neck: Yes: Supple Respiratory: Yes: Regular, CTA Bilaterally Gastrointestinal: Yes: Soft, Hypoactive Bowel Sounds Cardiovascular: Yes: Regular Rate and Rhythm JVD: No Carotid Bruit: No Heart Sounds: Yes: S1, S2 Murmur: Yes: Systolic Murmur, Grade 1 Edema: No - Other Data Labs, Other Data: CBC, BMP 08/10/19 07:12 08/10/19 07:12 INR, PTT INR 1.07 (0.82-1.09) 08/10/19 07:12 NSR @ 73 Ejection Fraction %: LVEF > or = 40 % Imaging - Results Chest X-ray: Report Reviewed (NAD) Cat Scan: Report Reviewed (HCT: No acute changes Neck CT: No fractures) Problem List - Problems (1) Pre-operative cardiovascular examination Code(s): Z01.810 - ENCOUNTER FOR PREPROCEDURAL CARDIOVASCULAR EXAMINATION (2) 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 Code(s): M50.022 - CERVICAL DISC DISORDER AT C5-C6 LEVEL WITH MYELOPATHY (3) Cervical disc disorder at C5-C6 level with radiculopathy Code(s): M50.122 - CERVICAL DISC DISORDER AT C5-C6 LEVEL WITH RADICULOPATHY (4) HTN (hypertension) Code(s): I10 - ESSENTIAL (PRIMARY) HYPERTENSION Qualifiers: Hypertension type: essential hypertension Qualified Code(s): I10 - Essential (primary) hypertension (5) Hypothyroidism Code(s): E03.9 - HYPOTHYROIDISM, UNSPECIFIED Qualifiers: Hypothyroidism type: unspecified Qualified Code(s): E03.9 - Hypothyroidism , unspecified Assessment/Plan 02/03/2019 Echo: Normal biventricular size and fxn LVEF 60-65%, normal atrial sizes, no sig valve abnl 08/05/2019 MRI: C5-C6 moderately severe DDD with mild disc bulge and b/l hypertrophy probably slightly impinging C6 nerve roots 1. 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 Hypertensive heart disease 3. Diastolic dysfunction 4. Hypothyroidism 5. CAD w/ h/o demand ischemia PLAN: 1. NSG plans C12 with decompression, then posterior instrumentation (screw placement), analgesia as needed 2. Given absence of symptoms of acute coronary syndrome, decompensated CHF or malignant arrhythmia, may proceed with NSG from CV-standpoint w/o further testing 3. Holding ASA 81 qd pre-op, continue Metoprolol 25 qd 4. Thank you for consultative opportunity
[2019-08-10] MEDS ORDERED: ACETAMINOPHEN/CAFFEINE/BUTALBITAL 1 TAB PO PRN (12:44)
--- NOTE | 2019-08-10 14:35 | SPA.PREOP ---
- PRE-OP NOTE Dx: Cervical spondylosis/instability/cord compression Planned Procedure: C1-T1 Laminectomies and fusion with correction of Lordosis Surgeon: Dr Dez Chávez Last Vital Signs Temp Pulse Resp BP Pulse Ox 97.7 F 64 19 133/58 L 100 08/10/19 14:21 08/10/19 14:21 08/10/19 06:19 08/10/19 14:21 08/10/19 06:19 Lab Results WBC 5.0 K/mm3 (4.0-10.8) 08/10/19 07:12 RBC 4.12 M/mm3 (3.60-5.2) 08/10/19 07:12 Hgb 13.3 GM/dl (10.7-15.3) 08/10/19 07:12 Hct 40.6 % (32.4-45.2) 08/10/19 07:12 MCV 98.6 fl (80-96) H 08/10/19 07:12 MCHC 32.7 g/dl (32.0-36.0) 08/10/19 07:12 RDW 13.2 % (11.6-15.6) 08/10/19 07:12 Plt Count 203 K/MM3 (134-434) 08/10/19 07:12 Sodium 135 mmol/L (136-145) L 08/10/19 07:12 Potassium 3.9 mmol/L (3.5-5.1) 08/10/19 07:12 Chloride 103 mmol/L (98-107) 08/10/19 07:12 Carbon Dioxide 25 mmol/L (21-32) 08/10/19 07:12 Anion Gap 7 MMOL/L (8-16) L 08/10/19 07:12 BUN 11.0 mg/dl (7-18) 08/10/19 07:12 Creatinine 0.8 mg/dl (0.55-1.3) 08/10/19 07:12 Random Glucose 98 mg/dl (74-106) 08/10/19 07:12 Calcium 9.0 mg/dl (8.5-10) 08/10/19 07:12 INR 1.07 (0.82-1.09) 08/10/19 07:12 - IMAGING Chest X-ray: Report Reviewed (CXR 08/04/19: Since the prior study of 04/17/19 again shows a prominent mediastinum with large heart, and folded aorta and there is a slight increase of lung markings with questionable early infiltrate developing on the right. There is chin artifact. Repeat pending) MRI: Report Reviewed (08/05/2019 MRI: C5-C6 moderately severe DDD with mild disc bulge and b/l hypertrophy probably slightly impinging C6 nerve roots) EKG: Report Reviewed (EKG (08/04/19): Sinus rhythm with occasional pvcs. right superior axis deviation, t wave abnormality, consider inferior ischemia, abnormal ecg) Other: Report Reviewed, Other (02/03/2019 Echo: Normal biventricular size and fxn LVEF 60-65%, normal atrial sizes, no sig valve abnl) - ASSESSMENT/PLAN 1. Make NPO after midnight except po meds 2. GI/DVT PPX 3. Medical optimization / clearance provided by Cardiology, Dr Tylor Montiel on 08/10 4. Consent to be obtained by surgeon after risks, benefits and alternatives discussed with patient and or Health Care Proxy.
--- NOTE | 2019-08-10 15:33 | PN ---
Progress Note (short form) - Note Progress Note: Patient is lying comfortably in bed. We reviewed the risks, benefits and alternatives to surgery and she recalls a good bit of this information from prior discussions. She asks intelligent questions and verbalizes a desire to proceed. All questions were answered. Plans are for surgery in the morning of Sunday August 11, 2019.
--- NOTE | 2019-08-10 16:32 | HOSP ---
Subjective - Review of Symptoms HEENT: Yes: Head Aches, Other (neck pain) Physical Examination Vital Signs: Vital Signs Temperature 97.7 F 08/10/19 14:21 Pulse Rate 64 08/10/19 14:21 Respiratory Rate 08/10/19 06:19 Blood Pressure 133/58 L 08/10/19 14:21 O2 Sat by Pulse Oximetry (%) 100 08/10/19 06:19 Findings/Remarks: Constitutional: Yes: No Distress, Thin Eyes: Yes: WNL, Conjunctiva Clear, EOM Intact HENT: Yes: WNL, Atraumatic, Normocephalic Neck: Yes: Tenderness (to cervical area) Cardiovascular: Yes: WNL, Regular Rate and Rhythm Respiratory: Yes: WNL, Regular, CTA Bilaterally Gastrointestinal: Yes: WNL, Normal Bowel Sounds, Soft ...Rectal Exam: Yes: Deferred Genitourinary: Yes: WNL Breast(s): Yes: WNL Musculoskeletal: Yes: WNL Extremities: Yes: WNL Edema: No Peripheral Pulses: Left Radial: 2+, Right Radial: 2+, Left Doralis Pedis: 2+, Right Dorsalis Pedis: 2+, Left Femoral: 2+, Right Femoral: 2+ Integumentary: Yes: Skin Tear (multiple scabs from cat scratches) Neurological: Yes: WNL, Alert, Oriented ...Motor Strength: WNL Psychiatric: Yes: WNL, Alert, Oriented Constitutional: Yes: No Distress, Calm Eyes: Yes: WNL, Conjunctiva Clear, EOM Intact HENT: Yes: WNL, Atraumatic, Normocephalic Neck: Yes: Tenderness Cardiovascular: Yes: WNL, Regular Rate and Rhythm Respiratory: Yes: WNL, Regular, CTA Bilaterally Gastrointestinal: Yes: WNL, Normal Bowel Sounds ...Rectal Exam: Yes: Deferred Renal/: Yes: WNL Breast(s): Yes: WNL Musculoskeletal: Yes: Muscle Pain, Muscle Weakness Peripheral Pulses WNL: Yes Integumentary: Yes: WNL Neurological: Yes: WNL, Alert, Oriented Labs: CBC, BMP 08/10/19 07:12 08/10/19 07:12 Hospitalist Encounter Assessment: Pt transfered from [facility] for planned ACDF tmrw with Dr Sotelo.
[2019-08-10] MEDS ORDERED: TOPIRAMATE 25 MG TABLET (FP) PO SCH (22:00)
[2019-08-10] MEDS ORDERED: CHLORHEXIDINE GLUCONATE 4% CLEANSER FOR DECOLONIZATION TP SCH (22:00)
[2019-08-10] MEDS ORDERED: MIRABEGRON PO SCH (22:00)
[2019-08-10] MEDS ORDERED: DOCUSATE SODIUM 100 MG CAPSULE (FP) PO SCH (22:00)
[2019-08-11] MEDS ORDERED: SODIUM CHLORIDE 1,000 ML IV SCH (00:01)
[2019-08-11] MEDS: GABAPENTIN 100 MG CAPSULE (FP) PO SCH ×2 (06:57→23:03)
[2019-08-11] MEDS ORDERED: LEVOTHYROXINE 112 MCG, LEVOTHYROXINE 25 MCG PO SCH (07:00)
--- NOTE | 2019-08-11 07:04 | HOSP ---
Subjective - Review of Symptoms Events since last encounter: Hospitalist Encounter Notified by the RN, that the patient is refusing her hibiclens and surgery, was asked to assess. Arrived to bedside, patient is awake, alert to name and only. Not to time, place, month, year or president. Patient keeps repeating I don't trust you to me and the RN. Attempts made to reassure and orient. Assessment: 89 year-female with a PMH significant for HTN, hypothyroidism, diastolic heart failure, OA, chronic headache, chronic lower extremity edema, and recurrent lower extremity cellulitis. Admitted for neck pain following a mechanical fall. Plan: Update Day [employer] Provider of this morning events Neurological: Yes: Confusion Physical Examination Vital Signs: Vital Signs Temperature 97.7 F 08/10/19 14:21 Pulse Rate 64 08/10/19 14:21 Respiratory Rate 19 08/10/19 17:49 Blood Pressure 133/58 L 08/10/19 14:21 O2 Sat by Pulse Oximetry (%) 96 08/10/19 17:49 Constitutional: Yes: Thin, Other (agitated) Eyes: Yes: WNL, Conjunctiva Clear, EOM Intact, PERRL HENT: Yes: WNL, Atraumatic, Normocephalic Neck: Yes: Supple, Trachea Midline, Decreased ROM Cardiovascular: Yes: WNL, Regular Rate and Rhythm, S1, S2 Respiratory: Yes: WNL, Regular, CTA Bilaterally Gastrointestinal: Yes: WNL, Normal Bowel Sounds, Soft Peripheral Pulses WNL: Yes Neurological: Yes: Alert, Confusion Psychiatric: Yes: Alert, Agitated Labs: CBC, BMP 08/10/19 07:12 08/10/19 07:12
[2019-08-11] MEDS ORDERED: LORATADINE 10 MG TABLET PO SCH (10:00)
[2019-08-11] MEDS ORDERED: METOPROLOL TARTRATE 25 MG TABLET (FP) PO SCH (10:00)
[2019-08-11] MEDS ORDERED: PANTOPRAZOLE 40 MG TABLET (FP) PO SCH (10:00)
--- NOTE | 2019-08-11 11:06 | PN ---
Progress Note, Physician Chief Complaint: patient for scheduled surgery with Dr. Castillo today. patient seen briefly this morning prior to surgery, she was being changed by [employer]ATOR. multiple attempts to see patient unsuccessful as she was in surgery. discussed with surgery PA. 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 Patient was seen in ED following a mechanical fall backwards, hitting her head but without reported LOC. CT head and c-spine were negative for acute pathology and patient was discharged. She returned the next day with neck pain that is worse with position changes and prevents ambulation. She is for surgical intervention with Dr. Castillo today. Post op patient is ordered repeat CBC which is pending. She is s/p C1-C7 laminectomy, decompression and correction of deformity, and C1-T1 posterior fusion. She will be monitored in the ICU post surgery - Current Medication List Current Medications: Active Medications Acetaminophen/Butalbital/Caffeine (Fioricet -) 1 tablet PO Q6H PRN PRN Reason: HEADACHE Last Admin: 08/10/19 13:25 Dose: 1 tablet Chlorhexidine Gluconate (Hibiclens For Decolonization -) 1 applic TP [facility] Docusate Sodium (Colace -) 300 mg PO HS [facility] Last Admin: 08/10/19 21:03 Dose: 300 mg Gabapentin (Neurontin -) 200 mg PO TID [facility] Last Admin: 08/11/19 06:57 Dose: Not Given Sodium Chloride (Normal Saline -) 1,000 mls @ 75 mls/hr IV ASDIR [facility] Last Admin: 08/11/19 00:51 Dose: 75 mls/hr Levothyroxine Sodium 112 mcg/ (Levothyroxine Sodium 25 mcg) 137 mcg PO DAILY@ 0700 [facility] Last Admin: 08/11/19 06:57 Dose: Not Given Loratadine (Claritin -) 10 mg PO DAILY [facility] Last Admin: 08/11/19 09:37 Dose: Not Given Metoprolol Tartrate (Lopressor -) 25 mg PO DAILY [facility] Last Admin: 08/11/19 09:36 Dose: 25 mg Non-Formulary Medication (Mirabegron [Myrbetriq]) 1 tab PO [facility] Pantoprazole Sodium (Protonix -) 40 mg PO DAILY [facility] Last Admin: 08/11/19 09:37 Dose: Not Given Topiramate (Topamax -) 50 mg PO HS [facility] Last Admin: 08/10/19 21:03 Dose: 50 mg - Objective Vital Signs: Vital Signs Temperature 97.7 F 08/10/19 14:21 Pulse Rate 64 08/10/19 14:21 Respiratory Rate 19 08/10/19 17:49 Blood Pressure 133/58 L 08/10/19 14:21 O2 Sat by Pulse Oximetry (%) 96 08/10/19 17:49 Labs: CBC, BMP 08/10/19 07:12 08/10/19 07:12 INR, PTT INR 1.07 (0.82-1.09) 08/10/19 07:12 Problem List - Problems (1) CHF (congestive heart failure) Assessment/Plan: monitor intake and output, monitor respiratory status daily weights. 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 Castillo. Manage patient in ICU post op. surgical post of care. Code(s): M50.022 - CERVICAL DISC DISORDER AT C5-C6 LEVEL WITH MYELOPATHY (3) Cervical disc disorder at C5-C6 level with radiculopathy Code(s): M50.122 - CERVICAL DISC DISORDER AT C5-C6 LEVEL WITH RADICULOPATHY (4) Edema, lower extremity Assessment/Plan: monitor intake and output Code(s): R60.0 - LOCALIZED EDEMA (5) HTN (hypertension) Assessment/Plan: monitor bp q4 hours on metoprolol continue tele monitoring Echo 02/03/19:LV systolic normal, EF 60%, impaired relaxation Code(s): I10 - ESSENTIAL (PRIMARY) HYPERTENSION Qualifiers: Hypertension type: essential hypertension Qualified Code(s): I10 - Essential (primary) hypertension (6) Prophylactic measure Assessment/Plan: fen ivf monitor electrolytes SCDs DNR Code(s): Z29.9 - ENCOUNTER FOR PROPHYLACTIC MEASURES, UNSPECIFIED Visit type - Emergency Visit Emergency Visit: Yes ED Registration Date: 08/04/19 Care time: The patient presented to the Emergency Department on the above date and was hospitalized for further evaluation of their emergent condition. - New Patient This patient is new to me today: Yes Date on this admission: 08/12/19 - Critical Care Critical Care patient: No - Discharge Referral Referred to [facility] Med P.C.: No
[2019-08-11] MEDS ORDERED: GENTAMICIN SO4 80 MG/2 ML VIAL ONE (11:37)
[2019-08-11] MEDS ORDERED: THROMBIN (BOVINE) 5,000 UNIT VIAL TP ONE ×2 (11:38→14:00)
[2019-08-11] MEDS ORDERED: VANCOMYCIN 1,000 MG VIAL (RESTRICTED TO ID ONLY) ONE (11:38)
[2019-08-11] MEDS ORDERED: MIDAZOLAM HCL 2 MG/2 ML SINGLE DOSE VIAL ONE (11:56)
[2019-08-11] MEDS ORDERED: PROPOFOL 20 ML ONE (11:56)
[2019-08-11] MEDS ORDERED: BACITRACIN 15 GM TUBE TOPICAL OINTMENT ONE (11:59)
[2019-08-11] MEDS ORDERED: BUPIVACAINE LIPOSOME/PF (EXPAREL) 266 MG/20 ML VIAL ONE (12:23)
[2019-08-11] MEDS ORDERED: BUPIVACAINE HCL/PF 0.25% (2.5MG/ML) 10 ML VIAL ONE (12:24)
[2019-08-11] MEDS ORDERED: SUCCINYLCHOLINE CHLORIDE 200 MG/10 ML SYRINGE ONE (13:02)
[2019-08-11] MEDS ORDERED: VANCOMYCIN 1,000 MG VIAL (RESTRICTED TO ID ONLY) IVPB ONE (13:15)
[2019-08-11] MEDS ORDERED: BACITRACIN 15 GM TUBE TOPICAL OINTMENT TP ONE (13:20)
[2019-08-11] MEDS ORDERED: ceFAZolin SODIUM 1 GM VIAL IVPB ONE (13:30)
[2019-08-11] MEDS ORDERED: ePHEDrine SULFATE 50 MG/1 ML AMPULE ONE (13:30)
[2019-08-11] MEDS ORDERED: GENTAMICIN SO4 80 MG/2 ML VIAL IVPB ONE (14:00)
[2019-08-11] MEDS ORDERED: HYDROGEN PEROXIDE 473 ML PO ONE (14:00)
[2019-08-11] MEDS ORDERED: BACITRACIN 50,000 UNITS VIAL TP ONE (14:00)
--- NOTE | 2019-08-11 14:03 | PN ---
Progress Note, Physician Chief Complaint: Events noted Not in distress History of Present Illness: Patient was seen and examined. Awake. Chart was reviewed Denies chest pain or SOB - Current Medication List Current Medications: Active Medications Acetaminophen/Butalbital/Caffeine (Fioricet -) 1 tablet PO Q6H PRN PRN Reason: HEADACHE Last Admin: 08/10/19 13:25 Dose: 1 tablet Chlorhexidine Gluconate (Hibiclens For Decolonization -) 1 applic TP [facility] Docusate Sodium (Colace -) 300 mg PO HS [facility] Last Admin: 08/10/19 21:03 Dose: 300 mg Gabapentin (Neurontin -) 200 mg PO TID [facility] Last Admin: 08/11/19 06:57 Dose: Not Given Sodium Chloride (Normal Saline -) 1,000 mls @ 75 mls/hr IV ASDIR [facility] Last Admin: 08/11/19 00:51 Dose: 75 mls/hr Levothyroxine Sodium 112 mcg/ (Levothyroxine Sodium 25 mcg) 137 mcg PO DAILY@ 0700 [facility] Last Admin: 08/11/19 06:57 Dose: Not Given Loratadine (Claritin -) 10 mg PO DAILY [facility] Last Admin: 08/11/19 09:37 Dose: Not Given Metoprolol Tartrate (Lopressor -) 25 mg PO DAILY [facility] Last Admin: 08/11/19 09:36 Dose: 25 mg Non-Formulary Medication (Mirabegron [Myrbetriq]) 1 tab PO [facility] Pantoprazole Sodium (Protonix -) 40 mg PO DAILY [facility] Last Admin: 08/11/19 09:37 Dose: Not Given Topiramate (Topamax -) 50 mg PO [facility] Last Admin: 08/10/19 21:03 Dose: 50 mg - Objective Vital Signs: Vital Signs Temperature 97.7 F 08/11/19 09:00 Pulse Rate 60 08/11/19 09:00 Respiratory Rate 18 08/11/19 09:00 Blood Pressure 140/64 08/11/19 09:00 O2 Sat by Pulse Oximetry (%) 96 08/10/19 17:49 Neck: Yes: Supple Cardiovascular: Yes: Regular Rate and Rhythm, S1, S2 Respiratory: Yes: CTA Bilaterally Gastrointestinal: Yes: Normal Bowel Sounds, Soft. 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 Code(s): M50.022 - CERVICAL DISC DISORDER AT C5-C6 LEVEL WITH MYELOPATHY (2) Cervical disc disorder at C5-C6 level with radiculopathy Code(s): M50.122 - CERVICAL DISC DISORDER AT C5-C6 LEVEL WITH RADICULOPATHY (3) HTN (hypertension) Code(s): I10 - ESSENTIAL (PRIMARY) HYPERTENSION Qualifiers: Hypertension type: essential hypertension Qualified Code(s): I10 - Essential (primary) hypertension (4) Pre-operative cardiovascular examination Code(s): Z01.810 - ENCOUNTER FOR PREPROCEDURAL CARDIOVASCULAR EXAMINATION (5) Hyponatremia Code(s): E87.1 - HYPO-OSMOLALITY AND HYPONATREMIA (6) Hypothyroidism Code(s): E03.9 - HYPOTHYROIDISM, UNSPECIFIED Qualifiers: Hypothyroidism type: unspecified Qualified Code(s): E03.9 - Hypothyroidism , unspecified Assessment/Plan 1. 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 Hypertensive heart disease 3. Diastolic dysfunction 4. Hypothyroidism 5. CAD w/ h/o demand ischemia PLAN: 1. Await neurosurgery and given absence of symptoms of acute coronary syndrome, decompensated CHF or malignant arrhythmia, may proceed with surgery with no absolute contraindication as stated on previous note by Dr. Tylor Perez. 2. Holding ASA pre-op and continue Metoprolol 25 mg QD Further plans are to follow Taran Uribe MD
[2019-08-11] MEDS ORDERED: LABETALOL HCL 5 MG/1 ML (100MG/20 ML VIAL) ONE (14:20)
[2019-08-11] MEDS ORDERED: NEOSTIGMINE METHYLSULFATE 0.5 MG/ML - 10 ML MDV ONE (16:00)
[2019-08-11] MEDS ORDERED: GLYCOPYRROLATE 0.2 MG/1 ML VIAL ONE (16:00)
[2019-08-11] MEDS: ACETAMINOPHEN 1000 MG/100 ML VIAL (NON FORMULARY) IVPB PRN (16:50)
[2019-08-11] MEDS ORDERED: oxyCODONE HCL 5 MG TABLET PO PRN (16:53)
[2019-08-11] MEDS ORDERED: diphenhydrAMINE HCL 25 MG CAPSULE (FP) PO PRN (16:53)
[2019-08-11] MEDS ORDERED: KETOROLAC TROMETHAMINE 30 MG/1 ML VIAL ONE (16:58)
[2019-08-11] MEDS ORDERED: ACETAMINOPHEN INJECTION 100 ML IVPB ONE (16:59)
[2019-08-11] MEDS ORDERED: LACTATED RINGERS SOLUTION 1,000 ML/1,000 ML INFUS.BAG IV SCH (17:00)
[2019-08-11] MEDS ORDERED: ACETAMINOPHEN/CAFFEINE/BUTALBITAL 1 TAB PO PRN (17:01)
--- NOTE | 2019-08-11 17:07 | OP ---
Operative Note - Note: Operative Date: 08/11/19 Pre-Operative Diagnosis: cervical spondylosis and instability Operation: C1-C7 laminectomy, decompression and correction of deformity, and C1- T1 posterior fusion Post-Operative Diagnosis: Same as Pre-op Surgeon: Dez Salvador Bit Sander: Marta Nickerson Anesthesiologist/DIAL BRUSHER: Kelby Bowie Anesthesia: General, Local (block) Estimated Blood Loss (mls): 400 Drains & Tubes with Location: NICOL[place]S right paravetebral c-spine Operative Report Dictated: Yes
[2019-08-11] MEDS ORDERED: ONDANSETRON 4 MG/2 ML VIAL IVPUSH PRN (17:51)
[2019-08-11 18:08] LABS: BASO % 0.8 % (0-2.0); HEMATOCRIT 36.7 % (32.4-45.2); HEMOGLOBIN 12.4 GM/dL (10.7-15.3); LYMPH % 11.1 % (8-40); MCH 32.7 pg (25.7-33.7); MCHC 33.9 g/dl (32.0-36.0); MEAN CELL VOLUME 96.5 fl (80-96); MEAN PLT VOLUME 7.3 fl (7.5-11.1); MONO % 2.6 % (3.8-10.2); NEUT % 84.5 % (42.8-82.8); PLATELET COUNT 216 K/MM3 (134-434); RDW 13.8 % (11.6-15.6); WHITE BLOOD COUNT 7.3 K/mm3 (4.0-10.0)
[2019-08-11] MEDS: SODIUM CHLORIDE 1,000 ML IV SCH (19:55)
[2019-08-11] MEDS ORDERED: MORPHINE SULFATE 2 MG/ML VIAL IVPUSH ONE (20:27)
--- NOTE | 2019-08-11 20:36 | CONSULT ---
Consultation: REQUESTING PROVIDER: CONSULT REQUEST: We have been asked to medically evaluate this patient for ICU. HISTORY OF PRESENT ILLNESS: 89 yo F with PMH of HTN, hypothyroidism, HFpEF, OA, chronic headache, chronic lower extremity edema, and recurrent lower extremity cellulitis 2/2 multiple cat scratches. Patient was seen in ED following a mechanical fall backwards, hitting her head but w/o reported LOC. CT head and c-spine were negative for acute pathology and patient was discharged. She returned the next day with neck pain that is worse with position changes and prevents ambulation. She is for surgical intervention with Dr. Salvador today. She is s/p C1-C7 laminectomy, decompression and correction of deformity, and C1-T1 posterior fusion. REVIEW OF SYSTEMS: unable to obtain as pt would not answer to questions. PHYSICAL EXAMINATION Vital Signs - 24 hr 08/11/19 08/11/19 08/11/19 09:00 16:39 16:55 Temperature 97.7 F 97.5 F L Pulse Rate 60 59 L 63 Respiratory 18 16 14 Rate Blood Pressure 140/64 145/73 171/78 H O2 Sat by Pulse 100 98 Oximetry (%) 08/11/19 08/11/19 08/11/19 17:10 17:25 17:40 Temperature Pulse Rate 54 L 47 L 48 L Respiratory 14 16 14 Rate Blood Pressure 138/65 124/53 L 130/56 L O2 Sat by Pulse 98 96 98 Oximetry (%) 08/11/19 08/11/19 08/11/19 17:55 18:10 18:25 Temperature Pulse Rate 52 L 62 50 L Respiratory 14 16 14 Rate Blood Pressure 133/63 152/72 113/92 O2 Sat by Pulse 98 96 95 Oximetry (%) 08/11/19 08/11/19 08/11/19 18:40 18:55 19:10 Temperature Pulse Rate 50 L 49 L 47 L Respiratory 14 15 14 Rate Blood Pressure 136/57 L 140/56 L 143/56 L O2 Sat by Pulse 100 100 100 Oximetry (%) 08/11/19 19:25 Temperature Pulse Rate 48 L Respiratory 14 Rate Blood Pressure 132/74 O2 Sat by Pulse 100 Oximetry (%) GENERAL: Awake, alert, in no acute distress. EYES: Pupils equal, round and reactive to light EARS, NOSE, THROAT: oropharynx clear without exudates. Moist mucous membranes. NECK: cervical neck brace. LUNGS: Breath sounds equal, clear to auscultation bilaterally. No wheezes, and no crackles. No accessory muscle use. HEART: Regular rate and rhythm, normal S1 and S2 without murmur, rub or gallop. ABDOMEN: Soft, nontender, not distended, normoactive bowel sounds Laboratory Results - last 24 hr 08/11/19 17:05 WBC 7.3 RBC 3.80 Hgb 12.4 Hct 36.7 MCV 96.5 H MCH 32.7 MCHC 33.9 RDW 13.8 Plt Count 216 D MPV 7.3 L Absolute Neuts (auto) 6.1 Neutrophils % 84.5 H D Lymphocytes % 11.1 D Monocytes % 2.6 L D Eosinophils % 1.0 D Basophils % 0.8 Nucleated RBC % 0 Current Medications Acetaminophen (Ofirmev Injection -) 1,000 mg IVPB Q6H PRN PRN Reason: PAIN OR FEVER Last Admin: 08/11/19 16:50 Dose: 1,000 mg Acetaminophen/Butalbital/Caffeine (Fioricet -) 1 tablet PO Q6H PRN PRN Reason: HEADACHE Chlorhexidine Gluconate (Hibiclens For Decolonization -) 1 applic TP HS [facility] Diphenhydramine HCl (Benadryl -) 25 mg PO Q6H PRN PRN Reason: FOR ITCHING Docusate Sodium (Colace -) 300 mg PO HS [facility] Ferrous Sulfate (Feosol -) 325 mg PO DAILY [facility] Folic Acid (Folic Acid -) 1 mg PO DAILY [facility] Gabapentin (Neurontin -) 200 mg PO TID [facility] Heparin Sodium (Porcine) (Heparin -) 5,000 unit SQ TID [facility] Sodium Chloride (Normal Saline -) 1,000 mls @ 75 mls/hr IV ASDIR [facility] Cefazolin Sodium 1 gm/ (Dextrose) 50 mls @ 100 mls/hr IVPB Q8H [facility] Levothyroxine Sodium 112 mcg/ (Levothyroxine Sodium 25 mcg) 137 mcg PO DAILY@ 0700 [facility] Loratadine (Claritin -) 10 mg PO DAILY [facility] Metoprolol Tartrate (Lopressor -) 25 mg PO DAILY [facility] Morphine Sulfate (Morphine Injection -) 2 mg IVPUSH ONCE ONE Stop: 08/11/19 20:28 Mupirocin (Bactroban Ointment (For Decolonization) -) 1 applic NS BID [facility] Stop: 08/16/19 21:59 Non-Formulary Medication (Mirabegron [Myrbetriq]) 1 tab PO HS [facility] Ondansetron HCl (Zofran Injection) 4 mg IVPUSH Q6H PRN PRN Reason: NAUSEA AND/OR VOMITING Oxycodone HCl (Roxicodone -) 5 mg PO Q6H PRN PRN Reason: PAIN LEVEL 1-5 Oxycodone HCl (Roxicodone -) 10 mg PO Q6H PRN PRN Reason: PAIN LEVEL 6-10 Pantoprazole Sodium (Protonix -) 40 mg PO DAILY [facility] Topiramate (Topamax -) 50 mg PO HS [facility] ASSESSMENT/PLAN: 89 yo F with PMH of HTN, hypothyroidism, HFpEF, OA, chronic headache, chronic lower extremity edema, and recurrent lower extremity cellulitis. Admitted to ICU s/p C1-C7 laminectomy, decompression and correction of deformity , and C1-T1 posterior fusion. Neuro: Cervical degenerative disc and facet joint disease; Multilevel cervical degenerative anterolisthesis; s/p C1-C7 laminectomy, decompression and correction of deformity, and C1-T1 posterior fusion. -MRI: C5-C6 moderately severe DDD with mild disc bulge and b/l hypertrophy probably slightly impinging C6 nerve roots -Neurosurgery recommendations appreciated -c/w increased dose of gabapentin, Topamax, fioricet PRN Cardio: HTN, HFpEF -c/w metoprolol -c/w tele monitoring -Echo 02/03/19:LV systolic normal, EF 60%, impaired relaxation Endo: Hypothyroidism -c/w levothyroxine ID: Recurrent lower extremity cellulitis -no signs of acute cellulitis -c/w fexofenadine for itching -c/w Ancef post op GI -c/w pantoprazole daily F/E/N -NS @ 75 mls/hr -NPO -Electrolytes: replete as indicated DVT prophylaxis: SCDs Patient is FULL CODE. Dispo: We will continue to follow the patient. Thank you for this consultative opportunity. Visit type - Emergency Visit Emergency Visit: No - New Patient This patient is new to me today: Yes Date on this admission: 08/11/19 - Critical Care Critical Care patient: Yes Total Critical Care Time (in minutes): 36 Critical Care Statement: The care of this patient involved high complexity decision making to prevent further life threatening deterioration of the patient 's condition and/or to evaluate & treat vital organ system(s) failure or risk of failure. ATTENDING PHYSICIAN STATEMENT I saw and evaluated the patient. I reviewed the resident's note and discussed the case with the resident. I agree with the resident's findings and plan as documented. SUBJECTIVE: OBJECTIVE: ASSESSMENT AND PLAN:
[2019-08-11] MEDS ORDERED: CEFAZOLIN 1 GM/D5W 1 GM/50 ML BAG IVPB SCH (21:00)
[2019-08-11] MEDS ORDERED: DEXTROSE 5%-WATER - 50 ML IVPB ONE (21:19)
[2019-08-11] MEDS ORDERED: ceFAZolin SODIUM 1 GM VIAL ONE (21:19)
[2019-08-11] MEDS: CEFAZOLIN 1 GM in DEXTROSE 5%-WATER - 50 ML IVPB SCH (21:20)
[2019-08-11] MEDS ORDERED: MIRABEGRON PO SCH (22:00)
[2019-08-11] MEDS ORDERED: CHLORHEXIDINE GLUCONATE 4% CLEANSER FOR DECOLONIZATION TP SCH (22:00)
[2019-08-11] MEDS ORDERED: DOCUSATE SODIUM 100 MG CAPSULE (FP) PO SCH (22:00)
[2019-08-11] MEDS: MUPIROCIN 2% TOPICAL OINTMENT FOR DECOLONIZATION NS SCH (23:02)
[2019-08-11] MEDS: CHLORHEXIDINE GLUCONATE 4% CLEANSER FOR DECOLONIZATION TP SCH (23:02)
[2019-08-11] MEDS: HEPARIN NA (PORCINE) 5,000 UNITS/ML 1ML VIAL SQ SCH (23:03)
[2019-08-11] MEDS: DOCUSATE SODIUM 100 MG CAPSULE (FP) PO SCH (23:03)
[2019-08-11] MEDS: TOPIRAMATE 25 MG TABLET (FP) PO SCH (23:04)
[2019-08-12] MEDS ORDERED: MORPHINE SULFATE 2 MG/ML VIAL IVPUSH ONE (03:12)
[2019-08-12] MEDS ORDERED: HALOPERIDOL LACTATE 5 MG/ML IM PRN (03:12)
[2019-08-12] MEDS: ACETAMINOPHEN 1000 MG/100 ML VIAL (NON FORMULARY) IVPB PRN (03:27)
[2019-08-12] MEDS ORDERED: DEXTROSE 5%-WATER - 50 ML IVPB ONE ×3 (05:09→21:14)
[2019-08-12] MEDS ORDERED: ceFAZolin SODIUM 1 GM VIAL ONE ×3 (05:09→21:14)
[2019-08-12] MEDS: CEFAZOLIN 1 GM in DEXTROSE 5%-WATER - 50 ML IVPB SCH ×3 (05:26→21:36)
[2019-08-12] MEDS: HEPARIN NA (PORCINE) 5,000 UNITS/ML 1ML VIAL SQ SCH ×3 (05:27→21:38)
[2019-08-12 06:11] LABS: RBC 3.73 M/mm3 (3.60-5.2)
[2019-08-12 06:32] LABS: BLOOD UREA NITROGEN 16.6 mg/dL (7-18); CALCIUM 9.1 mg/dL (8.5-10.1); CREATININE 0.8 mg/dL (0.55-1.3); PHOSPHOROUS 3.7 mg/dL (2.5-4.9); POTASSIUM 4.7 mmol/L (3.5-5.1)
[2019-08-12 06:37] LABS: HEMOGLOBIN 12.3 GM/dL (10.7-15.3); MCHC 34.2 g/dl (32.0-36.0); MEAN CELL VOLUME 96.5 fl (80-96); MEAN PLT VOLUME 7.5 fl (7.5-11.1); PLATELET COUNT 234 K/MM3 (134-434); RDW 13.9 % (11.6-15.6); WHITE BLOOD COUNT 9.4 K/mm3 (4.0-10.0)
[2019-08-12] MEDS ORDERED: LEVOTHYROXINE NA 112 MCG TABLET (FP) ONE (07:43)
[2019-08-12] MEDS ORDERED: LEVOTHYROXINE NA 25 MCG TABLET (FP) ONE (07:43)
[2019-08-12] MEDS: LEVOTHYROXINE 112 MCG, LEVOTHYROXINE 25 MCG PO SCH (07:56)
[2019-08-12] MEDS: oxyCODONE HCL 5 MG TABLET PO PRN ×2 (09:20→16:47)
[2019-08-12] MEDS: FOLIC ACID 1 MG TABLET (FP) PO SCH (09:21)
[2019-08-12] MEDS: METOPROLOL TARTRATE 25 MG TABLET (FP) PO SCH (09:21)
[2019-08-12] MEDS: FERROUS SO4 325 MG TABLET (FP) PO SCH (09:21)
[2019-08-12] MEDS: LORATADINE 10 MG TABLET PO SCH (09:21)
[2019-08-12] MEDS: PANTOPRAZOLE 40 MG TABLET (FP) PO SCH (09:21)
--- NOTE | 2019-08-12 09:23 | PN ---
Progress Note (short form) - Note Progress Note: Anesthesia POD#1 S/P C1-C7 Laminectomy ,Decompression under GA and nerve Block VSS,no N/V,some restlessness,calm now Doing well,no complications seen. Elsa Arriaga MD.
[2019-08-12] MEDS: MUPIROCIN 2% TOPICAL OINTMENT FOR DECOLONIZATION NS SCH ×2 (09:30→21:37)
--- NOTE | 2019-08-12 09:30 | PN ---
Progress Note (short form) - Note Progress Note: Surgery POD#1 C1-T1 lamiectomy and decompresison. Patient seen and examined at bedside with no complaints. Nursing reports that the patient became confused last night and was placed in wrist restraints after pulling at her c-collar. This morning the patient is lucid and denies any CP, SOB, n/v, fever chills or h/a. Vital Signs Temp 97.8 F 08/12/19 01:00 Pulse 58 L 08/12/19 01:00 Resp 12 08/12/19 01:00 BP 161/79 08/12/19 01:00 Pulse Ox 98 08/11/19 21:00 Intake & Output 08/11/19 08/11/19 08/12/19 11:59 23:59 11:59 Intake Total 575 1925 250 Output Total 1585 140 Balance 575 340 110 Weight 135 lb 4.8 oz Intake: IV 525 1875 150 Normal Saline - 1,000 ml 225 150 @ 75 mls/hr IV ASDIR [facility] Rx#:[id number] heplock 525 IVPB 50 50 Oral 50 50 Output: Drainage 260 140 Posterior Neck 120 140 Urine 925 Estimated Blood Loss 400 Other: Voiding Method Diaper Indwelling Catheter Bowel Movement No No Weight Measurement [facility], BMP 08/12/19 05:00 08/12/19 05:00 PE: A&X3 but cannot tell me the name of the hospital today Unlabored resp on RA C-spine, dressing c/d/i with surrounding tissue intact no erythema, collection or d/c. Drain secure in place- with @225 out put since post op 5/5 drug inspector strength b/l UE b/l LE compartments soft, supple and non-tender with +DP pulses. +dorsi/plantar flexion. Problem List - Problems (1) S/P cervical spinal fusion Assessment/Plan: POD #1 C1-T1 decompression and fusion patient doing well. -Plan to step down to floor today -OOB with PT and walker -DVT prophylaxis with scds, SQ heparin and early ambulation -c-collar 23hr/day -deep dressing clean and dry -d/c planning back to facility where she lives tomorrow Evaluation and plan discussed with Dr Salvador Code(s): Z98.1 - ARTHRODESIS STATUS
--- NOTE | 2019-08-12 11:29 | PN ---
Progress Note, Physician History of Present Illness: POD#1 C1-T1 laminectomy and decompression. Patient became confused last night and was placed in wrist restraints after pulling at her c-collar. This morning the patient is lucid and denies any CP, SOB, n/v, fever chills or h/a. - Current Medication List Current Medications: Active Medications Acetaminophen (Ofirmev Injection -) 1,000 mg IVPB Q6H PRN PRN Reason: FEVER Last Admin: 08/12/19 03:27 Dose: 1,000 mg Acetaminophen/Butalbital/Caffeine (Fioricet -) 1 tablet PO Q6H PRN PRN Reason: HEADACHE Chlorhexidine Gluconate (Hibiclens For Decolonization -) 1 applic TP HS [facility] Last Admin: 08/11/19 23:02 Dose: 1 applic Diphenhydramine HCl (Benadryl -) 25 mg PO Q6H PRN PRN Reason: FOR ITCHING Docusate Sodium (Colace -) 300 mg PO [facility] Last Admin: 08/11/19 23:03 Dose: Not Given Ferrous Sulfate (Feosol -) 325 mg PO DAILY [facility] Last Admin: 08/12/19 09:21 Dose: 325 mg Folic Acid (Folic Acid -) 1 mg PO DAILY [facility] Last Admin: 08/12/19 09:21 Dose: 1 mg Gabapentin (Neurontin -) 200 mg PO TID [facility] Last Admin: 08/11/19 23:03 Dose: Not Given Haloperidol (Haldol Injection (Fast Acting) -) 2.5 mg IM Q4H PRN PRN Reason: AGITATION Heparin Sodium (Porcine) (Heparin -) 5,000 unit SQ TID [facility] Last Admin: 08/12/19 05:27 Dose: Not Given Sodium Chloride (Normal Saline -) 1,000 mls @ 75 mls/hr IV ASDIR [facility] Last Admin: 08/11/19 19:55 Dose: 0 mls Cefazolin Sodium 1 gm/ (Dextrose) 50 mls @ 100 mls/hr IVPB Q8H [facility] Last Admin: 08/12/19 05:26 Dose: 100 mls/hr Levothyroxine Sodium 112 mcg/ (Levothyroxine Sodium 25 mcg) 137 mcg PO DAILY@ 0700 [facility] Last Admin: 08/12/19 07:56 Dose: 137 mcg Loratadine (Claritin -) 10 mg PO DAILY [facility] Last Admin: 08/12/19 09:21 Dose: 10 mg Metoprolol Tartrate (Lopressor -) 25 mg PO DAILY [facility] Last Admin: 08/12/19 09:21 Dose: 25 mg Mupirocin (Bactroban Ointment (For Decolonization) -) 1 applic NS BID [facility] Stop: 08/16/19 21:59 Last Admin: 08/11/19 23:02 Dose: 1 applic Non-Formulary Medication (Mirabegron [Myrbetriq]) 1 tab PO [facility] Ondansetron HCl (Zofran Injection) 4 mg IVPUSH Q6H PRN PRN Reason: NAUSEA AND/OR VOMITING Oxycodone HCl (Roxicodone -) 5 mg PO Q6H PRN PRN Reason: PAIN LEVEL 1-5 Oxycodone HCl (Roxicodone -) 10 mg PO Q6H PRN PRN Reason: PAIN LEVEL 6-10 Last Admin: 08/12/19 09:20 Dose: 10 mg Pantoprazole Sodium (Protonix -) 40 mg PO DAILY [facility] Last Admin: 08/12/19 09:21 Dose: 40 mg Topiramate (Topamax -) 50 mg PO [facility] Last Admin: 08/11/19 23:04 Dose: Not Given - Objective Vital Signs: Vital Signs Temperature 97.8 F 08/12/19 01:00 Pulse Rate 61 08/12/19 08:00 Respiratory Rate 10 08/12/19 08:00 Blood Pressure 135/60 08/12/19 08:00 O2 Sat by Pulse Oximetry (%) 100 08/12/19 09:41 Constitutional: Yes: No Distress, Calm Neck: Yes: Supple Cardiovascular: Yes: Regular Rate and Rhythm Respiratory: Yes: Regular, Diminished Gastrointestinal: Yes: Soft, Hypoactive Bowel Sounds Edema: No Labs: CBC, BMP 08/12/19 05:00 08/12/19 05:00 INR, PTT INR 1.07 (0.82-1.09) 08/10/19 07:12 - ....Imaging EKG: Report Reviewed (Tele: NSR) Problem List - Problems (1) 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 Code(s): M50.022 - CERVICAL DISC DISORDER AT C5-C6 LEVEL WITH MYELOPATHY (2) Cervical disc disorder at C5-C6 level with radiculopathy Code(s): M50.122 - CERVICAL DISC DISORDER AT C5-C6 LEVEL WITH RADICULOPATHY (3) HTN (hypertension) Code(s): I10 - ESSENTIAL (PRIMARY) HYPERTENSION Qualifiers: Hypertension type: essential hypertension Qualified Code(s): I10 - Essential (primary) hypertension (4) Hypothyroidism Code(s): E03.9 - HYPOTHYROIDISM, UNSPECIFIED Qualifiers: Hypothyroidism type: unspecified Qualified Code(s): E03.9 - Hypothyroidism , unspecified Assessment/Plan 02/03/2019 Echo: Normal biventricular size and fxn LVEF 60-65%, normal atrial sizes, no sig valve abnl 08/05/2019 MRI: C5-C6 moderately severe DDD with mild disc bulge and b/l hypertrophy probably slightly impinging C6 nerve roots 1. Cervical degenerative disc and facet joint disease/cervical spondylosis and cord compression, POD#1 C1-C7 laminectomy, decompression and correction of deformity, and C1-T1 posterior fusion 2. Hypertensive heart disease 3. Diastolic dysfunction 4. Hypothyroidism 5. CAD w/ h/o demand ischemia PLAN: 1. Post-op care, analgesia as needed, DVT and GI prophylaxis, empiric abx 2. Resume ASA 81 qd once post-op hemostasis assured and continue Metoprolol 25 mg QD
--- NOTE | 2019-08-12 12:35 | PN ---
Physical Exam: SUBJECTIVE: Patient seen and examined at bedside. No acute events. Pt draining adquate sanguinous fluid through NICOLÁS tube. OBJECTIVE: Vital Signs Period Temp Pulse Resp BP Sys/Blanco Pulse Ox Last 24 Hr 97.3 F-98.5 F 47-68 10-22 113-175/53-92 95-100 GENERAL: The patient is awake, alert, and fully oriented, in no acute distress. NECK: gauze in place, neck brace in place. LUNGS: Breath sounds equal, clear to auscultation bilaterally, no wheezes, no crackles, no accessory muscle use. HEART: Regular rate and rhythm, S1, S2 without murmur, rub or gallop. ABDOMEN: Soft, nontender, nondistended, normoactive bowel sounds, no guarding, no rebound. EXTREMITIES: 2+ pulses, warm, well-perfused, no edema. SKIN: Warm, dry, no rashes or lesions noted Laboratory Results - last 24 hr 08/11/19 08/12/19 08/12/19 17:05 05:00 05:00 WBC 7.3 9.4 RBC 3.80 3.73 Hgb 12.4 12.3 Hct 36.7 36.0 MCV 96.5 H 96.5 H MCH 32.7 33.0 MCHC 33.9 34.2 RDW 13.8 13.9 Plt Count 216 D 234 MPV 7.3 L 7.5 Absolute Neuts (auto) 6.1 Neutrophils % 84.5 H D Lymphocytes % 11.1 D Monocytes % 2.6 L D Eosinophils % 1.0 D Basophils % 0.8 Nucleated RBC % 0 Sodium 136 Potassium 4.7 Chloride 102 Carbon Dioxide 27 Anion Gap 7 L BUN 16.6 Creatinine 0.8 Est GFR (CKD-EPI)AfAm 76.29 Est GFR (CKD-EPI)NonAf 65.82 Random Glucose 110 H Calcium 9.1 Phosphorus 3.7 Magnesium 2.0 Active Medications Generic Name Dose Route Start Last Admin Trade Name Freq PRN Reason Stop Dose Admin Acetaminophen 1,000 mg 08/11/19 17:52 08/12/19 03:27 Ofirmev Injection - IVPB 1,000 mg Q6H PRN Administration FEVER Acetaminophen/Butalbital/Caffeine 1 tablet 08/11/19 17:01 Fioricet - PO Q6H PRN HEADACHE Chlorhexidine Gluconate 1 applic 08/11/19 22:00 08/11/19 23:02 Hibiclens For Decolonization - TP 1 applic HS LIN Administration Diphenhydramine HCl 25 mg 08/11/19 16:53 Benadryl - PO Q6H PRN FOR ITCHING Docusate Sodium 300 mg 08/11/19 22:00 08/11/19 23:03 Colace - PO Not Given HS LIN Ferrous Sulfate 325 mg 08/12/19 10:00 08/12/19 09:21 Feosol - PO 325 mg DAILY LIN Administration Folic Acid 1 mg 08/12/19 10:00 08/12/19 09:21 Folic Acid - PO 1 mg DAILY LIN Administration Gabapentin 200 mg 08/11/19 22:00 08/11/19 23:03 Neurontin - PO Not Given TID LIN Haloperidol 2.5 mg 08/12/19 03:12 Haldol Injection (Fast Acting) - IM Q4H PRN AGITATION Heparin Sodium (Porcine) 5,000 unit 08/11/19 22:00 08/12/19 05:27 Heparin - SQ Not Given TID [facility] Sodium Chloride 1,000 mls @ 75 mls/hr 08/11/19 17:01 08/11/19 19:55 Normal Saline - IV 0 mls ASDIR LIN Administration Cefazolin Sodium 1 gm/ 50 mls @ 100 mls/hr 08/11/19 21:00 08/12/19 05:26 Dextrose IVPB 100 mls/hr Q8H LIN Administration Levothyroxine Sodium 112 mcg/ 137 mcg 08/12/19 07:00 08/12/19 07:56 Levothyroxine Sodium 25 mcg PO 137 mcg DAILY@0700 LIN Administration Loratadine 10 mg 08/12/19 10:00 08/12/19 09:21 Claritin - PO 10 mg DAILY LIN Administration Metoprolol Tartrate 25 mg 08/12/19 10:00 08/12/19 09:21 Lopressor - PO 25 mg DAILY LIN Administration Mupirocin 1 applic 08/11/19 22:00 08/11/19 23:02 Bactroban Ointment (For Decolonization) - NS 08/16/19 21:59 1 applic BID LIN Administration Non-Formulary Medication 1 tab 08/11/19 22:00 Mirabegron [Myrbetriq] PO HS LIN Ondansetron HCl 4 mg 08/11/19 17:51 Zofran Injection IVPUSH Q6H PRN NAUSEA AND/OR VOMITING Oxycodone HCl 5 mg 08/11/19 16:53 Roxicodone - PO Q6H PRN PAIN LEVEL 1-5 Oxycodone HCl 10 mg 08/11/19 16:53 08/12/19 09:20 Roxicodone - PO 10 mg Q6H PRN Administration PAIN LEVEL 6-10 Pantoprazole Sodium 40 mg 08/12/19 10:00 08/12/19 09:21 Protonix - PO 40 mg DAILY LIN Administration Topiramate 50 mg 08/11/19 22:00 08/11/19 23:04 Topamax - PO Not Given HS LIN ASSESSMENT/PLAN: This is an 89 y/o F with a PMH of HTN, hypothyroidism, HFpEF, OA, chronic headache, chronic lower extremity edema, and recurrent lower extremity cellulitis. Admitted to ICU s/p C1-C7 laminectomy, decompression and correction of deformity, and C1-T1 posterior fusion. 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 -MRI: C5-C6 moderately severe DDD with mild disc bulge and b/l hypertrophy probably slightly impinging C6 nerve roots -Neurosurgery recommendations appreciated -c/w gabapentin, Topamax, fioricet PRN - PT evaluation recs appreciated - pt can be transferred to floors or d/c home tm Cardio -> HTN, HFpEF -c/w metoprolol daily, and start ASA 81 once post op hemostasis is achieved per cardio. -c/w tele monitoring -Echo 02/03/19:LV systolic normal, EF 60%, impaired relaxation Endo -> Hypothyroidism -c/w levothyroxine ID -> Recurrent lower extremity cellulitis -no signs of acute cellulitis -c/w fexofenadine for itching -c/w Ancef post op GI-> ppx -c/w pantoprazole daily F/E/N -NS @ 75 mls/hr -NPO -Electrolytes: replete as indicated DVT prophylaxis: SCDs Patient is FULL CODE. Dispo: We will continue to follow the patient. Thank you for this consultative opportunity. Visit type - Emergency Visit Emergency Visit: No - New Patient This patient is new to me today: Yes Date on this admission: 08/12/19 - Critical Care Critical Care patient: Yes Total Critical Care Time (in minutes): 35 Critical Care Statement: The care of this patient involved high complexity decision making to prevent further life threatening deterioration of the patient 's condition and/or to evaluate & treat vital organ system(s) failure or risk of failure. - Discharge Referral Referred to [facility] Med P.C.: No
--- NOTE | 2019-08-12 13:09 | PN ---
Teaching Attending Note Name of Resident: Jacob Cooper ATTENDING PHYSICIAN STATEMENT I saw and evaluated the patient. I reviewed the resident's note and discussed the case with the resident. I agree with the resident's findings and plan as documented. SUBJECTIVE: Pt seen and examined in the ICU. Pain controlled. Denies shortness of breath or chest pain. OBJECTIVE: Vital Signs Period Temp Pulse Resp BP Sys/Blanco Pulse Ox Last 24 Hr 97.3 F-98.5 F 47-78 10-22 113-175/53-92 95-100 Intake & Output 08/09/19 08/10/19 08/11/19 08/12/19 23:59 23:59 23:59 23:59 Intake Total 435 340 4512 470 Output Total 1585 190 Balance 520 490 915 280 Weight 61.717 kg 61.371 kg Gen: NAD in cervical collar Heart: RRR Lung: decreased breath sounds at the bases Abd: soft, nontender Ext: no edema Drain with minimal drainage CBC, BMP 08/12/19 05:00 08/12/19 05:00 Active Medications Acetaminophen (Ofirmev Injection -) 1,000 mg IVPB Q6H PRN PRN Reason: FEVER Last Admin: 08/12/19 03:27 Dose: 1,000 mg Acetaminophen/Butalbital/Caffeine (Fioricet -) 1 tablet PO Q6H PRN PRN Reason: HEADACHE Chlorhexidine Gluconate (Hibiclens For Decolonization -) 1 applic TP HS [facility] Last Admin: 08/11/19 23:02 Dose: 1 applic Diphenhydramine HCl (Benadryl -) 25 mg PO Q6H PRN PRN Reason: FOR ITCHING Docusate Sodium (Colace -) 300 mg PO HS [facility] Last Admin: 08/11/19 23:03 Dose: Not Given Ferrous Sulfate (Feosol -) 325 mg PO DAILY [facility] Last Admin: 08/12/19 09:21 Dose: 325 mg Folic Acid (Folic Acid -) 1 mg PO DAILY [facility] Last Admin: 08/12/19 09:21 Dose: 1 mg Gabapentin (Neurontin -) 200 mg PO TID [facility] Last Admin: 08/11/19 23:03 Dose: Not Given Haloperidol (Haldol Injection (Fast Acting) -) 2.5 mg IM Q4H PRN PRN Reason: AGITATION Heparin Sodium (Porcine) (Heparin -) 5,000 unit SQ TID [facility] Last Admin: 08/12/19 05:27 Dose: Not Given Sodium Chloride (Normal Saline -) 1,000 mls @ 75 mls/hr IV ASDIR [facility] Last Admin: 08/11/19 19:55 Dose: 0 mls Cefazolin Sodium 1 gm/ (Dextrose) 50 mls @ 100 mls/hr IVPB Q8H [facility] Last Admin: 08/12/19 05:26 Dose: 100 mls/hr Levothyroxine Sodium 112 mcg/ (Levothyroxine Sodium 25 mcg) 137 mcg PO DAILY@ 0700 [facility] Last Admin: 08/12/19 07:56 Dose: 137 mcg Loratadine (Claritin -) 10 mg PO DAILY [facility] Last Admin: 08/12/19 09:21 Dose: 10 mg Metoprolol Tartrate (Lopressor -) 25 mg PO DAILY [facility] Last Admin: 08/12/19 09:21 Dose: 25 mg Mupirocin (Bactroban Ointment (For Decolonization) -) 1 applic NS BID [facility] Stop: 08/16/19 21:59 Last Admin: 08/12/19 09:30 Dose: 1 applic Non-Formulary Medication (Mirabegron [Myrbetriq]) 1 tab PO [facility] Ondansetron HCl (Zofran Injection) 4 mg IVPUSH Q6H PRN PRN Reason: NAUSEA AND/OR VOMITING Oxycodone HCl (Roxicodone -) 5 mg PO Q6H PRN PRN Reason: PAIN LEVEL 1-5 Oxycodone HCl (Roxicodone -) 10 mg PO Q6H PRN PRN Reason: PAIN LEVEL 6-10 Last Admin: 08/12/19 09:20 Dose: 10 mg Pantoprazole Sodium (Protonix -) 40 mg PO DAILY [facility] Last Admin: 08/12/19 09:21 Dose: 40 mg Topiramate (Topamax -) 50 mg PO [facility] Last Admin: 08/11/19 23:04 Dose: Not Given ASSESSMENT AND PLAN: Cervical Spinal Stenosis s/p C1-C7 Laminectomy/Decompression/C1-T1 Posterior Fusion CAD LV Diastolic Dysfunction HTN Hypothyroidism - pain control - monitor drain output - incentive spirometry - rehab/PT - DVT prophylaxis - disposition per surgery
[2019-08-12] MEDS: GABAPENTIN 100 MG CAPSULE (FP) PO SCH ×2 (14:00→21:39)
[2019-08-12 15:17] VITALS: BMI 19.9
--- NOTE | 2019-08-12 15:29 | PN ---
Progress Note, Physician Chief Complaint: POD#1 C1-T1 laminectomy and decompression. Patient became confused last night and was placed in wrist restraints after pulling at her c-collar. She remains confused but was easily re-oriented and kept asking to go home. She was taught to use incentive spirometer and is currently attempting to use it. She denies any chest pain or shortness of breath. 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 Patient was seen in ED following a mechanical fall backwards, hitting her head but without reported LOC. CT head and c-spine were negative for acute pathology and patient was discharged. She returned the next day with neck pain that is worse with position changes and prevents ambulation. She is s/p C1-C7 laminectomy, decompression and correction of deformity, and C1- T1 posterior fusion. She will be monitored in the ICU post surgery - Current Medication List Current Medications: Active Medications Acetaminophen (Ofirmev Injection -) 1,000 mg IVPB Q6H PRN PRN Reason: FEVER Last Admin: 08/12/19 03:27 Dose: 1,000 mg Acetaminophen/Butalbital/Caffeine (Fioricet -) 1 tablet PO Q6H PRN PRN Reason: HEADACHE Chlorhexidine Gluconate (Hibiclens For Decolonization -) 1 applic TP HS [facility] Last Admin: 08/11/19 23:02 Dose: 1 applic Diphenhydramine HCl (Benadryl -) 25 mg PO Q6H PRN PRN Reason: FOR ITCHING Docusate Sodium (Colace -) 300 mg PO HS [facility] Last Admin: 08/11/19 23:03 Dose: Not Given Ferrous Sulfate (Feosol -) 325 mg PO DAILY [facility] Last Admin: 08/12/19 09:21 Dose: 325 mg Folic Acid (Folic Acid -) 1 mg PO DAILY [facility] Last Admin: 08/12/19 09:21 Dose: 1 mg Gabapentin (Neurontin -) 200 mg PO TID [facility] Last Admin: 08/12/19 14:00 Dose: 200 mg Haloperidol (Haldol Injection (Fast Acting) -) 2.5 mg IM Q4H PRN PRN Reason: AGITATION Heparin Sodium (Porcine) (Heparin -) 5,000 unit SQ TID [facility] Last Admin: 08/12/19 14:00 Dose: 5,000 unit Sodium Chloride (Normal Saline -) 1,000 mls @ 75 mls/hr IV ASDIR [facility] Last Admin: 08/11/19 19:55 Dose: 0 mls Cefazolin Sodium 1 gm/ (Dextrose) 50 mls @ 100 mls/hr IVPB Q8H [facility] Last Admin: 08/12/19 13:59 Dose: 100 mls/hr Levothyroxine Sodium 112 mcg/ (Levothyroxine Sodium 25 mcg) 137 mcg PO DAILY@ 0700 [facility] Last Admin: 08/12/19 07:56 Dose: 137 mcg Loratadine (Claritin -) 10 mg PO DAILY [facility] Last Admin: 08/12/19 09:21 Dose: 10 mg Metoprolol Tartrate (Lopressor -) 25 mg PO DAILY [facility] Last Admin: 08/12/19 09:21 Dose: 25 mg Mupirocin (Bactroban Ointment (For Decolonization) -) 1 applic NS BID [facility] Stop: 08/16/19 21:59 Last Admin: 08/12/19 09:30 Dose: 1 applic Non-Formulary Medication (Mirabegron [Myrbetriq]) 1 tab PO [facility] Ondansetron HCl (Zofran Injection) 4 mg IVPUSH Q6H PRN PRN Reason: NAUSEA AND/OR VOMITING Oxycodone HCl (Roxicodone -) 5 mg PO Q6H PRN PRN Reason: PAIN LEVEL 1-5 Oxycodone HCl (Roxicodone -) 10 mg PO Q6H PRN PRN Reason: PAIN LEVEL 6-10 Last Admin: 08/12/19 09:20 Dose: 10 mg Pantoprazole Sodium (Protonix -) 40 mg PO DAILY [facility] Last Admin: 08/12/19 09:21 Dose: 40 mg Topiramate (Topamax -) 50 mg PO [facility] Last Admin: 08/11/19 23:04 Dose: Not Given - Objective Vital Signs: Vital Signs Temperature 98.0 F 08/12/19 14:00 Pulse Rate 75 08/12/19 14:00 Respiratory Rate 19 08/12/19 14:00 Blood Pressure 178/81 H 08/12/19 14:00 O2 Sat by Pulse Oximetry (%) 100 08/12/19 09:41 Constitutional: Yes: Anxious, Thin Eyes: Yes: WNL HENT: Yes: Atraumatic, Other (on C-collor) Neck: Yes: Other (collor) Cardiovascular: Yes: Regular Rate and Rhythm, Tachycardia Respiratory: Yes: Diminished, On Nasal O2 Gastrointestinal: Yes: Soft ...Rectal Exam: Yes: Deferred Musculoskeletal: Yes: Back Pain Extremities: Yes: WNL Edema: No Labs: CBC, BMP 08/12/19 05:00 08/12/19 05:00 INR, PTT INR 1.07 (0.82-1.09) 08/10/19 07:12 Problem List - Problems (1) CHF (congestive heart failure) Assessment/Plan: monitor intake and output, monitor respiratory status daily weights. 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 Patient became confused last night and was placed in wrist restraints after pulling at her c-collar. She remains confused but was easily re-oriented and kept asking to go home. She was taught to use incentive spirometer and is currently attempting to use it. post op care: pain management, SCDs, physical therapy once cleared by surgery, monitor vitals in ICU. bowel regimen. Code(s): M50.022 - CERVICAL DISC DISORDER AT C5-C6 LEVEL WITH MYELOPATHY (3) Cervical disc disorder at C5-C6 level with radiculopathy Code(s): M50.122 - CERVICAL DISC DISORDER AT C5-C6 LEVEL WITH RADICULOPATHY (4) Edema, lower extremity Assessment/Plan: monitor intake and output Code(s): R60.0 - LOCALIZED EDEMA (5) HTN (hypertension) Assessment/Plan: monitor bp q4 hours on metoprolol continue tele monitoring Echo 02/03/19:LV systolic normal, EF 60%, impaired relaxation Code(s): I10 - ESSENTIAL (PRIMARY) HYPERTENSION Qualifiers: Hypertension type: essential hypertension Qualified Code(s): I10 - Essential (primary) hypertension Visit type - Emergency Visit Emergency Visit: Yes ED Registration Date: 08/04/19 Care time: The patient presented to the Emergency Department on the above date and was hospitalized for further evaluation of their emergent condition. - New Patient This patient is new to me today: No - Critical Care Critical Care patient: Yes Total Critical Care Time (in minutes): 45 Critical Care Statement: The care of this patient involved high complexity decision making to prevent further life threatening deterioration of the patient 's condition and/or to evaluate & treat vital organ system(s) failure or risk of failure.
[2019-08-12] MEDS: SODIUM CHLORIDE 1,000 ML IV SCH (18:42)
[2019-08-12] MEDS: CHLORHEXIDINE GLUCONATE 4% CLEANSER FOR DECOLONIZATION TP SCH (21:37)
[2019-08-12] MEDS: DOCUSATE SODIUM 100 MG CAPSULE (FP) PO SCH (21:38)
[2019-08-12] MEDS: TOPIRAMATE 25 MG TABLET (FP) PO SCH (21:40)
[2019-08-13] MEDS: oxyCODONE HCL 5 MG TABLET PO PRN ×2 (00:50→09:11)
[2019-08-13] MEDS ORDERED: ceFAZolin SODIUM 1 GM VIAL ONE ×3 (04:41→21:23)
[2019-08-13] MEDS ORDERED: DEXTROSE 5%-WATER - 50 ML IVPB ONE ×3 (04:41→21:23)
[2019-08-13] MEDS: CEFAZOLIN 1 GM in DEXTROSE 5%-WATER - 50 ML IVPB SCH ×3 (05:14→21:48)
[2019-08-13] MEDS ORDERED: LEVOTHYROXINE NA 112 MCG TABLET (FP) ONE (06:43)
[2019-08-13] MEDS ORDERED: LEVOTHYROXINE NA 25 MCG TABLET (FP) ONE (06:43)
[2019-08-13] MEDS: LEVOTHYROXINE 112 MCG, LEVOTHYROXINE 25 MCG PO SCH (06:49)
[2019-08-13] MEDS: GABAPENTIN 100 MG CAPSULE (FP) PO SCH ×3 (06:49→21:49)
[2019-08-13] MEDS: HEPARIN NA (PORCINE) 5,000 UNITS/ML 1ML VIAL SQ SCH ×3 (06:49→21:48)
--- NOTE | 2019-08-13 07:47 | PN ---
Progress Note (short form) - Note Progress Note: Surgery POD#2 C1-T1 lamiectomy and decompresison. Patient seen and examined at bedside with no complaints. Nursing reports that the patient became confused again last night and was placed in wrist restraints after pulling at her c-collar. This morning the patient is lucid but lethargic this morning and denies any CP, SOB, n/v, fever chills or h/a. Vital Signs Temp 98.2 F 08/13/19 05:00 Pulse 87 08/13/19 05:00 Resp 14 08/13/19 05:00 BP 178/94 H 08/13/19 05:00 Pulse Ox 99 08/12/19 21:00 Intake & Output 08/12/08/12/19 08/13/19 11:59 23:59 11:59 Intake Total 370 1570 675 Output Total 190 990 800 Balance 180 580 -125 Weight 135 lb 4.8 oz 135 lb Intake: IV 150 1200 675 Normal Saline - 1,000 ml 150 1200 675 @ 75 mls/hr IV ASDIR LIN Rx#:[id number] IVPB 50 150 Oral 170 220 Output: Drainage 190 115 100 Posterior Neck 190 115 100 Urine 875 700 Mir 875 700 Other: Voiding Method Indwelling Catheter Indwelling Catheter Bowel Movement No No Height 5 ft 9 in Body Mass Index (BMI) 19.9 Weight Measurement Method Built in [facility] CBC, BMP 08/13/19 11:35 08/13/19 11:35 PE: A&Ox2 but cannot tell me the name of the hospital today or the year, lethargic but responds to commands Unlabored resp on RA C-spine, dressing c/d/i with surrounding tissue intact no erythema, collection or d/c. 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 +dorsi/plantar flexion. Problem List - Problems (1) S/P cervical spinal fusion Assessment/Plan: POD #2 C1-T1 decompression and fusion patient doing well with confusion at baseline. -Plan to step down to floor today -OOB with PT and walker -DVT prophylaxis with scds, SQ heparin and early ambulation -c-collar 23hr/day -keep dressing clean and dry -d/c planning back to facility where she lives tomorrow 08/14 if she remains stable Evaluation and plan discussed with Dr Salvador Code(s): Z98.1 - ARTHRODESIS STATUS
[2019-08-13] MEDS: SODIUM CHLORIDE 1,000 ML IV SCH (08:06)
[2019-08-13] MEDS: FERROUS SO4 325 MG TABLET (FP) PO SCH (09:09)
[2019-08-13] MEDS: FOLIC ACID 1 MG TABLET (FP) PO SCH (09:10)
[2019-08-13] MEDS: METOPROLOL TARTRATE 25 MG TABLET (FP) PO SCH (09:10)
[2019-08-13] MEDS: LORATADINE 10 MG TABLET PO SCH (09:10)
[2019-08-13] MEDS: PANTOPRAZOLE 40 MG TABLET (FP) PO SCH (09:10)
--- NOTE | 2019-08-13 10:14 | PN ---
Progress Note, Physician Chief Complaint: POD#2 C1-T1 laminectomy and decompression. She denies any chest pain or shortness of breath. 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 Patient was seen in ED following a mechanical fall backwards, hitting her head but without reported LOC. CT head and c-spine were negative for acute pathology and patient was discharged. She returned the next day with neck pain that is worse with position changes and prevents ambulation. She is s/p POD #2 C1-C7 laminectomy, decompression and correction of deformity, and C1-T1 posterior fusion. - Current Medication List Current Medications: Active Medications Acetaminophen (Ofirmev Injection -) 1,000 mg IVPB Q6H PRN PRN Reason: FEVER Last Admin: 08/12/19 03:27 Dose: 1,000 mg Acetaminophen/Butalbital/Caffeine (Fioricet -) 1 tablet PO Q6H PRN PRN Reason: HEADACHE Chlorhexidine Gluconate (Hibiclens For Decolonization -) 1 applic TP HS [facility] Last Admin: 08/12/19 21:37 Dose: 1 applic Diphenhydramine HCl (Benadryl -) 25 mg PO Q6H PRN PRN Reason: FOR ITCHING Docusate Sodium (Colace -) 300 mg PO HS [facility] Last Admin: 08/12/19 21:38 Dose: 300 mg Ferrous Sulfate (Feosol -) 325 mg PO DAILY [facility] Last Admin: 08/13/19 09:09 Dose: 325 mg Folic Acid (Folic Acid -) 1 mg PO DAILY [facility] Last Admin: 08/13/19 09:10 Dose: 1 mg Gabapentin (Neurontin -) 200 mg PO TID [facility] Last Admin: 08/13/19 06:49 Dose: 200 mg Haloperidol (Haldol Injection (Fast Acting) -) 2.5 mg IM Q4H PRN PRN Reason: AGITATION Heparin Sodium (Porcine) (Heparin -) 5,000 unit SQ TID [facility] Last Admin: 08/13/19 06:49 Dose: 5,000 unit Sodium Chloride (Normal Saline -) 1,000 mls @ 75 mls/hr IV ASDIR [facility] Last Admin: 08/13/19 08:06 Dose: 75 mls/hr Cefazolin Sodium 1 gm/ (Dextrose) 50 mls @ 100 mls/hr IVPB Q8H [facility] Last Admin: 08/13/19 05:14 Dose: 100 mls/hr Levothyroxine Sodium 112 mcg/ (Levothyroxine Sodium 25 mcg) 137 mcg PO DAILY@ 0700 [facility] Last Admin: 08/13/19 06:49 Dose: 137 mcg Loratadine (Claritin -) 10 mg PO DAILY [facility] Last Admin: 08/13/19 09:10 Dose: 10 mg Metoprolol Tartrate (Lopressor -) 25 mg PO DAILY [facility] Last Admin: 08/13/19 09:10 Dose: 25 mg Mupirocin (Bactroban Ointment (For Decolonization) -) 1 applic NS BID [facility] Stop: 08/16/19 21:59 Last Admin: 08/12/19 21:37 Dose: 1 applic Non-Formulary Medication (Mirabegron [Myrbetriq]) 1 tab PO [facility] Ondansetron HCl (Zofran Injection) 4 mg IVPUSH Q6H PRN PRN Reason: NAUSEA AND/OR VOMITING Oxycodone HCl (Roxicodone -) 5 mg PO Q6H PRN PRN Reason: PAIN LEVEL 1-5 Oxycodone HCl (Roxicodone -) 10 mg PO Q6H PRN PRN Reason: PAIN LEVEL 6-10 Last Admin: 08/13/19 09:11 Dose: 10 mg Pantoprazole Sodium (Protonix -) 40 mg PO DAILY [facility] Last Admin: 08/13/19 09:10 Dose: 40 mg Topiramate (Topamax -) 50 mg PO [facility] Last Admin: 08/12/19 21:40 Dose: 50 mg - Objective Vital Signs: Vital Signs Temperature 98.1 F 08/13/19 09:39 Pulse Rate 95 H 08/13/19 09:39 Respiratory Rate 16 08/13/19 09:39 Blood Pressure 167/84 08/13/19 09:39 O2 Sat by Pulse Oximetry (%) 99 08/13/19 08:41 Constitutional: Yes: No Distress, Calm Eyes: Yes: WNL HENT: Yes: Other (cervical collar) Neck: Yes: Other (cervical collar) Cardiovascular: Yes: Regular Rate and Rhythm Respiratory: Yes: Regular, CTA Bilaterally Gastrointestinal: Yes: Normal Bowel Sounds ...Rectal Exam: Yes: Deferred Genitourinary: Yes: WNL Musculoskeletal: Yes: WNL Extremities: Yes: WNL Edema: No Integumentary: Yes: WNL Psychiatric: Yes: Alert Labs: CBC, BMP 08/12/19 05:00 08/12/19 05:00 INR, PTT INR 1.07 (0.82-1.09) 08/10/19 07:12 Problem List - Problems (1) 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 post op care: pain management, SCDs, physical therapy once cleared by surgery, monitor vitals in ICU. bowel regimen. monitor drain output incentive spirometry rehab/PT Code(s): M50.022 - CERVICAL DISC DISORDER AT C5-C6 LEVEL WITH MYELOPATHY (2) CHF (congestive heart failure) Assessment/Plan: monitor intake and output, monitor respiratory status daily weights. Code(s): I50.9 - HEART FAILURE, UNSPECIFIED (3) Cervical disc disorder at C5-C6 level with radiculopathy Code(s): M50.122 - CERVICAL DISC DISORDER AT C5-C6 LEVEL WITH RADICULOPATHY (4) Edema, lower extremity Assessment/Plan: monitor intake and output Code(s): R60.0 - LOCALIZED EDEMA (5) HTN (hypertension) Assessment/Plan: monitor bp q4 hours on metoprolol continue tele monitoring Echo 02/03/19:LV systolic normal, EF 60%, impaired relaxation Code(s): I10 - ESSENTIAL (PRIMARY) HYPERTENSION Qualifiers: Hypertension type: essential hypertension Qualified Code(s): I10 - Essential (primary) hypertension (6) Prophylactic measure Assessment/Plan: fen no ivf sodium controlled diet monitor airway on SCDs physical therapy Code(s): Z29.9 - ENCOUNTER FOR PROPHYLACTIC MEASURES, UNSPECIFIED Visit type - Emergency Visit Emergency Visit: Yes ED Registration Date: 08/04/19 Care time: The patient presented to the Emergency Department on the above date and was hospitalized for further evaluation of their emergent condition. - New Patient This patient is new to me today: No - Critical Care Critical Care patient: Yes Total Critical Care Time (in minutes): 45 Critical Care Statement: The care of this patient involved high complexity decision making to prevent further life threatening deterioration of the patient 's condition and/or to evaluate & treat vital organ system(s) failure or risk of failure.
--- NOTE | 2019-08-13 10:22 | PN ---
Progress Note, Physician History of Present Illness: POD#2 C1-T1 laminectomy and decompression. Patient denies any CP, SOB, n/v, fever chills or h/a. - Current Medication List Current Medications: Active Medications Acetaminophen (Ofirmev Injection -) 1,000 mg IVPB Q6H PRN PRN Reason: FEVER Last Admin: 08/12/19 03:27 Dose: 1,000 mg Acetaminophen/Butalbital/Caffeine (Fioricet -) 1 tablet PO Q6H PRN PRN Reason: HEADACHE Chlorhexidine Gluconate (Hibiclens For Decolonization -) 1 applic TP HS [facility] Last Admin: 08/12/19 21:37 Dose: 1 applic Diphenhydramine HCl (Benadryl -) 25 mg PO Q6H PRN PRN Reason: FOR ITCHING Docusate Sodium (Colace -) 300 mg PO [facility] Last Admin: 08/12/19 21:38 Dose: 300 mg Ferrous Sulfate (Feosol -) 325 mg PO DAILY [facility] Last Admin: 08/13/19 09:09 Dose: 325 mg Folic Acid (Folic Acid -) 1 mg PO DAILY [facility] Last Admin: 08/13/19 09:10 Dose: 1 mg Gabapentin (Neurontin -) 200 mg PO TID [facility] Last Admin: 08/13/19 06:49 Dose: 200 mg Haloperidol (Haldol Injection (Fast Acting) -) 2.5 mg IM Q4H PRN PRN Reason: AGITATION Heparin Sodium (Porcine) (Heparin -) 5,000 unit SQ TID [facility] Last Admin: 08/13/19 06:49 Dose: 5,000 unit Sodium Chloride (Normal Saline -) 1,000 mls @ 75 mls/hr IV ASDIR [facility] Last Admin: 08/13/19 08:06 Dose: 75 mls/hr Cefazolin Sodium 1 gm/ (Dextrose) 50 mls @ 100 mls/hr IVPB Q8H [facility] Last Admin: 08/13/19 05:14 Dose: 100 mls/hr Levothyroxine Sodium 112 mcg/ (Levothyroxine Sodium 25 mcg) 137 mcg PO DAILY@ 0700 [facility] Last Admin: 08/13/19 06:49 Dose: 137 mcg Loratadine (Claritin -) 10 mg PO DAILY [facility] Last Admin: 08/13/19 09:10 Dose: 10 mg Metoprolol Tartrate (Lopressor -) 25 mg PO DAILY [facility] Last Admin: 08/13/19 09:10 Dose: 25 mg Mupirocin (Bactroban Ointment (For Decolonization) -) 1 applic NS BID [facility] Stop: 08/16/19 21:59 Last Admin: 08/12/19 21:37 Dose: 1 applic Non-Formulary Medication (Mirabegron [Myrbetriq]) 1 tab PO [facility] Ondansetron HCl (Zofran Injection) 4 mg IVPUSH Q6H PRN PRN Reason: NAUSEA AND/OR VOMITING Oxycodone HCl (Roxicodone -) 5 mg PO Q6H PRN PRN Reason: PAIN LEVEL 1-5 Oxycodone HCl (Roxicodone -) 10 mg PO Q6H PRN PRN Reason: PAIN LEVEL 6-10 Last Admin: 08/13/19 09:11 Dose: 10 mg Pantoprazole Sodium (Protonix -) 40 mg PO DAILY [facility] Last Admin: 08/13/19 09:10 Dose: 40 mg Topiramate (Topamax -) 50 mg PO [facility] Last Admin: 08/12/19 21:40 Dose: 50 mg - Objective Vital Signs: Vital Signs Temperature 98.1 F 08/13/19 09:39 Pulse Rate 95 H 08/13/19 09:39 Respiratory Rate 16 08/13/19 09:39 Blood Pressure 167/84 08/13/19 09:39 O2 Sat by Pulse Oximetry (%) 99 08/13/19 08:41 Constitutional: Yes: No Distress, Calm Neck: Yes: Supple Cardiovascular: Yes: Regular Rate and Rhythm Respiratory: Yes: Regular, Diminished, On Nasal O2 Gastrointestinal: Yes: Soft, Hypoactive Bowel Sounds Edema: No Labs: CBC, BMP 08/12/19 05:00 08/12/19 05:00 INR, PTT INR 1.07 (0.82-1.09) 08/10/19 07:12 - ....Imaging EKG: Report Reviewed (Tele: [facility]) Problem List - Problems (1) 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 Code(s): M50.022 - CERVICAL DISC DISORDER AT C5-C6 LEVEL WITH MYELOPATHY (2) Cervical disc disorder at C5-C6 level with radiculopathy Code(s): M50.122 - CERVICAL DISC DISORDER AT C5-C6 LEVEL WITH RADICULOPATHY (3) HTN (hypertension) Code(s): I10 - ESSENTIAL (PRIMARY) HYPERTENSION Qualifiers: Hypertension type: essential hypertension Qualified Code(s): I10 - Essential (primary) hypertension (4) Hypothyroidism Code(s): E03.9 - HYPOTHYROIDISM, UNSPECIFIED Qualifiers: Hypothyroidism type: unspecified Qualified Code(s): E03.9 - Hypothyroidism , unspecified Assessment/Plan 02/03/2019 Echo: Normal biventricular size and fxn LVEF 60-65%, normal atrial sizes, no sig valve abnl 08/05/2019 MRI: C5-C6 moderately severe DDD with mild disc bulge and b/l hypertrophy probably slightly impinging C6 nerve roots 1. Cervical degenerative disc and facet joint disease/cervical spondylosis and cord compression, POD#2 C1-C7 laminectomy, decompression and correction of deformity, and C1-T1 posterior fusion 2. Hypertensive heart disease 3. Diastolic dysfunction 4. Hypothyroidism 5. CAD w/ h/o demand ischemia PLAN: 1. Post-op care, analgesia as needed, DVT and GI prophylaxis, empiric abx 2. Resume ASA 81 qd once post-op hemostasis assured and continue Metoprolol 25 mg QD
[2019-08-13 11:58] LABS: BASO % 0.8 % (0-2.0); EOS % 1.7 % (0-4.5); HEMATOCRIT 33.3 % (32.4-45.2); HEMOGLOBIN 11.5 GM/dL (10.7-15.3); MCH 32.9 pg (25.7-33.7); MCHC 34.5 g/dl (32.0-36.0); MEAN CELL VOLUME 95.4 fl (80-96); MEAN PLT VOLUME 7.1 fl (7.5-11.1); MONO % 12.9 % (3.8-10.2); NEUT % 72.6 % (42.8-82.8); PLATELET COUNT 203 K/MM3 (134-434); RBC 3.49 M/mm3 (3.60-5.2); RDW 14.2 % (11.6-15.6); WHITE BLOOD COUNT 10.3 K/mm3 (4.0-10.0)
[2019-08-13 12:29] LABS: ALBUMIN 2.9 g/dl (3.4-5.0); BILIRUBIN,TOTAL 0.6 mg/dL (0.2-1); BLOOD UREA NITROGEN 12.4 mg/dL (7-18); CALCIUM 8.1 mg/dL (8.5-10.1); CREATININE 0.5 mg/dL (0.55-1.3); MAGNESIUM 1.9 mg/dL (1.8-2.4); POTASSIUM 3.6 mmol/L (3.5-5.1); TOT PROT 6.4 g/dl (6.4-8.2)
[2019-08-13] MEDS: MUPIROCIN 2% TOPICAL OINTMENT FOR DECOLONIZATION NS SCH (12:39)
--- NOTE | 2019-08-13 13:27 | PN ---
Teaching Attending Note Name of Resident: Amari Gtz ATTENDING PHYSICIAN STATEMENT I saw and evaluated the patient. I reviewed the resident's note and discussed the case with the resident. I agree with the resident's findings and plan as documented. SUBJECTIVE: Pt seen and examined in the ICU. Pain controlled. Intermittent confusion. OBJECTIVE: Vital Signs Period Temp Pulse Resp BP Sys/Blanco Pulse Ox Last 24 Hr 97.9 F-98.2 F 75-101 14-20 149-183/65-94 98-99 Intake & Output 08/10/19 08/11/19 08/12/19 08/13/19 23:59 23:59 23:59 23:59 Intake Total 490 2500 1940 675 Output Total 1585 1180 800 Balance 490 915 760 -125 Weight 61.717 kg 61.235 kg 64.773 kg Gen: NAD at rest Heart: RRR Lung: decreased breath sounds at the bases Abd: soft, nontender Ext: no edema CBC, BMP 08/13/19 11:35 08/13/19 11:35 Active Medications Acetaminophen (Ofirmev Injection -) 1,000 mg IVPB Q6H PRN PRN Reason: FEVER Last Admin: 08/12/19 03:27 Dose: 1,000 mg Acetaminophen/Butalbital/Caffeine (Fioricet -) 1 tablet PO Q6H PRN PRN Reason: HEADACHE Chlorhexidine Gluconate (Hibiclens For Decolonization -) 1 applic TP HS [facility] Last Admin: 08/12/19 21:37 Dose: 1 applic Diphenhydramine HCl (Benadryl -) 25 mg PO Q6H PRN PRN Reason: FOR ITCHING Docusate Sodium (Colace -) 300 mg PO HS [facility] Last Admin: 08/12/19 21:38 Dose: 300 mg Ferrous Sulfate (Feosol -) 325 mg PO DAILY [facility] Last Admin: 08/13/19 09:09 Dose: 325 mg Folic Acid (Folic Acid -) 1 mg PO DAILY [facility] Last Admin: 08/13/19 09:10 Dose: 1 mg Gabapentin (Neurontin -) 200 mg PO TID [facility] Last Admin: 08/13/19 06:49 Dose: 200 mg Haloperidol (Haldol Injection (Fast Acting) -) 2.5 mg IM Q4H PRN PRN Reason: AGITATION Heparin Sodium (Porcine) (Heparin -) 5,000 unit SQ TID [facility] Last Admin: 08/13/19 06:49 Dose: 5,000 unit Cefazolin Sodium 1 gm/ (Dextrose) 50 mls @ 100 mls/hr IVPB Q8H [facility] Last Admin: 08/13/19 12:39 Dose: 100 mls/hr Levothyroxine Sodium 112 mcg/ (Levothyroxine Sodium 25 mcg) 137 mcg PO DAILY@ 0700 [facility] Last Admin: 08/13/19 06:49 Dose: 137 mcg Loratadine (Claritin -) 10 mg PO DAILY [facility] Last Admin: 08/13/19 09:10 Dose: 10 mg Metoprolol Tartrate (Lopressor -) 25 mg PO DAILY [facility] Last Admin: 08/13/19 09:10 Dose: 25 mg Mupirocin (Bactroban Ointment (For Decolonization) -) 1 applic NS BID [facility] Stop: 08/16/19 21:59 Last Admin: 08/13/19 12:39 Dose: 1 applic Non-Formulary Medication (Mirabegron [Myrbetriq]) 1 tab PO [facility] Ondansetron HCl (Zofran Injection) 4 mg IVPUSH Q6H PRN PRN Reason: NAUSEA AND/OR VOMITING Oxycodone HCl (Roxicodone -) 5 mg PO Q6H PRN PRN Reason: PAIN LEVEL 1-5 Oxycodone HCl (Roxicodone -) 10 mg PO Q6H PRN PRN Reason: PAIN LEVEL 6-10 Last Admin: 08/13/19 09:11 Dose: 10 mg Pantoprazole Sodium (Protonix -) 40 mg PO DAILY [facility] Last Admin: 08/13/19 09:10 Dose: 40 mg Topiramate (Topamax -) 50 mg PO HS [facility] Last Admin: 08/12/19 21:40 Dose: 50 mg ASSESSMENT AND PLAN: Cervical Spinal Stenosis s/p C1-C7 Laminectomy/Decompression/C1-T1 Posterior Fusion CAD LV Diastolic Dysfunction HTN Hypothyroidism - pain control - monitor drain output - incentive spirometry - rehab/PT - DVT prophylaxis - can monitor on floor
[2019-08-13] MEDS ORDERED: HALOPERIDOL LACTATE 5 MG/ML IM PRN (15:13)
[2019-08-13] MEDS ORDERED: oxyCODONE HCL 5 MG TABLET PO PRN ×2 (15:13)
[2019-08-13] MEDS ORDERED: ACETAMINOPHEN/CAFFEINE/BUTALBITAL 1 TAB PO PRN (15:13)
[2019-08-13] MEDS ORDERED: ACETAMINOPHEN 1000 MG/100 ML VIAL (NON FORMULARY) IVPB PRN (15:13)
[2019-08-13] MEDS ORDERED: diphenhydrAMINE HCL 25 MG CAPSULE (FP) PO PRN (15:13)
[2019-08-13] MEDS ORDERED: ONDANSETRON 4 MG/2 ML VIAL IVPUSH PRN (15:13)
--- NOTE | 2019-08-13 18:21 | PN ---
Physical Exam: SUBJECTIVE: OBJECTIVE: Vital Signs Period Temp Pulse Resp BP Sys/Blanco Pulse Ox Last 24 Hr 98.1 F-98.3 F 87-96 14-20 125-178/84-99 99-99 Laboratory Results - last 24 hr 08/13/19 08/13/19 11:35 11:35 WBC 10.3 H RBC 3.49 L Hgb 11.5 Hct 33.3 MCV 95.4 MCH 32.9 MCHC 34.5 RDW 14.2 Plt Count 203 MPV 7.1 L Absolute Neuts (auto) 7.5 Neutrophils % 72.6 Lymphocytes % 12.0 Monocytes % 12.9 H D Eosinophils % 1.7 Basophils % 0.8 Nucleated RBC % 0 Sodium 131 L Potassium 3.6 Chloride 99 Carbon Dioxide 25 Anion Gap 7 L BUN 12.4 Creatinine 0.5 L Est GFR (CKD-EPI)AfAm 100.15 Est GFR (CKD-EPI)NonAf 86.41 Random Glucose 109 H Calcium 8.1 L Magnesium 1.9 Total Bilirubin 0.6 AST 22 ALT 13 Alkaline Phosphatase 74 Total Protein 6.4 Albumin 2.9 L Active Medications Generic Name Dose Route Start Last Admin Trade Name Freq PRN Reason Stop Dose Admin Acetaminophen 1,000 mg 08/13/19 15:13 Ofirmev Injection - IVPB Q6H PRN FEVER Acetaminophen/Butalbital/Caffeine 1 tablet 08/13/19 15:13 Fioricet - PO Q6H PRN HEADACHE Diphenhydramine HCl 25 mg 08/13/19 15:13 Benadryl - PO Q6H PRN FOR ITCHING Docusate Sodium 300 mg 08/13/19 22:00 Colace - PO HS [facility] Ferrous Sulfate 325 mg 08/14/19 10:00 Feosol - PO DAILY [facility] Folic Acid 1 mg 08/14/19 10:00 Folic Acid - PO DAILY [facility] Gabapentin 200 mg 08/13/19 22:00 Neurontin - PO TID [facility] Haloperidol 2.5 mg 08/13/19 15:13 Haldol Injection (Fast Acting) - IM Q4H PRN AGITATION Heparin Sodium (Porcine) 5,000 unit 08/13/19 22:00 Heparin - SQ TID [facility] Cefazolin Sodium 1 gm/ 50 mls @ 100 mls/hr 08/13/19 21:00 Dextrose IVPB Q8H [facility] Levothyroxine Sodium 112 mcg/ 137 mcg 08/14/19 07:00 Levothyroxine Sodium 25 mcg PO DAILY@0700 [facility] Loratadine 10 mg 08/14/19 10:00 Claritin - PO DAILY [facility] Metoprolol Tartrate 25 mg 08/14/19 10:00 Lopressor - PO DAILY [facility] Ondansetron HCl 4 mg 08/13/19 15:13 Zofran Injection IVPUSH Q6H PRN NAUSEA AND/OR VOMITING Oxycodone HCl 5 mg 08/13/19 15:13 Roxicodone - PO Q6H PRN PAIN LEVEL 1-5 Oxycodone HCl 10 mg 08/13/19 15:13 Roxicodone - PO Q6H PRN PAIN LEVEL 6-10 Pantoprazole Sodium 40 mg 08/14/19 10:00 Protonix - PO DAILY [facility] Topiramate 50 mg 08/13/19 22:00 Topamax - PO HS [facility] ASSESSMENT/PLAN: S: pt seen/examined, no acute events overnight. patient minimally cooperative but denies chest pain, sob, abd pain. EXAM: GEN: NAD, minimally cooperative, awake, and alert HEENT: NC/AT, EOMI. No facial asymmetry. Moist mucous membranes. Normal voice. Hard C-collar in place CV: S1/S2, RRR, no mrg LUNG: CTAB, no wheezes, crackles, rales, rhonchi. GI: soft, ndnt, +BS, no guarding, no rebound. SKIN: warm, dry, normal turgor PSYCH: guarded/minimally cooperative NEURO: Moving all extremities A/P: This is an 89 y/o F with a PMH of HTN, hypothyroidism, HFpEF, OA, chronic headache, chronic lower extremity edema, and recurrent lower extremity cellulitis. Admitted to ICU s/p C1-C7 laminectomy, decompression and correction of deformity, and C1-T1 posterior fusion. Neuro - Cervical degenerative disc and facet joint disease; Multilevel cervical degenerative anterolisthesis; s/p C1-C7 laminectomy, decompression and correction of deformity, and C1-T1 posterior fusion. - MRI: C5-C6 moderately severe DDD with mild disc bulge and b/l hypertrophy probably slightly impinging C6 nerve roots - Neurosurgery recommendations appreciated - c/w gabapentin, Topamax, fioricet PRN - PT evaluation recs appreciated - pt can be transferred to floors or d/c home tm Cardio - HTN, HFpEF -c/w metoprolol daily, and start ASA 81 once post op hemostasis is achieved per cardio. -c/w tele monitoring -Echo 02/03/19: LV systolic normal, EF 60%, impaired relaxation Endo - Hypothyroidism -c/w levothyroxine ID - Recurrent lower extremity cellulitis -no signs of acute cellulitis -c/w fexofenadine for itching -ancep post op ppx GI- ppx -c/w pantoprazole daily FEN - sodium controlled diet - DC fluids - Electrolytes: replete as indicated DVT PPX SCDs Dispo: transfer to m/s Visit type - Emergency Visit Emergency Visit: No - New Patient This patient is new to me today: No - Critical Care Critical Care patient: No
[2019-08-13] MEDS: TOPIRAMATE 25 MG TABLET (FP) PO SCH (21:49)
[2019-08-13] MEDS: DOCUSATE SODIUM 100 MG CAPSULE (FP) PO SCH (21:49)
[2019-08-14] MEDS ORDERED: ceFAZolin SODIUM 1 GM VIAL ONE ×2 (05:35→13:03)
[2019-08-14] MEDS ORDERED: DEXTROSE 5%-WATER - 50 ML IVPB ONE ×2 (05:35→13:03)
[2019-08-14] MEDS: CEFAZOLIN 1 GM in DEXTROSE 5%-WATER - 50 ML IVPB SCH ×2 (05:51→13:14)
[2019-08-14] MEDS ORDERED: LEVOTHYROXINE NA 25 MCG TABLET (FP) ONE (06:02)
[2019-08-14] MEDS ORDERED: LEVOTHYROXINE NA 112 MCG TABLET (FP) ONE (06:02)
[2019-08-14] MEDS: GABAPENTIN 100 MG CAPSULE (FP) PO SCH ×4 (06:43→22:25)
[2019-08-14] MEDS: HEPARIN NA (PORCINE) 5,000 UNITS/ML 1ML VIAL SQ SCH ×3 (06:44→22:24)
[2019-08-14] MEDS: LEVOTHYROXINE 112 MCG, LEVOTHYROXINE 25 MCG PO SCH ×2 (06:44→06:55)
--- NOTE | 2019-08-14 08:33 | PN ---
Progress Note (short form) - Note Progress Note: NEUROSURGERY POD #3 s/p C1-T1 lamiectomy and decompression. No acute event as per RN notes. Patient remains in wrist restraints 2/2 clinical condition (confusion). Found her to be very pleasant and active participant with me jasmin carrington. Answering questions appropriately regarding how she feels s/p surgery. Denies n/ v/f/c, CP, palpitations, SOB, G[place], [place] or photophobia. Last Vital Signs Temp Pulse Resp BP Pulse Ox 987.6 F H 101 H 18 153/74 97 08/14/19 04:00 08/14/19 04:00 08/14/19 04:00 08/14/19 04:00 08/13/19 21:00 CBC, BMP 08/13/19 11:35 08/13/19 11:35 PE Gen: a&o. nad Pulm: cta bilat. unlabored resp on RA Neck: posterior neck dressing jase intact. NICOLÁS sero>sang. Neuro: 5/5 hospice/home health aide strength b/l UE. b/l LE compartments soft, supple and non- tender with +DP pulses. +dorsi/plantar flexion. 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 NICOLÁS drain dc'd on rounds. New dressing applied on rounds. Cont to wear your c-collar 23/24hrs/day Pain management Cleared for DC back to her resident facility Patient to f/u with Dr. Salvador for post-op visit and to have jase removed in his office Above plan discussed with my attending and agrees. Code(s): M50.022 - CERVICAL DISC DISORDER AT C5-C6 LEVEL WITH MYELOPATHY (2) CHF (congestive heart failure) Code(s): I50.9 - HEART FAILURE, UNSPECIFIED (3) Cervical disc disorder at C5-C6 level with radiculopathy Code(s): M50.122 - CERVICAL DISC DISORDER AT C5-C6 LEVEL WITH RADICULOPATHY (4) HTN (hypertension) Code(s): I10 - ESSENTIAL (PRIMARY) HYPERTENSION Qualifiers: Hypertension type: essential hypertension Qualified Code(s): I10 - Essential (primary) hypertension
[2019-08-14] MEDS: FOLIC ACID 1 MG TABLET (FP) PO SCH (09:23)
[2019-08-14] MEDS: METOPROLOL TARTRATE 25 MG TABLET (FP) PO SCH (09:23)
[2019-08-14] MEDS: LORATADINE 10 MG TABLET PO SCH (09:23)
[2019-08-14] MEDS: PANTOPRAZOLE 40 MG TABLET (FP) PO SCH (09:23)
[2019-08-14] MEDS: FERROUS SO4 325 MG TABLET (FP) PO SCH (09:23)
[2019-08-14 12:29] LABS: BASO % 0.4 % (0-2.0); EOS % 1.5 % (0-4.5); HEMATOCRIT 31.6 % (32.4-45.2); HEMOGLOBIN 11.2 GM/dL (10.7-15.3); LYMPH % 12.5 % (8-40); MCH 33.3 pg (25.7-33.7); MCHC 35.4 g/dl (32.0-36.0); MEAN CELL VOLUME 94.2 fl (80-96); MEAN PLT VOLUME 7.1 fl (7.5-11.1); MONO % 14.3 % (3.8-10.2); NEUT % 71.3 % (42.8-82.8); PLATELET COUNT 212 K/MM3 (134-434); RBC 3.36 M/mm3 (3.60-5.2); RDW 13.8 % (11.6-15.6); WHITE BLOOD COUNT 10.9 K/mm3 (4.0-10.0)
--- NOTE | 2019-08-14 12:53 | PN ---
Progress Note, Physician Chief Complaint: POD#3 C1-T1 laminectomy and decompression. She denies any chest pain or shortness of breath. 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 Patient was seen in ED following a mechanical fall backwards, hitting her head but without reported LOC. CT head and c-spine were negative for acute pathology and patient was discharged. She returned the next day with neck pain that is worse with position changes and prevents ambulation. She is s/p POD #3 C1-C7 laminectomy, decompression and correction of deformity, and C1-T1 posterior fusion. - Current Medication List Current Medications: Active Medications Acetaminophen (Ofirmev Injection -) 1,000 mg IVPB Q6H PRN PRN Reason: FEVER Acetaminophen/Butalbital/Caffeine (Fioricet -) 1 tablet PO Q6H PRN PRN Reason: HEADACHE Diphenhydramine HCl (Benadryl -) 25 mg PO Q6H PRN PRN Reason: FOR ITCHING Docusate Sodium (Colace -) 300 mg PO HS [facility] Last Admin: 08/13/19 21:49 Dose: 300 mg Ferrous Sulfate (Feosol -) 325 mg PO DAILY [facility] Last Admin: 08/14/19 09:23 Dose: 325 mg Folic Acid (Folic Acid -) 1 mg PO DAILY [facility] Last Admin: 08/14/19 09:23 Dose: 1 mg Gabapentin (Neurontin -) 200 mg PO TID [facility] Last Admin: 08/14/19 06:56 Dose: Not Given Haloperidol (Haldol Injection (Fast Acting) -) 2.5 mg IM Q4H PRN PRN Reason: AGITATION Heparin Sodium (Porcine) (Heparin -) 5,000 unit SQ TID [facility] Last Admin: 08/14/19 06:44 Dose: 5,000 unit Cefazolin Sodium 1 gm/ (Dextrose) 50 mls @ 100 mls/hr IVPB Q8H [facility] Last Admin: 08/14/19 05:51 Dose: 100 mls/hr Levothyroxine Sodium 112 mcg/ (Levothyroxine Sodium 25 mcg) 137 mcg PO DAILY@ 0700 [facility] Last Admin: 08/14/19 06:55 Dose: Not Given Loratadine (Claritin -) 10 mg PO DAILY [facility] Last Admin: 08/14/19 09:23 Dose: 10 mg Metoprolol Tartrate (Lopressor -) 25 mg PO DAILY [facility] Last Admin: 08/14/19 09:23 Dose: 25 mg Ondansetron HCl (Zofran Injection) 4 mg IVPUSH Q6H PRN PRN Reason: NAUSEA AND/OR VOMITING Oxycodone HCl (Roxicodone -) 5 mg PO Q6H PRN PRN Reason: PAIN LEVEL 1-5 Oxycodone HCl (Roxicodone -) 10 mg PO Q6H PRN PRN Reason: PAIN LEVEL 6-10 Pantoprazole Sodium (Protonix -) 40 mg PO DAILY [facility] Last Admin: 08/14/19 09:23 Dose: 40 mg Topiramate (Topamax -) 50 mg PO HS [facility] Last Admin: 08/13/19 21:49 Dose: 50 mg - Objective Vital Signs: Vital Signs Temperature 97.7 F 08/14/19 08:00 Pulse Rate 108 H 08/14/19 08:00 Respiratory Rate 20 08/14/19 08:00 Blood Pressure 144/80 08/14/19 08:00 O2 Sat by Pulse Oximetry (%) 97 08/13/19 21:00 Constitutional: Yes: Well Nourished, Calm HENT: Yes: Other (c collar) Cardiovascular: Yes: Regular Rate and Rhythm Labs: CBC, BMP 08/14/19 12:10 INR, PTT INR 1.07 (0.82-1.09) 08/10/19 07:12 Problem List - Problems (1) 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 post op care: pain management, SCDs, physical therapy once cleared by surgery, monitor vitals in ICU. bowel regimen. incentive spirometry rehab/PT discharge planning Code(s): M50.022 - CERVICAL DISC DISORDER AT C5-C6 LEVEL WITH MYELOPATHY (2) CHF (congestive heart failure) Assessment/Plan: monitor intake and output, monitor respiratory status daily weights. Code(s): I50.9 - HEART FAILURE, UNSPECIFIED (3) Cervical disc disorder at C5-C6 level with radiculopathy Code(s): M50.122 - CERVICAL DISC DISORDER AT C5-C6 LEVEL WITH RADICULOPATHY (4) Edema, lower extremity Assessment/Plan: monitor intake and output Code(s): R60.0 - LOCALIZED EDEMA (5) HTN (hypertension) Assessment/Plan: monitor bp on metoprolol Echo 02/03/19:LV systolic normal, EF 60%, impaired relaxation Code(s): I10 - ESSENTIAL (PRIMARY) HYPERTENSION Qualifiers: Hypertension type: essential hypertension Qualified Code(s): I10 - Essential (primary) hypertension (6) Prophylactic measure Assessment/Plan: fen no ivf sodium controlled diet monitor airway maintain c collar on SCDs physical therapy Code(s): Z29.9 - ENCOUNTER FOR PROPHYLACTIC MEASURES, UNSPECIFIED Visit type - Emergency Visit Emergency Visit: Yes ED Registration Date: 08/04/19 Care time: The patient presented to the Emergency Department on the above date and was hospitalized for further evaluation of their emergent condition. - New Patient This patient is new to me today: No - Critical Care Critical Care patient: No - Discharge Referral Referred to [facility] No
[2019-08-14 13:07] LABS: ALBUMIN 2.7 g/dl (3.4-5.0); BILIRUBIN,TOTAL 0.8 mg/dL (0.2-1); BLOOD UREA NITROGEN 12.4 mg/dL (7-18); CALCIUM 8.2 mg/dL (8.5-10.1); CREATININE 0.5 mg/dL (0.55-1.3); POTASSIUM 3.3 mmol/L (3.5-5.1); TOT PROT 6.3 g/dl (6.4-8.2)
[2019-08-14] MEDS: POLYETHYLENE GLYCOL 3350 119 GM BTL PO SCH (13:15)
[2019-08-14] MEDS ORDERED: POTASSIUM CHLORIDE TABS 20 MEQ TABLET.ER (FP) PO ONE (13:17)
[2019-08-14] MEDS ORDERED: SODIUM CHLORIDE 1,000 ML IV SCH (13:30)
[2019-08-14] MEDS ORDERED: DOCUSATE SODIUM 100 MG CAPSULE (FP) PO SCH (14:00)
--- NOTE | 2019-08-14 16:46 | PN ---
Progress Note, Physician History of Present Illness: POD#3 C1-T1 laminectomy and decompression, kalie drain d/jluis. Patient denies any CP , SOB, n/v, fever chills or h/a. - Current Medication List Current Medications: Active Medications Acetaminophen (Ofirmev Injection -) 1,000 mg IVPB Q6H PRN PRN Reason: FEVER Acetaminophen/Butalbital/Caffeine (Fioricet -) 1 tablet PO Q6H PRN PRN Reason: HEADACHE Diphenhydramine HCl (Benadryl -) 25 mg PO Q6H PRN PRN Reason: FOR ITCHING Docusate Sodium (Colace -) 300 mg PO HS [facility] Last Admin: 08/13/19 21:49 Dose: 300 mg Ferrous Sulfate (Feosol -) 325 mg PO DAILY [facility] Last Admin: 08/14/19 09:23 Dose: 325 mg Folic Acid (Folic Acid -) 1 mg PO DAILY [facility] Last Admin: 08/14/19 09:23 Dose: 1 mg Gabapentin (Neurontin -) 200 mg PO TID [facility] Last Admin: 08/14/19 13:16 Dose: 200 mg Haloperidol (Haldol Injection (Fast Acting) -) 2.5 mg IM Q4H PRN PRN Reason: AGITATION Heparin Sodium (Porcine) (Heparin -) 5,000 unit SQ TID [facility] Last Admin: 08/14/19 13:16 Dose: 5,000 unit Sodium Chloride (Normal Saline -) 1,000 mls @ 83 mls/hr IV ASDIR [facility] Last Admin: 08/14/19 13:45 Dose: 83 mls/hr Levothyroxine Sodium 112 mcg/ (Levothyroxine Sodium 25 mcg) 137 mcg PO DAILY@ 0700 [facility] Last Admin: 08/14/19 06:55 Dose: Not Given Loratadine (Claritin -) 10 mg PO DAILY [facility] Last Admin: 08/14/19 09:23 Dose: 10 mg Metoprolol Tartrate (Lopressor -) 25 mg PO DAILY [facility] Last Admin: 08/14/19 09:23 Dose: 25 mg Ondansetron HCl (Zofran Injection) 4 mg IVPUSH Q6H PRN PRN Reason: NAUSEA AND/OR VOMITING Oxycodone HCl (Roxicodone -) 5 mg PO Q6H PRN PRN Reason: PAIN LEVEL 1-5 Oxycodone HCl (Roxicodone -) 10 mg PO Q6H PRN PRN Reason: PAIN LEVEL 6-10 Pantoprazole Sodium (Protonix -) 40 mg PO DAILY [facility] Last Admin: 08/14/19 09:23 Dose: 40 mg Polyethylene Glycol (Miralax (For Daily Use) -) 17 gm PO DAILY [facility] Last Admin: 08/14/19 13:15 Dose: 17 gm Topiramate (Topamax -) 50 mg PO HS [facility] Last Admin: 08/13/19 21:49 Dose: 50 mg - Objective Vital Signs: Vital Signs Temperature 98.2 F 08/14/19 12:00 Pulse Rate 98 H 08/14/19 12:00 Respiratory Rate 20 08/14/19 12:00 Blood Pressure 174/80 H 08/14/19 12:00 O2 Sat by Pulse Oximetry (%) 97 08/14/19 09:00 Constitutional: Yes: No Distress, Calm Neck: Yes: Supple Cardiovascular: Yes: Regular Rate and Rhythm Respiratory: Yes: Regular, Diminished Gastrointestinal: Yes: Soft, Hypoactive Bowel Sounds Edema: No Labs: CBC, BMP 08/14/19 12:10 08/14/19 12:10 INR, PTT INR 1.07 (0.82-1.09) 08/10/19 07:12 Problem List - Problems (1) 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 Code(s): M50.022 - CERVICAL DISC DISORDER AT C5-C6 LEVEL WITH MYELOPATHY (2) Cervical disc disorder at C5-C6 level with radiculopathy Code(s): M50.122 - CERVICAL DISC DISORDER AT C5-C6 LEVEL WITH RADICULOPATHY (3) HTN (hypertension) Code(s): I10 - ESSENTIAL (PRIMARY) HYPERTENSION Qualifiers: Hypertension type: essential hypertension Qualified Code(s): I10 - Essential (primary) hypertension (4) Hypothyroidism Code(s): E03.9 - HYPOTHYROIDISM, UNSPECIFIED Qualifiers: Hypothyroidism type: unspecified Qualified Code(s): E03.9 - Hypothyroidism , unspecified Assessment/Plan 02/03/2019 Echo: Normal biventricular size and fxn LVEF 60-65%, normal atrial sizes, no sig valve abnl 08/05/2019 MRI: C5-C6 moderately severe DDD with mild disc bulge and b/l hypertrophy probably slightly impinging C6 nerve roots 1. Cervical degenerative disc and facet joint disease/cervical spondylosis and cord compression, POD#3 C1-C7 laminectomy, decompression and correction of deformity, and C1-T1 posterior fusion 2. Hypertensive heart disease 3. Diastolic dysfunction 4. Hypothyroidism 5. CAD w/ h/o demand ischemia PLAN: 1. Post-op care, analgesia as needed, DVT and GI prophylaxis, empiric abx d/jluis 2. Resume ASA 81 qd once post-op hemostasis assured and continue Metoprolol 25 mg QD 3. PT as tolerated
[2019-08-14] MEDS: DOCUSATE SODIUM 100 MG CAPSULE (FP) PO SCH (22:24)
[2019-08-14] MEDS: TOPIRAMATE 25 MG TABLET (FP) PO SCH (22:25)
[2019-08-15] MEDS ORDERED: LEVOTHYROXINE NA 112 MCG TABLET (FP) ONE (05:54)
[2019-08-15] MEDS ORDERED: LEVOTHYROXINE NA 25 MCG TABLET (FP) ONE (05:54)
[2019-08-15] MEDS: HEPARIN NA (PORCINE) 5,000 UNITS/ML 1ML VIAL SQ SCH ×3 (06:49→22:14)
[2019-08-15] MEDS: GABAPENTIN 100 MG CAPSULE (FP) PO SCH ×3 (06:49→22:13)
[2019-08-15] MEDS: LEVOTHYROXINE 112 MCG, LEVOTHYROXINE 25 MCG PO SCH (06:49)
[2019-08-15] MEDS: PANTOPRAZOLE 40 MG TABLET (FP) PO SCH (09:07)
[2019-08-15] MEDS: FOLIC ACID 1 MG TABLET (FP) PO SCH (09:07)
[2019-08-15] MEDS: FERROUS SO4 325 MG TABLET (FP) PO SCH (09:07)
[2019-08-15] MEDS: METOPROLOL TARTRATE 25 MG TABLET (FP) PO SCH (09:07)
[2019-08-15] MEDS: LORATADINE 10 MG TABLET PO SCH (09:07)
[2019-08-15] MEDS: POLYETHYLENE GLYCOL 3350 119 GM BTL PO SCH (09:09)
[2019-08-15 10:20] LABS: BASO % 0.4 % (0-2.0); HEMATOCRIT 31.4 % (32.4-45.2); LYMPH % 14.4 % (8-40); MCH 33.4 pg (25.7-33.7); MEAN CELL VOLUME 95.4 fl (80-96); MEAN PLT VOLUME 7.6 fl (7.5-11.1); MONO % 13.5 % (3.8-10.2); NEUT % 69.7 % (42.8-82.8); PLATELET COUNT 197 K/MM3 (134-434); RBC 3.29 M/mm3 (3.60-5.2); RDW 13.9 % (11.6-15.6); WHITE BLOOD COUNT 8.6 K/mm3 (4.0-10.0)
[2019-08-15 10:49] LABS: ALBUMIN 2.6 g/dl (3.4-5.0); BILIRUBIN,TOTAL 0.8 mg/dL (0.2-1); CALCIUM 8.3 mg/dL (8.5-10.1); CREATININE 0.5 mg/dL (0.55-1.3); POTASSIUM 3.5 mmol/L (3.5-5.1); TOT PROT 6.1 g/dl (6.4-8.2)
--- NOTE | 2019-08-15 13:55 | PN ---
Physical Exam: SUBJECTIVE: Patient seen and examined at the bedside. in no acute distress. being fed by nursing instructor, awake and alert. OBJECTIVE: encourage patient to move upper and lower ext and self feed c collar as per surgery stop ivf cleared for d/c to rehab per surgery, awaiting placement Vital Signs Period Temp Pulse Resp BP Sys/Blanco Pulse Ox Last 24 Hr 98.1 F-98.9 F 71-84 18-20 132-160/68-84 100 GENERAL: The patient is awake, alert, and fully oriented, in no acute distress. HEAD: Normal with no signs of trauma. on a c collar. EYES: PERRL, extraocular movements intact, sclera anicteric, conjunctiva clear. No ptosis. ENT: Ears normal, nares patent, oropharynx clear without exudates, moist mucous membranes. NECK: Trachea midline, full range of motion, supple. LUNGS: Breath sounds equal, clear to auscultation bilaterally, no wheezes, no crackles, no accessory muscle use. HEART: Regular rate and rhythm ABDOMEN: Soft, nontender, nondistended, normoactive bowel sounds, no guarding EXTREMITIES: 2+ pulses, warm, well-perfused, no edema. NEUROLOGICAL: Normal speech, physical therapy evaluation PSYCH: Normal mood, normal affect. SKIN: Warm, dry, normal turgor, no rashes or lesions noted Laboratory Results - last 24 hr 08/15/19 08/15/19 09:35 09:35 WBC 8.6 RBC 3.29 L Hgb 11.0 Hct 31.4 L MCV 95.4 MCH 33.4 MCHC 35.0 RDW 13.9 Plt Count 197 MPV 7.6 Absolute Neuts (auto) 6.0 Neutrophils % 69.7 Lymphocytes % 14.4 Monocytes % 13.5 H Eosinophils % 2.0 Basophils % 0.4 Nucleated RBC % 0 Sodium 135 L Potassium 3.5 Chloride 103 Carbon Dioxide 23 Anion Gap 8 BUN 14.0 Creatinine 0.5 L Est GFR (CKD-EPI)AfAm 100.15 Est GFR (CKD-EPI)NonAf 86.41 Random Glucose 90 Calcium 8.3 L Magnesium 2.0 Total Bilirubin 0.8 AST 19 ALT 10 L Alkaline Phosphatase 87 Total Protein 6.1 L Albumin 2.6 L Active Medications Generic Name Dose Route Start Last Admin Trade Name Freq PRN Reason Stop Dose Admin Acetaminophen 1,000 mg 08/13/19 15:13 Ofirmev Injection - IVPB Q6H PRN FEVER Acetaminophen/Butalbital/Caffeine 1 tablet 08/13/19 15:13 Fioricet - PO Q6H PRN HEADACHE Diphenhydramine HCl 25 mg 08/13/19 15:13 Benadryl - PO Q6H PRN FOR ITCHING Docusate Sodium 300 mg 08/13/19 22:00 08/14/19 22:24 Colace - PO 300 mg HS LIN Administration Ferrous Sulfate 325 mg 08/14/19 10:00 08/15/19 09:07 Feosol - PO 325 mg DAILY LIN Administration Folic Acid 1 mg 08/14/19 10:00 08/15/19 09:07 Folic Acid - PO 1 mg DAILY LIN Administration Gabapentin 200 mg 08/13/19 22:00 08/15/19 06:49 Neurontin - PO 200 mg TID LIN Administration Haloperidol 2.5 mg 08/13/19 15:13 Haldol Injection (Fast Acting) - IM Q4H PRN AGITATION Heparin Sodium (Porcine) 5,000 unit 08/13/19 22:00 08/15/19 06:49 Heparin - SQ 5,000 unit TID LIN Administration Levothyroxine Sodium 112 mcg/ 137 mcg 08/14/19 07:00 08/15/19 06:49 Levothyroxine Sodium 25 mcg PO 137 mcg DAILY@0700 LIN Administration Loratadine 10 mg 08/14/19 10:00 08/15/19 09:07 Claritin - PO 10 mg DAILY LIN Administration Metoprolol Tartrate 25 mg 08/14/19 10:00 08/15/19 09:07 Lopressor - PO 25 mg DAILY LIN Administration Ondansetron HCl 4 mg 08/13/19 15:13 Zofran Injection IVPUSH Q6H PRN NAUSEA AND/OR VOMITING Oxycodone HCl 5 mg 08/13/19 15:13 Roxicodone - PO Q6H PRN PAIN LEVEL 1-5 Oxycodone HCl 10 mg 08/13/19 15:13 Roxicodone - PO Q6H PRN PAIN LEVEL 6-10 Pantoprazole Sodium 40 mg 08/14/19 10:00 08/15/19 09:07 Protonix - PO 40 mg DAILY LIN Administration Polyethylene Glycol 17 gm 08/14/19 13:00 08/15/19 09:09 Miralax (For Daily Use) - PO 17 gm DAILY LIN Administration Topiramate 50 mg 08/13/19 22:00 08/14/19 22:25 Topamax - PO 50 mg HS LIN Administration ASSESSMENT/PLAN: Problem List - Problems (1) 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 post op care: pain management, SCDs, physical therapy, monitor vitals. bowel regimen. incentive spirometry rehab/PT discharge planning to SNF drain removed, ivf stopped. Code(s): M50.022 - CERVICAL DISC DISORDER AT C5-C6 LEVEL WITH MYELOPATHY (2) CHF (congestive heart failure) Assessment/Plan: monitor intake and output, monitor respiratory status daily weights. Code(s): I50.9 - HEART FAILURE, UNSPECIFIED (3) Cervical disc disorder at C5-C6 level with radiculopathy Assessment/Plan: surgery follow up Code(s): M50.122 - CERVICAL DISC DISORDER AT C5-C6 LEVEL WITH RADICULOPATHY (4) Edema, lower extremity Assessment/Plan: monitor intake and output Code(s): R60.0 - LOCALIZED EDEMA (5) HTN (hypertension) Assessment/Plan: monitor bp on metoprolol Echo 02/03/19:LV systolic normal, EF 60%, impaired relaxation Code(s): I10 - ESSENTIAL (PRIMARY) HYPERTENSION Qualifiers: Hypertension type: essential hypertension Qualified Code(s): I10 - Essential (primary) hypertension (6) Prophylactic measure Assessment/Plan: fen no ivf sodium controlled diet monitor airway maintain c collar on SCDs physical therapy Code(s): Z29.9 - ENCOUNTER FOR PROPHYLACTIC MEASURES, UNSPECIFIED Visit type - Emergency Visit Emergency Visit: Yes ED Registration Date: 08/04/19 Care time: The patient presented to the Emergency Department on the above date and was hospitalized for further evaluation of their emergent condition. - New Patient This patient is new to me today: No - Critical Care Critical Care patient: No - Discharge Referral Referred to [facility] Med P.C.: No
--- NOTE | 2019-08-15 17:43 | PN ---
Progress Note (short form) - Note Progress Note: Patient resting comfortably. Awaiting discharge.
[2019-08-15] MEDS: DOCUSATE SODIUM 100 MG CAPSULE (FP) PO SCH (22:14)
[2019-08-15] MEDS: TOPIRAMATE 25 MG TABLET (FP) PO SCH (22:17)
[2019-08-16] MEDS ORDERED: LEVOTHYROXINE NA 25 MCG TABLET (FP) ONE (05:59)
[2019-08-16] MEDS ORDERED: LEVOTHYROXINE NA 112 MCG TABLET (FP) ONE (05:59)
[2019-08-16] MEDS: GABAPENTIN 100 MG CAPSULE (FP) PO SCH ×3 (06:21→21:44)
[2019-08-16] MEDS: HEPARIN NA (PORCINE) 5,000 UNITS/ML 1ML VIAL SQ SCH ×3 (06:21→21:43)
[2019-08-16] MEDS: LEVOTHYROXINE 112 MCG, LEVOTHYROXINE 25 MCG PO SCH (06:21)
[2019-08-16] MEDS ORDERED: PT OWN MED DRAWER 7, Y5N ONE (09:24)
[2019-08-16 09:37] LABS: BASO % 0.5 % (0-2.0); EOS % 2.6 % (0-4.5); HEMATOCRIT 29.6 % (32.4-45.2); HEMOGLOBIN 10.3 GM/dL (10.7-15.3); LYMPH % 16.7 % (8-40); MCH 33.2 pg (25.7-33.7); MEAN CELL VOLUME 95.1 fl (80-96); MEAN PLT VOLUME 7.4 fl (7.5-11.1); MONO % 13.9 % (3.8-10.2); NEUT % 66.3 % (42.8-82.8); PLATELET COUNT 217 K/MM3 (134-434); RBC 3.11 M/mm3 (3.60-5.2); RDW 13.7 % (11.6-15.6); WHITE BLOOD COUNT 7.8 K/mm3 (4.0-10.0)
[2019-08-16] MEDS: PANTOPRAZOLE 40 MG TABLET (FP) PO SCH (09:53)
[2019-08-16] MEDS: METOPROLOL TARTRATE 25 MG TABLET (FP) PO SCH (09:53)
[2019-08-16] MEDS: FERROUS SO4 325 MG TABLET (FP) PO SCH (09:53)
[2019-08-16] MEDS: LORATADINE 10 MG TABLET PO SCH (09:53)
[2019-08-16] MEDS: FOLIC ACID 1 MG TABLET (FP) PO SCH (09:53)
[2019-08-16] MEDS: POLYETHYLENE GLYCOL 3350 119 GM BTL PO SCH (10:06)
[2019-08-16 10:08] LABS: ALBUMIN 2.4 g/dl (3.4-5.0); BILIRUBIN,TOTAL 0.8 mg/dL (0.2-1); BLOOD UREA NITROGEN 14.3 mg/dL (7-18); CALCIUM 7.9 mg/dL (8.5-10.1); CREATININE 0.5 mg/dL (0.55-1.3); TOT PROT 5.9 g/dl (6.4-8.2)
[2019-08-16] MEDS ORDERED: POTASSIUM CHLORIDE TABS 20 MEQ TABLET.ER (FP) PO ONE (10:26)
[2019-08-16] MEDS: KCL 10 MEQ IVPB 10 MEQ/100 ML INFUS.BAG IVPB SCH (12:35)
--- NOTE | 2019-08-16 16:11 | PN ---
Physical Exam: SUBJECTIVE: Patient seen and examined at the bedside. denies pain or malaise. 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 Patient was seen in ED following a mechanical fall backwards, hitting her head but without reported LOC. CT head and c-spine were negative for acute pathology and patient was discharged. She returned the next day with neck pain that is worse with position changes and prevents ambulation. She is s/p POD #5 C1-C7 laminectomy, decompression and correction of deformity, and C1-T1 posterior fusion. Vital Signs Period Temp Pulse Resp BP Sys/Blanco Pulse Ox Last 24 Hr 98.5 F-99.8 F 73-95 18-18 136-158/71-95 98-98 GENERAL: The patient is awake, alert, and fully oriented, in no acute distress. HEAD: Normal with no signs of trauma. on a c collar. EYES: PERRL, extraocular movements intact, sclera anicteric, conjunctiva clear. No ptosis. ENT: Ears normal, nares patent, oropharynx clear without exudates, moist mucous membranes. NECK: Trachea midline, full range of motion, supple. LUNGS: Breath sounds equal, clear to auscultation bilaterally, no wheezes, no crackles, no accessory muscle use. HEART: Regular rate and rhythm ABDOMEN: Soft, nontender, nondistended, normoactive bowel sounds, no guarding EXTREMITIES: 2+ pulses, warm, well-perfused, no edema. NEUROLOGICAL: Normal speech, physical therapy evaluation PSYCH: Normal mood, normal affect. SKIN: Warm, dry, normal turgor, no rashes or lesions noted Laboratory Results - last 24 hr 08/16/19 08/16/19 08:55 08:55 WBC 7.8 RBC 3.11 L Hgb 10.3 L Hct 29.6 L MCV 95.1 MCH 33.2 MCHC 35.0 RDW 13.7 Plt Count 217 MPV 7.4 L Absolute Neuts (auto) 5.2 Neutrophils % 66.3 Lymphocytes % 16.7 Monocytes % 13.9 H Eosinophils % 2.6 Basophils % 0.5 Nucleated RBC % 0 Sodium 133 L Potassium 3.0 L Chloride 101 Carbon Dioxide 24 Anion Gap 8 BUN 14.3 Creatinine 0.5 L Est GFR (CKD-EPI)AfAm 100.15 Est GFR (CKD-EPI)NonAf 86.41 Random Glucose 93 Calcium 7.9 L Magnesium 2.0 Total Bilirubin 0.8 AST 19 ALT 11 L Alkaline Phosphatase 94 Total Protein 5.9 L Albumin 2.4 L Active Medications Generic Name Dose Route Start Last Admin Trade Name Freq PRN Reason Stop Dose Admin Acetaminophen/Butalbital/Caffeine 1 tablet 08/13/19 15:13 Fioricet - PO Q6H PRN HEADACHE Diphenhydramine HCl 25 mg 08/13/19 15:13 Benadryl - PO Q6H PRN FOR ITCHING Docusate Sodium 300 mg 08/13/19 22:00 08/15/19 22:14 Colace - PO 300 mg HS LIN Administration Ferrous Sulfate 325 mg 08/14/19 10:00 08/16/19 09:53 Feosol - PO 325 mg DAILY LIN Administration Folic Acid 1 mg 08/14/19 10:00 08/16/19 09:53 Folic Acid - PO 1 mg DAILY LIN Administration Gabapentin 200 mg 08/13/19 22:00 08/16/19 14:45 Neurontin - PO 200 mg TID LIN Administration Haloperidol 2.5 mg 08/13/19 15:13 Haldol Injection (Fast Acting) - IM Q4H PRN AGITATION Heparin Sodium (Porcine) 5,000 unit 08/13/19 22:00 08/16/19 14:45 Heparin - SQ 5,000 unit TID LIN Administration Levothyroxine Sodium 112 mcg/ 137 mcg 08/14/19 07:00 08/16/19 06:21 Levothyroxine Sodium 25 mcg PO 137 mcg DAILY@0700 LIN Administration Loratadine 10 mg 08/14/19 10:00 08/16/19 09:53 Claritin - PO 10 mg DAILY LIN Administration Metoprolol Tartrate 25 mg 08/14/19 10:00 08/16/19 09:53 Lopressor - PO 25 mg DAILY LIN Administration Ondansetron HCl 4 mg 08/13/19 15:13 Zofran Injection IVPUSH Q6H PRN NAUSEA AND/OR VOMITING Oxycodone HCl 5 mg 08/13/19 15:13 Roxicodone - PO Q6H PRN PAIN LEVEL 1-5 Oxycodone HCl 10 mg 08/13/19 15:13 Roxicodone - PO Q6H PRN PAIN LEVEL 6-10 Pantoprazole Sodium 40 mg 08/14/19 10:00 08/16/19 09:53 Protonix - PO 40 mg DAILY LIN Administration Polyethylene Glycol 17 gm 08/14/19 13:00 08/16/19 10:06 Miralax (For Daily Use) - PO 17 gm DAILY LIN Administration Topiramate 50 mg 08/13/19 22:00 08/15/19 22:17 Topamax - PO 50 mg HS LIN Administration ASSESSMENT/PLAN: Problem List - Problems (1) 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 post op care: pain management, SCDs, physical therapy, monitor vitals. bowel regimen. incentive spectrometry rehab/PT - awaiting accepting facility discharge planning to SNF drain removed, ivf stopped. Code(s): M50.022 - CERVICAL DISC DISORDER AT C5-C6 LEVEL WITH MYELOPATHY (2) CHF (congestive heart failure) Assessment/Plan: monitor intake and output, monitor respiratory status daily weights. Code(s): I50.9 - HEART FAILURE, UNSPECIFIED (3) Cervical disc disorder at C5-C6 level with radiculopathy Assessment/Plan: surgery follow up Code(s): M50.122 - CERVICAL DISC DISORDER AT C5-C6 LEVEL WITH RADICULOPATHY (4) Edema, lower extremity Assessment/Plan: monitor intake and output Code(s): R60.0 - LOCALIZED EDEMA (5) HTN (hypertension) Assessment/Plan: monitor bp on metoprolol Echo 02/03/19:LV systolic normal, EF 60%, impaired relaxation Code(s): I10 - ESSENTIAL (PRIMARY) HYPERTENSION Qualifiers: Hypertension type: essential hypertension Qualified Code(s): I10 - Essential (primary) hypertension (6) Prophylactic measure Assessment/Plan: fen no ivf sodium controlled diet monitor airway maintain c collar per surgery recommendations on SCDs physical therapy Code(s): Z29.9 - ENCOUNTER FOR PROPHYLACTIC MEASURES, UNSPECIFIED Visit type - Emergency Visit Emergency Visit: Yes ED Registration Date: 08/04/19 Care time: The patient presented to the Emergency Department on the above date and was hospitalized for further evaluation of their emergent condition. - New Patient This patient is new to me today: No - Critical Care Critical Care patient: No - Discharge Referral Referred to [facility] Med P.C.: No
[2019-08-16] MEDS: DOCUSATE SODIUM 100 MG CAPSULE (FP) PO SCH (21:44)
[2019-08-16] MEDS: TOPIRAMATE 25 MG TABLET (FP) PO SCH (21:44)
[2019-08-17] MEDS ORDERED: LEVOTHYROXINE NA 25 MCG TABLET (FP) ONE (05:22)
[2019-08-17] MEDS: GABAPENTIN 100 MG CAPSULE (FP) PO SCH ×2 (06:11→13:49)
[2019-08-17] MEDS: HEPARIN NA (PORCINE) 5,000 UNITS/ML 1ML VIAL SQ SCH ×2 (06:12→13:49)
[2019-08-17] MEDS: LEVOTHYROXINE 112 MCG, LEVOTHYROXINE 25 MCG PO SCH (06:12)
[2019-08-17] MEDS: FERROUS SO4 325 MG TABLET (FP) PO SCH (09:30)
[2019-08-17] MEDS: POLYETHYLENE GLYCOL 3350 119 GM BTL PO SCH (09:30)
[2019-08-17] MEDS: FOLIC ACID 1 MG TABLET (FP) PO SCH (09:30)
[2019-08-17] MEDS: LORATADINE 10 MG TABLET PO SCH (09:30)
[2019-08-17] MEDS: PANTOPRAZOLE 40 MG TABLET (FP) PO SCH (09:30)
[2019-08-17] MEDS ORDERED: metoPROLOL SUCCINATE 25 MG TAB.SR.24H (FP) PO SCH (10:00)
[2019-08-17 12:14] LABS: BASO % 0.7 % (0-2.0); EOS % 3.1 % (0-4.5); HEMATOCRIT 32.2 % (32.4-45.2); HEMOGLOBIN 11.2 GM/dL (10.7-15.3); LYMPH % 18.9 % (8-40); MCHC 34.7 g/dl (32.0-36.0); MEAN CELL VOLUME 95.2 fl (80-96); MEAN PLT VOLUME 7.2 fl (7.5-11.1); MONO % 13.7 % (3.8-10.2); NEUT % 63.6 % (42.8-82.8); PLATELET COUNT 276 K/MM3 (134-434); RBC 3.38 M/mm3 (3.60-5.2); RDW 13.7 % (11.6-15.6); WHITE BLOOD COUNT 8.2 K/mm3 (4.0-10.0)
[2019-08-17 12:43] LABS: ALBUMIN 2.7 g/dl (3.4-5.0); BILIRUBIN,TOTAL 0.8 mg/dL (0.2-1); CALCIUM 8.4 mg/dL (8.5-10.1); CREATININE 0.5 mg/dL (0.55-1.3); MAGNESIUM 2.3 mg/dL (1.8-2.4); POTASSIUM 3.3 mmol/L (3.5-5.1); TOT PROT 6.5 g/dl (6.4-8.2)
[2019-08-17] MEDS ORDERED: POTASSIUM CHLORIDE TABS 20 MEQ TABLET.ER (FP) PO ONE (12:46)
--- NOTE | 2019-08-17 12:51 | DS ---
Physical Exam: SUBJECTIVE: Patient seen and examined at the bedside. denies pain, nausea or vomiting. tolerating diet. OBJECTIVE: encourage patient to move upper and lower ext and self feed c collar as per surgery stop ivf cleared for d/c to rehab per surgery, awaiting placement - denies by the tonya. 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 Patient was seen in ED following a mechanical fall backwards, hitting her head but without reported LOC. CT head and c-spine were negative for acute pathology and patient was discharged. She returned the next day with neck pain that is worse with position changes and prevents ambulation. She is s/p POD #6 C1-C7 laminectomy, decompression and correction of deformity, and C1-T1 posterior fusion. Vital Signs Period Temp Pulse Resp BP Sys/Blanco Pulse Ox Last 24 Hr 97.4 F-99.2 F 73-88 18-20 143-157/71-78 99 PHYSICAL EXAM GENERAL: The patient is awake, alert, and fully oriented, in no acute distress. HEAD: Normal with no signs of trauma. on a c collar. EYES: PERRL, extraocular movements intact, sclera anicteric, conjunctiva clear. No ptosis. ENT: Ears normal, nares patent, oropharynx clear without exudates, moist mucous membranes. NECK: Trachea midline, full range of motion, supple. LUNGS: Breath sounds equal, clear to auscultation bilaterally, no wheezes, no crackles, no accessory muscle use. HEART: Regular rate and rhythm ABDOMEN: Soft, nontender, nondistended, normoactive bowel sounds, no guarding EXTREMITIES: 2+ pulses, warm, well-perfused, no edema. NEUROLOGICAL: Normal speech, physical therapy evaluation PSYCH: Normal mood, normal affect. SKIN: Warm, dry, normal turgor, no rashes or lesions noted LABS Laboratory Results - last 24 hr 08/16/19 08/17/19 08/17/19 15:34 11:32 11:32 WBC 8.2 RBC 3.38 L Hgb 11.2 Hct 32.2 L MCV 95.2 MCH 33.0 MCHC 34.7 RDW 13.7 Plt Count 276 D MPV 7.2 L Absolute Neuts (auto) 5.2 Neutrophils % 63.6 Lymphocytes % 18.9 Monocytes % 13.7 H Eosinophils % 3.1 Basophils % 0.7 Nucleated RBC % 0 Sodium 134 L Potassium 3.7 3.3 L Chloride 101 Carbon Dioxide 24 Anion Gap 9 BUN 14.0 Creatinine 0.5 L Est GFR (CKD-EPI)AfAm 100.15 Est GFR (CKD-EPI)NonAf 86.41 Random Glucose 97 Calcium 8.4 L Magnesium 2.3 Total Bilirubin 0.8 AST 21 ALT 13 Alkaline Phosphatase 108 Total Protein 6.5 Albumin 2.7 L HOSPITAL COURSE: Date of Admission:08/04/19 Date of Discharge: 08/17/19 Minutes to complete discharge: 45 Discharge Summary Reason For Visit: NECK PAIN,CELLULITIS,UNABLE TO WALK Current Active Problems CHF (congestive heart failure) (Acute) Cellulitis of left leg without foot (Acute) 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 No heavy lifting or exercise until seen by your surgeon. You may walk unlimited amounts and climb stairs. You may resume driving the car when you feel safe and comfortable behind the wheel and you are no longer wearing your brace. Do not operate a vehicle while taking narcotic medication. Brace If you had neck surgery, wear surgical collar 23 hr/day. Remove to shower only. Wound Care Keep your incision clean, dry and covered at all times. Apply an occlusive dressing (Saran wrap or Tegaderm) when showering to avoid getting your incision wet. Do not submerge incision or apply ointments or creams. The jase will be removed in the office in 10-14 days post-op. Diet There are no dietary restrictions. Eat healthy, high-fiber foods. Drink 6-8 glasses of liquid each day. This will assist in keeping your bowels regular. Pain Management You may take Tylenol or acetaminophen. Any pain prescription medication ordered should be taken as prescribed for moderate to severe pain. Avoid any ibuprofen (Motrin, Advil, Aleve, Toradol, etc) for 3 months unless otherwise discussed with your surgeon. Call Dr Sotelo for any of the following: Severe pain not relieved by medication Fever of 101 or higher Excessive bleeding or drainage on dressing Inability to urinate Any chest pain or shortness of breath, seek Emergency Care. Call the office to confirm a post-operative appointment for 2-3 weeks post-op Dez Salvador MD [facility] [address] [place] [address] Referrals: Dez Salvador MD, FAANS [Staff Physician] - Disposition: CARE HOME FACILITY - Home Medications Comprehensive Discharge Medication List: Ambulatory Orders Alendronate Sodium/Vitamin D3 [Fosamax Plus D 70 mg-5,600 Iu vIT d] 1 each PO Q7D 08/04/19 Ascorbic Acid [Vitamin C] 500 mg PO DAILY 08/04/19 Butalbital/Aspirin/Caffeine [Nyrbte-Fkywxqu-Cfjkh 50-325-40] 1 each PO DAILY 09/12 Calcium Carb, Citrate/Vit D3 [Calcium + D3 ER Tablet] 1 tab PO DAILY 08/04/19 Cyanocobalamin [Vitamin B12 -] 1 tab PO DAILY 08/04/19 Docusate Sodium 100 mg PO PRN 08/04/19 Famotidine 10 mg PO BID 08/04/19 Fexofenadine HCl 180 mg PO DAILY 08/04/19 Gabapentin [Neurontin] 200 mg PO HS 08/04/19 Lactobacillus Acidophilus [Acidophilus] 1 each PO DAILY 08/04/19 Levothyroxine Sodium 137 mcg PO DAILY 08/04/19 Lutein 20 mg PO DAILY 08/04/19 Metoprolol Tartrate 25 mg PO DAILY 08/04/19 Mirabegron [Myrbetriq] 1 tab PO HS 08/04/19 Multivit-Min/Iron/Folic Acid/K [Centravites Adults Tablet] 1 each PO DAILY 08/04 Topiramate [Topamax] 50 mg PO HS 08/04/19 Diphenhydramine HCl [Benadryl Capsule -] 25 mg PO Q6H PRN capsule 08/17/19 Ferrous Sulfate [Feosol] 325 mg PO DAILY ud 08/17/19 Folic Acid - 1 mg PO DAILY tablet 08/17/19 Heparin - 5,000 unit SQ TID vial 08/17/19 Levothyroxine [Synthroid -] 137 mcg PO DAILY@0700 tablet 08/17/19 Loratadine [Claritin -] 10 mg PO DAILY tablet 08/17/19 Metoprolol Succinate [Toprol XL -] 25 mg PO DAILY tab.sr.24h 08/17/19 Ondansetron Injection [Zofran Injection] 4 mg IVPUSH Q6H PRN vial 08/17/19 Pantoprazole Sodium [Protonix -] 40 mg PO DAILY tablet.ec 08/17/19 Polyethylene Glycol 3350 [Miralax 119 gm Btl -] 17 gm PO DAILY bottle 08/17/19 Problem List - Problems (1) 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 post op care: pain management, SCDs, physical therapy, monitor vitals. bowel regimen. incentive spectrometry rehab/PT - awaiting accepting facility discharge planning to SNF drain removed, ivf stopped. Code(s): M50.022 - CERVICAL DISC DISORDER AT C5-C6 LEVEL WITH MYELOPATHY (2) CHF (congestive heart failure) Assessment/Plan: monitor intake and output, monitor respiratory status daily weights. Code(s): I50.9 - HEART FAILURE, UNSPECIFIED (3) Cervical disc disorder at C5-C6 level with radiculopathy Assessment/Plan: surgery follow up Code(s): M50.122 - CERVICAL DISC DISORDER AT C5-C6 LEVEL WITH RADICULOPATHY (4) Edema, lower extremity Assessment/Plan: monitor intake and output Code(s): R60.0 - LOCALIZED EDEMA (5) HTN (hypertension) Assessment/Plan: monitor bp on metoprolol Echo 02/03/19:LV systolic normal, EF 60%, impaired relaxation Code(s): I10 - ESSENTIAL (PRIMARY) HYPERTENSION Qualifiers: Hypertension type: essential hypertension Qualified Code(s): I10 - Essential (primary) hypertension (6) Prophylactic measure Assessment/Plan: fen no ivf sodium controlled diet monitor airway maintain c collar per surgery recommendations on SCDs physical therapy Code(s): Z29.9 - ENCOUNTER FOR PROPHYLACTIC MEASURES, UNSPECIFIED This patient is new to me today: Yes Date on this admission: 08/17/19 Emergency Visit: No Critical Care patient: No - Discharge Referral Referred to [facility] Med P.C.: No
[2019-08-17 22:39] VITALS: BP 136/65; PULSE 88; TEMP 98.2
--- NOTE | 2019-08-21 15:57 | SURG ---
Surgery Headwaiter/Headwaitress Note Headwaiter/Headwaitress: Marta Nickerson PA-C Date of Service: 08/21/19 Diagnosis: Cervical Spondylotic Myelopathy with instability Procedure: 1) Cranial Tong Application 2) Floroscopy 3) local Autograft 4) Posterior Segmental instrumentation C1-T1 ( Technically challenging) 5) C1 Laminectomy 6) C2 Laminectomy 7) C3 Laminectomy 8) C4 Laminectomy 9) C5 laminectomy 10) C6 Laminectomy 11) C7 Laminectomy 12) T1 Laminectomy 13) C12 posterior/lateral arthrodesis 14) C23 posterior/lateral arthrodesis 15) C34 posterior/lateral arthrodesis 16) C45 posterior/lateral arthrodesis 17) C56 posterior/lateral arthrodesis 18) C67 posterior/lateral arthrodesis 19) C7T1 posterior/lateral arthrodesis 20) Bilateral soft tissue advancement flaps (50cm^2) 21) Pentecostalism of lordosis. I was present for the entirety of the operative procedure. For further detail, please refer to operative report. Visit type - Case Type Case Type: ED Admission - Emergency Emergency Visit: Yes ED Registration Date: 08/04/19 Care time: The patient presented to the Emergency Department on the above date and was hospitalized for further evaluation of their emergent condition. - New patient This patient is new to me today: Yes Date on this admission: 08/11/19
== END 2019-08-17 22:50 | DRG 471 ==
LOC: FER 16:37 → FM/S 19:38 → J6S 08-10 12:52 → JICU 08-11 19:48 → J8W 08-13 15:43
PROVIDERS: ADMIT Internal Medicine; ATTEND Nurse Practitioner Family
PROC: 0RG4071 Fusion of Cervicothoracic Vertebral Joint with Autologous Tissue Substitute, Posterior Approach, Posterior Column, Open Approach (ICD-10-PCS; 2019-08-11)
PROC: 01N10ZZ Release Cervical Nerve, Open Approach (ICD-10-PCS; 2019-08-11)
PROC: 01N80ZZ Release Thoracic Nerve, Open Approach (ICD-10-PCS; 2019-08-11)
PROC: B01BZZZ Fluoroscopy of Spinal Cord (ICD-10-PCS; 2019-08-11)
PROC: 0RG2071 Fusion of 2 or more Cervical Vertebral Joints with Autologous Tissue Substitute, Posterior Approach, Posterior Column, Open Approach (ICD-10-PCS; principal; 2019-08-11 11:00)
DX: M47.12 Other spondylosis with myelopathy, cervical region (principal); G93.41 Metabolic encephalopathy; I50.32 Chronic diastolic (congestive) heart failure; L03.115 Cellulitis of right lower limb; L03.116 Cellulitis of left lower limb; E87.1 Hypo-osmolality and hyponatremia; M50.022 Cervical disc disorder at C5-C6 level with myelopathy; M50.122 Cervical disc disorder at C5-C6 level with radiculopathy; M48.02 Spinal stenosis, cervical region; E03.9 Hypothyroidism, unspecified; R51 Headache; R60.0 Localized edema; I25.10 Atherosclerotic heart disease of native coronary artery without angina pectoris; I11.0 Hypertensive heart disease with heart failure
CPT/HCPCS: 36415; 70450-TC; 71045-TC-FY; 72125-TC; 72141-TC; 73560-TC-LT-FY; 73560-TC-RT-FY; 80048; 80053; 82550; 83735; 84100; 84132; 84439; 84443; 84484; 85025; 85027; 85610; 86850; 86900; 86901; 87040; 93005; 94760; 97116-GP; 97162-GP; 99281-25; 99283-25; J0131; J1644; J7030